=== PATIENT | male | born 1970 | race Caucasian/White ===

== ENCOUNTER 2023-10-20 07:52 | Outpatient (CLI) | payer MEDICARE, SELFPAY ==
--- OUTSIDE RECORDS SUMMARY | 2023-10-20 07:59 | XMS_ITS | Referral Summary ---
Author Name Unknown Organization [facility] Address [address] [place] [id number] Care Team Providers Care Store Sales Manager Name Role Phone Dinesh Muir MD Unavailable [phone] Purvi Lennon MD Unavailable Darshana Huertas Unavailable [phone] Goran Dukes DO Primary Care Provider David Pereira MD Unavailable Jovany Dumont MD Unavailable [phone] Allergies Active Allergy Reactions Criticality Noted Date Comments Dust Mites 09/23/2016 Mold 09/23/2016 Penicillins 07/03/2015 Pollen Extract 09/23/2016 Cetirizine 09/25/2016 Itchy eyes Medications Medication Sig Dispensed Refills Start Date End Date Status albuterol (2.5 MG/3ML) 0.083% neb solutionIndications: Environmental allergies,Seasonal allergic rhinitis, unspecified allergic rhinitis trigger,Chronic allergic conjunctivitis Take 1 vial (2.5 mg) by nebulization every 4 hours as needed for shortness of breath / dyspnea or wheezing 360 mL 1 09/25/2016 Active fluticasone (FLONASE) 50 MCG/ACT sprayIndications:Sea maxi allergic rhinitis,Environment al allergies SPRAY 2 SPRAYS INTO BOTH NOSTRILS DAILY 16 mL 1 12/29/2016 Active albuterol (PROAIR HFA/PROVENTIL HFA/VENTOLIN HFA) 108 (90 BASE) MCG/ACT InhalerIndications:E xacerbation of persistent asthma, unspecified asthma severity Inhale 2 puffs into the lungs every 4 hours as needed for shortness of breath / dyspnea or wheezing 1 Inhaler 06/29/2017 Active cyclobenzaprine (FLEXERIL) 10 MG tablet Take 0.5 tablets (5 mg) by mouth 3 times daily as needed for muscle spasms 12 tablet 12/23/2017 Active diclofenac (VOLTAREN) 1 % topical gel Apply topically 2 times daily as needed Active lidocaine (LIDODERM) 5 % patch Place 1-3 patches onto the skin every 24 hours To prevent lidocaine toxicity, patient should be patch free for 12 hrs daily. Active loratadine-pseudoePH EDrine (CLARITIN-D 12-HOUR) 5-120 MG 12 hr tablet Take 1 tablet by mouth daily as needed Active montelukast (SINGULAIR) 10 MG tablet Take 10 mg by mouth nightly as needed Active ammonium lactate (AMLACTIN) 12 % external cream Apply topically 2 times daily Active gabapentin (NEURONTIN) 300 MG capsule Take 300 mg by mouth daily as needed Active olopatadine (PATADAY) 0.2 % ophthalmic solution Place 1 drop into both eyes daily Active miconazole (MICATIN) 2 % external powderIndications:Ye ast infection of the skin Apply topically every hour as needed for other (topical candidiasis) Continue until rash is gone 85 g 1 09/29/2020 Active clotrimazole (LOTRIMIN) 1 % external creamIndications:Yea st infection of the skin Apply topically 2 times daily Apply to yeast infection (rash in skin folds) until gone 45 g 1 09/29/2020 Active levofloxacin (LEVAQUIN) 500 MG tabletIndications:Ac [place] cystitis without hematuria Take 1 tablet (500 mg) by mouth daily 10 tablet 09/29/2020 Active Active Problems Problem Noted Date Diagnosed Date Yeast infection of the skin 09/29/2020 Acute cystitis without hematuria 09/29/2020 Cellulitis 09/28/2020 Diabetes mellitus 10/31/2017 CARDIOVASCULAR SCREENING; LDL GOAL LESS THAN 130 10/02/2016 Morbid obesity 06/24/2016 Overview: ddd lumbar secondary to Body mass index is 40.62 kg/(m^2). DDD (degenerative disc disease), lumbar 06/24/19 17 Environmental allergies Chronic midline low back pain without sciatica Immunizations Name Administration Dates Next Due TDAP Vaccine (Boostrix) 05/14/2016 Social History Tobacco Use Types Packs/Day Years Used Date Smoking Tobacco: Former Smokeless Tobacco: Never Alcohol Use Standard Drinks/Week Comments No 0 (1 standard drink = 0.6 oz pur e alcohol) PHQ-2 Answer Date Recorded PHQ-2 Score 0 06/21/2018 Adolescent Education Answer Date Record ed Getting School Help Needed Not on file 03/05 Sex and Gender Information Value Date Recorded Sex Assigned at Not on file Gender Identity Not on file Sexual Orientation Not on file Last Filed Vital Signs Vital Sign Reading Time Taken Comments Blood Pressure 119/69 09/29/2020 1:37 PM CDT Pulse 77 09/29/2020 7:37 AM CDT Temperature 36.4 ??C (97.6 ??F) 09/29/2020 1:37 PM CD T Respiratory Rate 18 09/29/2020 7:37 AM CDT Oxygen Saturation 97% 09/29/2020 7:37 AM CDT Inhaled Oxygen Concentration - - Weight 115.7 kg (255 lb 1.6 oz) 09/29/2020 6:04 AM CDT Height 170.2 cm (5' 7) 09/28/2020 10:1 9 AM CDT Body Mass Index 39.95 09/28/2020 10:19 AM CDT Plan of Treatment Not on file Procedures Procedure Name Priority Date/Time Associated Diagnosis Comments LIPID REFLEX TO DIRECT LDL PANEL Routine 09/08/2021 8:28 AM CDT Type 2 diabetes mellitus with hyperglycemia (H) [ICD-10-CM] Encounter for screening for lipoid disorders [ICD-10-CM] COMPREHENSIVE METABOLIC PANEL Routine 09/08/2021 8:28 AM CDT Type 2 diabetes mellitus with hyperglycemia (H) [ICD-10-CM] Encounter for screening for lipoid disorders [ICD-10-CM] HEMOGLOBIN A1C Routine 09/28/2020 10:35 AM CDT from Last 3 Months or Most Recently Relevant to Health Maintenance Results * (ABNORMAL) Lipid panel reflex to direct LDL (09/08/2021 8:28 AM CDT) Cholesterol 160 <=199 mg/dL 09/08/2021 4:19 PM CDT [facility] Triglycerides 99 <=149 mg/dL 09/08/2021 4:19 PM CDT [facility] Direct Measure HDL 22(L) >=40 mg/dL 09/08/2021 4:19 PM CDT [facility] Comment: HDL Cholesterol Reference Range: 0-2 years: No reference ranges established for patients under 2 years old ??at [facility] for lipid analytes. 2-8 years: Greater than 45 mg/dL 18 years and older: Female: Greater than or equal to 50 mg/dL Male: ?? Greater than or equal to 40 mg/dL LDL Cholesterol Calculated 118 <=129 mg/dL 09/08/2021 4:19 PM CDT [facility] Patient Fasting > 8hrs? Unknown 09/08/2021 4:19 PM CDT [facility] Blood BLOOD SPECIMEN / Unknown Client Draw / Unknown 09/08/2021 8:28 AM CDT 09/08/2021 3:38 PM CDT David Jimenez PA-C LAB - BLOOD ORD ERABLES [facility] [address] [place] [address] * (ABNORMAL) Comprehensive metabolic panel (09/08/2021 8:28 AM CDT) Sodium 138 136 - 145 mmol/L 09/08/2021 4:19 PM CDT [facility] Potassium 3.8 3.5 - 5.0 mmol/L 09/08/2021 4:19 PM CDT [facility] Chloride 101 98 - 107 mmol/L 09/08/2021 4:19 PM CDT [facility] Carbon Dioxide (CO2) 26 22 - 31 mmol/L 09/08/2021 4:19 PM CDT [facility] Anion Gap 11 5 - 18 mmol/L 09/08/2021 4:19 PM CDT [facility] Urea Nitrogen 9 8 - 22 mg/dL 09/08/2021 4:19 PM CDT [facility] Creatinine 0.71 0.70 - 1.30 mg/dL 09/08/2021 4:19 PM CDT [facility] Calcium 8.7 8.5 - 10.5 mg/dL 09/08/2021 4:19 PM CDT [facility] Glucose 177(H) 70 - 125 mg/dL 09/08/2021 4:19 PM CDT [facility] Alkaline Phosphatase 71 45 - 120 U/L 09/08/2021 4:19 PM CDT [facility] AST 8 0 - 40 U/L 09/08/2021 4:19 PM CDT [facility] ALT 12 0 - 45 U/L 09/08/2021 4:19 PM CDT [facility] Protein Total 6.4 6.0 - 8.0 g/dL 09/08/2021 4:19 PM CDT [facility] Albumin 3.2(L) 3.5 - 5.0 g/dL 09/08/2021 4:19 PM CDT [facility] Bilirubin Total 0.5 0.0 - 1.0 mg/dL 09/08/2021 4:19 PM CDT [facility] GFR Estimate >90 >60 mL/min/1.7 3m2 09/08/2021 4:19 PM CDT [facility] Comment:Effective May 152020 eGFRcr in adults is calculated using the 2020 CKD-EPI creatinine equation which includes age and gender (Shannon et al., NEJ, DOI: 10.1056/NSOKoi9183735) Blood BLOOD SPECIMEN / Unknown Client Draw / Unknown 09/08/2021 8:28 AM CDT 09/08/2021 3:38 PM CDT David Jimenez PA-C LAB - BLOOD ORD ERABLES [facility] [address] [place] [address] * (ABNORMAL) Hemoglobin A1c (09/28/2020 10:35 AM CDT) Hemoglobin A1C 9.6(H) 0 - 5.6 % 09/28/2020 11:14 AM CDT [facility] Comment: Normal <5.7% Prediabetes 5.7-6.4% ??Diabetes 6.5% or higher - adopted from ADA consensus guidelines. Blood 09/28/2020 10:3 5 AM CDT 09/28/2020 10:36 AM CDT Sal Mora DO LAB - BLOOD ORDERAB [facility] [address] [address], [facility] [phone] from Last 3 Months or Most Recently Relevant to Health Maintenance Advance Directives For more information, please contact: [phone] * Full Code (Latest Code Status on File) Date Activated Date Inactivated Comments 09/28/2020 10:12 AM 09/29/2020 4:35 PM All basic a nd advanced life-sustaining interventions are performed as appropriate Question Answer Comments Code status determined by: Discussion with aishwarya nt/ legal decision maker Care Teams Store Sales Manager Relationship Specialty [place] [address] [place] [address] PCP - General Family Medicine 09/28/20 Dinesh Muir MD [facility] [address] [address] Otolaryngology 08/25/18 Purvi Lennon MD [address] [facility] [address] [place], [place] [address] Otolaryngology 08/25/18 Darshana Huertas AuD [address] [facility] [address] [place], [place] [address] Special Events Manager Audiology 08/25/18 David Pereira MD [address] [place] [address] Urology 09/30/20 Jovany Dumont MD [address] [place] [address] Neurology 03/23/22
--- OUTSIDE RECORDS SUMMARY | 2023-10-20 07:59 | XMS_ITS | Clinical Summary ---
Author Name Unknown Organization [facility] Address [place], [place] [address] Care Team Providers Care Inspector Rag Sorting Name Role Phone Pcp, No Unavailable Unavailable Goran Dukes DO Primary Care Provide r Tayla Kiran RN Unavailable [phone] Allergies Active Allergy Reactions Criticality Noted Date Comments Diphenhydramine Hives 06/15/2023 Diatrizoate Allergen Shortness Of Breath,Nausea Only 06/15/2023 Penicillins Anaphylaxis High 12/15/2015 As a child had an anaphylaxis reaction Medications Medication Sig Dispensed Refills Start Date End Date Status Saccharomyces boulardii (FLORASTOR) 250 mg capsuleIndications :Cellulitis of right lower extremity Take 1 Capsule by mouth once daily. 14 capsule. 01/16/20 21 Active ARIPiprazole (Abilify) 2 mg tabletIndications: Depression, major, single episode, moderate (HC) Take 1 Tablet (2 mg) by mouth once daily. 90 Tablet 01/16/20 21 Active blood sugar diagnostic (Contour Next Test Strips) stripIndications:D iabetic peripheral neuropathy (HC) USE TO TEST BLOOD SUGAR 3 TIMES DAILY 300 Strip 3 01/16/20 21 Active lancets (Microlet Lancet)Indications :Diabetic peripheral neuropathy (HC) Dispense item covered by pt ins. E11.65 NIDDM type II, uncontrolled - Test 1 time/day 100 Each 01/16/20 21 Active traZODone (DESYREL) 50 mg tabletIndications: Insomnia, idiopathic Take 1 Tablet (50 mg) by mouth at bedtime. 30 Tablet 2 03/18/20 23 Active montelukast (SINGULAIR) 10 mg tabletIndications: Environmental allergies,Seasonal allergies Take 1 Tablet (10 mg) by mouth once daily. 90 Tablet 3 04/13/20 Active loratadine (Claritin) 10 mg DISINTEGRATING tabletIndications: Environmental allergies Place 1 Tablet (10 mg) on the tongue once daily if needed for Allergy Symptoms. 30 Tablet 1 04/13/20 23 Active fluticasone (50 mcg per actuation) nasal solution (FLONASE)Indicatio ns:Environmental allergies Inhale 2 Sprays into affected nostril(s) once daily. 48 mL 3 04/13/20 23 Active albuterol (PROVENTIL) 0.083 % neb solutionIndication s:Environmental allergies Inhale 3 mL (2.5 mg) via a nebulizer every 4 hours if needed for Shortness of Breath 1st choice or Shortness Of Breath. 150 mL 1 04/13/20 23 Active WalkerIndications: Chronic midline low back pain without sciatica Walker with front wheels for home use. 1 Each 06/17/19 24 Active lidocaine 5 % topical patchIndications:P ain Apply to intact skin to cover most painful area for max 12hr per 24hr period. 30 Patch 06/21/19 24 Active lidocaine 5 % topical patchIndications:A cute pain of left shoulder Apply to intact skin to cover most painful area for max 12hr per 24hr period. 90 Patch 1 06/29/19 24 Active insulin glargine, U-100, (Lantus Solostar U-100 Insulin) 100 unit/mL (3 mL) penIndications:Poo rly controlled type 2 diabetes mellitus (HC) Inject 50 units subcutaneous before bedtime. 45 mL 1 06/29/19 24 Active olopatadine (PATADAY) 0.2 % ophthalmic solutionIndication s:Environmental allergies Place 1 Drop into both eyes once daily. 7.5 mL 3 06/29/19 24 Active loratadine-pseudoe phedrine (Claritin-D 12 Hour) 5-120 mg 12hr tabletIndications: Environmental allergies Take 1 Tablet by mouth every 12 hours. 60 Tablet 5 06/29/19 24 Active durable medical equipment (DME)Indications:D egeneration of intervertebral disc of lumbar region,Gait abnormality Wheeled walker for home use 1 Each 06/30/19 24 Active BD Amanda 2nd Gen Pen Needle 32 gauge x Indications:D iabetic peripheral neuropathy (HC) INJECT UP TO FOUR TIMES DAILY DIRECTED 100 Each 3 07/12/19 Active clobetasol 0.05% (TEMOVATE 0.05% OINTMENT) 0.05 % ointmentIndication s:Hyperkeratosis Apply topically to affected area(s) two times daily. 60 g 1 08/02/19 24 Active wheelchairIndicati ons:Gait instability Wheelchair: Bariatric (over 250 lbs) with leg rests: (Swing away Length of need: 99 months 1 Each 10/05/19 24 Active Walker - 4 wheelsIndications: Gait instability For home use. Length of need: lifetime 1 Each 10/05/19 24 Active ammonium lactate 12% (LACHYDRIN) 12 % creamIndications:I ntertrigo Apply topically to affected area(s) two times daily. 140 g 6 10/05/19 24 Active insulin aspart, U-100, (NOVOLOG FLEXPEN) 100 unit/mL (3 mL) penIndications:Poo rly controlled type 2 diabetes mellitus (HC) Subcutaneous injection: 30 Units three times daily with meals 15 Each 3 10/05/19 24 Active Lantus Solostar U-100 Insulin 100 unit/mL (3 mL) penIndications:Poo rly controlled type 2 diabetes mellitus (HC) Inject 50 units subcutaneous before bedtime. Product desired: LANTUS SOLOSTAR 45 mL 3 10/05/19 24 Active ketorolac (TORADOL) 10 mg tabletIndications: Acute pain of right knee One tab p.o. bid prn pain 90 Tablet 1 10/05/19 24 Active blood sugar diagnostic (Contour Next Test Strips) stripIndications:T ype 2 diabetes mellitus with hyperglycemia, without long-term current use of insulin (HC) Dispense item covered by pt ins. E11.9 NIDDM type II - Test 4 times/day. Reason: High A1C 150 Each 5 10/13/19 Active Blood-Glucose Meter (Contour Next EZ Meter)Indications: Type 2 diabetes mellitus with hyperglycemia, without long-term current use of insulin (HC) Dispense glucose meter, test strips and lancets covered by the patient insurance. Test 4 times per day. 1 Each 10/13/19 24 Active Insulin [place], Disposable, (BD Amanda 2nd Gen Pen Needle) 32 gauge x 5/32Indications:T ype 2 diabetes mellitus with hyperglycemia, without long-term current use of insulin (HC) As directed. Remove the 2 covers on the insulin pen needle before administering insulin dose. 200 Each 3 10/13/19 24 Active FreeStyle Lacie 3 Sensor for continuous blood glucose monitor (CGM)Indications:T ype 2 diabetes mellitus with hyperglycemia, without long-term current use of insulin (HC) To be used to read blood sugars, follow projection engineer directions. 6 Each 3 10/13/19 24 Active FreeStyle Lacie 3 Hubert for continuous blood glucose monitor (CGM)Indications:T ype 2 diabetes mellitus with hyperglycemia, without long-term current use of insulin (HC) To be used to read blood sugars follow projection engineer directions. 1 Each 10/13/19 24 Active lancets (Microlet Lancet)Indications :Type 2 diabetes mellitus with hyperglycemia, without long-term current use of insulin (HC) Dispense item covered by pt ins. E11.9 NIDDM type II - Test 3 times/day, Reason: High A1C 150 Each 5 10/13/19 24 Active insulin lispro, U-100, (HumaLOG KwikPen Insulin) 100 unit/mL inpn penIndications:Typ e 2 diabetes mellitus with hyperglycemia, without long-term current use of insulin (HC) Inject 30 units subcutaneous three times daily before meals. Product desired: HUMALOG KWIKPEN 90 mL 1 10/13/19 24 Active FreeStyle Lacie 14 Day ReaderIndications: Type 2 diabetes mellitus without complication, without long-term current use of insulin (HC) To be used to read blood sugars per projection engineer's directions. 1 Each 07/01/19 22 024 Discontinued(*M edication adjustment) FreeStyle Lacie 14 Day SensorIndications: Type 2 diabetes mellitus without complication, without long-term current use of insulin (HC) Change sensor every 14 days 6 Each 3 07/01/19 22 024 Discontinued(*M edication adjustment) ammonium lactate 12% (LACHYDRIN) 12 % creamIndications:I ntertrigo APPLY TO THE AFFECTED AREA TWICE DAILY DIRECTED 140 g 6 10/07/19 22 024 Discontinued(Re order (E-cancel not sent)) insulin lispro (HUMALOG; ADMELOG) 100 unit/mL injectionIndicatio ns:Type 2 diabetes mellitus with hyperglycemia, without long-term current use of insulin (HC) Inject 4 units subcutaneous before dinner. 06/17/19 24 024 Discontinued(*M edication adjustment) Lantus Solostar U-100 Insulin 100 unit/mL (3 mL) penIndications:Poo rly controlled type 2 diabetes mellitus (HC) Inject 50 units subcutaneous before bedtime. Product desired: LANTUS SOLOSTAR 45 mL 1 06/29/19 24 024 Discontinued Lantus Solostar U-100 Insulin 100 unit/mL (3 mL) penIndications:Poo rly controlled type 2 diabetes mellitus (HC) INJECT 50 UNITS SUBCUTANEOUS BEFORE BEDTIME. 60 mL 1 10/02/19 24 024 Discontinued(Re order (E-cancel not sent)) Active Problems Problem Noted Date Diagnosed Date Hyperkeratosis 08/02/2023 Venous stasis ulcer of right calf with fat layer exposed 08/02/2023 Diabetic peripheral neuropathy 07/05/2023 Cellulitis of right leg without foot 06/16/2023 Chronic acquired lymphedema 06/16/2023 Hyperkeratosis of skin 06/16/2023 Uncontrolled type 2 diabetes mellitus with hyper glycemia 06/16/2023 Non-pressure chronic ulcer o f other part of right lower leg limited to breakdown of skin 06/16/2023 Depression, major, single episode, moderate 10/0 11/2022 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 Resolved Problems Problem Noted Date Diagnosed Date Resolved Date Cellulitis of right lower extremity 01/12/2020 06/16/2023 COPD exacerbation 10/13/2016 01/22/2022 Tobacco abuse 10/13/2016 06/16/2023 Encounters Date Type Department Care Team Description 10/13/2023 9:00 AM CDT Phone Office Visit [facility] [address] [place] [address] Tayla Kiran RN Diabetes 10/11/2023 Orders Only [facility] Scanner 1 scan: (1-Ord) [facility], 10/11/2023 10/06/2023 Telephone [facility] [address] [place] [phone] Goran Dukes, Results 10/06/2023 Orders Only [address] [phone] Goran Dukes, <No scans attached> 10/05/2023 1:50 PM CDT Office Visit [facility] [phone] [place] [phone] Goran Dukes, Diabetes (Not fasting- The patient is requesting to speak about medication); Fatigue (The patient reports having leg fatigue like he is about to fall. The patient wants to discuss a walker or wheel chair options. ) 10/05/2023 Telephone [facility] [id number] [place] [address] Jocelynn Jay, KEHINDE Refill Request (Clobetasol 0.05%) 10/05/2023 Telephone [facility] [id number] [place] [phone] Goran Dukes DO Refill Request (KETOROLAC 10 MG TABLETS ) 10/05/2023 Travel 10/01/2023 Refill [facility] [id number] [place] [phone] Goran Dukes DO Refill Request (Lantus Solostar U-100 Insulin) 09/27/2023 Telephone [facility] [address] [place] [phone] Goran Dukes DO Medication Management (Walker) 09/01/2023 3:20 PM CDT - 09/01/2023 11:59 PM CDT Hospital Encounter [facility] [address] [phone] 09/01/2023 Travel 08/18/2023 11:59 AM BURGLAR ALARM MECHANIC - 08/18/2023 11:59 PM BURGLAR ALARM MECHANIC Hospital Encounter [facility] [address] [address] Serge Leslie MD Bilateral leg edema 08/18/2023 Travel 08/13/2023 10:15 AM BURGLAR ALARM MECHANIC - 08/13/2023 11:59 PM BURGLAR ALARM MECHANIC Hospital Encounter [facility] [address] [phone] 08/13/2023 Orders Only [facility] [address] [id number] Serge Leslie MD <No scans attached> 08/13/2023 Travel 08/02/2023 10:12 AM BURGLAR ALARM MECHANIC - 08/02/2023 11:59 PM BURGLAR ALARM MECHANIC Hospital Encounter [facility] [address] [phone] 08/02/2023 Orders Only [facility] [address] [address] Jocelynn Jay NP <No scans attached> 08/02/2023 Travel 07/29/2023 Telephone [facility] [address] [place] [phone] Goran Dukes DO Failed Appointment from Last 3 Months Immunizations Name Administration Dates Next Due COVID-19 vaccine (ClearStory Data 30mcg/0.3mL) BONNIE Mix 01/16/2021 Influenza, IIV4 03/16/2023,05/01/2022 Tdap 05/14/2016 Family History Medical History Relation Name Comments No Known Problems Father No Known Problems Mother Relation Name Status Comments Father Mother Other Social History Tobacco Use Types Packs/Day Years Used Date Smoking Tobacco: Former Cigarettes Q uit: 2013 Smokeless Tobacco: Never Tobacco Cessation:Counseling Given: Not Answered Comments:stated he quit 5 weeks ago Alcohol Use Standard Drinks/Week Comments Yes 0 (1 standard drink = 0.6 oz pur e alcohol) monthly if that PHQ-2 Answer Date Recorded PHQ-2 TOTAL SCORE 0 03/18/2023 Social Connections Answer Date Recorded Frequency of Communication with Friends and Fami ly 0 03/18/2023 Financial Resource Strain Answer Date R ecorded Difficulty of Paying Living Expenses 3 03/18/2023 Difficulty of Paying Living Expenses Not on file 03/18/2023 Food Insecurity Answer Date Recorded Worried About Running Out of Food in the Last Ye ar 1 03/18/2023 Transportation Needs Answer Date Record ed Lack of Transportation (Medical) 1 03/18/2023 Housing Stability Answer Date Recorded Unable to Pay for Housing in the Last Year 1 03/18/2023 Sex and Gender Information Value Date Recorded Sex Assigned at Not on file Gender Identity Not on file Sexual Orientation Not on file Obstetrics History Last Filed Vital Signs Vital Sign Reading Time Taken Comments Blood Pressure 124/84 10/05/2023 1:49 PM CDT Pulse 82 10/05/2023 1:49 PM CDT Temperature 36.3 ??C (97.4 ??F) 06/17/2023 7:45 AM CS T Respiratory Rate 20 06/17/2023 7:45 AM BURGLAR ALARM MECHANIC Oxygen Saturation 98% 10/05/2023 1:49 PM CDT Inhaled Oxygen Concentration - - Weight 131.5 kg (290 lb) 10/05/2023 1:49 PM CDT Height 162.6 cm (5' 4) 10/05/2023 1:49 PM CDT Body Mass Index 49.78 10/05/2023 1:49 PM CDT Plan of Treatment Upcoming Encounters Date Type Department Care Team (Late st Contact Info) Description 10/27/2023 11:00 AM CDT Patient Outreach [facility] [address] [place] [address] Tayla Kiran RN [address] [place] [address] Health Maintenance Due Date Last Done Comments Pneumococcal series for age 6-64 (1 of 2 - PCV) 1974 Hepatitis B series for Diabe jeremias (1 of 3 - 19+ 3-dose series) 1987 Colonoscopy through age 75 2013 Zoster (shingles) series for age 50+ (1 of 2) 2018 Influenza for age 50-64 02/13/2024 03/16/2023, 05/01 Depression screening for age 12+ 03/18/2024 03/18/2023, 03/18/2023, 03/16/2023, Additional history exists BMI (ht and wt on same day) for age 18+ 10/04/2024 10/05/2023, 03/18/2023, 01/22/2022, Additional history exists Tetanus booster 05/14/2026 05/14/2016 Lipids for age 45-75 10/04/2028 10/05/2023, 03/18/2023, 01/22/2022, Additional history exists Tdap Completed 05/14/2016 Hepatitis C screening for ag e 18-79 Completed 01/22/2022 COVID-19 vaccine series Completed 03/16/20, 02/20/2022, 02/06/2021, Additional history exists HIV for age 15-65 Completed 10/05/2023 Procedures Procedure Name Priority Date/Time Associated Diagnosis Comments RI DIAB MANAGE TRN PER INDIV Routine 10/13/2023 Type 2 diabetes mellitus with hyperglycemia, without long-term current use of insulin (HC) SCAN-EYE EXAM 10/11/2023 12:00 AM CDT ANTI HIV 1/2 Routine 10/05/2023 2:39 PM CDT Screening for HIV (human immunodeficiency virus) LIPID PANEL W REFLEX MEASURED LDL Routine 10/05/2023 2:39 PM CDT Diabetic peripheral neuropathy (HC) HEMOGLOBIN A1C Routine 10/05/2023 2:39 PM CDT Diabetic peripheral neuropathy (HC) COMP METABOLIC PANEL Routine 10/05/2023 2:39 PM CDT Diabetic peripheral neuropathy (HC) CBC W PLT NO DIFF Routine 10/05/2023 2:3 9 PM CDT Diabetic peripheral neuropathy (HC) US VENOUS INSUFFICIENCY LOWER EXTREMITY BILATERAL Routine 08/18/2023 11:50 AM BURGLAR ALARM MECHANIC Bilateral leg edema ANTI HCV Routine 01/22/2022 12:50 PM CDT Need for hepatitis C screening test from Last 3 Months or Most Recently Relevant to Health Maintenance Results * RI DIAB MANAGE TRN PER INDIV (10/13/2023) Pathologist [facility] DIABETIC ED Goran Dukes DO PB - [facility] * SCAN-EYE EXAM (10/11/2023 12:00 AM CDT) Scanner OTHER * (ABNORMAL) LIPID PANEL W REFLEX MEASURED LDL (10/05/2023 2:39 PM CDT) CHOLESTEROL,TOTAL 187 100 - 199 mg/dL 10/06/2023 1:31 AM CDT [facility] Comment: Cholesterol, Total Reference Ranges Desirable <200 mg/dL Borderline 200-239 mg/dL High >=240 mg/dL TRIGLYCERIDES 147 <150 mg/dL 10/06/2023 1:31 AM CDT [facility] HDL CHOLESTEROL 27(L) >40 mg/dL 1:31 AM CDT [facility] NON-HDL CHOLESTEROL 160(H) <145 mg/dl 10/06/2023 1:31 AM CDT [facility] CHOL/HDL RATIO 6.93(H) <4.50 10/06/2023 1:31 AM CDT [facility] LDL CHOLESTEROL 131(H) <=130 mg/dL 10/06/2023 1:31 AM CDT [facility] VLDL CHOLESTEROL 29 <=30 mg/dL 10/06/2023 1:31 AM CDT [facility] PROVIDER ORDERED STATUS RANDOM 10/06/2023 1:31 AM CDT [facility] Blood BLOOD SPECIMEN / Unknown Venipuncture / Unknown 10/05/2023 2:39 PM CDT 10/05/2023 2:39 PM CDT Goran Dukes DO CHEMISTRY [facility] [address] [place] [address], * (ABNORMAL) CBC W PLT NO DIFF (10/05/2023 2:39 PM CDT) WHITE BLOOD COUNT 8.8 4.5 - 11.0 thou/cu mm 10/05/2023 2:43 PM CDT [facility] RED BLOOD COUNT 4.49 4.30 - 5.90 mil/cu mm 10/05/2023 2:43 PM CDT [facility] HEMOGLOBIN 12.6(L) 13.5 - 17.5 g/dL 10/05/2023 2:43 PM CDT [facility] HEMATOCRIT 38.3 37.0 - 53.0 % 10/05/2023 2:43 PM CDT [facility] MCV 85 80 - 100 fL 10/05/2023 2:43 PM CDT [facility] MCH 28.1 26.0 - 34.0 pg 10/05/2023 2:43 PM CDT [facility] MCHC 32.9 32.0 - 36.0 g/dL 10/05/2023 2:43 PM CDT [facility] RDW 13.2 11.5 - 15.5 % 10/05/2023 2:43 PM CDT [facility] PLATELET COUNT 344 140 - 440 thou/cu mm 10/05/2023 2:43 PM CDT [facility] MPV 9.6 6.5 - 11.0 fL 10/05/2023 2:43 PM CDT [facility] NRBC 0.0 % 10/05/2023 2:43 PM CDT [facility] ABS NRBC 0.0 thou /cu mm 10/05/2023 2:43 PM CDT [facility] Blood BLOOD SPECIMEN / Unknown Venipuncture / Unknown 10/05/2023 2:39 PM CDT 10/05/2023 2:39 PM CDT Goran Dukes DO HEMATOLOGY Performing Organization Address [facility] Co de Phone Number [facility] [address] [place] [address], [place] * ANTI HIV 1/2 [37078.0] (10/05/2023 2:39 PM CDT) Pathologist [facility] HIV-1/HIV-2 SCREEN Non-Reacti ve Non-Reacti ve 10/06/2023 1:17 AM CDT [facility] Comment:HIV-1 p24 and HIV-1/ HIV-2 Ab Not Detected. Blood BLOOD SPECIMEN / Unknown Venipuncture / Unknown 10/05/2023 2:39 PM CDT 10/05/2023 2:39 PM CDT Goran Dukes DO SEND OUTS Performing Organization Address [facility] Co de Phone Number [facility] [address] [place] [address], [place] * (ABNORMAL) HEMOGLOBIN A1C MONITORING (POCT) (10/05/2023 2:39 PM CDT) Pathologist [facility] HEMOGLOBIN A1C MONITORING (POCT) 10.0(H) <=6.4 % 10/05/2023 2:54 PM CDT [facility] Blood BLOOD SPECIMEN / Unknown Venipuncture / Unknown 10/05/2023 2:39 PM CDT 10/05/2023 2:39 PM CDT Narrative [facility] - 10/05/2023 2:54 PM CDT ? (<=6.9%) ? Indicates good control ? (7.0% to 7.9%) ? Indicates fair control ? (>=8.0%) ? Indicates poor control ?? NOTE: ??These thresholds are guidelines and ?individual targets may vary. Falsely low levels may be seen with: Recent Transfusion, Recent Significant Blood Loss, Hemolytic Diseases, or Falsely elevated levels may be seen with: Untreated Anemias, Splenectomy ? Goran Dukes DO CHEMISTRY [facility] [address] [place] [address], * (ABNORMAL) COMP METABOLIC PANEL (10/05/2023 2:39 PM CDT) SODIUM 136 136 - 145 mmol/L 10/06/2023 1:31 AM [facility] POTASSIUM 5.4(H) 3.5 - 5.1 mmol/L 10/06/2023 1:31 AM [facility] CHLORIDE 99 98 - 107 mmol/L 10/06/2023 1:31 AM [facility] CO2,TOTAL 26 22 - 29 mmol/L 10/06/2023 1:31 AM [facility] ANION GAP 11 5 - 18 10/06/2023 1:31 AM [facility] GLUCOSE 298(H) 70 - 99 mg/dL 10/06/2023 1:31 AM [facility] CALCIUM 9.5 8.6 - 10.0 mg/dL 10/06/2023 1:31 AM [facility] BUN 15 6 - 20 mg/dL 10/06/2023 1:31 AM [facility] CREATININE 0.83 0.70 - 1.20 mg/dL 10/06/2023 1:31 AM [facility] BUN/CREAT RATIO 18 10 - 20 1:31 AM CDT [facility] eGFR >90 >90 mL/min/1.7 3m2 10/06/2023 1:31 AM CDT [facility] Comment:As of 2021, eG FR is calculated by the CKD-EPI creatinine equation without race adjustment. ??eGFR can be influenced by muscle mass, exercise, and diet. ??The reported eGFR is an estimation only and is only applicable if the renal function is stable. ALBUMIN 4.0 4.0 - 4.9 g/dL 10/06/2023 1:31 AM CDT [facility] PROTEIN,TOTAL 7.3 6.0 - 8.0 g/dL 10/06/2023 1:31 AM CDT [facility] BILIRUBIN,TOTAL 0.2 0.0 - 1.2 mg/dL 10/06/2023 1:31 AM CDT [facility] ALK PHOSPHATASE 83 40 - 129 IU/L 10/06/2023 1:31 AM CDT [facility] ALT (SGPT) 12 10 - 50 IU/L 10/06/2023 1:31 AM CDT [facility] AST (SGOT) 13 10 - 50 IU/L 10/06/2023 1:31 AM CDT [facility] Blood BLOOD SPECIMEN / Unknown Venipuncture / Unknown 10/05/2023 2:39 PM CDT 10/05/2023 2:39 PM CDT Goran Dukes DO [facility]MISTRY [facility] [address] [place] [address], * VENOUS INSUFFICIENCY LOWER EXTREMITY BILATERAL (08/18/2023 11:50 AM BURGLAR ALARM MECHANIC) Anatomical Region Laterality Modality LEGS Ultrasound, Ultr asound 08/22/2023 4:43 PM CDT Narrative 08/22/2023 4:43 PM CDT For Patients: ??As a result of the Century Cures Act, medical imaging exams and procedure reports are released immediately into your electronic medical record. ??You may view this report before your referring provider. ??If you have questions, please contact your health care provider. Indication: Bilateral lower extremity edema Technique: Ultrasound of the bilateral lower extremity deep and superficial veins. Ultrasound performed using real-time morel scale imaging (B-mode 2D), color-flow Doppler and spectral analysis. Assessment of venous flow and competence was performed by Doppler spectral analysis and documented at exam specific sites. Venous insufficiency studies were performed in an upright position. Vein diameters were measured in millimeters (mm) and reflux times if present were measured in seconds by caliper method. Significant reflux defined as greater than 0.5 seconds for the superficial veins, greater than 0.75 seconds for perforators, and greater than 1.0 second for deep veins. Comparison: None available Findings: Bilateral common femoral, femoral, popliteal, and posterior tibial veins are patent and compressible. No deep venous insufficiency. Greater saphenous and small saphenous veins are patent bilaterally. Right greater saphenous vein: Saphenofemoral junction: 7.0 mm, no reflux Proximal thigh: 6.6 mm, no reflux Mid thigh: 5.9 mm, no reflux Distal thigh: 5.9 mm, no reflux Level of knee: 5.6 mm, no reflux Proximal calf: 3.0 mm, no reflux Mid calf: 2.3 mm, 0.5 seconds reflux Distal calf: 3.3 mm, no reflux Right small saphenous vein: Proximal calf: 2.7 mm, no reflux Mid calf: 3.3 mm, no reflux Distal calf: 2.7 mm, no reflux Left greater saphenous vein: Saphenofemoral junction: 6.4 mm, no reflux Proximal thigh: 6.5 mm, no reflux Mid thigh: 6.2 mm, no reflux Distal thigh: 4.7 mm, no reflux Level of knee: 4.9 mm, 0.6 seconds reflux Proximal calf: 3.3 mm, no reflux Mid calf: 3.3 mm, 0.9 seconds reflux Distal calf: 2.7 mm, no reflux Left small saphenous vein: Proximal calf: 3.0 mm, no reflux Mid calf: 2.4 mm, no reflux Distal calf: 2.5 mm, no reflux Impression: 1. Right leg - No deep or superficial venous thrombus. - No deep venous reflux. - single site of reflux noted in the mid calf portion of the greater saphenous vein. No other site of superficial venous reflux. 2. Left leg - No deep or superficial venous thrombus. - No deep venous reflux. - reflux noted in the greater saphenous vein at the level of the knee and in the mid calf. No other site of superficial venous reflux. Dictated by Rene Gooden MD @ 08/22/2023 4:43:44 PM (Electronically Signed) Procedure Note Rene Gooden MD - 08/22/2023 For Patients: As a result of the Cures Act, medical imagingexams and procedure reports are released immediately into your electronicmedical record. You may view this report before your referring provider.If you have questions, please contact your health care provider. Indication: Bilateral lower extremity edema Technique: Ultrasound of the bilateral lower extremity deep and superficial veins.Ultrasound performed using real-time morel scale imaging (B-mode 2D),color-flow Doppler and spectral analysis. Assessment of venous flow andcompetence was performed by Doppler spectral analysis and documented atexam specific sites. Venous insufficiency studies were performed in anupright position. Vein diameters were measured in millimeters (mm) andreflux times if present were measured in seconds by caliper method.Significant reflux defined as greater than 0.5 seconds for the superficialveins, greater than 0.75 seconds for perforators, and greater than 1.0second for deep veins. Comparison: None available Findings: Bilateral common femoral, femoral, popliteal, and posterior tibial veinsare patent and compressible. No deep venous insufficiency. Greater saphenous and small saphenous veins are patent bilaterally. Right greater saphenous vein: Saphenofemoral junction: 7.0 mm, no reflux Proximal thigh: 6.6 mm, no reflux Mid thigh: 5.9 mm, no reflux Distal thigh: 5.9 mm, no reflux Level of knee: 5.6 mm, no reflux Proximal calf: 3.0 mm, no reflux Mid calf: 2.3 mm, 0.5 seconds reflux Distal calf: 3.3 mm, no reflux Right small saphenous vein: Proximal calf: 2.7 mm, no reflux Mid calf: 3.3 mm, no reflux Distal calf: 2.7 mm, no reflux Left greater saphenous vein: Saphenofemoral junction: 6.4 mm, no reflux Proximal thigh: 6.5 mm, no reflux Mid thigh: 6.2 mm, no reflux Distal thigh: 4.7 mm, no reflux Level of knee: 4.9 mm, 0.6 seconds reflux Proximal calf: 3.3 mm, no reflux Mid calf: 3.3 mm, 0.9 seconds reflux Distal calf: 2.7 mm, no reflux Left small saphenous vein: Proximal calf: 3.0 mm, no reflux Mid calf: 2.4 mm, no reflux Distal calf: 2.5 mm, no reflux Impression: 1. Right leg - No deep or superficial venous thrombus. - No deep venous reflux. - single site of reflux noted in the mid calf portion of the greatersaphenous vein. No other site of superficial venous reflux. 2. Left leg - No deep or superficial venous thrombus. - No deep venous reflux. - reflux noted in the greater saphenous vein at the level of the knee andin the mid calf. No other site of superficial venous reflux. Dictated by Rene Gooden MD @ 08/22/2023 4:43:44 PM (Electronically Signed) Serge Leslie MD [place] * ANTI HCV (01/22/2022 12:50 PM CDT) HEPATITIS C ANTIBODY Non-React cherelle Non-React cherelle 01/22/2022 9:10 PM CDT [facility] Comment:Antibodies to HCV no t detected; does not exclude the possibility of exposure to HCV. Blood BLOOD SPECIMEN / Unknown Venipuncture / Unknown 01/22/2022 12:50 PM CDT 01/22/2022 12:51 PM CDT Goran Dukes DO SEND OUTS [facility] [address] [place] [address], [place] from Last 3 Months or Most Recently Relevant to Health Maintenance Advance Directives * Full Code (Latest Code Status on File) Date Activated Date Inactivated Comments 06/15/2023 11:00 PM 06/17/2023 2:40 PM Question Answer Comments Code Status Discussion: Reviewed Preferences * Full Code Date Activated Date Inactivated Comments 01/11/2020 5:28 PM 01/12/2020 7:09 PM Question Answer Comments Code Status Discussion: Discussed Care Teams Inspector Rag Sorting Relationship Specialty [place] [address] [place] [address] PCP - General Family Practice 10/16/20 Pcp, No . 08/04/14 Tayla Kiran, RN [address] [place] [address] Diabetes Care Management Registered Nurse 10/13/2308/13
--- OUTSIDE RECORDS SUMMARY | 2023-10-20 07:59 | XMS_ITS | Clinical Summary ---
Author Name Unknown [facility] Address [address] [place] [address] Care Team Providers Care Press Catcher Name Role Phone Needs Pcp, Assignment Primary Care Provider [phone] Source Comments You are receiving this document as you are listed as the primary care provider,follow-up provider, or the patient has been referred to you for consultation.This is in compliance with the Medicare and[facility] EHR Incentive Program,which states Providers who transition their patient to another setting of careor provider of care or refers their patient to another provider of care shouldprovide summary care record for each transition of care or referral. [place] Allergies Active Allergy Reactions Criticality Noted Date Comments Penicillins Anaphylaxis High 02/09/2016 Medications Medication Sig Dispensed Refills Start Date End Date Status lidocaine (LIDODERM) 5 % patchIndications:Ch ronic right shoulder pain Apply 1 Patch to skin . Leave patch on for 12 hours then remove. Max 1 patch within 24 hours period. 6 Each 2 02/09/2016 Active Lidocaine, Anorectal, 5 % creamIndications:Ch ronic right shoulder pain As directed. 30 g 2 02/09/2016 Active fluticasone (FLONASE) 50 MCG/ACT nasal solution Place 2 Sprays into both nostrils daily. 16 g 3 02/23/2016 Active loratadine-pseudoep hedrine (CLARITIN-D 24HOUR) 10-240 MG tablet Take 1 Tab by mouth daily. ana 30 Tab 3 02/23/2016 Active ALBUterol 2.5 mg/3 mL, 0.083%, nebulizer solution INHALE 2.5 MG BY NEBULAZATION EVERY 4 HOURS NEEDED 0 05/11/2016 Active levalbuterol (XOPENEX) 1.25 MG/3ML nebulizer solution Inhale 1.25 mg. 01/05/2016 Active buPROPion (WELLBUTRIN SR) 150 MG 12 hour release tablet Take 1 Tab by mouth two times a day. 60 Tab 11/16/2016 Active Active Problems No known active problems Immunizations Name Administration Dates Next Due Tdap 05/14/2016 Social History Tobacco Use Types Packs/Day Years Used Date Smoking Tobacco: Former Cigarettes Smokeless Tobacco: Never Alcohol Use Standard Drinks/Week Comments No 0 (1 standard drink = 0.6 oz pur e alcohol) Sex and Gender Information Value Date Recorded Sex Assigned at Not on file Gender Identity Not on file Sexual Orientation Not on file Last Filed Vital Signs Vital Sign Reading Time Taken Comments Blood Pressure 119/57 11/16/2016 2:37 PM CDT Pulse 78 11/16/2016 2:37 PM CDT Temperature 36.9 ??C (98.4 ??F) 11/16/2016 2:37 PM CD T Respiratory Rate 16 11/16/2016 2:37 PM CDT Oxygen Saturation 97% 11/16/2016 2:37 PM CDT Inhaled Oxygen Concentration - - Weight 116.6 kg (257 lb) 03/23/2019 1:56 PM CDT Height 163.8 cm (5' 4.5) 03/23/2019 1:56 PM CDT Body Mass Index 43.43 03/23/2019 1:56 PM CDT Plan of Treatment Health Maintenance Due Date Last Done Comments Colon Cancer Screening Plan Due 1968 Hep C Screening (Preventive Services) 1968 PSA Screening Discussion 1968 HIV Screening (Preventive Services) 1984 Adult Preventive Visit 1986 HepB (1) 1987 Cholesterol 2003 Zoster/Shingles (1 of 2) 2018 COVID-19 Vaccine (2 - 2022-2 4 season) 2023 01/16/2021 Influenza (Season Ended) 2024 DTaP/Tdap/Td (2 - Tdap) 05/14/2026 05/14/2016 HepA Aged Out No longer eligi ble based on patient's age to complete this topic Hib Aged Out No longer eligi ble based on patient's age to complete this topic IPV (Polio) Aged Out No longer eligi ble based on patient's age to complete this topic MCV4 Aged Out No longer eligi ble based on patient's age to complete this topic Pneumococcal Aged Out No longer eligi ble based on patient's age to complete this topic Care Teams Press Catcher Relationship Specialty Start Date End Date Needs Pcp, [place] [address] PCP - General 07/02/16
--- OUTSIDE RECORDS SUMMARY | 2023-10-20 07:59 | XMS_ITS | Clinical Summary ---
Author Name Unknown Organization [facility] Address [address] [place] [address] Care Team Providers Care Benefits Sales Consultant Name Role Phone Dinesh Muir MD Unavailable Purvi Lennon MD Unavailable [phone] Darshana Huertas Unavailable [phone] Goran Dukes DO Primary Care Provider David Pereira MD Unavailable Jovany Dumont MD Unavailable [phone] Allergies Active Allergy Reactions Criticality Noted [...] 09/29/2020 Active levofloxacin (LEVAQUIN) 500 MG tabletIndications:Ac [place] cystitis without hematuria Take 1 tablet (500 [...] Dates Next Due TDAP Vaccine (Boostrix) 05/14/2016 Family History Medical History Relation Comments Family History Negative Father Family History Negative Mother Relation Status Comments Father Mother Social History Tobacco Use Types Packs/Day Years [...] 09/28/2020 10:19 AM CDT Plan of Treatment Health Maintenance Due Date Last Done Comments ADVANCE CARE PLANNING 1968 ANNUAL REVIEW OF HM ORDERS 1968 CT COLONOGRAPHY 1968 DIABETIC FOOT EXAM 1968 EYE EXAM 1968 FIT 1968 FLEX SIG 1968 MICROALBUMIN 1968 sDNA (Cologuard) 1968 Pneumococcal Vaccine: Pediatrics (0 to 5 Years) and At-Risk Patients (6 to 64 Years) (1 of 2 - PCV) 1974 COLONOSCOPY 1978 COLORECTAL CANCER SCREENING 1978 HIV SCREENING 1983 HEPATITIS C SCREENING 1986 MEDICARE ANNUAL WELLNESS VISIT 1986 HEPATITIS B IMMUNIZATION (1 of 3 - 19+ 3-dose series) 1987 LUNG CANCER SCREENING 2018 ZOSTER IMMUNIZATION (1 of 2) 2018 A1C 03/30/2021 09/28/2020 BMP 09/08/2022 09/08/2021, 09/12, 09/28/2020, Additional history exists LIPID 09/08/2022 09/08/2021 COVID-19 Vaccine ( season) 2023 02/20/2022, 02/06/2021, 01/16/2021 PHQ-2 (once per calendar year) 2023 09/25/2016, 05/29/2016 INFLUENZA VACCINE (Season Ended) 2024 DTAP/TDAP/TD IMMUNIZATION (2 - Td or Tdap) 05/14/2026 05/14/2016 HPV IMMUNIZATION Aged Out No longer e ligible based on patient's age to complete this topic IPV IMMUNIZATION Aged Out No longer e ligible based on patient's age to complete this topic MENINGITIS IMMUNIZATION Aged Out No l onger eligible based on patient's age to complete this topic RSV MONOCLONAL ANTIBODY Aged Out No l onger eligible based on patient's age to complete this topic Procedures Procedure Name Priority Date/Time Associated Diagnosis [...] for patients under 2 years old ??at [facility] for lipid analytes. 2-8 years: Greater [...] LAB - BLOOD ORD ERABLES [facility] [address] [place] [address] * (ABNORMAL) Comprehensive metabolic panel (09/08/2021 8:28 AM CDT) Sodium 138 136 - 145 mmol/L 09/08/2021 4:19 PM CDT [facility] Potassium 3.8 3.5 - 5.0 mmol/L 09/08/2021 4:19 PM CDT [facility] Chloride 101 98 - 107 mmol/L 09/08/2021 4:19 PM CDT [facility] Carbon Dioxide (CO2) 26 22 - 31 mmol/L 09/08/2021 4:19 PM CDT [facility] Anion Gap 11 5 - 18 mmol/L 09/08/2021 4:19 PM CDT [facility] Urea Nitrogen 9 8 - 22 mg/dL 09/08/2021 4:19 PM CDT [facility] Creatinine 0.71 0.70 - 1.30 mg/dL 09/08/2021 4:19 PM CDT [facility] Calcium 8.7 8.5 - 10.5 mg/dL 09/08/2021 4:19 PM CDT [facility] Glucose 177(H) 70 - 125 mg/dL [...] includes age and gender (Shannon et al., NEJM, DOI: 10.1056/[id number]) Blood BLOOD SPECIMEN / Unknown Client Draw / Unknown 09/08/2021 8:28 AM CDT 09/08/2021 3:38 PM CDT David Jimenez PA-C LAB - BLOOD ORD ERABLES [facility] [address] [place] [address] * (ABNORMAL) Hemoglobin A1c (09/28/2020 10:35 AM CDT) Hemoglobin A1C 9.6(H) 0 - 5.6 % 09/28/2020 11:14 AM CDT [facility] Comment: Normal <5.7% Prediabetes 5.7-6.4% ??Diabetes 6.5% or higher - adopted from ADA consensus guidelines. Blood 09/28/2020 10:3 5 AM CDT 09/28/2020 10:36 AM CDT Sal Mora DO LAB - BLOOD ORDERAB LES [facility] [address] [address], [place] [phone] from Last 3 Months or Most Recently Relevant to Health Maintenance Advance Directives For more information, please contact: [phone] * Full Code (Latest Code Status on File) Date Activated Date Inactivated Comments 09/28/2020 10:12 AM 09/29/2020 4:35 PM All basic a nd advanced life-sustaining interventions are performed as appropriate Question Answer Comments Code status determined by: Discussion with aishwarya nt/ legal decision maker Care Teams Benefits Sales Consultant Relationship Specialty [place] [address] [place] [address] PCP - General Family Medicine 09/28/20 Dinesh Muir MD [facility] [address] [id number] Otolaryngology 08/25/18 Purvi Lennon MD [address] [facility] [address] [place] [address] Otolaryngology 08/25/18 Darshana Huertas AuD [address] [facility] [address] [place] [address] Press Pipe Inspector Audiology 08/25/18 David Pereira MD [address] [place] [address] Urology 09/30/20 Jovany Dumont MD [address] [place] [address] Neurology 03/23/22
--- OUTSIDE RECORDS SUMMARY | 2023-10-20 07:59 | XMS_ITS | Encounter Summary ---
Author Name Unknown Organization [facility] Address [address] [facility] [place] [address] Care Team Providers Care Fur Storage Clerk Name Role Phone King Garcia MD Primary Care Provider Unavailable No Ref-Primary, Physician Primary Care Provider [facility][Note 3] Primary Care Provide r Go Lr MD Unavailable Go Lr MD Unavailable Be Willard MD Primary Care Provider [phone] Alida Muir MD Unavailable [phone] Purvi Lennon MD Unavailable [phone] Darshana Huertas Unavailable [phone] Goran Dukes DO Primary Care Provider David Pereira MD Unavailable [phone] Jovany Dumont MD Unavailable [phone] Reason for Visit * Reason Comments Medication Refill Encounter Details Date Type Department Care Team (Late st Contact Info) Description 12/25/2016 Refill [facility] [place] [address] [address] Seda Rizzo PA-C [address] [id number] Medication Refill Social History Tobacco Use Types Packs/Day Years Used Date Smoking Tobacco: Former Smokeless Tobacco: Never Alcohol Use Standard Drinks/Week Comments No 0 (1 standard drink = 0.6 oz pur e alcohol) Sex and Gender Information Value Date Recorded Sex Assigned at Not on file Gender Identity Not on file Sexual Orientation Not on file documented as of this encounter Plan of Treatment Not on file documented as of this encounter Visit Diagnoses Diagnosis Seasonal allergic rhinitis due to other allergic trigger documented in this encounter Additional Health Concerns Assessment Noted Time PHQ-9 Depression Total Score: 0 09/28/19 17 7:15 AM CDT documented as of this encounter Care Teams Fur Storage Clerk Relationship Specialty Start Date End Date King Garcia MD PCP - General Family Practice 09/25/16 10/30/17 No Ref-Primary, Physician PCP - General 10/31/17 12/19/17 [facility][Note 3] [address] [place], [place] [id number] PCP - General 12/20/17 08/24/18 Go Lr MD [address] [place] [address] PCP - Assigned PCP 11/08/17 08/16/18 Be Willard MD [place] [id number] [place] [address] PCP - General Family Practice 08/25/18 09/27/20 Goran D[place] DO [address] [place] [id number] PCP - General Family Medicine 09/28/20 Go Lr MD [address] [place] [address] Assigned PCP 11/08/17 09/30/19 Alida Muir MD [facility] [address] [address] Otolaryngology 08/25/18 Purvi Lennon MD [address] [facility] [address] [place] [address] Otolaryngology 08/25/18 Darshana Huertas AuD [address] [facility] [address] [place], [place] [address] Director Religious Education Audiology 08/25/18 David Pereira MD [address] [address] Urology 09/30/20 Jovany Dumont MD [address] [place] [address] Neurology 03/23/22 documented as of this encounter
--- OUTSIDE RECORDS SUMMARY | 2023-10-20 07:59 | XMS_ITS | Clinical Summary ---
Author Name Unknown Organization [facility] [employer] Address [address] [address] Phone Care Team Providers Care Buffing Wheel Raker Name Role Phone Choice, No Pcp-Patient Primary Care Provider Kelly vailable Allergies Active Allergy Reactions Criticality Noted Date Comments Penicillin G Anaphylaxis High 09/27/2020 Severity: Severe; Type: Drug Allergy; Social History Tobacco Use Types Packs/Day Years Used Date Smoking Tobacco: Never Assessed IP Custom IPV Answer Date Recorded Do you feel UNSAFE in any of your personal relationships with your family members or any other acquaintances? No 2022 Sex and Gender Information Value Date Recorded Sex Assigned at Not on file Gender Identity Not on file Sexual Orientation Not on file Last Filed Vital Signs Vital Sign Reading Time Taken Comments Blood Pressure 136/71 05/22/2023 3:28 PM PARIMUTUEL TICKET SELLER Pulse 115 05/22/2023 3:28 PM PARIMUTUEL TICKET SELLER Temperature 37.5 ??C (99.5 ??F) 05/22/2023 4:56 PM CS T Respiratory Rate 22 05/22/2023 3:28 PM PARIMUTUEL TICKET SELLER Oxygen Saturation 93% 05/22/2023 3:28 PM PARIMUTUEL TICKET SELLER Inhaled Oxygen Concentration - - Weight 128.3 kg (282 lb 13.6 oz) 12/04/2022 4:37 AM CDT Height - - Body Mass Index - - Plan of Treatment Health Maintenance Due Date Last Done Comments CT Colonography 1968 Cologuard 1968 Colonoscopy 1968 Colorectal Cancer Screening 1968 FIT/FOBT 1968 Sigmoidoscopy 1968 Hepatitis B Vaccine (Standin g Order) (1 of 3 - 19+ 3-dose series) 1987 PERTUSSIS (Standing Order) 1987 TETANUS (Standing Order) 1987 Shingrix (Zoster recombinant ) vaccine (Standing Order) (1 of 2) 2018 COVID-19 Vaccine ( - 2022-2 4 season) 2023 Influenza Vaccine Seasonal (Standing Order) (#1) 2023 HPV Vaccine (Standing Order) Aged Out No longer eligible based on patient's age to complete this topic Pneumococcal/PCV20 Vaccine: Pediatrics (2-5 yrs) and At-Risk Patients (6-64 yrs) (Standing Order) Aged Out No longer eligible b ased on patient's age to complete this topic Care Teams Buffing Wheel Raker Relationship Specialty Start Date End Date Choice, No Pcp-Patient PCP - General 05/22/23
--- OUTSIDE RECORDS SUMMARY | 2023-10-20 07:59 | XMS_ITS | Data Portability ---
Author Name Unknown Address [address] [place] [address] Phone [phone] Organization [facility] Address [address] [place] [address] Care Team Providers Care Deputy Sheriff/Investigator Name Role Phone JI BOLANOS Primary Care Provider Assessment No assessment recorded. Plan of Treatment Reminders Order Date Submit Date Provider Last Modified By Organization Details Last Modified Time Details Appointments None recorded. Lab urinalysis , dipstick 2020 [facility], [address], [address], [place], [address], 10:54:26 culture, urine 2020 [facility], [address], [address], [place], [address], 09:57:17 Referral urologist referral - buried penis, BXO 2020 randal Bolden MD, [address], [address], [place], [address], 14:49:08 Procedures None recorded. Surgeries None recorded. Imaging None recorded. Medication Orders Flomax 0.4 mg capsule 2020 [id number], [address], [place], [address], 10:37:46 Patient TargetsNo targets recorded. Patient Instructions Encounter Date Encounter Id Patient Instructions Last Modified By Organization Details Last Modified Time 10/04/2020 [id number] Incomplete bladd er emptying/weak stream/UTI: He doesn't empty his bladder well, has a weak stream, and had a recent UTI. I suspect that his prostate may be causing some obstruction. I do not know the size of the prostate or whether it feels normal (patient declined prostate exam). I do recommend starting Flomax to try to help him empty his bladder better. I'd like to see him back in 3 weeks for cystoscopy. I will also send an urine culture from today. I'll request records from his ER visit in [place], [place] and would like to see the CT scan report. 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 The opening is small and I cannot expose the head of the penis. This too may be contributing to his infection. I recommend that he see urology at the [facility] for consideration of treatment of the buried penis. Not available 10/04/2020 10:37:22 Reason for Referral Urologist Referral for Acqui red buried penis buried penis, BXO Referring Physician: Chris Castro, Urology, Encounter Date: 10/04/2020 Results Created Date Observation Date Name Description Value Unit Range Abnormal Flag LastModifiedBy Organization Detail LastModifiedTime 10/05/19 21 10/04/2020 urina lysis , dipst ick color -advantus yellow yellow Not Available [facility] [address] [facility] [address], [place], [address], 10/04/2020 10:54:26 10/05/19 21 10/04/2020 urina lysis , dipst ick appearance -advantus cloudy clear abnormal Not Available [facility] [address] [facility] [address], [place], [address], 10/04/2020 10:54:26 10/05/19 21 10/04/2020 urina lysis , dipst ick glucose -advantus negati ve mg/dL negati ve Not Available [facility] [address] [facility] [address], [place], [address], 10/04/2020 10:54:26 10/05/19 21 10/04/2020 urina lysis , dipst ick bilirubin -advantus negati ve negati ve Not Available [facility] [address] [facility] [address], [place], [address], 10/04/2020 10:54:26 10/05/19 21 10/04/2020 urina lysis , dipst ick ketones -advantus negati ve mg/dL negati ve Not Available [facility] [address] [facility] [address], [place], [address], 10/04/2020 10:54:26 10/05/19 21 10/04/2020 urina lysis , dipst ick sp. gravity -advantus 1.025 1.010- 1.025 Not Available [facility] [address] [place] [address] [address], [place], [address], 10/04/2020 10:54:26 10/05/19 21 10/04/2020 urina lysis , dipst ick pH -advantus 6.0 5.0-8. 0 Not Available [facility] [address] [facility] [address], [place], [address], 10/04/2020 10:54:26 10/05/19 21 10/04/2020 urina lysis , dipst ick protein -advantus trace mg/dL negati ve abnormal Not Available [facility] [address] [facility] [address], [place], [address], 10/04/2020 10:54:26 10/05/19 21 10/04/2020 urina lysis , dipst ick urobilinogen -advantus 1.0 normal Not Available [facility] [address] [facility] [address], [place], [address], 10/04/2020 10:54:26 10/05/19 21 10/04/2020 urina lysis , dipst ick nitrites -advantus negati ve negati ve Not Available [facility] [address] [place] [address] [address], [place], [address], 10/04/2020 10:54:26 10/05/19 21 10/04/2020 urina lysis , dipst ick blood -advantus small negati ve abnormal Not Available [facility] [address] [place] [address] [address], [place], [address], 10/04/2020 10:54:26 10/05/19 21 10/04/2020 urina lysis , dipst ick leukocytes -advantus large negati ve abnormal Not Available [facility] [address] [place] [address] [address], [place], [address], 10/04/2020 10:54:26 10/05/19 21 10/04/2020 urina lysis , dipst ick performed by w[place]ka Fink Not Available [facility] [address] [place] [address] [address], [place], [address], 10/04/2020 10:54:26 10/05/19 21 10/04/2020 urina lysis , dipst ick total urine volume (mL) 40 /mL Not Available [facility] [address] [place] [address] [address], [place], [address], 10/04/2020 10:54:26 10/05/19 21 10/04/2020 urina lysis , micro scopi c U-WBC 50 - 100 [hpf] 0 - 2 abnormal Not Available [facility] [address] [place] [address] [address], [place], [address], 10/04/2020 10:54:28 10/05/19 21 10/04/2020 urina lysis , micro scopi c U-RBC 0 - 2 [hpf] 0 - 2 Not Available [facility] [address] [place] [address] [address], [place], [address], 10/04/2020 10:54:28 10/05/19 21 10/04/2020 urina lysis , micro scopi c bacteria small [hpf] negati ve abnormal Not Available [facility] [address], [place], [address], 10/04/2020 10:54:28 10/05/19 21 10/04/2020 urina lysis , micro scopi c squamous epi small /lpf negati ve,sma ll Not Available [facility] [address] [facility] [address], [place], [address], 10/04/2020 10:54:28 10/05/19 21 10/04/2020 cultu re, urine final report microb iology result s Not Available [facility] [address] [facility] [address], [place], [address], 10/05/2020 09:57:17 10/03/19 21 09/28/2020 imagi ng/di agnos tic resul t No observ ation record ed. Not Available 10/02/2020 12:15:19 10/05/19 CT, angio gram, chest + abdom en + pelvi s, w/wo contr ast No observ ation record ed. Not Available 10/04/2020 10:42:59 10/05/19 21 09/27/2020 XR, chest No observ ation record ed. Not Available 10/04/2020 10:42:25 Result Notes None recorded. Problems Name Status Onset Date Resolution Date Notes Provider Name and Address Organization Details Recorded Time Incomplete emptying of bladder Active 10/05/19 21 Chris Castro MD [address] [place] [address],[address], [address], [facility] 10/04/2020 10:32:13 Slowing of urinary stream Active 10/05/19 21 Chris Castro MD [address] [place] [address],[address], [place], [address], [facility] 10/04/2020 10:32:13 Acute urinary tract infection Active 10/05/19 21 Chris Castro MD [address] [place] [address],[address], [place], [address], [facility] 10/04/2020 10:32:15 Acquired buried penis Active 10/05/19 Chris Castro MD [address] [place] [address],[facility] [address], [place], [address], [facility] 10/04/2020 10:33:04 Problem Notes None recorded. Procedures Surgical History Date Name Laterality Status Provider Name and Address Organization Details Recorded Time Bladder Scan completed Geovanna cárdenas [facility] 10/04/2020 10:09:08 Imaging Results Imaging Date Name Status LastModified by Organiz ation Details LastModified Time 09/28/2020 imaging/diagn ostic result completed Information not available 10/02/2020 12:15:19 10/04/2020 CT, angiogram, chest + abdomen + pelvis, w/wo contrast completed Information not available 10/04/2020 10:42:59 09/27/2020 XR, chest completed Information no t available 10/04/2020 10:42:25 Procedure Notes None recorded. Medical Equipment None Reported. Allergies Allergen ID Allergen Name Allergen Category Reaction Reaction Severity Criticality Documentation Date Start Date Code Code System Note Provider Name and Address Organization Details Recorded Time [id number] Medicinal product containin g penicilli n and acting as antibacte rial agent (product) medicatio n other Not available Not available 09/30/2020 14905 05 SNOMED aniph aliti c Not Available Health Note 16:02:08 Medications Name Sig Start Date Stop Date Status Note LastModified by Organization Details LastModified Time Singulair 10 mg tablet 10mg 1/day active Not Available Not Available No t Available cyclobenzap rine 10 mg tablet active Not Available Not Available Not Available albuterol sulfate 2.5 mg/3 mL (0.083 %) solution for nebulizatio n INHALE 3 ML (2.5 MG) VIA A NEBULIZER EVERY 4 HOURS IF NEEDED. active Not Available Not Available No t Available azithromyci n 250 mg tablet TAKE 2 TABLETS BY MOUTH TODAY, THEN TAKE 1 TABLET DAILY FOR 4 DAYS active Not Available Not Available No t Available glipizide ER 10 mg tablet, extended release 24 hr TAKE 1 TABLET BY MOUTH EVERY DAY WITH BREAKFAST active Not Available Not Available No t Available meloxicam 15 mg tablet TAKE 1 TABLET BY MOUTH EVERY DAY active Not Available Not Available No t Available glipizide ER 5 mg tablet, extended release 24 hr TAKE 1 TABLET BY MOUTH EVERY DAY WITH BREAKFAST 10/04 completed Not Available Not Available Not Available clindamycin HCl 150 mg capsule TAKE 3 CAPSULES BY MOUTH 4 TIMES DAILY FOR 7 DAYS. active Not Available Not Available No t Available acyclovir 400 mg tablet active Not Available Not Available Not Available sulfamethox azole 800 mg-trimetho prim 160 mg tablet TAKE 1 TABLET BY MOUTH TWICE A DAY active Not Available Not Available No t Available Claritin RediTabs 10 mg disintegrat ing tablet Don't know 1/day active Not Available Not Available No t Available tamsulosin 0.4 mg capsule Take 1 capsule every day by oral route at bedtime. active Not Available Not Available No t Available benzonatate 100 mg capsule TAKE 1 CAPSULE (100 MG) BY MOUTH 3 TIMES DAILY IF NEEDED FOR COUGH. active Not Available Not Available No t Available gabapentin 300 mg capsule TAKE 1 CAPSULE BY MOUTH AT BEDTIME active Not Available Not Available No t Available ammonium lactate 12 % topical cream APPLY TOPICALLY TO LEG 3 TIMES A DAY active Not Available Not Available No t Available nystatin 100,000 unit/gram topical powder APPLY TO AFFECTED AREA TWICE A DAY active Not Available Not Available No t Available levofloxaci n 500 mg tablet active Not Available Not Available Not Available fluticasone propionate 50 mcg/actuati on nasal spray,suspe nsion INHALE 2 SPRAYS INTO AFFECTED NOSTRIL(S ) ONCE DAILY. active Not Available Not Available No t Available metformin ER 500 mg tablet,exte nded release 24 hr 1 TAB ORAL ONCE DAILY WITH CIRILO MEAL X7 DAYS THEN TAKE 2 TAB WITH CIRILO MEAL FOR 7 DAYS active Not Available Not Available No t Available clotrimazol e 1 % topical cream active Not Available Not Available Not Available naproxen 500 mg tablet TAKE 1 TAB BY MOUTH TWICE DAILY NEEDED FOR PAIN active Not Available Not Available No t Available Microlet Lancet CHECK GLUCOSE 3 TIMES A DAY active Not Available Not Available No t Available Allergy Relief D12 5 mg-120 mg tablet,exte nded release TAKE 1 TABLET BY MOUTH TWICE A DAY active Not Available Not Available No t Available olopatadine 0.2 % eye drops INSTILL 1 DROP INTO AFFECTED EYE(S) EVERY DAY active Not Available Not Available No t Available Lantus Solostar U-100 Insulin 100 unit/mL (3 mL) subcutaneou s pen active Not Available Not Available Not Available Zirgan 0.15 % eye gel active Not Available Not Available No t Available Contour Next Test Strips USE TO TEST BLOOD SUGAR 3 TIMES DAILY active Not Available Not Available No t Available Victoza 2-Calvin 0.6 mg/0.1 mL (18 mg/3 mL) subcutaneou s pen injector active Not Available Not Available Not Available Jardiance 10 mg tablet active Not Available Not Available Not Available Flonase Allergy Relief 60 metered sprays of 50mcg/spr ay 1/day active Not Available Not Available No t Available BD Amanda 2nd Gen Pen Needle 32 gauge x active Not Available Not Available Not Available Pataday Once Daily Relief 2.5ml of 0.2% 1/day active Not Available Not Available No t Available Vitals Date Recorded Body mass index (BMI) Body weight Body height Provider Name and Address Organization Details Last Updated DateTime 10/04/2020 39.9 kg/m2 191506.4413 35031 g 170.18 cm Not Available Health Note 10/04/2020 09:57:50 Social History Question Answer Notes LastModified by Organizat ion Details LastModified Time Tobacco Smoking Status Not Available Health Note 09/30/2020 16:02:12 What Is Your Level Of Alcohol Consumption? Occasional [email or web address] Information not available 09/30/2020 What Is Your Level Of Caffeine Consumption? Occasional [email or web address] Information not available 09/30/2020 How Much Tobacco Do You Chew? Never Used Chewing Tobacco [email or web address] Information not available 09/30/2020 Do You Or Have You Ever Used E-cigarettes Or Vape? Never Used Electronic Cigarettes [email or web address] Information not available 09/30/2020 When Did You Quit Smoking? 6 - 10 Years Since Last Cigarette [email or web address] Information not available 09/30/2020 Recreational Drug Use No [email or web address] Information not available 09/30/2020 Marital Status [email or web address] Informatio n not available 09/30/2020 What Was The Date Of Your Most Recent Tobacco Screening? 09/30/2020 [email or web address] Information not available 09/30/2020 Do You Or Have You Ever Used Smokeless Tobacco? Never Used Smokeless Tobacco [email or web address] Information not available 09/30/2020 How Many Years Have You Smoked Tobacco? 25 [email or web address] Information not available 09/30/2020 Sex: Male Functional Status None recorded. Mental Status None recorded. Family History Relationship Description Onset Age of this Age Resolved Age Notes Mother Family history of di abetes mellitus Mother Family history of re nal stone Medical History Condition Response Diabetes Y Sexually Transmitted Infection N Bleeding Disorder N High Blood Pressure N Kidney Stones N Cancer N Lung Disease N Depression Y High Cholesterol N GERD/Acid Reflux N Heart Disease N Past Encounters Encounter ID Performer Location Encounter Start Date Encounter Closed Date Diagnosis/Indication Diagnosis SNOMED-CT Code [id number] Chris Castro MD [address] [address] 10/04/2020 09:55:35 10/04/2020 11:01:27 Acute urinary tract infection [id number] Incomplete emptying of bladder 493539220 Slowing of urinary stream 52538122 Acquired buried penis 23 [id number] Health Concerns Section Related Observation LastModified by Organization Detai ls LastModified Time None Recorded Concern Status LastModified by Organization Details LastModified Time None Recorded Advance Directives Directive None Recorded Payers Encounter Date Sequence Insurance Name Policy Number Policy Barbosa Covered Member ID Barbosa Member ID Guarantor Name 10/04/2020 1 [employer] - DOS PRIOR TO 2021 (MEDICAID REPLACEMENT - HMO) [facility]FORMERLY [facility] Morgan Pearson [id number] Morgan Pearson Notes Date Note Type Note Provider Name and Address Organization Details Recorded Time 10/04/2020 text/html HPI Notes: 10/04/20: Obesity, COPD, DM, chronic low back pain. Was at [facility] 09/28/20 to 09/29/20 for urosepsis and right leg cellulitis (an urine source was felt to be the source of his sepsis). Cr 09/29/20 = 0.58 (GFR >60). Patient left hospital before urine culture results were back and was sent home on Levaquin for 10 days. UCx 09/28/20 = 10K-50K mixed. IPSS = 30. PVR = 143 mL. Here with his , Ryanne. He states that he's here because he had an infection but he states that he wasn't told where it was. He states that had a CT scan in [facility] in [place], [place] which was done on 09/28/20. He was transferred to [facility]. Denies straining or waiting to relax to start his urine. Force of stream really good but endorses weak to moderate. He feels that he empties but at times he feels the need to go back quickly. Nocturia 3x/night. Has daytime frequency and urgency. He'll have some incontinence, few drops, that happens weekly. Has never seen an urologist before. No prior prostate surgery. No dysuria. No gross hematuria. He's currently taking the Levaquin. SH - Quit smoking 2016 FH - No prostate, bladder, or renal cancer. Input per patient: Chief complaint: Enlarged Prostate (BPH) BPH: Diagnosed: 3 Weeks ago Associated symptoms: Pain with urination, Trouble starting to urinate, Frequent urination at night Frequency: Gradually Severity: Worse Progression: Severe overall Urinary Quality of Life: If patient were to spend the rest of their life with their urinary condition just the way it is now, they would feel: Terrible [Score: 3] Chris Castro MD [address] [facility],[address], [place], [address], [place] [facility] 10/04/2020 10:37:57
--- OUTSIDE RECORDS SUMMARY | 2023-10-20 07:59 | XMS_ITS | Encounter Summary ---
Author Name Unknown Organization [place] Address [facility] [place] [address] Care Team Providers Care Liquid Center Assembler Name Role Phone Confirmed, No Pcp Primary Care Provider Unavaila ble Provider, Uc Primary Care Provider Unavailabl King Allan MD Primary Care Provider Unavailable No Ref-Primary, Physician Primary Care Provider [facility] Primary Care Provide r Go Lr MD Unavailable Go Lr MD Unavailable Be Willard MD Primary Care Provider [phone] Dinesh Muir MD Unavailable Purvi Lennon MD Unavailable Darshana Huertas Unavailable [phone] Goran Dukes DO Primary Care Provider [phone] David Pereira MD Unavailable [phone] Jovany Dumont MD Unavailable [phone] Reason for Visit * Reason Onset Date Comments Referral 10/17/2015 Encounter Details Date Type Department Care Team (Late st Contact Info) Description 10/17/2015 [facility]phone [facility] [place] [id number] [facility] [address] [place] [address] Pain Management Program, [facility] Referral Social History Tobacco Use Types Packs/Day Years Used Date Smoking Tobacco: Every Day Smokeless Tobacco: Never Comments:1 pack every 4-5 da ys Alcohol Use Standard Drinks/Week Comments No 0 (1 standard drink = 0.6 oz pur e alcohol) Sex and Gender Information Value Date Recorded Sex Assigned at Not on file Gender Identity Not on file Sexual Orientation Not on file documented as of this encounter Miscellaneous Notes * Telephone Encounter - Quenader Fabiana - 10/17/2015 9:29 AM CDT Called pt to schedule Interventional LM. Fabiana Johnson Drill Press Set Up Operator Radial [facility] documented in this encounter Plan of Treatment Not on file documented as of this encounter Visit Diagnoses Not on filedocumented in this encounter Care Teams Liquid Center Assembler Relationship Specialty Start Date End Date Confirmed, No Pcp PCP - General 03/01/16 05/04/16 Provider, Kenan Corona PCP - General Urgent Care 05/05/16 09/24/16 King Garcia MD PCP - General Family Practice 09/25/16 10/30/17 No Ref-Primary, Physician PCP - General 10/31/17 12/19/17 [facility] [address] [place] [address] PCP - General 12/20/17 08/24/18 Go Lr MD [address] [place] [address] PCP - Assigned PCP 11/08/17 08/16/18 Be Willard MD [facility] [address] [place] [address] PCP - General Family Practice 08/25/18 09/27/20 Goran Dukes DO [address] [place] [id number] PCP - General Family Medicine 09/28/20 Go Lr MD [address] [place], [place] [address] Assigned PCP 11/08/17 09/30/19 Dinesh Muir MD [facility] [address] [place] [address] Otolaryngology 08/25/18 Purvi Lennon MD [address] [address] Otolaryngology 08/25/18 Darshana Huertas AuD [address] [address] Research Geneticist Audiology 08/25/18 David Pereira MD [address] [place] [address] Urology 09/30/20 Jovany Dumont MD [address] [place] [address] Neurology 03/23/22 documented as of this encounter
== END 2023-10-20 07:53 | disposition home or self-care (01) ==
PROVIDERS: Visit Provider Surgery
DX: I89.0 Lymphedema, not elsewhere classified (principal); L97.828 Non-pressure chronic ulcer of other part of left lower leg with other specified severity; E11.65 Type 2 diabetes mellitus with hyperglycemia; E11.42 Type 2 diabetes mellitus with diabetic polyneuropathy; L85.9 Epidermal thickening, unspecified; E66.01 Morbid (severe) obesity due to excess calories; Z68.43 Body mass index [BMI] 50.0-59.9, adult; Z79.4 Long term (current) use of insulin
CPT/HCPCS: 97597; G0463

== ENCOUNTER 2023-10-22 14:43 | Outpatient (CLI) | payer MEDICARE, SELFPAY ==
--- OUTSIDE RECORDS SUMMARY | 2023-10-22 14:45 | XMS_ITS | Clinical Summary ---
Author Name Unknown Organization [facility] Address [address] [address] Phone Care Team Providers Care Office Assistant Receptionist Name Role Phone Choice, No Pcp-Patient Primary [...] Comments Blood Pressure 136/71 05/22/2023 3:28 PM TUBE PUSHER Pulse 115 05/22/2023 3:28 PM TUBE PUSHER Temperature 37.5 ??C (99.5 ??F) 05/22/2023 4:56 PM CS T Respiratory Rate 22 05/22/2023 3:28 PM TUBE PUSHER Oxygen Saturation 93% 05/22/2023 3:28 PM TUBE PUSHER Inhaled Oxygen Concentration - - Weight 128.3 [...] age to complete this topic Care Teams Office Assistant Receptionist Relationship Specialty Start Date End Date Choice, No Pcp-Patient PCP - General 05/22/23
--- OUTSIDE RECORDS SUMMARY | 2023-10-22 14:45 | XMS_ITS | Encounter Summary ---
Author Name Unknown Organization [place] Address [address] [facility] [place] [address] Care Team Providers Care Gear Lapping Machine Operator Name Role Phone King Garcia MD Primary Care Provider Unavailable No Ref-Primary, Physician Primary Care Provider [facility] Primary Care Provide r Go Lr MD Unavailable Go Lr MD Unavailable Be Willard MD Primary Care Provider [phone] Alida Muir MD Unavailable Purvi Lennon MD Unavailable [phone] Darshana Huertas Unavailable [phone] Goran Dukes DO Primary Care Provider David Pereira MD Unavailable [phone] Jovany Dumont MD Unavailable [phone] Reason for Visit * Reason Comments Medication Refill Encounter Details Date Type Department Care Team (Late st Contact Info) Description 12/25/2016 Refill [facility] [place] [address] [address] Seda Rizzo PA-C [address] [address] Medication Refill Social History Tobacco Use Types [...] documented as of this encounter Care Teams Gear Lapping Machine Operator Relationship Specialty Start Date End Date King Garcia MD PCP - General Family Practice 09/25/16 10/30/17 No Ref-Primary, Physician PCP - General 10/31/17 12/19/17 [facility] [address] [place], [place] [id number] PCP - General 12/20/17 08/24/18 Go Lr MD [address] [place] [address] PCP - Assigned PCP 11/08/17 08/16/18 Be Willard MD [place] [id number] [place] [address] PCP - General Family Practice 08/25/18 09/27/20 [place] [address] [place] [phone] PCP - General Family Medicine 09/28/20 Go Lr MD [address] [place] [address] Assigned PCP 11/08/17 09/30/19 Alida Muir MD [facility] [address] [address] Otolaryngology 08/25/18 Purvi Lennon MD [address] [facility] 396 [place] [address] Otolaryngology 08/25/18 Darshana Huertas AuD 420 [facility] 396 [place], [place] [address] Natural Developer Audiology 08/25/18 David Pereira MD [address] [address] Urology 09/30/20 Jovany Dumont MD [address] [place] [address] Neurology 03/23/22 documented as of this encounter
--- OUTSIDE RECORDS SUMMARY | 2023-10-22 14:45 | XMS_ITS ---
Author Name Unknown Organization Unknown Encounters Encounter Type Performer Location Encounter Date Encoun ter Notes virtual - - [id number]:24:32.980-0 0:00 no notes virtual - - [id number]:49:25.273-0 0:00 no notes virtual - - 4776-21-66C07:33:39.670-0 0:00 no notes virtual - - 4877-57-97T32:21:52.370-0 0:00 no notes virtual - - 1374-66-71G53:38:04.273-0 0:00 no notes virtual - - 8569-10-35G87:45:30.420-0 0:00 no notes virtual - - 7318-08-06O79:24:32.980-0 0:00 no notes virtual - - 2628-13-25C18:57:05.670-0 0:00 no notes virtual - - 0146-31-96C38:21:52.370-0 0:00 no notes virtual - - 0765-74-43A37:29:52.713-0 0:00 no notes virtual - - 3745-45-09E71:21:52.370-0 0:00 no notes virtual - - 3038-77-95B84:49:25.273-0 0:00 no notes virtual - - 2727-93-04B30:45:30.420-0 0:00 no notes virtual - - 4331-48-84V26:24:32.980-0 0:00 no notes virtual - - 7840-91-53W64:38:04.273-0 0:00 no notes virtual - - 7553-31-49A01:29:52.713-0 0:00 no notes virtual - - 1805-69-95N31:20:45.160-0 0:00 no notes virtual - - 5532-45-12H91:33:39.670-0 0:00 no notes virtual - - 8733-50-67M38:21:52.370-0 0:00 no notes virtual - - 7064-82-96B59:19:10.643-0 0:00 no notes virtual - - 5788-93-35J13:19:10.643-0 0:00 no notes virtual - - [id number]:19:10.643-0 0:00 no notes virtual - - 3892-14-67P01:19:10.643-0 0:00 no notes Patient Care team information Name Category Status Period Participants - - Proposed period not known - - - period not known -
--- OUTSIDE RECORDS SUMMARY | 2023-10-22 14:45 | XMS_ITS | Clinical Summary ---
Author Name Unknown Organization [facility] Address [place], [place] [address] Care Team Providers Care Casting Agent Name Role Phone Pcp, No Unavailable Unavailable Goran Dukes DO Primary Care Provide r Tayla Kiran RN Unavailable [phone] Allergies Active Allergy Reactions Criticality Noted [...] day. 1 Each 10/13/19 24 Active Insulin [place], Disposable, (BD Amanda 2nd Gen Pen Needle) [...] be used to read blood sugars, follow transport specialist directions. 6 Each 3 10/13/19 24 Active FreeStyle Lacie 3 [place] for continuous blood glucose monitor (CGM)Indications:T ype 2 diabetes mellitus with hyperglycemia, without long-term current use of insulin (HC) To be used to read blood sugars follow transport specialist directions. 1 Each 10/13/19 24 Active lancets [...] be used to read blood sugars per transport specialist's directions. 1 Each 07/01/19 22 024 Discontinued(*M [...] 10/13/2023 9:00 AM CDT Phone Office Visit [facility] [address] [place] [address] Tayla Kiran RN Diabetes 10/11/2023 Orders Only [facility] SERVICES Scanner 1 scan: (1-Ord) [facility], 10/11/2023 10/06/2023 Telephone [facility] [address] [place] [phone] Goran Dukes, Results 10/06/2023 Orders Only [address] [address] Goran Dukes, <No scans attached> 10/05/2023 1:50 PM CDT Office Visit [facility] [address] [place] [address] Goran Dukes, Diabetes (Not fasting- The patient is requesting to speak about medication); Fatigue (The patient reports having leg fatigue like he is about to fall. The patient wants to discuss a walker or wheel chair options. ) 10/05/2023 Telephone [place] [address] [place] [address] Jocelynn Jay, KEHINDE Refill Request (Clobetasol 0.05%) 10/05/2023 Telephone [facility] [address] [place] [address] [phone] Goran Dukes DO Refill Request (KETOROLAC 10 MG TABLETS ) 10/05/2023 Travel 10/01/2023 Refill [facility] [address] [place] [address] Goran Dukes DO Refill Request (Lantus Solostar U-100 Insulin) 09/27/2023 Telephone [facility] [address] [place] [address] Goran Dukes DO Medication Management (Walker) 09/01/2023 3:20 PM CDT - 09/01/2023 11:59 PM CDT Hospital Encounter [facility] [address] [address] 09/01/2023 Travel 08/18/2023 11:59 AM FRONTEND ENGINEER - 08/18/2023 11:59 PM FRONTEND ENGINEER Hospital Encounter [facility] [address] [address] Serge Leslie MD Bilateral leg edema 08/18/2023 Travel 08/13/2023 10:15 AM FRONTEND ENGINEER - 08/13/2023 11:59 PM FRONTEND ENGINEER Hospital Encounter [facility] [address] [address] 08/13/2023 Orders Only [facility] [address] [address] Serge Leslie MD <No scans attached> 08/13/2023 Travel 08/02/2023 10:12 AM FRONTEND ENGINEER - 08/02/2023 11:59 PM FRONTEND ENGINEER Hospital Encounter [facility] [address] [address] 08/02/2023 Orders Only [facility] [address] [address] Jocelynn Jay NP <No scans attached> 08/02/2023 Travel 07/29/2023 Telephone [facility] [address] [address] [facility] [place] [phone] Goran Dukes DO Failed Appointment from Last 3 Months Immunizations Name Administration Dates Next Due COVID-19 vaccine (Haiku Deck 30mcg/0.3mL) BONNIE Mix 01/16/2021 Influenza, IIV4 03/16/2023,05/01/2022 [...] T Respiratory Rate 20 06/17/2023 7:45 AM FRONTEND ENGINEER Oxygen Saturation 98% 10/05/2023 1:49 PM CDT Inhaled Oxygen Concentration - - Weight 131.5 kg (290 lb) 10/05/2023 1:49 PM CDT Height 162.6 cm (5' 4) 10/05/2023 1:49 PM CDT Body Mass Index 49.78 10/05/2023 1:49 PM CDT Plan of Treatment Upcoming Encounters Date Type Department Care Team (Late st Contact Info) Description 10/27/2023 11:00 AM CDT Patient Outreach [facility] [address] [place] [address] Tayla Kiran RN [address] [place] [address] Health Maintenance Due Date Last Done Comments [...] Procedure Name Priority Date/Time Associated Diagnosis Comments DE DIAB MANAGE TRN PER INDIV Routine 10/13/2023 [...] LOWER EXTREMITY BILATERAL Routine 08/18/2023 11:50 AM FRONTEND ENGINEER Bilateral leg edema ANTI HCV Routine 01/22/2022 12:50 PM CDT Need for hepatitis C screening test from Last 3 Months or Most Recently Relevant to Health Maintenance Results * DE DIAB MANAGE TRN PER INDIV (10/13/2023) Pathologist [facility] Emergency Department DIABETIC ED Goran Dukes DO PB - ANCILLAR Y SERVICES * SCAN-EYE EXAM (10/11/2023 12:00 AM CDT) Scanner OTHER * (ABNORMAL) LIPID PANEL W REFLEX MEASURED LDL (10/05/2023 2:39 PM CDT) CHOLESTEROL,TOTAL 187 100 - 199 mg/dL 10/06/2023 1:31 AM CDT [facility] Comment: Cholesterol, Total Reference Ranges Desirable <200 mg/dL Borderline 200-239 mg/dL High >=240 mg/dL TRIGLYCERIDES 147 <150 mg/dL 10/06/2023 1:31 AM CDT [facility] HDL CHOLESTEROL 27(L) >40 mg/dL 1:31 AM CDT [facility] NON-HDL CHOLESTEROL 160(H) <145 mg/dl 10/06/2023 1:31 AM CDT [facility] CHOL/HDL RATIO 6.93(H) <4.50 10/06/2023 1:31 AM CDT [facility] LDL CHOLESTEROL 131(H) <=130 mg/dL 10/06/2023 1:31 AM CDT [facility] VLDL CHOLESTEROL 29 <=30 mg/dL 10/06/2023 1:31 AM CDT [facility] PROVIDER ORDERED STATUS RANDOM 10/06/2023 1:31 AM CDT [facility] Blood BLOOD SPECIMEN / Unknown Venipuncture / Unknown 10/05/2023 2:39 PM CDT 10/05/2023 2:39 PM CDT Goran Dukes DO CHEMISTRY [facility] [address] [place] [address], * (ABNORMAL) CBC W PLT NO DIFF (10/05/2023 2:39 PM CDT) WHITE BLOOD COUNT 8.8 4.5 - 11.0 thou/cu mm 10/05/2023 2:43 PM CDT [facility] RED BLOOD COUNT 4.49 4.30 - 5.90 mil/cu mm 10/05/2023 2:43 PM CDT [facility] HEMOGLOBIN 12.6(L) 13.5 - 17.5 g/dL 10/05/2023 2:43 PM CDT [facility] HEMATOCRIT 38.3 37.0 - 53.0 % 10/05/2023 2:43 PM CDT [facility] MCV 85 80 - 100 fL 10/05/2023 2:43 PM CDT [facility] MCH 28.1 26.0 - 34.0 pg 10/05/2023 2:43 PM CDT [facility] MCHC 32.9 32.0 - 36.0 g/dL 10/05/2023 2:43 PM CDT [facility] RDW 13.2 11.5 - 15.5 % 10/05/2023 2:43 PM CDT [facility] PLATELET COUNT 344 140 - 440 thou/cu mm 10/05/2023 2:43 PM CDT [facility] MPV 9.6 6.5 - 11.0 fL 10/05/2023 2:43 PM CDT [facility] NRBC 0.0 % 10/05/2023 2:43 PM CDT [facility] ABS NRBC 0.0 thou /cu mm 10/05/2023 2:43 PM CDT [facility] Blood BLOOD SPECIMEN / Unknown Venipuncture / Unknown 10/05/2023 2:39 PM CDT 10/05/2023 2:39 PM CDT Goran Dukes DO HEMATOLOGY Performing Organization Address [facility] Co de Phone Number [facility] [address] [place] [address], [place] * ANTI HIV 1/2 [33529.0] (10/05/2023 2:39 PM CDT) Pathologist [facility] Emergency Department HIV-1/HIV-2 SCREEN Non-Reacti ve Non-Reacti ve 10/06/2023 1:17 AM CDT [facility] Comment:HIV-1 p24 and HIV-1/ HIV-2 Ab Not Detected. Blood BLOOD SPECIMEN / Unknown Venipuncture / Unknown 10/05/2023 2:39 PM CDT 10/05/2023 2:39 PM CDT Goran Dukes DO SEND OUTS Performing Organization Address [facility] Co de Phone Number [facility] [address] [place] [address], [place] * (ABNORMAL) HEMOGLOBIN A1C MONITORING (POCT) (10/05/2023 2:39 PM CDT) Pathologist [facility] Emergency Department HEMOGLOBIN A1C MONITORING (POCT) 10.0(H) <=6.4 % 10/05/2023 2:54 PM CDT [facility] Blood BLOOD SPECIMEN / Unknown Venipuncture / Unknown 10/05/2023 2:39 PM CDT 10/05/2023 2:39 PM CDT Narrative [facility] - 10/05/2023 2:54 PM CDT ? (<=6.9%) [...] Anemias, Splenectomy ? Goran Dukes DO CHEMISTRY [facility] [address] [place] [address], * (ABNORMAL) COMP METABOLIC PANEL (10/05/2023 2:39 PM CDT) SODIUM 136 136 - 145 mmol/L 10/06/2023 1:31 AM [facility] POTASSIUM 5.4(H) 3.5 - 5.1 mmol/L 10/06/2023 1:31 AM [facility] CHLORIDE 99 98 - 107 mmol/L 10/06/2023 1:31 AM [facility] CO2,TOTAL 26 22 - 29 mmol/L 10/06/2023 1:31 AM [facility] ANION GAP 11 5 - 18 10/06/2023 1:31 AM [facility] GLUCOSE 298(H) 70 - 99 mg/dL 10/06/2023 1:31 AM [facility] CALCIUM 9.5 8.6 - 10.0 mg/dL 10/06/2023 1:31 AM [facility] BUN 15 6 - 20 mg/dL 10/06/2023 1:31 AM [facility] CREATININE 0.83 0.70 - 1.20 mg/dL 10/06/2023 1:31 AM [facility] BUN/CREAT RATIO 18 10 - 20 1:31 AM CDT [facility] eGFR >90 >90 mL/min/1.7 3m2 10/06/2023 1:31 AM CDT [facility] Comment:As of 2021, eG FR is calculated by the CKD-EPI creatinine equation without race adjustment. ??eGFR can be influenced by muscle mass, exercise, and diet. ??The reported eGFR is an estimation only and is only applicable if the renal function is stable. ALBUMIN 4.0 4.0 - 4.9 g/dL 10/06/2023 1:31 AM CDT [facility] PROTEIN,TOTAL 7.3 6.0 - 8.0 g/dL 10/06/2023 1:31 AM CDT [facility] BILIRUBIN,TOTAL 0.2 0.0 - 1.2 mg/dL 10/06/2023 1:31 AM CDT [facility] ALK PHOSPHATASE 83 40 - 129 IU/L 10/06/2023 1:31 AM CDT [facility] ALT (SGPT) 12 10 - 50 IU/L 10/06/2023 1:31 AM CDT [facility] AST (SGOT) 13 10 - 50 IU/L 10/06/2023 1:31 AM CDT [facility] Blood BLOOD SPECIMEN / Unknown Venipuncture / Unknown 10/05/2023 2:39 PM CDT 10/05/2023 2:39 PM CDT Goran Dukes DO [facility] [address] [place] [address], * VENOUS INSUFFICIENCY LOWER EXTREMITY BILATERAL (08/18/2023 11:50 AM FRONTEND ENGINEER) Anatomical Region Laterality Modality LEGS Ultrasound, Ultr [...] cherelle Non-React cherelle 01/22/2022 9:10 PM CDT [facility] Comment:Antibodies to HCV no t detected; does not exclude the possibility of exposure to HCV. Blood BLOOD SPECIMEN / Unknown Venipuncture / Unknown 01/22/2022 12:50 PM CDT 01/22/2022 12:51 PM CDT Goran Dukes DO SEND OUTS [facility] [address] [place] [address], [place] from Last 3 Months or Most [...] Comments Code Status Discussion: Discussed Care Teams Casting Agent Relationship Specialty [place] [address] [place] [address] PCP - General Family Practice 10/16/20 Pcp, No . 08/04/14 Tayla Kiran, RN [address] [place] [address] Diabetes Care Management Registered Nurse 10/13/2308/13
--- OUTSIDE RECORDS SUMMARY | 2023-10-22 14:45 | XMS_ITS | Referral Summary ---
Author Name Unknown Organization [place] Address [address] [place] [address] Care Team Providers Care Animal Park Code Enforcement Officer Name Role Phone Dinesh Muir MD Unavailable Purvi Lennon MD Unavailable Darshana Huertas Unavailable [phone] Goran Dukes DO Primary Care Provider David Pereira MD Unavailable Jovany Dumont MD Unavailable [phone] Allergies Active Allergy Reactions Criticality Noted [...] 09/29/2020 Active levofloxacin (LEVAQUIN) 500 MG tabletIndications:Ac [place] cystitis without hematuria Take 1 tablet (500 [...] for patients under 2 years old ??at [facility] for lipid analytes. 2-8 years: Greater [...] LAB - BLOOD ORD ERABLES [facility] [address] [place] [address] * (ABNORMAL) Comprehensive metabolic panel (09/08/2021 8:28 [...] and gender (Shannon et al., NEJ, DOI: 10.1056/[id number]) Blood BLOOD SPECIMEN / Unknown Client Draw / Unknown 09/08/2021 8:28 AM CDT 09/08/2021 3:38 PM CDT David Jimenez PA-C LAB - BLOOD ORD ERABLES [facility] [address] [place] [address] * (ABNORMAL) Hemoglobin A1c (09/28/2020 10:35 AM CDT) Hemoglobin A1C 9.6(H) 0 - 5.6 % 09/28/2020 11:14 AM CDT [facility] Comment: Normal <5.7% Prediabetes 5.7-6.4% ??Diabetes 6.5% or higher - adopted from ADA consensus guidelines. Blood 09/28/2020 10:3 5 AM CDT 09/28/2020 10:36 AM CDT Sal Mora DO LAB - BLOOD ORDERAB LES [facility] [address] [address], [facility] [phone] from Last 3 Months or Most Recently Relevant to Health Maintenance Advance Directives For more information, please contact: [phone] * Full Code (Latest Code Status on File) Date Activated Date Inactivated Comments 09/28/2020 10:12 AM 09/29/2020 4:35 PM All basic a nd advanced life-sustaining interventions are performed as appropriate Question Answer Comments Code status determined by: Discussion with aishwarya nt/ legal decision maker Care Teams Animal Park Code Enforcement Officer Relationship Specialty [place] [address] [place] [address] PCP - General Family Medicine 09/28/20 Dinesh Muir MD [facility] [address] [address] Otolaryngology 08/25/18 Purvi Lennon MD [address] [facility] [address] [place], [place] [address] Otolaryngology 08/25/18 Darshana Huertas AuD 420 [facility] [address] [place], [place] [address] Racket Stringer Audiology 08/25/18 David Pereira MD [address] [place] [address] Urology 09/30/20 Jovany Dumont MD [address] [place] [address] Neurology 03/23/22
--- OUTSIDE RECORDS SUMMARY | 2023-10-22 14:45 | XMS_ITS | Clinical Summary ---
Author Name Unknown Organization [place] Address [address] [place] [address] Care Team Providers Care Business Objects Report Developer Name Role Phone Dinesh Muir MD Unavailable Purvi Lennon MD Unavailable Darshana Huertas Unavailable [phone] Goran Dukes DO Primary Care Provider David Pereira MD Unavailable [phone] Jovany Dumont MD Unavailable Allergies Active Allergy Reactions Criticality Noted Date [...] 09/29/2020 Active levofloxacin (LEVAQUIN) 500 MG tabletIndications:Ac [place] cystitis without hematuria Take 1 tablet (500 [...] for patients under 2 years old ??at [facility] for lipid analytes. 2-8 years: [...] LAB - BLOOD ORD ERABLES [facility] [address] [place] [address] * (ABNORMAL) Comprehensive metabolic panel (09/08/2021 8:28 [...] and gender (Shannon et al., NEJM, DOI: 10.1056/[id number]) Blood BLOOD SPECIMEN / Unknown Client Draw / Unknown 09/08/2021 8:28 AM CDT 09/08/2021 3:38 PM CDT David Jimenez PA-C LAB - BLOOD ORD ERABLES [facility] [address] [place] [address] * (ABNORMAL) Hemoglobin A1c (09/28/2020 10:35 AM CDT) Hemoglobin A1C 9.6(H) 0 - 5.6 % 09/28/2020 11:14 AM CDT [facility] Comment: Normal <5.7% Prediabetes 5.7-6.4% ??Diabetes 6.5% or higher - adopted from ADA consensus guidelines. Blood 09/28/2020 10:3 5 AM CDT 09/28/2020 10:36 AM CDT Sal Mora DO LAB - BLOOD ORDERAB LES [facility] [address] [address], [facility] [phone] from Last 3 Months or Most Recently Relevant to Health Maintenance Advance Directives For more information, please contact: [phone] * Full Code (Latest Code Status on File) Date Activated Date Inactivated Comments 09/28/2020 10:12 AM 09/29/2020 4:35 PM All basic a nd advanced life-sustaining interventions are performed as appropriate Question Answer Comments Code status determined by: Discussion with aishwarya nt/ legal decision maker Care Teams Business Objects Report Developer Relationship Specialty [place] [address] [place] [address] PCP - General Family Medicine 09/28/20 Dinesh Muir MD [facility] [address] [id number] Otolaryngology 08/25/18 Purvi Lennon MD 420 [facility] [address] [place] [address] Otolaryngology 08/25/18 Darshana Huertas AuD 420 [facility] [address] [place] [address] Director Economic Audiology 08/25/18 David Pereira MD [address] [address] Urology 09/30/20 Jovany Dumont MD [address] [place] [address] Neurology 03/23/22
--- OUTSIDE RECORDS SUMMARY | 2023-10-22 14:45 | XMS_ITS | Encounter Summary ---
Author Name Unknown Organization [place] Address Critical access hospital0 [facility] [place] [address] Care Team Providers Care Elocution Teacher Name Role Phone Confirmed, No Pcp Primary Care Provider Unavaila ble Provider, Uc Primary Care Provider Unavailabl King Allan MD Primary Care Provider Unavailable No Ref-Primary, Physician Primary Care Provider [facility] Primary Care Provide r Go Lr MD Unavailable Go Lr MD Unavailable Be Willard MD Primary Care Provider [phone] Dinesh Muir MD Unavailable Purvi Lennon MD Unavailable [phone] Darshana Huertas Unavailable [phone] Goran Dukes DO Primary Care Provider David Pereira MD Unavailable [phone] Jovany Dumont MD Unavailable [phone] Reason for Visit * Reason Onset Date Comments Referral 10/17/2015 Encounter Details Date Type Department Care Team (Late st Contact Info) Description 10/17/2015 Telephone [facility] [place] [id number] [facility] [address] [place] [address] Pain Management Program, [facility] Referral Social History Tobacco Use Types [...] pt to schedule Interventional LM. Fabiana Johnson Supervisor Carding [facility] documented in this encounter Plan of Treatment Not on file documented as of this encounter Visit Diagnoses Not on filedocumented in this encounter Care Teams Elocution Teacher Relationship Specialty Start Date End Date Confirmed, No Pcp PCP - General 03/01/16 05/04/16 Provider, Kenan Corona PCP - General Urgent Care 05/05/16 09/24/16 King Garcia MD PCP - General Family Practice 09/25/16 10/30/17 No Ref-Primary, Physician PCP - General 10/31/17 12/19/17 [facility] [address] [place] [address] PCP - General 12/20/17 08/24/18 Go Lr MD [address] [place] [address] PCP - Assigned PCP 11/08/17 08/16/18 Be Willard MD [facility] [address] [place] [address] PCP - General Family Practice 08/25/18 09/27/20 [place] [address] [place] [phone] PCP - General Family Medicine 09/28/20 Go Lr MD [address] [place], [place] [address] Assigned PCP 11/08/17 09/30/19 Dinesh Muir MD [facility] [address] [place] [address] Otolaryngology 08/25/18 Purvi Lennon MD [address] [address] Otolaryngology 08/25/18 Darshana Huertas AuD [address] [address] Wet Process Technician Audiology 08/25/18 David Pereira MD [address] [place] [address] Urology 09/30/20 Jovany Dumont MD [address] [place] [address] Neurology 03/23/22 documented as of this encounter
--- OUTSIDE RECORDS SUMMARY | 2023-10-22 14:46 | XMS_ITS | Clinical Summary ---
Author Name Unknown Organization [facility] Address [address] [place] [address] Care Team Providers Care Justice Court Judge Name Role Phone Needs Pcp, Assignment Primary Care Provider [phone] Source Comments You are receiving this document as you are listed as the primary care provider,follow-up provider, or the patient has been referred to you for consultation.This is in compliance with the Medicare and[facility] EHR Incentive Program,which states Providers who transition their patient to another setting of careor provider of care or refers their patient to another provider of care shouldprovide summary care record for each transition of care or referral. [employer] [facility] Allergies Active Allergy Reactions Criticality Noted Date [...] age to complete this topic Care Teams Justice Court Judge Relationship Specialty Start Date End Date Needs Pcp, [place] [address] PCP - General 07/02/16
== END 2023-10-22 14:44 | disposition home or self-care (01) ==
LOC: WOUND 14:43
PROVIDERS: Visit Provider Surgery
DX: I89.0 Lymphedema, not elsewhere classified (principal); L97.818 Non-pressure chronic ulcer of other part of right lower leg with other specified severity; L97.828 Non-pressure chronic ulcer of other part of left lower leg with other specified severity
CPT/HCPCS: 29581

== ENCOUNTER 2023-10-25 15:10 | Outpatient (CLI) | payer MEDICARE, SELFPAY ==
--- OUTSIDE RECORDS SUMMARY | 2023-10-25 15:12 | XMS_ITS | Encounter Summary ---
Author Name Unknown Organization [facility] Address [address] [place] [address] Care Team Providers Care Tacking Machine Operator Name Role Phone King Garcia MD Primary Care Provider Unavailable No Ref-Primary, Physician Primary Care Provider [facility] Primary Care Provide r Go Lr MD Unavailable Go Lr MD Unavailable Be Willard MD Primary Care Provider [phone] Alida Muir MD Unavailable Purvi Lennon MD Unavailable Darshana Huertas Unavailable [phone] Goran Dukes DO Primary Care Provider David Pereira MD Unavailable [phone] Jovany Dumont MD Unavailable [phone] Reason for Visit * Reason Comments Medication Refill Encounter Details Date Type Department Care Team (Late st Contact Info) Description 12/25/2016 Refill [facility] [place] [address] [address] Seda Rizzo PA-C [address] [id number] Medication Refill Social History Tobacco Use Types [...] documented as of this encounter Care Teams Tacking Machine Operator Relationship Specialty Start Date End Date King Garcia MD PCP - General Family Practice 09/25/16 10/30/17 No Ref-Primary, Physician PCP - General 10/31/17 12/19/17 [facility] [address] [place], [place] [id number] PCP - General 12/20/17 08/24/18 Go Lr MD [address] [place] [address] PCP - Assigned PCP 11/08/17 08/16/18 Be Willard MD [place] [id number] [place] [address] PCP - General Family Practice 08/25/18 09/27/20 [place] [id number] [place] [id number] PCP - General Family Medicine 09/28/20 Go Lr MD [address] [place] [address] Assigned PCP 11/08/17 09/30/19 Alida Muir MD [facility] [address] [address] Otolaryngology 08/25/18 Purvi Lennon MD [address] [facility] [address] [place] [address] Otolaryngology 08/25/18 Darshana Huertas AuD [address] [facility] [address] [place], [place] [address] Legal Recovery Specialist Audiology 08/25/18 David Pereira MD [address] [address] Urology 09/30/20 Jovany Dumont MD [address] [place] [address] Neurology 03/23/22 documented as of this encounter
--- OUTSIDE RECORDS SUMMARY | 2023-10-25 15:12 | XMS_ITS | Clinical Summary ---
Author Name Unknown Organization [facility] Address [address] [address] Phone Care Team Providers Care Sales Representative Printing Paper Name Role Phone Choice, No Pcp-Patient Primary [...] Comments Blood Pressure 136/71 05/22/2023 3:28 PM COMIC BOOK ARTIST Pulse 115 05/22/2023 3:28 PM COMIC BOOK ARTIST Temperature 37.5 ??C (99.5 ??F) 05/22/2023 4:56 PM CS T Respiratory Rate 22 05/22/2023 3:28 PM COMIC BOOK ARTIST Oxygen Saturation 93% 05/22/2023 3:28 PM COMIC BOOK ARTIST Inhaled Oxygen Concentration - - Weight 128.3 [...] age to complete this topic Care Teams Sales Representative Printing Paper Relationship Specialty Start Date End Date Choice, No Pcp-Patient PCP - General 05/22/23
--- OUTSIDE RECORDS SUMMARY | 2023-10-25 15:12 | XMS_ITS | Encounter Summary ---
Author Name Unknown Organization [facility] Address [facility] [facility] [place] [address] Care Team Providers Care Hoop Punch And Coiler Operator Name Role Phone Confirmed, No Pcp Primary Care Provider Unavaila ble Provider, Uc Primary Care Provider Unavailabl King Allan MD Primary Care Provider Unavailable No Ref-Primary, Physician Primary Care Provider [facility] Primary Care Provide r Go Lr MD Unavailable Go Lr MD Unavailable Be Willard MD Primary Care Provider [phone] Dinesh Muir MD Unavailable Purvi Lennon MD Unavailable [phone] Darshana Huertas Unavailable [phone] Goran Dukes DO Primary Care Provider David Pereira MD Unavailable [phone] Jovany Dumont MD Unavailable Reason for Visit * Reason Onset Date Comments Referral 10/17/2015 Encounter Details Date Type Department Care Team (Late st Contact Info) Description 10/17/2015 Telephone [facility] [place] [id number] [facility] [address] [place] [address] Pain Management Program, [facility] Referral Social History Tobacco Use Types [...] pt to schedule Interventional LM. Fabiana Johnson Narrow Fabric Calenderer [facility] documented in this encounter Plan of Treatment Not on file documented as of this encounter Visit Diagnoses Not on filedocumented in this encounter Care Teams Hoop Punch And Coiler Operator Relationship Specialty Start Date End Date Confirmed, No Pcp PCP - General 03/01/16 05/04/16 Provider, Kenan Corona PCP - General Urgent Care 05/05/16 09/24/16 King Garcia MD PCP - General Family Practice 09/25/16 10/30/17 No Ref-Primary, Physician PCP - General 10/31/17 12/19/17 [facility] [address] [place] [address] PCP - General 12/20/17 08/24/18 Go Lr MD [address] [place] [address] PCP - Assigned PCP 11/08/17 08/16/18 Be Willard MD [facility] [address] [place] [address] PCP - General Family Practice 08/25/18 09/27/20 Gor[place]ukes DO [id number] [place] [phone] PCP - General Family Medicine 09/28/20 Go Lr MD [address] [place], [place] [address] Assigned PCP 11/08/17 09/30/19 Dinesh Muir MD [facility] [address] [place] [address] Otolaryngology 08/25/18 Purvi Lennon MD [address] [address] Otolaryngology 08/25/18 Darshana Huertas AuD [address] [address] Plant Puller Audiology 08/25/18 David Pereira MD [address] [place] [address] Urology 09/30/20 Jovany Dumont MD [address] [place] [address] Neurology 03/23/22 documented as of this encounter
--- OUTSIDE RECORDS SUMMARY | 2023-10-25 15:12 | XMS_ITS | Referral Summary ---
Author Name Unknown Organization [facility] Address [address] [place] [address] Care Team Providers Care Bi Application Developer Name Role Phone Dinesh Muir MD Unavailable Purvi Lennon MD Unavailable Darshana Huertas Unavailable [phone] Goran Dukes DO Primary Care Provider David Pereira MD Unavailable [phone] Jovany Dumont MD Unavailable [phone] Allergies Active Allergy Reactions Criticality Noted [...] 09/29/2020 Active levofloxacin (LEVAQUIN) 500 MG tabletIndications:Ac [place] cystitis without hematuria Take 1 tablet (500 [...] for patients under 2 years old ??at [facility] for lipid analytes. 2-8 years: Greater [...] LAB - BLOOD ORD ERABLES [facility] [address] [place] [address] * (ABNORMAL) Comprehensive metabolic panel (09/08/2021 8:28 [...] and gender (Shannon et al., NEJ, DOI: [id number]/[id number]) Blood BLOOD SPECIMEN / Unknown Client Draw / Unknown 09/08/2021 8:28 AM CDT 09/08/2021 3:38 PM CDT David Jimenez PA-C LAB - BLOOD ORD ERABLES [facility] [address] [place] [address] * (ABNORMAL) Hemoglobin A1c (09/28/2020 10:35 AM CDT) Hemoglobin A1C 9.6(H) 0 - 5.6 % 09/28/2020 11:14 AM CDT [facility] Comment: Normal <5.7% Prediabetes 5.7-6.4% ??Diabetes 6.5% or higher - adopted from ADA consensus guidelines. Blood 09/28/2020 10:3 5 AM CDT 09/28/2020 10:36 AM CDT Sal Mora DO LAB - BLOOD ORDERAB [facility] [address] [address], [facility] [phone] from Last 3 Months or Most Recently Relevant to Health Maintenance Advance Directives For more information, please contact: [phone] * Full Code (Latest Code Status on File) Date Activated Date Inactivated Comments 09/28/2020 10:12 AM 09/29/2020 4:35 PM All basic a nd advanced life-sustaining interventions are performed as appropriate Question Answer Comments Code status determined by: Discussion with aishwarya nt/ legal decision maker Care Teams Bi Application Developer Relationship Specialty [place] [address] [place] [address] PCP - General Family Medicine 09/28/20 Dinesh Muir MD [facility] [address] [address] Otolaryngology 08/25/18 Purvi Lennon MD [address] [facility] [address] [place], [place] [address] Otolaryngology 08/25/18 Darshana Huertas AuD [address] [facility] [address] [place], [place] [address] Health And Safety Instructor Audiology 08/25/18 David Pereira MD [address] [place] [address] Urology 09/30/20 Jovany Dumont MD [address] [place] [address] Neurology 03/23/22
--- OUTSIDE RECORDS SUMMARY | 2023-10-25 15:12 | XMS_ITS | Clinical Summary ---
Author Name Unknown Organization [facility] Address [address] [place] [address] Care Team Providers Care Shingler Name Role Phone Needs Pcp, Assignment Primary Care Provider [phone] Source Comments You are receiving this document as you are listed as the primary care provider,follow-up provider, or the patient has been referred to you for consultation.This is in compliance with the Medicare and[facility] EHR Incentive Program,which states Providers who transition their patient to another setting of careor provider of care or refers their patient to another provider of care shouldprovide summary care record for each transition of care or referral. [facility] Allergies Active Allergy Reactions Criticality Noted Date [...] age to complete this topic Care Teams Shingler Relationship Specialty Start Date End Date Needs Pcp, [place] [address] PCP - General 07/02/16
--- OUTSIDE RECORDS SUMMARY | 2023-10-25 15:12 | XMS_ITS | Clinical Summary ---
Author Name Unknown Organization [employer] [facility] Address [place], [place] [address] Care Team Providers Care Administrator Health Care Facility Name Role Phone Pcp, No Unavailable Unavailable Goran Dukes DO Primary Care Provide r Tayla Kiran RN Unavailable [phone] Allergies Active Allergy Reactions Criticality Noted [...] mouth once daily. 90 Tablet 3 04/13/20 23 Active loratadine (Claritin) 10 mg DISINTEGRATING tabletIndications: [...] Breath. 150 mL 1 04/13/20 23 Active lidocaine 5 % topical patchIndications:P ain [...] 2nd Gen Pen Needle 32 gauge x /32Indications:D iabetic peripheral neuropathy (HC) INJECT UP TO FOUR TIMES DAILY DIRECTED 100 Each 3 07/12/19 24 Active clobetasol 0.05% (TEMOVATE 0.05% OINTMENT) 0.05 % ointmentIndication s:Hyperkeratosis Apply topically to affected area(s) two times daily. 60 g 1 08/02/19 24 Active ammonium lactate 12% (LACHYDRIN) 12 [...] A1C 150 Each 5 10/13/19 24 Active Blood-Glucose Meter (Contour Next EZ Meter)Indications: Type 2 diabetes mellitus with hyperglycemia, without long-term current use of insulin (HC) Dispense glucose meter, test strips and lancets covered by the patient insurance. Test 4 times per day. 1 Each 10/13/19 24 Active Insulin Troy, Disposable, (BD Amanda 2nd Gen Pen Needle) [...] be used to read blood sugars, follow soil science professor directions. 6 Each 3 10/13/19 24 Active FreeStyle Lacie 3 Irwin for continuous blood glucose monitor (CGM)Indications:T ype 2 diabetes mellitus with hyperglycemia, without long-term current use of insulin (HC) To be used to read blood sugars follow soil science professor directions. 1 Each 10/13/19 24 Active lancets [...] KWIKPEN 90 mL 1 10/13/19 24 Active trimethoprim-sulfa methoxazole, 160-800 mg, (BACTRIM DS, SEPTRA DS) tabIndications:UTI (urinary tract infection), uncomplicated Take 1 Tablet by mouth two times daily for 10 days. 20 Tablet 10/25/19 24 024 Active Walker - 4 wheelsIndications: Gait instability For home use. Length of need: lifetime 1 Each 10/25/19 24 Active FreeStyle Lacie 14 Day ReaderIndications: Type 2 diabetes mellitus without complication, without long-term current use of insulin (HC) To be used to read blood sugars per soil science professor's directions. 1 Each 07/01/19 22 024 Discontinued(*M [...] dinner. 06/17/19 24 024 Discontinued(*M edication adjustment) WalkerIndications: Chronic midline low back pain without sciatica Walker with front wheels for home use. 1 Each 06/17/19 24 024 Discontinued(*M ed complete/Regime n complete/Level of care change) Lantus Solostar U-100 Insulin 100 unit/mL (3 [...] 24 024 Discontinued(Re order (E-cancel not sent)) wheelchairIndicati ons:Gait instability Wheelchair: Bariatric (over 250 lbs) with leg rests: (Swing away Length of need: 99 months 1 Each 10/05/19 24 024 Discontinued(*M ed complete/Regime n complete/Level of care change) Walker - 4 wheelsIndications: Gait instability For home use. Length of need: lifetime 1 Each 10/05/19 24 024 Discontinued(Re order (E-cancel not sent)) [...] Encounters Date Type Department Care Team Description 10/25/2023 1:20 PM CDT Office Visit [facility] [address] [place] [phone] Goran Dukes, Urinary Problem 10/25/2023 Travel 10/25/2023 Nurse Triage [facility] [address] [place] [phone] Goran Dukes, Urinary Problem 10/25/2023 [address] [facility] [address] [place] [phone] Goran Dukes, UTI (Need med ) 10/13/2023 9:00 AM CDT Phone Office Visit [facility] [address] [place] [address] Tayla Kiran circular saw operator 10/11/2023 Orders Only [facility] Scanner 1 scan: (1-Ord) [facility], 10/11/2023 10/06/2023 Telephone [facility] [address] [place] [phone] Goran Dukes, Results 10/06/2023 Orders Only [facility] [address] [place] [phone] Goran Dukes, <No scans attached> 10/05/2023 1:50 PM CDT Office Visit [facility] [address] [place] [phone] Goran Dukes, Diabetes (Not fasting- The patient is requesting to speak about medication); Fatigue (The patient reports having leg fatigue like he is about to fall. The patient wants to discuss a walker or wheel chair options. ) 10/05/2023 Telephone [place] [address] [address] Jocelynn Jay NP Refill Request (Clobetasol 0.05%) 10/05/[address] [place] [address] [phone] Goran Dukes, Refill Request (KETOROLAC 10 MG TABLETS ) 10/05/2023 Travel 10/01/[address] [facility] [address] [place] [address] [phone] Goran Dukes DO Refill Request (Lantus Solostar U-100 Insulin) 09/27/2023 [address] [facility] [address] [place] [phone] Goran Dukes, Medication Management (Walker) 09/01/2023 3:20 PM CDT - 09/01/2023 11:59 PM CDT Hospital Encounter [facility] [address] [address] 09/01/2023 Travel 08/18/2023 11:59 AM EVENT PROMOTIONS COORDINATOR - 08/18/2023 11:59 PM EVENT PROMOTIONS COORDINATOR Hospital Encounter [facility] [address] [address] Serge Leslie MD Bilateral leg edema 08/18/2023 Travel 08/13/2023 10:15 AM EVENT PROMOTIONS COORDINATOR - 08/13/2023 11:59 PM EVENT PROMOTIONS COORDINATOR Hospital Encounter [facility] [address] [address] 08/13/2023 Orders Only [facility] [address] [address] Serge Leslie MD <No scans attached> 08/13/2023 Travel 08/02/2023 10:12 AM EVENT PROMOTIONS COORDINATOR - 08/02/2023 11:59 PM EVENT PROMOTIONS COORDINATOR Hospital Encounter [facility] [address] [address] 08/02/2023 Orders Only [facility] [address] [address] Jocelynn Jay NP <No scans attached> 08/02/2023 Travel 07/29/2023 Telephone [facility] [address] [facility] [place] [phone] Goran Dukes DO Failed Appointment from Last 3 Months Immunizations Name Administration Dates Next Due COVID-19 vaccine (Eko 30mcg/0.3mL) P F, MDV 01/16/2021 Influenza, IIV4 03/16/2023,05/01/2022 Tdap 05/14/2016 Family History Medical History Relation Name Comments No Known Problems Father No Known Problems Mother Relation Name Status Comments Father Mother Other Social History Tobacco Use Types Packs/Day Years Used Date Smoking Tobacco: Former Cigarettes Q uit: 2014 Smokeless Tobacco: Never Tobacco Cessation:Counseling Given: Not [...] Sign Reading Time Taken Comments Blood Pressure 144/80 10/25/2023 1:34 PM CDT Pulse 81 10/25/2023 1:34 PM CDT Temperature 36.3 ??C (97.4 ??F) 06/17/2023 7:45 AM CS T Respiratory Rate 20 06/17/2023 7:45 AM EVENT PROMOTIONS COORDINATOR Oxygen Saturation 97% 10/25/2023 1:34 PM CDT Inhaled Oxygen Concentration - - Weight 131.5 kg (290 lb) 10/05/2023 1:49 PM CDT Height 162.6 cm (5' 4) 10/05/2023 1:49 PM CDT Body Mass Index 49.78 10/05/2023 1:49 PM CDT Plan of Treatment Upcoming Encounters Date Type Department Care Team (Late st Contact Info) Description 10/27/2023 11:00 AM CDT Patient Outreach [address] [address] Tayla Kiran, RN [address] [place] [address] 11/02/2023 1:30 PM CDT Office Visit [facility] [address] [place] [phone] [place] [address] [place], [place] [phone] Health Maintenance Due Date Last Done Comments [...] Procedure Name Priority Date/Time Associated Diagnosis Comments URINALYSIS MICROSCOPIC STAT 10/25/2023 1:37 PM CDT UTI (urinary tract infection), uncomplicated UA W/ SEDIMENT EXAM REFLEXED PER CRITERIA STAT 10/25/2023 1:37 PM CDT UTI (urinary tract infection), uncomplicated ND DIAB MANAGE TRN PER INDIV Routine 10/13/2023 [...] LOWER EXTREMITY BILATERAL Routine 08/18/2023 11:50 AM EVENT PROMOTIONS COORDINATOR Bilateral leg edema ANTI HCV Routine 01/22/2022 12:50 PM CDT Need for hepatitis C screening test from Last 3 Months or Most Recently Relevant to Health Maintenance Results * (ABNORMAL) URINALYSIS MICROSCOPIC (10/25/2023 1:37 PM CDT) RBC 6-10(A) 0-2, None Seen /HPF 10/25/2023 1:47 PM CDT [facility] WBC >100(A) 0-2, 3-5, None Seen /HPF 10/25/2023 1:47 PM CDT [facility] BACTERIA Moderate(A ) None Seen, Rare, Few Bacteria/H PF 10/25/2023 1:47 PM CDT [facility] EPITHELIAL CELLS None Seen None Seen, Few Epi/HPF 10/25/2023 1:47 PM CDT [facility] WHITE CELL CLUMPS Present(A) (none) 10/25/2023 1:47 PM CDT [facility] Urine URINE SPECIMEN / Unknown Non-Blood / Unknown 10/25/2023 1:37 PM CDT 10/25/2023 1:37 PM CDT Goran Dukes DO URINE [facility] [address] [place] [address], [place] * (ABNORMAL) UA W/ SEDIMENT EXAM REFLEXED PER CRITERIA (10/25/2023 1:37 PM CDT) COLOR Yellow Yellow Color 10/25/2023 1:47 PM CDT [facility] CLARITY Cloudy(A) Clear Clarity 10/25/2023 1:47 PM CDT [facility] SPECIFIC GRAVITY,URINE 1.025 1.010, 1.015, 1.020, 1.025 10/25/2023 1:47 PM CDT [facility] PH,URINE 5.5 6.0, 7.0, 8.0, 5.5, 6.5, 7.5, 8.5 10/25/2023 1:47 PM CDT [facility] UROBILINOGEN, QUALITATIVE Normal Normal EU/dl 10/25/2023 1:47 PM CDT [facility] PROTEIN, URINE 100(A) Negative mg/dL 10/25/2023 1:47 PM CDT [facility] GLUCOSE, URINE >=1000(A) Negative mg/dL 10/25/2023 1:47 PM CDT [facility] KETONES,URINE Negative Negative mg/dL 10/25/2023 1:47 PM CDT [facility] BILIRUBIN,URI NE Negative Negative 10/25/2023 1:47 PM CDT [facility] OCCULT BLOOD,URINE Moderate(A) Negative 10/25/2023 1:47 PM CDT [facility] NITRITE Negative Negative 10/25/2023 1:47 PM CDT [facility] LEUKOCYTE ESTERASE Moderate(A) Negative 10/25/2023 1:47 PM CDT [facility] Urine URINE SPECIMEN / Unknown Non-Blood / Unknown 10/25/2023 1:37 PM CDT 10/25/2023 1:37 PM CDT GoranIntizacordell DO URINE [facility] [address] [facility] [place] [address], * ND DIAB MANAGE TRN PER INDIV (10/13/2023) DIABETIC ED Goran Tenebrilelmeren DO PB - ANCILLAR Y SERVICES * SCAN-EYE EXAM (10/11/2023 12:00 AM CDT) Scanner OTHER * (ABNORMAL) LIPID PANEL W REFLEX MEASURED LDL (10/05/2023 2:39 PM CDT) CHOLESTEROL,TOTAL 187 100 - 199 mg/dL 10/06/2023 1:31 AM CDT [facility] Comment: Cholesterol, Total Reference Ranges Desirable <200 mg/dL Borderline 200-239 mg/dL High >=240 mg/dL TRIGLYCERIDES 147 <150 mg/dL 10/06/2023 1:31 AM CDT [facility] HDL CHOLESTEROL 27(L) >40 mg/dL 1:31 AM CDT [facility] NON-HDL CHOLESTEROL 160(H) <145 mg/dl 10/06/2023 1:31 AM CDT [facility] CHOL/HDL RATIO 6.93(H) <4.50 10/06/2023 1:31 AM CDT [facility] LDL CHOLESTEROL 131(H) <=130 mg/dL 10/06/2023 1:31 AM CDT [facility] VLDL CHOLESTEROL 29 <=30 mg/dL 10/06/2023 1:31 AM CDT [facility] PROVIDER ORDERED STATUS RANDOM 10/06/2023 1:31 AM T [facility] Blood BLOOD SPECIMEN / Unknown Venipuncture / Unknown 10/05/2023 2:39 PM CDT 10/05/2023 2:39 PM CDT Goran Dukes DO [facility]MISTRY [facility] [address] [place] [address], * (ABNORMAL) CBC W PLT NO DIFF (10/05/2023 2:39 PM CDT) WHITE BLOOD COUNT 8.8 4.5 - 11.0 thou/cu mm 10/05/2023 2:43 PM CDT [facility] RED BLOOD COUNT 4.49 4.30 - 5.90 mil/cu mm 10/05/2023 2:43 PM CDT [facility] HEMOGLOBIN 12.6(L) 13.5 - 17.5 g/dL 10/05/2023 2:43 PM CDT [facility] HEMATOCRIT 38.3 37.0 - 53.0 % 10/05/2023 2:43 PM CDT [facility] MCV 85 80 - 100 fL 10/05/2023 2:43 PM CDT [facility] MCH 28.1 26.0 - 34.0 pg 10/05/2023 2:43 PM CDT [facility] MCHC 32.9 32.0 - 36.0 g/dL 10/05/2023 2:43 PM CDT [facility] RDW 13.2 11.5 - 15.5 % 10/05/2023 2:43 PM CDT [facility] PLATELET COUNT 344 140 - 440 thou/cu mm 10/05/2023 2:43 PM CDT [facility] MPV 9.6 6.5 - 11.0 fL 10/05/2023 2:43 PM CDT [facility] NRBC 0.0 % 10/05/2023 2:43 PM CDT [facility] ABS NRBC 0.0 thou /cu mm 10/05/2023 2:43 PM CDT [facility] Blood BLOOD SPECIMEN / Unknown Venipuncture / Unknown 10/05/2023 2:39 PM CDT 10/05/2023 2:39 PM CDT Goran Dukes DO HEMATOLOGY [facility] [address] [place] [address], * ANTI HIV 1/2 [18232.0] (10/05/2023 2:39 PM CDT) [facility] HIV-1/HIV-2 SCREEN Non-Reacti ve Non-Reacti ve 10/06/2023 1:17 AM CD[address] [facility] Comment:HIV-1 p24 and HIV-1/ HIV-2 Ab Not Detected. Blood BLOOD SPECIMEN / Unknown Venipuncture / Unknown 10/05/2023 2:39 PM CDT 10/05/2023 2:39 PM CDT Goran Dukes DO SEND OUTS Performing Organization Address [facility] Co de Phone Number [facility] [address] [place] [address], [place] * (ABNORMAL) HEMOGLOBIN A1C MONITORING (POCT) (10/05/2023 2:39 PM CDT) HEMOGLOBIN A1C MONITORING (POCT) 10.0(H) <=6.4 % 10/05/2023 2:54 PM CDT [facility] Blood BLOOD SPECIMEN / Unknown Venipuncture / Unknown 10/05/2023 2:39 PM CDT 10/05/2023 2:39 PM CDT Narrative [facility] - 10/05/2023 2:54 PM CDT ? (<=6.9%) [...] Anemias, Splenectomy ? Goran Dukes DO CHEMISTRY Performing Organization Address [facility] Co de Phone Number [facility] [address] [place] [address], [place] * (ABNORMAL) COMP METABOLIC PANEL (10/05/2023 2:39 PM CDT) SODIUM 136 136 - 145 mmol/L 10/06/2023 1:31 AM [facility] POTASSIUM 5.4(H) 3.5 - 5.1 mmol/L 10/06/2023 1:31 AM [facility] CHLORIDE 99 98 - 107 mmol/L 10/06/2023 1:31 AM [facility] CO2,TOTAL 26 22 - 29 mmol/L 10/06/2023 1:31 AM [facility] ANION GAP 11 5 - 18 10/06/2023 1:31 AM [facility] GLUCOSE 298(H) 70 - 99 mg/dL 10/06/2023 1:31 AM [facility] CALCIUM 9.5 8.6 - 10.0 mg/dL 10/06/2023 1:31 AM [facility] BUN 15 6 - 20 mg/dL 10/06/2023 1:31 AM [facility] CREATININE 0.83 0.70 - 1.20 mg/dL 10/06/2023 1:31 AM [facility] BUN/CREAT RATIO 18 10 - 20 1:31 AM [facility] eGFR >90 >90 mL/min/1.7 3m2 10/06/2023 1:31 AM [facility] Comment:As of 2021, eG FR is calculated by the CKD-EPI creatinine equation without race adjustment. ??eGFR can be influenced by muscle mass, exercise, and diet. ??The reported eGFR is an estimation only and is only applicable if the renal function is stable. ALBUMIN 4.0 4.0 - 4.9 g/dL 10/06/2023 1:31 AM [facility] PROTEIN,TOTAL 7.3 6.0 - 8.0 g/dL 10/06/2023 1:31 AM [facility] BILIRUBIN,TOTAL 0.2 0.0 - 1.2 mg/dL 10/06/2023 1:31 AM [facility] ALK PHOSPHATASE 83 40 - 129 IU/L 10/06/2023 1:31 AM CDT [facility] ALT (SGPT) 12 10 - 50 IU/L 10/06/2023 1:31 AM CDT [facility] AST (SGOT) 13 10 - 50 IU/L 10/06/2023 1:31 AM CDT [facility] Blood BLOOD SPECIMEN / Unknown Venipuncture / Unknown 10/05/2023 2:39 PM CDT 10/05/2023 2:39 PM CDT Goran Dukes DO CHEMISTRY [facility] [address] [place] [address], [place] * [place] VENOUS INSUFFICIENCY LOWER EXTREMITY BILATERAL (08/18/2023 11:50 AM EVENT PROMOTIONS COORDINATOR) Anatomical Region Laterality Modality LEGS Ultrasound, Ultr [...] For Patients: As a result of the 21st Century Cures Act, medical imagingexams and procedure reports [...] 4:43:44 PM (Electronically Signed) Serge Leslie MD * ANTI HCV (01/22/2022 12:50 PM CDT) HEPATITIS C ANTIBODY Non-React cherelle Non-React cherelle 01/22/2022 9:10 PM CDT [facility] Comment:Antibodies to HCV no t detected; does not exclude the possibility of exposure to HCV. Blood BLOOD SPECIMEN / Unknown Venipuncture / Unknown 01/22/2022 12:50 PM CDT 01/22/2022 12:51 PM CDT Goran Dukes DO SEND OUTS [facility] [address] [place] [address], from Last 3 Months or Most Recently Relevant to Health Maintenance Advance Directives * Full Code (Latest Code Status on File) Date Activated Date Inactivated Comments 06/15/2023 11:00 PM 06/17/2023 2:40 PM Question Answer Comments Code Status Discussion: Reviewed Preferences * Full Code Date Activated Date Inactivated Comments 01/11/2020 5:28 PM 01/12/2020 7:09 PM Question Answer Comments Code Status Discussion: Discussed Care Teams Administrator Health Care Facility Relationship Specialty [place] [address] [place] [address] PCP - General Family Practice 10/16/20 Pcp, No . 08/04/14 Tayla Kiran, RN [address] [place] [address] Diabetes Care Management Registered Nurse 10/13/2308/13
--- OUTSIDE RECORDS SUMMARY | 2023-10-25 15:12 | XMS_ITS | Clinical Summary ---
Author Name Unknown Organization [place] Address [address] [place] [address] Care Team Providers Care After School Caregiver Name Role Phone Dinesh Muir MD Unavailable Purvi Lennon MD Unavailable Darshana Huertas Unavailable [phone] Goran Dukes DO Primary Care Provider [phone] David Pereira MD Unavailable [phone] Jovany Dumont MD Unavailable [phone] Allergies Active Allergy Reactions Criticality Noted [...] 09/29/2020 Active levofloxacin (LEVAQUIN) 500 MG tabletIndications:Ac [place] cystitis without hematuria Take 1 tablet (500 [...] for patients under 2 years old ??at [facility] for lipid analytes. 2-8 years: [...] LAB - BLOOD ORD ERABLES [facility] [address] [place] [address] * (ABNORMAL) Comprehensive metabolic panel (09/08/2021 8:28 [...] and gender (Shannon et al., NEJM, DOI: 10.1056/[id number]) Blood BLOOD SPECIMEN / Unknown Client Draw / Unknown 09/08/2021 8:28 AM CDT 09/08/2021 3:38 PM CDT David Jimenez PA-C LAB - BLOOD ORD ERABLES [facility] [address] [place] [address] * (ABNORMAL) Hemoglobin A1c (09/28/2020 10:35 AM CDT) Hemoglobin A1C 9.6(H) 0 - 5.6 % 09/28/2020 11:14 AM CDT [facility] Comment: Normal <5.7% Prediabetes 5.7-6.4% ??Diabetes 6.5% or higher - adopted from ADA consensus guidelines. Blood 09/28/2020 10:3 5 AM CDT 09/28/2020 10:36 AM CDT Sal Mora DO LAB - BLOOD ORDERAB LES [facility] [address] [address], [facility] [phone] from Last 3 Months or Most Recently Relevant to Health Maintenance Advance Directives For more information, please contact: [phone] * Full Code (Latest Code Status on File) Date Activated Date Inactivated Comments 09/28/2020 10:12 AM 09/29/2020 4:35 PM All basic a nd advanced life-sustaining interventions are performed as appropriate Question Answer Comments Code status determined by: Discussion with aishwarya nt/ legal decision maker Care Teams After School Caregiver Relationship Specialty [place] [address] [place] [address] PCP - General Family Medicine 09/28/20 Dinesh Muir MD [facility] [address] [id number] Otolaryngology 08/25/18 Purvi Lennon MD [address] [facility] [address] [place] [address] Otolaryngology 08/25/18 Darshana Huertas AuD [address] [facility] [address] [place] [address] Lighting Equipment Operator Audiology 08/25/18 David Pereira MD [address] [place] [address] Urology 09/30/20 Jovany Dumont MD [address] [place] [address] Neurology 03/23/22
== END 2023-10-25 15:11 | disposition home or self-care (01) ==
LOC: WOUND 15:10
PROVIDERS: Visit Provider Surgery
DX: I89.0 Lymphedema, not elsewhere classified (principal); L97.812 Non-pressure chronic ulcer of other part of right lower leg with fat layer exposed; L97.821 Non-pressure chronic ulcer of other part of left lower leg limited to breakdown of skin; E11.42 Type 2 diabetes mellitus with diabetic polyneuropathy; Z79.4 Long term (current) use of insulin
CPT/HCPCS: 29581

== ENCOUNTER 2023-10-27 13:47 | Outpatient (CLI) | payer MEDICARE, SELFPAY ==
--- OUTSIDE RECORDS SUMMARY | 2023-10-27 13:49 | XMS_ITS | Clinical Summary ---
Author Name Unknown Organization [place] Address [address] [place] [address] Care Team Providers Care Education Sales Consultant Name Role Phone Dinesh Muir MD Unavailable Purvi Lennon MD Unavailable [phone] Darshana Huertas Unavailable [phone] Goran Dukes DO Primary Care Provider [phone] David Pereira MD Unavailable [phone] Jovany Dumont MD Unavailable [phone] Allergies Active Allergy Reactions Criticality Noted [...] 09/29/2020 Active levofloxacin (LEVAQUIN) 500 MG tabletIndications:Ac [place] cystitis without hematuria Take 1 tablet (500 [...] for patients under 2 years old ??at [facility] for lipid analytes. 2-8 years: Greater [...] LAB - BLOOD ORD ERABLES [facility] [address] [place] [address] * (ABNORMAL) Comprehensive metabolic panel (09/08/2021 8:28 [...] and gender (Shannon et al., NEJM, DOI: 10.1056/[id number]) Blood BLOOD SPECIMEN / Unknown Client Draw / Unknown 09/08/2021 8:28 AM CDT 09/08/2021 3:38 PM CDT David Jimenez PA-C LAB - BLOOD ORD ERABLES [facility] [address] [place] [address] * (ABNORMAL) Hemoglobin A1c (09/28/2020 10:35 AM CDT) Hemoglobin A1C 9.6(H) 0 - 5.6 % 09/28/2020 11:14 AM CDT [facility] Comment: Normal <5.7% Prediabetes 5.7-6.4% ??Diabetes 6.5% or higher - adopted from ADA consensus guidelines. Blood 09/28/2020 10:3 5 AM CDT 09/28/2020 10:36 AM CDT Sal Mora DO LAB - BLOOD ORDERAB LES [facility] [address] [address], [facility] [phone] from Last 3 Months or Most Recently Relevant to Health Maintenance Advance Directives For more information, please contact: [phone] * Full Code (Latest Code Status on File) Date Activated Date Inactivated Comments 09/28/2020 10:12 AM 09/29/2020 4:35 PM All basic a nd advanced life-sustaining interventions are performed as appropriate Question Answer Comments Code status determined by: Discussion with aishwarya nt/ legal decision maker Care Teams Education Sales Consultant Relationship Specialty [place] [address] [place] [address] PCP - General Family Medicine 09/28/20 Dinesh Muir MD [facility] [address] [phone] Otolaryngology 08/25/18 Purvi Lennon MD [address] [facility] [address] [place] [address] Otolaryngology 08/25/18 Darshana Huertas AuD [address] [facility] [address] [place] [address] Grounds Foreman Audiology 08/25/18 David Pereira MD [address] [place] [address] Urology 09/30/20 Jovany Dumont MD [address] [place] [address] Neurology 03/23/22
--- OUTSIDE RECORDS SUMMARY | 2023-10-27 13:49 | XMS_ITS | Referral Summary ---
Author Name Unknown Organization [place] Address [address] [place] [address] Care Team Providers Care Metal Buffer Name Role Phone Dinesh Muir MD Unavailable Purvi Lennon MD Unavailable [phone] Darshana Huertas Unavailable [phone] Goran Dukes DO Primary Care Provider David Pereira MD Unavailable Jovany Dumont MD Unavailable [phone] Allergies Active Allergy Reactions Criticality Noted [...] 09/29/2020 Active levofloxacin (LEVAQUIN) 500 MG tabletIndications:Ac ekuk cystitis without hematuria Take 1 tablet (500 [...] for patients under 2 years old ??at [facility] for lipid analytes. 2-8 years: [...] 8:28 AM CDT 09/08/2021 3:38 PM CDT Daivd Jimenez PA-C LAB - BLOOD ORD ERABLES [facility] [address] [place] [address] * (ABNORMAL) Comprehensive metabolic panel (09/08/2021 8:28 [...] and gender (Shannon et al., NEJ, DOI: 10.1056/[id number]) Blood BLOOD SPECIMEN / Unknown Client Draw / Unknown 09/08/2021 8:28 AM CDT 09/08/2021 3:38 PM CDT David Jimenez PA-C LAB - BLOOD ORD ERABLES [facility] [address] [place] [address] * (ABNORMAL) Hemoglobin A1c (09/28/2020 10:35 AM CDT) Hemoglobin A1C 9.6(H) 0 - 5.6 % 09/28/2020 11:14 AM CDT [facility] Comment: Normal <5.7% Prediabetes 5.7-6.4% ??Diabetes 6.5% or higher - adopted from ADA consensus guidelines. Blood 09/28/2020 10:3 5 AM CDT 09/28/2020 10:36 AM CDT Sal Mora DO LAB - BLOOD ORDERAB LES [facility] [address] [address], [facility] [phone] from Last 3 Months or Most Recently Relevant to Health Maintenance Advance Directives For more information, please contact: [phone] * Full Code (Latest Code Status on File) Date Activated Date Inactivated Comments 09/28/2020 10:12 AM 09/29/2020 4:35 PM All basic a nd advanced life-sustaining interventions are performed as appropriate Question Answer Comments Code status determined by: Discussion with aishwarya nt/ legal decision maker Care Teams Metal Buffer Relationship Specialty [place] [address] [place] [address] PCP - General Family Medicine 09/28/20 Dinesh Muir MD [facility] [address] [address] Otolaryngology 08/25/18 Purvi Lennon MD [address] [facility] [address] [place], [place] [address] Otolaryngology 08/25/18 Darshana Huertas AuD 420 [facility] [address] [place], [place] [address] Sybase Developer Audiology 08/25/18 David Pereira MD [address] [place] [address] Urology 09/30/20 Jovany Dumont MD [address] [place] [address] Neurology 03/23/22
--- OUTSIDE RECORDS SUMMARY | 2023-10-27 13:49 | XMS_ITS | Clinical Summary ---
Author Name Unknown Organization [facility] Address [address] [place] [address] Care Team Providers Care Motor Assembler Name Role Phone Needs Pcp, Assignment Primary Care Provider [phone] Source Comments You are receiving this document as you are listed as the primary care provider,follow-up provider, or the patient has been referred to you for consultation.This is in compliance with the Medicare and[facility] Cent[facility] EHR Incentive Program,which states Providers who transition their patient to another setting of careor provider of care or refers their patient to another provider of care shouldprovide summary care record for each transition of care or referral. [email or web address] Allergies Active Allergy Reactions Criticality Noted Date [...] age to complete this topic Care Teams Motor Assembler Relationship Specialty Start Date End Date Needs Pcp, [place] [address] PCP - General 07/02/16
--- OUTSIDE RECORDS SUMMARY | 2023-10-27 13:49 | XMS_ITS | Encounter Summary ---
Author Name Unknown Organization [place] Address [address] [facility] [place] [address] Care Team Providers Care Coding Compliance Specialist Name Role Phone King Garcia MD Primary Care Provider Unavailable No Ref-Primary, Physician Primary Care Provider [facility] Primary Care Provide r Go Lr MD Unavailable Go Lr MD Unavailable Be Willard MD Primary Care Provider [phone] Alida Muir MD Unavailable Purvi Lennon MD Unavailable Darshana Huertas Unavailable [phone] Goran Dukes DO Primary Care Provider [phone] David Pereira MD Unavailable [phone] Jovany Dumont MD Unavailable [phone] Reason for Visit * Reason Comments Medication Refill Encounter Details Date Type Department Care Team (Late st Contact Info) Description 12/25/2016 Refill [facility] [place] [address] [address] Seda Rizzo PA-C [address] [address] Medication Refill Social History Tobacco Use Types [...] documented as of this encounter Care Teams Coding Compliance Specialist Relationship Specialty Start Date End Date King Garcia MD PCP - General Family Practice 09/25/16 10/30/17 No Ref-Primary, Physician PCP - General 10/31/17 12/19/17 [facility] [address] [place], [place] [phone] PCP - General 12/20/17 08/24/18 Go Lr MD [address] [place] [address] PCP - Assigned PCP 11/08/17 08/16/18 Be Willard MD [place] [id number] [place] [address] PCP - General Family Practice 08/25/18 09/27/20 [place] [address] [place] [phone] PCP - General Family Medicine 09/28/20 Go Lr MD [address] [place] [address] Assigned PCP 11/08/17 09/30/19 Alida Muir MD [facility] [address] [address] Otolaryngology 08/25/18 Purvi Lennon MD 420 [facility] [address] [place] [address] Otolaryngology 08/25/18 Darshana Huertas AuD 420 [facility] 396 [place], [place] [address] Saw Maker Audiology 08/25/18 David Pereira MD [address] [address] Urology 09/30/20 Jovany Dumont MD [address] [place] [address] Neurology 03/23/22 documented as of this encounter
--- OUTSIDE RECORDS SUMMARY | 2023-10-27 13:49 | XMS_ITS | Clinical Summary ---
Author Name Unknown Organization [facility] Address [address] [address] Phone Care Team Providers Care Account Support Specialist Name Role Phone Choice, No Pcp-Patient Primary [...] Comments Blood Pressure 136/71 05/22/2023 3:28 PM ADMINISTRATOR SOCIAL WELFARE Pulse 115 05/22/2023 3:28 PM ADMINISTRATOR [employer] WELF[employer] Temperature 37.5 ??C (99.5 ??F) 05/22/2023 4:56 PM CS T Respiratory Rate 22 05/22/2023 3:28 PM ADMINISTRATOR [employer] WELFARE Oxygen Saturation 93% 05/22/2023 3:28 PM ADMINISTRATOR [employer] WELFARE Inhaled Oxygen Concentration - - Weight 128.3 [...] age to complete this topic Care Teams Account Support Specialist Relationship Specialty Start Date End Date Choice, No Pcp-Patient PCP - General 05/22/23
--- OUTSIDE RECORDS SUMMARY | 2023-10-27 13:49 | XMS_ITS | Clinical Summary ---
Author Name Unknown Organization [email or web address] Address [place], [place] [address] Care Team Providers Care Machine I Coremaker Name Role Phone Pcp, No Unavailable Unavailable Goran Dukes DO Primary Care Provide r Tayla Kiran RN Unavailable [phone] Allergies Active Allergy Reactions Criticality Noted [...] day. 1 Each 10/13/19 24 Active Insulin Pierron, Disposable, (BD Amanda 2nd Gen Pen Needle) [...] be used to read blood sugars, follow raw mill operator directions. 6 Each 3 10/13/19 24 Active FreeStyle Lacie 3 Olden for continuous blood glucose monitor (CGM)Indications:T ype 2 diabetes mellitus with hyperglycemia, without long-term current use of insulin (HC) To be used to read blood sugars follow raw mill operator directions. 1 Each 10/13/19 24 Active lancets [...] be used to read blood sugars per raw mill operator's directions. 1 Each 07/01/19 22 024 Discontinued(*M [...] Description 10/25/2023 1:20 PM CDT Office Visit [facility] [address] [place] [phone] Goran Dukes, Urinary Problem 10/25/2023 Travel 10/25/2023 Nurse Triage [facility] [address] [place] [phone] Goran Dukes, Urinary Problem 10/25/2023 Telephone [facility] [address] [place] [phone] Goran Dukes, UTI (Need med ) 10/13/2023 9:00 AM CDT Phone Office Visit [facility] [address] [place] [address] Tayla Kiran box toe cutter 10/11/2023 Orders Only [facility] Scanner 1 scan: (1-Ord) [facility], 10/11/2023 10/06/2023 Telephone [facility] [address] [facility] [phone] Goran Dukes, Results 10/06/2023 Orders Only [facility] [address] [place] [phone] Goran Dukes, <No scans attached> 10/05/2023 1:50 PM CDT Office Visit [facility] [address] [place] [phone] Goran Dukes, Diabetes (Not fasting- The patient is requesting to speak about medication); Fatigue (The patient reports having leg fatigue like he is about to fall. The patient wants to discuss a walker or wheel chair options. ) 10/05/2023 Telephone [place] [address] [address] [address] Jocelynn Jay NP Refill Request (Clobetasol 0.05%) 10/05/2023 Telephone [facility] [address] [place] [phone] Goran Dukes, Refill Request (KETOROLAC 10 MG TABLETS ) 10/05/2023 Travel 10/01/2023 Refill [facility] [address] [place] [phone] Goran Dukes DO Refill Request (Lantus Solostar U-100 Insulin) 09/27/2023 Telephone [facility] [address] [place] [phone] Goran Dukes, Medication Management (Walker) 09/01/2023 3:20 PM CDT - 09/01/2023 11:59 PM CDT Hospital Encounter [facility] [address] [address] 09/01/2023 Travel 08/18/2023 11:59 AM DIRECTOR OF SECURITIES AND REAL ESTATE - 08/18/2023 11:59 PM DIRECTOR OF SECURITIES AND REAL ESTATE Hospital Encounter [facility] [address] [place] [address] Serge Leslie MD Bilateral leg edema 08/18/2023 Travel 08/13/2023 10:15 AM DIRECTOR OF SECURITIES AND REAL ESTATE - 08/13/2023 11:59 PM DIRECTOR OF SECURITIES AND REAL ESTATE Hospital Encounter [facility] [address] [address] 08/13/2023 Orders Only [facility] [address] [address] Serge Leslie MD <No scans attached> 08/13/2023 Travel 08/02/2023 10:12 AM DIRECTOR OF SECURITIES AND REAL ESTATE - 08/02/2023 11:59 PM DIRECTOR OF SECURITIES AND REAL ESTATE Hospital Encounter [facility] [address] [address] 08/02/2023 Orders Only [facility] [address] [address] Jocelynn Jay NP <No scans attached> 08/02/2023 Travel 07/29/2023 Telephone [facility] [address] [facility] [place] [phone] Goran Dukes DO Failed Appointment from Last 3 Months Immunizations Name Administration Dates Next Due COVID-19 vaccine (Scrybe 30mcg/0.3mL) P F, MDV 01/16/2021 Influenza, IIV4 [...] T Respiratory Rate 20 06/17/2023 7:45 AM DIRECTOR OF SECURITIES AND REAL ESTATE Oxygen Saturation 97% 10/25/2023 1:34 PM CDT Inhaled Oxygen Concentration - - Weight 131.5 kg (290 lb) 10/05/2023 1:49 PM CDT Height 162.6 cm (5' 4) 10/05/2023 1:49 PM CDT Body Mass Index 49.78 10/05/2023 1:49 PM CDT Plan of Treatment Upcoming Encounters Date Type Department Care Team (Late st Contact Info) Description 11/02/2023 1:30 PM CDT Office Visit [facility] [address] [place] [phone] [place] [address] [place], [place] [phone] Health Maintenance Due Date Last Done Comments [...] Procedure Name Priority Date/Time Associated Diagnosis Comments URINE CULTURE Add On 10/25/2023 1:37 PM CDT UTI (urinary tract infection), uncomplicated URINALYSIS MICROSCOPIC STAT 10/25/2023 1:37 PM CDT UTI (urinary tract infection), uncomplicated UA W/ SEDIMENT EXAM REFLEXED PER CRITERIA STAT 10/25/2023 1:37 PM CDT UTI (urinary tract infection), uncomplicated SC DIAB MANAGE TRN PER INDIV Routine 10/13/2023 [...] LOWER EXTREMITY BILATERAL Routine 08/18/2023 11:50 AM DIRECTOR OF SECURITIES AND REAL ESTATE Bilateral leg edema ANTI HCV Routine 01/22/2022 12:50 PM CDT Need for hepatitis C screening test from Last 3 Months or Most Recently Relevant to Health Maintenance Results * (ABNORMAL) URINALYSIS MICROSCOPIC (10/25/2023 1:37 PM CDT) RBC 6-10(A) 0-2, None Seen /HPF 10/25/2023 1:47 PM CDT [facility] WBC >100(A) 0-2, 3-5, None Seen /HPF 10/25/2023 1:47 PM CDT [facility] BACTERIA Moderate(A ) None Seen, Rare, Few Bacteria/H PF 10/25/2023 1:47 PM CDT [facility] EPITHELIAL CELLS None Seen None Seen, Few Epi/HPF 10/25/2023 1:47 PM CDT [facility] WHITE CELL CLUMPS Present(A) (none) 10/25/2023 1:47 PM CDT [facility] Urine URINE SPECIMEN / Unknown Non-Blood / Unknown 10/25/2023 1:37 PM CDT 10/25/2023 1:37 PM CDT Goran Dukes URINE Performing Organization Address City/State/[facility] Co de Phone Number [facility] [address] [place] [address], * (ABNORMAL) URINE CULTURE (10/25/2023 1:37 PM CDT) CULTURE RESULT(A) 10/27/2023 8:53 AM CDT [facility]AL LAB[facility]AT[facility] CULTURE >100,000 CFU/mL Streptococcus agalactiae (Strep Group B) 10/27/2023 8:53 AM CDT [facility] CULTURE <10,000 CFU/mL Multiple organisms probable contaminants 10/27/2023 8:53 AM CDT [facility] Urine URINE SPECIMEN / Unknown Non-Blood / Unknown 10/25/2023 1:37 PM CDT 10/25/2023 1:37 PM CDT Goran Dukes DO MICROBIOLOGY [facility] [address] [place] [address], [place] * (ABNORMAL) UA W/ SEDIMENT EXAM REFLEXED PER CRITERIA (10/25/2023 1:37 PM CDT) COLOR Yellow Yellow Color 10/25/2023 1:47 PM CDT [facility] CLARITY Cloudy(A) Clear Clarity 10/25/2023 1:47 PM CDT [facility] SPECIFIC GRAVITY,URINE 1.025 1.010, 1.015, 1.020, 1.025 10/25/2023 1:47 PM CDT [facility] PH,URINE 5.5 6.0, 7.0, 8.0, 5.5, 6.5, 7.5, 8.5 10/25/2023 1:47 PM CDT [facility] UROBILINOGEN, QUALITATIVE Normal Normal EU/dl 10/25/2023 1:47 PM CDT [facility] PROTEIN, URINE 100(A) Negative mg/dL 10/25/2023 1:47 PM CDT [facility] GLUCOSE, URINE >=1000(A) Negative mg/dL 10/25/2023 1:47 PM CDT [facility] KETONES,URINE Negative Negative mg/dL 10/25/2023 1:47 PM CDT [facility] BILIRUBIN,URI NE Negative Negative 10/25/2023 1:47 PM CDT [facility] OCCULT BLOOD,URINE Moderate(A) Negative 10/25/2023 1:47 PM CDT [facility] NITRITE Negative Negative 10/25/2023 1:47 PM CDT [facility] LEUKOCYTE ESTERASE Moderate(A) Negative 10/25/2023 1:47 PM CDT [facility] Urine URINE SPECIMEN / Unknown Non-Blood / Unknown 10/25/2023 1:37 PM CDT 10/25/2023 1:37 PM CDT Goran Perry Linuscordell DO URINE [facility] [address] [place] [address], [place] * SC DIAB MANAGE TRN PER INDIV (10/13/2023) DIABETIC ED Goran Dukes DO PB - ANCILLAR Y SERVICES * SCAN-EYE EXAM (10/11/2023 12:00 AM CDT) Scanner OTHER * (ABNORMAL) LIPID PANEL W REFLEX MEASURED LDL (10/05/2023 2:39 PM CDT) CHOLESTEROL,TOTAL 187 100 - 199 mg/dL 10/06/2023 1:31 AM CDT [facility] Comment: Cholesterol, Total Reference Ranges Desirable <200 mg/dL Borderline 200-239 mg/dL High >=240 mg/dL TRIGLYCERIDES 147 <150 mg/dL 10/06/2023 1:31 AM CDT [employer] [facility] HDL CHOLESTEROL 27(L) >40 mg/dL 1:31 AM CDT [facility] NON-HDL CHOLESTEROL 160(H) <145 mg/dl 10/06/2023 1:31 AM CDT [facility] CHOL/HDL RATIO 6.93(H) <4.50 10/06/2023 1:31 AM CDT [facility]Patent[facility] LDL CHOLESTEROL 131(H) <=130 mg/dL 10/06/2023 1:31 AM CDT [facility] VLDL CHOLESTEROL 29 <=30 mg/dL 10/06/2023 1:31 AM CDT [facility] [employer]-[facility] PROVIDER ORDERED STATUS RANDOM 10/06/2023 1:31 AM CDT [facility] Blood BLOOD SPECIMEN / Unknown Venipuncture / Unknown 10/05/2023 2:39 PM CDT 10/05/2023 2:39 PM CDT Goran Dukes DO CHEMISTRY [facility] [address] [place] [address], [place] * (ABNORMAL) CBC W PLT NO DIFF (10/05/2023 2:39 PM CDT) WHITE BLOOD COUNT 8.8 4.5 - 11.0 thou/cu mm 10/05/2023 2:43 PM CDT [facility] RED BLOOD COUNT 4.49 4.30 - 5.90 mil/cu mm 10/05/2023 2:43 PM CDT [facility] HEMOGLOBIN 12.6(L) 13.5 - 17.5 g/dL 10/05/2023 2:43 PM CDT [facility] HEMATOCRIT 38.3 37.0 - 53.0 % 10/05/2023 2:43 PM CDT [facility] MCV 85 80 - 100 fL 10/05/2023 2:43 PM CDT [facility] MCH 28.1 26.0 - 34.0 pg 10/05/2023 2:43 PM CDT [facility] MCHC 32.9 32.0 - 36.0 g/dL 10/05/2023 2:43 PM CDT [facility] RDW 13.2 11.5 - 15.5 % 10/05/2023 2:43 PM CDT [facility] PLATELET COUNT 344 140 - 440 thou/cu mm 10/05/2023 2:43 PM CDT [facility] MPV 9.6 6.5 - 11.0 fL 10/05/2023 2:43 PM CDT [facility] NRBC 0.0 % 10/05/2023 2:43 PM CDT [facility] ABS NRBC 0.0 thou /cu mm 10/05/2023 2:43 PM CDT [facility] Blood BLOOD SPECIMEN / Unknown Venipuncture / Unknown 10/05/2023 2:39 PM CDT 10/05/2023 2:39 PM CDT Goran Dukes DO HEMATOLOGY Performing Organization Address [facility] Co de Phone Number [facility] [address] [place] [address], * ANTI HIV 1/2 [58531.0] (10/05/2023 2:39 PM CDT) HIV-1/HIV-2 SCREEN Non-Reacti ve Non-Reacti ve 10/06/2023 1:17 AM CDT [facility] Comment:HIV-1 p24 and HIV-1/ HIV-2 Ab Not Detected. Blood BLOOD SPECIMEN / Unknown Venipuncture / Unknown 10/05/2023 2:39 PM CDT 10/05/2023 2:39 PM CDT Goran Dukes DO SEND OUTS Performing Organization Address [facility] Co de Phone Number [facility]AL LAB[facility] [address] [place] [address], * (ABNORMAL) HEMOGLOBIN A1C MONITORING (POCT) (10/05/2023 2:39 PM CDT) HEMOGLOBIN A1C MONITORING (POCT) 10.0(H) <=6.4 % 10/05/2023 2:54 PM CDT [facility] Blood BLOOD SPECIMEN / Unknown Venipuncture / Unknown 10/05/2023 2:39 PM CDT 10/05/2023 2:39 PM CDT Narrative [facility] - 10/05/2023 2:54 PM CDT ? (<=6.9%) [...] Anemias, Splenectomy ? Goran Dukes DO CHEMISTRY [facility] [address] [place] [address], * (ABNORMAL) COMP METABOLIC PANEL (10/05/2023 2:39 PM CDT) SODIUM 136 136 - 145 mmol/L 10/06/2023 1:31 AM T [facility] TR[facility] LAB[facility]ATORY POTASSIUM 5.4(H) 3.5 - 5.1 mmol/L 10/06/2023 1:31 AM [facility] TRAL LABORATORY CHLORIDE 99 98 - 107 mmol/L 10/06/2023 1:31 AM [facility] TRAL LAB[facility] CO2,TOTAL 26 22 - 29 mmol/L 10/06/2023 1:31 AM [facility] TRAL LAB[facility]ATORY ANION GAP 11 5 - 18 10/06/2023 1:31 AM [facility] TR[facility] LAB[facility]ORY GLUCOSE 298(H) 70 - 99 mg/dL 10/06/2023 1:31 AM [facility] TRAL LAB[facility]ORY CALCIUM 9.5 8.6 - 10.0 mg/dL 10/06/2023 1:31 AM [facility] LAB[facility] BUN 15 6 - 20 mg/dL 10/06/2023 1:31 AM [facility] LAB[facility] CREATININE 0.83 0.70 - 1.20 mg/dL 10/06/2023 1:31 AM [facility] BUN/CREAT RATIO 18 10 - 20 1:31 AM [facility] eGFR >90 >90 mL/min/1.7 3m2 10/06/2023 1:31 AM CDT [facility] TRAL LABORATORY Comment:As of 2021, eG FR is calculated by the CKD-EPI creatinine equation without race adjustment. ??eGFR can be influenced by muscle mass, exercise, and diet. ??The reported eGFR is an estimation only and is only applicable if the renal function is stable. ALBUMIN 4.0 4.0 - 4.9 g/dL 10/06/2023 1:31 AM CDT [facility] TRAL LAB[facility]ORY PROTEIN,TOTAL 7.3 6.0 - 8.0 g/dL 10/06/2023 1:31 AM CDT [facility] BILIRUBIN,TOTAL 0.2 0.0 - 1.2 mg/dL 10/06/2023 1:31 AM CDT [facility] TR[facility] LAB[facility] ALK PHOSPHATASE 83 40 - 129 IU/L 10/06/2023 1:31 AM CDT [facility] ALT (SGPT) 12 10 - 50 IU/L 10/06/2023 1:31 AM CDT [facility] AST (SGOT) 13 10 - 50 IU/L 10/06/2023 1:31 AM CDT [facility] Blood BLOOD SPECIMEN / Unknown Venipuncture / Unknown 10/05/2023 2:39 PM CDT 10/05/2023 2:39 PM CDT Goran Dukes DO CHEMISTRY [facility] [address] [place] [address], * [place] VENOUS INSUFFICIENCY LOWER EXTREMITY BILATERAL (08/18/2023 11:50 AM DIRECTOR OF SECURITIES AND REAL ESTATE) Anatomical Region Laterality Modality LEGS Ultrasound, Ultr asound 08/22/2023 4:43 PM CDT Narrative 08/22/2023 4:43 PM CDT For Patients: ??As a result of the Cures Act, medical imaging exams and procedure [...] cherelle Non-React cherelle 01/22/2022 9:10 PM CDT [facility] Comment:Antibodies to HCV no t detected; does not exclude the possibility of exposure to HCV. Blood BLOOD SPECIMEN / Unknown Venipuncture / Unknown 01/22/2022 12:50 PM CDT 01/22/2022 12:51 PM CDT Goran Dukes DO SEND OUTS [facility]OR[facility]-C[facility]AL LABORATORY [address] [place] [address], [place] from Last 3 Months or Most [...] Comments Code Status Discussion: Discussed Care Teams Machine I Coremaker Relationship Specialty [place] [address] [place] [address] PCP - General Family Practice 10/16/20 Pcp, No . 08/04/14 Tayla Kiran, RN [address] [place] [address] Diabetes Care Management Registered Nurse 10/13/2308/13
--- OUTSIDE RECORDS SUMMARY | 2023-10-27 13:49 | XMS_ITS | Encounter Summary ---
Author Name Unknown Organization [facility] Address [facility] [place] [address] Care Team Providers Care Websphere Portal Architect Name Role Phone Confirmed, No Pcp Primary Care Provider Unavaila ble Provider, [facility] Primary Care Provider Unavailabl King Allan MD Primary Care Provider Unavailable No Ref-Primary, Physician Primary Care Provider [facility] Primary Care Provide r Go Lr MD Unavailable Go Lr MD Unavailable Be Willard MD Primary Care Provider [phone] Dinesh Muir MD Unavailable Purvi Lennon MD Unavailable Darshana Huertas Unavailable [phone] Goran Dukes DO Primary Care Provider [phone] David Pereira MD Unavailable [phone] Jovany Dumont MD Unavailable [phone] Reason for Visit * Reason Onset Date Comments Referral 10/17/2015 Encounter Details Date Type Department Care Team (Late st Contact Info) Description 10/17/2015 Telephone [facility] [place] [id number] [facility] [address] [place] [address] Pain Management Program, [facility] Referral Social History Tobacco Use Types [...] pt to schedule Interventional LM. Fabiana [facility] Travel [facility] documented in this encounter Plan of Treatment Not on file documented as of this encounter Visit Diagnoses Not on filedocumented in this encounter Care Teams Websphere Portal Architect Relationship Specialty Start Date End Date Confirmed, No Pcp PCP - General 03/01/16 05/04/16 Provider, Kenan Corona PCP - General Urgent Care 05/05/16 09/24/16 King Garcia MD PCP - General Family Practice 09/25/16 10/30/17 No Ref-Primary, Physician PCP - General 10/31/17 12/19/[address] [facility] [address] [place] [address] PCP - General 12/20/17 08/24/18 Go Lr MD [address] [place] [address] PCP - Assigned PCP 11/08/17 08/16/18 Be Willard MD [facility] [address] [place] [address] PCP - General Family Practice 08/25/18 09/27/20 [place] DO [id number] [place] [id number] PCP - General Family Medicine 09/28/20 Go Lr MD [address] [place], [place] [address] Assigned PCP 11/08/17 09/30/19 Dinesh Muir MD [facility] [address] [place] [address] Otolaryngology 08/25/18 Purvi Lennon MD [address] [address] Otolaryngology 08/25/18 Darshana Huertas AuD [address] [address] Product Development Intern Audiology 08/25/18 David Pereira MD [address] [place] [address] Urology 09/30/20 Jovany Dumont MD [address] [place] [address] Neurology 03/23/22 documented as of this encounter
== END 2023-10-27 13:48 | disposition home or self-care (01) ==
LOC: WOUND 13:47
PROVIDERS: Visit Provider Surgery
DX: I89.0 Lymphedema, not elsewhere classified (principal); L97.821 Non-pressure chronic ulcer of other part of left lower leg limited to breakdown of skin; E11.65 Type 2 diabetes mellitus with hyperglycemia; E11.42 Type 2 diabetes mellitus with diabetic polyneuropathy; Z79.4 Long term (current) use of insulin
CPT/HCPCS: 97597

== ENCOUNTER 2023-10-29 15:08 | Outpatient (CLI) | payer MEDICARE, SELFPAY ==
--- OUTSIDE RECORDS SUMMARY | 2023-10-29 15:10 | XMS_ITS ---
Author Name Unknown Organization Unknown Encounters Encounter Type Performer Location Encounter Date Encoun ter Notes virtual - - [id number]:24:32.980-0 0:00 no notes virtual - - 0580-71-81H25:49:25.273-0 0:00 no notes virtual - - 3351-18-04J08:33:39.670-0 0:00 no notes virtual - - 6176-65-50Y24:21:52.370-0 0:00 no notes virtual - - 7681-11-84J61:38:04.273-0 0:00 no notes virtual - - 2991-56-03E69:45:30.420-0 0:00 no notes virtual - - 4220-53-45U71:24:32.980-0 0:00 no notes virtual - - 0001-00-43N70:57:05.670-0 0:00 no notes virtual - - 7822-18-29N14:21:52.370-0 0:00 no notes virtual - - 4646-84-40X62:29:52.713-0 0:00 no notes virtual - - 2911-17-79A42:21:52.370-0 0:00 no notes virtual - - 7689-00-25V99:49:25.273-0 0:00 no notes virtual - - 6526-41-69X34:45:30.420-0 0:00 no notes virtual - - 5368-14-46F97:24:32.980-0 0:00 no notes virtual - - 9549-31-87X30:38:04.273-0 0:00 no notes virtual - - 0657-53-89T21:29:52.713-0 0:00 no notes virtual - - 8147-34-18W48:20:45.160-0 0:00 no notes virtual - - 7849-77-96F34:33:39.670-0 0:00 no notes virtual - - 8690-58-37X46:21:52.370-0 0:00 no notes virtual - - 2615-94-93Q82:19:10.643-0 0:00 no notes virtual - - 7826-41-65D72:19:10.643-0 0:00 no notes virtual - - 7496-91-05E81:19:10.643-0 0:00 no notes virtual - - 0216-71-43C56:19:10.643-0 0:00 no notes Patient Care team information Name Category Status Period Participants - - Proposed period not known - - - period not known -
--- OUTSIDE RECORDS SUMMARY | 2023-10-29 15:10 | XMS_ITS | Clinical Summary ---
Author Name Unknown Organization [facility] Address [address] [address] Phone Care Team Providers Care Thermocouple Tester Name Role Phone Choice, No Pcp-Patient Primary [...] Comments Blood Pressure 136/71 05/22/2023 3:28 PM MEASURER Pulse 115 05/22/2023 3:28 PM MEASURER Temperature 37.5 ??C (99.5 ??F) 05/22/2023 4:56 PM CS T Respiratory Rate 22 05/22/2023 3:28 PM MEASURER Oxygen Saturation 93% 05/22/2023 3:28 PM MEASURER Inhaled Oxygen Concentration - - Weight 128.3 [...] age to complete this topic Care Teams Thermocouple Tester Relationship Specialty Start Date End Date Choice, No Pcp-Patient PCP - General 05/22/23
--- OUTSIDE RECORDS SUMMARY | 2023-10-29 15:10 | XMS_ITS | Clinical Summary ---
Author Name Unknown Organization [facility] Address [address] [place] [address] Care Team Providers Care Administrative Representative Name Role Phone Dinesh Muir MD Unavailable [phone] Purvi Lennon MD Unavailable Darshana Huertas Unavailable [phone] Goran Dukes DO Primary Care Provider [phone] David Pereira MD Unavailable [phone] Jovany Dumont MD Unavailable Allergies Active [...] 09/29/2020 Active levofloxacin (LEVAQUIN) 500 MG tabletIndications:Ac lac vieux cystitis without hematuria Take 1 tablet (500 [...] for patients under 2 years old ??at [facility] for lipid analytes. 2-8 [...] LAB - BLOOD ORD ERABLES [facility] [address] [place] [address] * (ABNORMAL) Comprehensive metabolic panel (09/08/2021 8:28 [...] and gender (Shannon et al., NEJM, DOI: 10.1056/[id number]) Blood BLOOD SPECIMEN / Unknown Client Draw / Unknown 09/08/2021 8:28 AM CDT 09/08/2021 3:38 PM CDT David Jimenez PA-C LAB - BLOOD ORD ERABLES [facility] [address] [place] [address] * (ABNORMAL) Hemoglobin A1c (09/28/2020 10:35 AM CDT) Hemoglobin A1C 9.6(H) 0 - 5.6 % 09/28/2020 11:14 AM CDT [facility] Comment: Normal <5.7% Prediabetes 5.7-6.4% ??Diabetes 6.5% or higher - adopted from ADA consensus guidelines. Blood 09/28/2020 10:3 5 AM CDT 09/28/2020 10:36 AM CDT Sal Mora DO LAB - BLOOD ORDERAB LES [facility] [address] [address], [facility] [phone] from Last 3 Months or Most Recently Relevant to Health Maintenance Advance Directives For more information, please contact: [phone] * Full Code (Latest Code Status on File) Date Activated Date Inactivated Comments 09/28/2020 10:12 AM 09/29/2020 4:35 PM All basic a nd advanced life-sustaining interventions are performed as appropriate Question Answer Comments Code status determined by: Discussion with aishwarya nt/ legal decision maker Care Teams Administrative Representative Relationship Specialty [place] [address] [place] [address] PCP - General Family Medicine 09/28/20 Dinesh Muir MD [facility] [address] [id number] Otolaryngology 08/25/18 Purvi Lennon MD [address] [facility] [address] [place] [address] Otolaryngology 08/25/18 Darshana Huertas AuD [address] [facility] [address] [place] [address] Land Developer Audiology 08/25/18 David Pereira MD [address] [place] [address] Urology 09/30/20 Jovany Dumont MD [address] [place] [address] Neurology 03/23/22
--- OUTSIDE RECORDS SUMMARY | 2023-10-29 15:10 | XMS_ITS | Encounter Summary ---
Author Name Unknown Organization [facility] Address [address] [facility] [place] [address] Care Team Providers Care Vessel Operator Name Role Phone King Garcia MD Primary Care Provider Unavailable No Ref-Primary, Physician Primary Care Provider [facility] Primary Care Provide r Go Lr MD Unavailable Go Lr MD Unavailable Be Willard MD Primary Care Provider [phone] Alida Muir MD Unavailable Purvi Lennon MD Unavailable [phone] Darshana Huertas Unavailable [phone] Goran Dukes DO Primary Care Provider David Pereira MD Unavailable [phone] Jovany Dumont MD Unavailable [phone] Reason for Visit * Reason Comments Medication Refill Encounter Details Date Type Department Care Team (Late st Contact Info) Description 12/25/2016 Refill [facility] [place] [address] [address] Seda Rizzo PA-C [address] [id number] Medication Refill Social History Tobacco Use Types [...] documented as of this encounter Care Teams Vessel Operator Relationship Specialty Start Date End Date King Garcia MD PCP - General Family Practice 09/25/16 10/30/17 No Ref-Primary, Physician PCP - General 10/31/17 12/19/17 [facility] [address] [place], [place] [id number] PCP - General 12/20/17 08/24/18 Go Lr MD [address] [place] [address] PCP - Assigned PCP 11/08/17 08/16/18 Be Willard MD [place] [id number] [place] [address] PCP - General Family Practice 08/25/18 09/27/20 Gor[place] [address] [place] [phone] PCP - General Family Medicine 09/28/20 Go Lr MD [address] [place] [address] Assigned PCP 11/08/17 09/30/19 Alida Muir MD [facility] [address] [address] Otolaryngology 08/25/18 Purvi Lennon MD 420 [facility] [address] [place] [address] Otolaryngology 08/25/18 Darshana Huertas AuD [address] [facility] [address] [place], [place] [address] Vice Chair Audiology 08/25/18 David Pereira MD [address] [address] Urology 09/30/20 Jovany Dumont MD [address] [place] [address] Neurology 03/23/22 documented as of this encounter
--- OUTSIDE RECORDS SUMMARY | 2023-10-29 15:10 | XMS_ITS | Clinical Summary ---
Author Name Unknown Organization [employer] [facility] Address [place], [place] [address] Care Team Providers Care Branch Credit Counselor Name Role Phone Pcp, No Unavailable Unavailable Goran Dukes DO Primary Care Provide r Tayla Kiran RN Unavailable [phone] Allergies Active Allergy Reactions Criticality Noted [...] day. 1 Each 10/13/19 24 Active Insulin [place], Disposable, (BD Amanda 2nd Gen Pen Needle) [...] be used to read blood sugars, follow field investigator directions. 6 Each 3 10/13/19 24 Active FreeStyle Lacie 3 [place] for continuous blood glucose monitor (CGM)Indications:T ype 2 diabetes mellitus with hyperglycemia, without long-term current use of insulin (HC) To be used to read blood sugars follow field investigator directions. 1 Each 10/13/19 24 Active lancets [...] be used to read blood sugars per field investigator's directions. 1 Each 07/01/19 22 024 Discontinued(*M [...] Description 10/25/2023 1:20 PM CDT Office Visit [facility] [address] [place] [phone] Goran Dukes, Urinary Problem 10/25/2023 Travel 10/25/2023 Nurse Triage [facility] [address] [place] [phone] Goran Dukes, Urinary Problem 10/25/2023 Telephone [facility] [address] [place] [phone] Goran Dukes, UTI (Need med ) 10/13/2023 9:00 AM CDT Phone Office Visit [facility] [address] [place] [address] Tayla Kiran landscape photographer 10/11/2023 Orders Only [facility] Scanner 1 scan: (1-Ord) [facility], 10/11/2023 10/06/2023 Telephone [facility] [address] [place] [phone] Goran Dukes, Results 10/06/2023 Orders Only [facility] [address] [place] [phone] Goran Dukes, <No scans attached> 10/05/2023 1:50 PM CDT Office Visit [facility] [address] [place] [phone] Goran Dukes, Diabetes (Not fasting- The patient is requesting to speak about medication); Fatigue (The patient reports having leg fatigue like he is about to fall. The patient wants to discuss a walker or wheel chair options. ) 10/05/2023 Telephone [place] [address] [address] Jocelynn Jay NP Refill Request (Clobetasol 0.05%) 10/05/2023 Telephone [facility] [address] [place] [phone] Goran Dukes, Refill Request (KETOROLAC 10 MG TABLETS ) 10/05/2023 Travel 10/01/2023 Refill [facility] [address] [place] [phone] Goran Dukes DO Refill Request (Lantus Solostar U-100 Insulin) 09/27/2023 Telephone [facility] [address] [place] [address] [phone] Goran Dukes, Medication Management (Walker) 09/01/2023 3:20 PM CDT - 09/01/2023 11:59 PM CDT Hospital Encounter [facility] [address] [address] 09/01/2023 Travel 08/18/2023 11:59 AM PATIENT PLACEMENT COORDINATOR - 08/18/2023 11:59 PM PATIENT PLACEMENT COORDINATOR Hospital Encounter [facility] [address] [address] Serge Leslie MD Bilateral leg edema 08/18/2023 Travel 08/13/2023 10:15 AM PATIENT PLACEMENT COORDINATOR - 08/13/2023 11:59 PM PATIENT PLACEMENT COORDINATOR Hospital Encounter [facility] [address] [address] 08/13/2023 Orders Only [facility] [address] [address] Serge Leslie MD <No scans attached> 08/13/2023 Travel 08/02/2023 10:12 AM PATIENT PLACEMENT COORDINATOR - 08/02/2023 11:59 PM PATIENT PLACEMENT COORDINATOR Hospital Encounter [facility] [address] [address] 08/02/2023 Orders Only [facility] [address] [address] Jocelynn Jay NP <No scans attached> 08/02/2023 Travel from Last 3 Months Immunizations Name Administration Dates Next Due COVID-19 vaccine (TextHub 30mcg/0.3mL) P F, MDV 01/16/2021 Influenza, IIV4 [...] T Respiratory Rate 20 06/17/2023 7:45 AM PATIENT PLACEMENT COORDINATOR Oxygen Saturation 97% 10/25/2023 1:34 PM CDT Inhaled Oxygen Concentration - - Weight 131.5 kg (290 lb) 10/05/2023 1:49 PM CDT Height 162.6 cm (5' 4) 10/05/2023 1:49 PM CDT Body Mass Index 49.78 10/05/2023 1:49 PM CDT Plan of Treatment Upcoming Encounters Date Type Department Care Team (Late st Contact Info) Description 11/02/2023 1:30 PM CDT Office Visit [facility] [address] [place] [phone] [place] [address] [place], [place] [phone] Health Maintenance Due Date Last Done Comments [...] PM CDT UTI (urinary tract infection), uncomplicated [place] DIAB MANAGE TRN PER INDIV Routine 10/13/2023 [...] LOWER EXTREMITY BILATERAL Routine 08/18/2023 11:50 AM PATIENT PLACEMENT COORDINATOR Bilateral leg edema ANTI HCV Routine 01/22/2022 12:50 PM CDT Need for hepatitis C screening test from Last 3 Months or Most Recently Relevant to Health Maintenance Results * (ABNORMAL) URINALYSIS MICROSCOPIC (10/25/2023 1:37 PM CDT) RBC 6-10(A) 0-2, None Seen /HPF 10/25/2023 1:47 PM CDT [facility] WBC >100(A) 0-2, 3-5, None Seen /HPF 10/25/2023 1:47 PM CDT [facility] BACTERIA Moderate(A ) None Seen, Rare, Few Bacteria/H PF 10/25/2023 1:47 PM CDT [facility] EPITHELIAL CELLS None Seen None Seen, Few Epi/HPF 10/25/2023 1:47 PM CDT [facility] WHITE CELL CLUMPS Present(A) (none) 10/25/2023 1:47 PM CDT [facility] Urine URINE SPECIMEN / Unknown Non-Blood / Unknown 10/25/2023 1:37 PM CDT 10/25/2023 1:37 PM CDT Goran Dukes DO URINE Performing Organization Address City/State/[facility] Co de Phone Number [facility] [address] [place] [address], * (ABNORMAL) URINE CULTURE (10/25/2023 1:37 PM CDT) CULTURE RESULT(A) 10/27/2023 8:53 AM CDT [facility] CULTURE >100,000 CFU/mL Streptococcus agalactiae (Strep Group B) 10/27/2023 8:53 AM CDT [facility] CULTURE <10,000 CFU/mL Multiple organisms probable contaminants 10/27/2023 8:53 AM CDT [facility] Urine URINE SPECIMEN / Unknown Non-Blood / Unknown 10/25/2023 1:37 PM CDT 10/25/2023 1:37 PM CDT Goran Dukes DO MICROBIOLOGY [facility] [address] [place] [address], * (ABNORMAL) UA W/ SEDIMENT EXAM REFLEXED PER CRITERIA (10/25/2023 1:37 PM CDT) COLOR Yellow Yellow Color 10/25/2023 1:47 PM CDT [facility] CLARITY Cloudy(A) Clear Clarity 10/25/2023 1:47 PM CDT [facility] SPECIFIC GRAVITY,URINE 1.025 1.010, 1.015, 1.020, 1.025 10/25/2023 1:47 PM CDT [facility] PH,URINE 5.5 6.0, 7.0, 8.0, 5.5, 6.5, 7.5, 8.5 10/25/2023 1:47 PM CDT [facility] UROBILINOGEN, QUALITATIVE Normal Normal EU/dl 10/25/2023 1:47 PM CDT [facility] PROTEIN, URINE 100(A) Negative mg/dL 10/25/2023 1:47 PM CDT [facility] GLUCOSE, URINE >=1000(A) Negative mg/dL 10/25/2023 1:47 PM CDT [facility] KETONES,URINE Negative Negative mg/dL 10/25/2023 1:47 PM CDT [facility] BILIRUBIN,URI NE Negative Negative 10/25/2023 1:47 PM CDT [facility] OCCULT BLOOD,URINE Moderate(A) Negative 10/25/2023 1:47 PM CDT [facility] NITRITE Negative Negative 10/25/2023 1:47 PM CDT [facility] LEUKOCYTE ESTERASE Moderate(A) Negative 10/25/2023 1:47 PM CDT [facility] Urine URINE SPECIMEN / Unknown Non-Blood / Unknown 10/25/2023 1:37 PM CDT 10/25/2023 1:37 PM CDT Goran Perry Linuselmeren DO URINE [facility] [address] [place] [address], * [place] DIAB MANAGE TRN PER INDIV (10/13/2023) DIABETIC ED Goran Prery Biosceptreelmeren DO PB - ANCILLAR Y SERVICES * SCAN-EYE EXAM (10/11/2023 12:00 AM CDT) Scanner OTHER * (ABNORMAL) LIPID PANEL W REFLEX MEASURED LDL (10/05/2023 2:39 PM CDT) CHOLESTEROL,TOTAL 187 100 - 199 mg/dL 10/06/2023 1:31 AM CDT [facility] Comment: Cholesterol, Total Reference Ranges Desirable <200 mg/dL Borderline 200-239 mg/dL High >=240 mg/dL TRIGLYCERIDES 147 <150 mg/dL 10/06/2023 1:31 AM CDT [employer] [facility] HDL CHOLESTEROL 27(L) >40 mg/dL 1:31 AM CDT [facility] NON-HDL CHOLESTEROL 160(H) <145 mg/dl 10/06/2023 1:31 AM CDT [facility] CHOL/HDL RATIO 6.93(H) <4.50 10/06/2023 1:31 AM CDT [employer] [facility] [facility] LDL CHOLESTEROL 131(H) <=130 mg/dL 10/06/2023 1:31 AM CDT [employer] [facility] VLDL CHOLESTEROL 29 <=30 mg/dL 10/06/2023 1:31 AM CDT [facility] PROVIDER ORDERED STATUS RANDOM 10/06/2023 1:31 AM CDT [facility] Blood BLOOD SPECIMEN / Unknown Venipuncture / Unknown 10/05/2023 2:39 PM CDT 10/05/2023 2:39 PM CDT Goran Dukes DO CHEMISTRY [facility] [address] [place] [address], * (ABNORMAL) CBC W PLT NO DIFF (10/05/2023 2:39 PM CDT) WHITE BLOOD COUNT 8.8 4.5 - 11.0 thou/cu mm 10/05/2023 2:43 PM CDT [facility] RED BLOOD COUNT 4.49 4.30 - 5.90 mil/cu mm 10/05/2023 2:43 PM CDT [facility] HEMOGLOBIN 12.6(L) 13.5 - 17.5 g/dL 10/05/2023 2:43 PM CDT [facility] HEMATOCRIT 38.3 37.0 - 53.0 % 10/05/2023 2:43 PM CDT [facility] MCV 85 80 - 100 fL 10/05/2023 2:43 PM CDT [facility] MCH 28.1 26.0 - 34.0 pg 10/05/2023 2:43 PM CDT [facility] MCHC 32.9 32.0 - 36.0 g/dL 10/05/2023 2:43 PM CDT [facility] RDW 13.2 11.5 - 15.5 % 10/05/2023 2:43 PM CDT [facility] PLATELET COUNT 344 140 - 440 thou/cu mm 10/05/2023 2:43 PM CDT [facility] MPV 9.6 6.5 - 11.0 fL 10/05/2023 2:43 PM CDT [facility] NRBC 0.0 % 10/05/2023 2:43 PM CDT [facility] ABS NRBC 0.0 thou /cu mm 10/05/2023 2:43 PM CDT [facility] Blood BLOOD SPECIMEN / Unknown Venipuncture / Unknown 10/05/2023 2:39 PM CDT 10/05/2023 2:39 PM CDT [email or web address] DO HEMATOLOGY Performing Organization Address City/[facility]/ZIP Co de Phone Number [facility] [address] [place] [address], * ANTI HIV 1/2 [42062.0] (10/05/2023 2:39 PM CDT) Pathologist [facility] HIV-1/HIV-2 SCREEN Non-Reacti ve Non-Reacti ve 10/06/2023 1:17 AM CDT [facility] Comment:HIV-1 p24 and HIV-1/ HIV-2 Ab Not Detected. Blood BLOOD SPECIMEN / Unknown Venipuncture / Unknown 10/05/2023 2:39 PM CDT 10/05/2023 2:39 PM CDT Goran Dukes DO SEND OUTS Performing Organization Address [facility] Co de Phone Number [facility] [address] [place] [address], * (ABNORMAL) HEMOGLOBIN A1C MONITORING (POCT) (10/05/2023 2:39 PM CDT) Pathologist [facility] HEMOGLOBIN A1C MONITORING (POCT) 10.0(H) <=6.4 % 10/05/2023 2:54 PM CDT [facility] Blood BLOOD SPECIMEN / Unknown Venipuncture / Unknown 10/05/2023 2:39 PM CDT 10/05/2023 2:39 PM CDT Narrative [facility] - 10/05/2023 2:54 PM CDT ? [...] Anemias, Splenectomy ? Goran Dukes DO CHEMISTRY [facility] [address] [place] [address], [place] * (ABNORMAL) COMP METABOLIC PANEL (10/05/2023 2:39 PM CDT) SODIUM 136 136 - 145 mmol/L 10/06/2023 1:31 AM CDT [facility] POTASSIUM 5.4(H) 3.5 - 5.1 mmol/L 10/06/2023 1:31 AM T [facility] CHLORIDE 99 98 - 107 mmol/L 10/06/2023 1:31 AM [facility] CO2,TOTAL 26 22 - 29 mmol/L 10/06/2023 1:31 AM T [facility] ANION GAP 11 5 - 18 10/06/2023 1:31 AM T [facility] GLUCOSE 298(H) 70 - 99 mg/dL 10/06/2023 1:31 AM T [facility] CALCIUM 9.5 8.6 - 10.0 mg/dL 10/06/2023 1:31 AM [facility] BUN 15 6 - 20 mg/dL 10/06/2023 1:31 AM [facility] CREATININE 0.83 0.70 - 1.20 mg/dL 10/06/2023 1:31 AM [facility] BUN/CREAT RATIO 18 10 - 20 1:31 AM T [facility] eGFR >90 >90 mL/min/1.7 3m2 10/06/2023 1:31 AM T [facility] Comment:As of 2021, eG FR is calculated by the CKD-EPI creatinine equation without race adjustment. ??eGFR can be influenced by muscle mass, exercise, and diet. ??The reported eGFR is an estimation only and is only applicable if the renal function is stable. ALBUMIN 4.0 4.0 - 4.9 g/dL 10/06/2023 1:31 AM CDT [facility] PROTEIN,TOTAL 7.3 6.0 - 8.0 g/dL 10/06/2023 1:31 AM CDT [facility] BILIRUBIN,TOTAL 0.2 0.0 - 1.2 mg/dL 10/06/2023 1:31 AM CDT [facility] ALK PHOSPHATASE 83 40 - 129 IU/L 10/06/2023 1:31 AM CDT [facility] ALT (SGPT) 12 10 - 50 IU/L 10/06/2023 1:31 AM CDT [facility] AST (SGOT) 13 10 - 50 IU/L 10/06/2023 1:31 AM CDT [facility] Blood BLOOD SPECIMEN / Unknown Venipuncture / Unknown 10/05/2023 2:39 PM CDT 10/05/2023 2:39 PM CDT Goran Dukes DO CHEMISTRY [facility] [address] [place] [address], * [place] VENOUS INSUFFICIENCY LOWER EXTREMITY BILATERAL (08/18/2023 11:50 AM PATIENT PLACEMENT COORDINATOR) Anatomical Region Laterality Modality LEGS Ultrasound, Ultr asound 08/22/2023 4:43 PM CDT Narrative 08/22/2023 4:43 PM CDT For Patients: ??As a result of the 21st Century Cures Act, medical imaging exams and [...] cherelle Non-React cherelle 01/22/2022 9:10 PM CDT [employer] [facility] Comment:Antibodies to HCV no t detected; does not exclude the possibility of exposure to HCV. Blood BLOOD SPECIMEN / Unknown Venipuncture / Unknown 01/22/2022 12:50 PM CDT 01/22/2022 12:51 PM CDT Goran Dukes DO SEND OUTS [employer] [facility] [facility] [address] [place] [address], [place] from Last 3 Months or Most [...] Comments Code Status Discussion: Discussed Care Teams Branch Credit Counselor Relationship Specialty [place] [address] [place] [address] PCP - General Family Practice 10/16/20 Pcp, No . 08/04/14 Tayla Kiran, RN [address] [place] [address] Diabetes Care Management Registered Nurse 10/13/2308/13
--- OUTSIDE RECORDS SUMMARY | 2023-10-29 15:10 | XMS_ITS | Referral Summary ---
Author Name Unknown Organization [place] Address [address] [place] [address] Care Team Providers Care Riveter Pneumatic Name Role Phone Dinesh Muir MD Unavailable [phone] Purvi Lennon MD Unavailable Darshana Huertas Unavailable [phone] Goran Dukes DO Primary Care Provider David Pereira MD Unavailable [phone] Jovany Dumont MD Unavailable [phone] Allergies Active Allergy Reactions Criticality Noted [...] 09/29/2020 Active levofloxacin (LEVAQUIN) 500 MG tabletIndications:Ac [place] cystitis without hematuria Take 1 tablet (500 [...] for patients under 2 years old ??at [facility] for lipid analytes. 2-8 years: [...] LAB - BLOOD ORD ERABLES [facility] [address] [place] [address] * (ABNORMAL) Comprehensive metabolic panel (09/08/2021 8:28 [...] and gender (Shannon et al., NEJ, DOI: 10.1056/[id number]) Blood BLOOD SPECIMEN / Unknown Client Draw / Unknown 09/08/2021 8:28 AM CDT 09/08/2021 3:38 PM CDT David Jimenez PA-C LAB - BLOOD ORD ERABLES [facility] [address] [place] [address] * (ABNORMAL) Hemoglobin A1c (09/28/2020 10:35 AM CDT) Hemoglobin A1C 9.6(H) 0 - 5.6 % 09/28/2020 11:14 AM CDT [facility] Comment: Normal <5.7% Prediabetes 5.7-6.4% ??Diabetes 6.5% or higher - adopted from ADA consensus guidelines. Blood 09/28/2020 10:3 5 AM CDT 09/28/2020 10:36 AM CDT Sal Mora DO LAB - BLOOD ORDERAB LES [facility] [address] [address], [facility] [phone] from Last 3 Months or Most Recently Relevant to Health Maintenance Advance Directives For more information, please contact: [phone] * Full Code (Latest Code Status on File) Date Activated Date Inactivated Comments 09/28/2020 10:12 AM 09/29/2020 4:35 PM All basic a nd advanced life-sustaining interventions are performed as appropriate Question Answer Comments Code status determined by: Discussion with aishwarya nt/ legal decision maker Care Teams Riveter Pneumatic Relationship Specialty [place] [address] [place] [address] PCP - General Family Medicine 09/28/20 Dinesh Muir MD [facility] [address] [address] Otolaryngology 08/25/18 Purvi Lennon MD [address] [facility] [address] [place], [place] [address] Otolaryngology 08/25/18 Darshana Huertas AuD [address] [facility] [address] [place], [place] [address] [facility] 08/25/18 David Pereira MD [address] [place] [address] Urology 09/30/20 Jovany Dumont MD [address] [place] [address] Neurology 03/23/22
--- OUTSIDE RECORDS SUMMARY | 2023-10-29 15:10 | XMS_ITS | Encounter Summary ---
Author Name Unknown Organization [place] Address [facility] [place] [address] Care Team Providers Care Access Consultant Name Role Phone Confirmed, No Pcp Primary Care Provider Unavaila ble Provider, Uc Primary Care Provider Unavailabl King Allan MD Primary Care Provider Unavailable No Ref-Primary, Physician Primary Care Provider [facility] Primary Care Provide r Go Lr MD Unavailable Go Lr MD Unavailable Be Willard MD Primary Care Provider [phone] Dinesh Muir MD Unavailable Purvi Lennon MD Unavailable [phone] Darshana Huertas Unavailable [phone] Goran Dukes DO Primary Care Provider David Pereira MD Unavailable [phone] Jovany Dumont MD Unavailable [phone] Reason for Visit * Reason Onset Date Comments Referral 10/17/2015 Encounter Details Date Type Department Care Team (Late st Contact Info) Description 10/17/2015 Telephone [facility] [place] [id number] [facility] [address] [place] [address] Pain Management Program, [facility] Referral Social History Tobacco Use Types Packs/Day [...] pt to schedule Interventional LM. Fabiana Johnson Dry Clipper Tender [facility] documented in this encounter Plan of Treatment Not on file documented as of this encounter Visit Diagnoses Not on filedocumented in this encounter Care Teams Access Consultant Relationship Specialty Start Date End Date Confirmed, No Pcp PCP - General 03/01/16 05/04/16 Provider, Kenan Corona PCP - General Urgent Care 05/05/16 09/24/16 King Garcia MD PCP - General Family Practice 09/25/16 10/30/17 No Ref-Primary, Physician PCP - General 10/31/17 12/19/17 [facility] [address] [place] [address] PCP - General 12/20/17 08/24/18 Go Lr MD [address] [place] [address] PCP - Assigned PCP 11/08/17 08/16/18 Be Willard MD [facility] [address] [place] [address] PCP - General Family Practice 08/25/18 09/27/20 [place] [address] [place] [id number] PCP - General Family Medicine 09/28/20 Go Lr MD [address] [place], [place] [id number] Assigned PCP 11/08/17 09/30/19 Dinesh Muir MD [facility] [address] [place] [address] Otolaryngology 08/25/18 Purvi Lennon MD [address] [address] Otolaryngology 08/25/18 Darshana Huertas AuD [address] [address] [facility] Audiology 08/25/18 David Pereira MD [address] [place] [address] Urology 09/30/20 Jovany Dumont MD [address] [place] [address] Neurology 03/23/22 documented as of this encounter
--- OUTSIDE RECORDS SUMMARY | 2023-10-29 15:10 | XMS_ITS | Clinical Summary ---
Author Name Unknown Organization [facility] Address [address] [place] [address] Care Team Providers Care Technical Sales Advisor Name Role Phone Needs Pcp, Assignment Primary Care Provider [phone] Source Comments You are receiving this document as you are listed as the primary care provider,follow-up provider, or the patient has been referred to you for consultation.This is in compliance with the Medicare and[facility] EHR Incentive Program,which states Providers who transition their patient to another setting of careor provider of care or refers their patient to another provider of care shouldprovide summary care record for each transition of care or referral. [facility] Allergies Active Allergy Reactions Criticality Noted Date [...] age to complete this topic Care Teams Technical Sales Advisor Relationship Specialty Start Date End Date Needs Pcp, [place] [address] PCP - General 07/02/16
== END 2023-10-29 15:09 | disposition home or self-care (01) ==
LOC: WOUND 15:08
PROVIDERS: Visit Provider Surgery
DX: I89.0 Lymphedema, not elsewhere classified (principal); E11.65 Type 2 diabetes mellitus with hyperglycemia; E11.42 Type 2 diabetes mellitus with diabetic polyneuropathy; L97.821 Non-pressure chronic ulcer of other part of left lower leg limited to breakdown of skin; L97.811 Non-pressure chronic ulcer of other part of right lower leg limited to breakdown of skin; Z79.4 Long term (current) use of insulin
CPT/HCPCS: 29581

== ENCOUNTER 2023-11-01 15:42 | Outpatient (CLI) | payer MEDICARE, SELFPAY ==
--- OUTSIDE RECORDS SUMMARY | 2023-11-01 15:44 | XMS_ITS | Referral Summary ---
Author Name Unknown Organization [facility] Address [address] [place] [address] Care Team Providers Care Mobile Nurse Name Role Phone Dinesh Muir MD Unavailable Purvi Lennon MD Unavailable [phone] Darshana Huertas Unavailable [phone] Goran Dukes DO Primary Care Provider David Pereira MD Unavailable [phone] Jovany Dumont MD Unavailable [phone] Allergies Active Allergy Reactions Criticality Noted [...] 09/29/2020 Active levofloxacin (LEVAQUIN) 500 MG tabletIndications:Ac [place] cystitis without hematuria Take 1 tablet (500 [...] for patients under 2 years old ??at [facility] for lipid analytes. 2-8 years: Greater [...] LAB - BLOOD ORD ERABLES [facility] [address] [place] [address] * (ABNORMAL) Comprehensive metabolic panel (09/08/2021 8:28 [...] and gender (Shannon et al., NEJ, DOI: [id number]/[id number]) Blood BLOOD SPECIMEN / Unknown Client Draw / Unknown 09/08/2021 8:28 AM CDT 09/08/2021 3:38 PM CDT David Jimenez PA-C LAB - BLOOD ORD ERABLES [facility] [address] [place] [address] * (ABNORMAL) Hemoglobin A1c (09/28/2020 10:35 AM CDT) Hemoglobin A1C 9.6(H) 0 - 5.6 % 09/28/2020 11:14 AM CDT [facility] Comment: Normal <5.7% Prediabetes 5.7-6.4% ??Diabetes 6.5% or higher - adopted from ADA consensus guidelines. Blood 09/28/2020 10:3 5 AM CDT 09/28/2020 10:36 AM CDT Sal Mora DO LAB - BLOOD ORDERAB LES [facility] [address] [address], [facility] [phone] from Last 3 Months or Most Recently Relevant to Health Maintenance Advance Directives For more information, please contact: [phone] * Full Code (Latest Code Status on File) Date Activated Date Inactivated Comments 09/28/2020 10:12 AM 09/29/2020 4:35 PM All basic a nd advanced life-sustaining interventions are performed as appropriate Question Answer Comments Code status determined by: Discussion with aishwarya nt/ legal decision maker Care Teams Mobile Nurse Relationship Specialty [place] [address] [place] [address] PCP - General Family Medicine 09/28/20 Dinesh Muir MD [facility] [address] [address] Otolaryngology 08/25/18 Purvi Lennon MD [address] [facility] [address] [place], [place] [address] Otolaryngology 08/25/18 Darshana Huertas AuD 420 [facility] [address] [place], [place] [address] Mapping Engineer Audiology 08/25/18 David Pereira MD [address] [place] [address] Urology 09/30/20 Jovany Dumont MD [address] [place] [address] Neurology 03/23/22
--- OUTSIDE RECORDS SUMMARY | 2023-11-01 15:44 | XMS_ITS | Clinical Summary ---
Author Name Unknown Organization [facility] Address [address] [place] [address] Care Team Providers Care Lap Layer Name Role Phone Dinesh Muir MD Unavailable Purvi Lennon MD Unavailable [phone] Darshana Huertas Unavailable [phone] Goran Dukes DO Primary Care Provider David Pereira MD Unavailable Jovany Dumont MD Unavailable [phone] Allergies Active Allergy Reactions Criticality Noted [...] 09/29/2020 Active levofloxacin (LEVAQUIN) 500 MG tabletIndications:Ac [place] cystitis without hematuria Take 1 tablet (500 [...] patients under 2 years old ??at [facility] for lipid analytes. 2-8 years: [...] [facility] [address] [place] [address] * (ABNORMAL) Comprehensive metabolic panel (09/08/2021 8:28 [...] and gender (Shannon et al., NEJM, DOI: [id number]) Blood BLOOD SPECIMEN / Unknown Client Draw / Unknown 09/08/2021 8:28 AM CDT 09/08/2021 3:38 PM CDT David Jimenez PA-C LAB - BLOOD ORD ERABLES [facility] [address] [place] [address] * (ABNORMAL) Hemoglobin A1c (09/28/2020 10:35 AM CDT) Hemoglobin A1C 9.6(H) 0 - 5.6 % 09/28/2020 11:14 AM CDT [facility] Comment: Normal <5.7% Prediabetes 5.7-6.4% ??Diabetes 6.5% or higher - adopted from ADA consensus guidelines. Blood 09/28/2020 10:3 5 AM CDT 09/28/2020 10:36 AM CDT Sal Mora DO LAB - BLOOD ORDERAB LES [facility] [address] [address], [facility] [phone] from Last 3 Months or Most Recently Relevant to Health Maintenance Advance Directives For more information, please contact: [phone] * Full Code (Latest Code Status on File) Date Activated Date Inactivated Comments 09/28/2020 10:12 AM 09/29/2020 4:35 PM All basic a nd advanced life-sustaining interventions are performed as appropriate Question Answer Comments Code status determined by: Discussion with aishwarya nt/ legal decision maker Care Teams Lap Layer Relationship Specialty [place] [address] [place] [address] PCP - General Family Medicine 09/28/20 Dinesh Muir MD [facility] [address] [id number] Otolaryngology 08/25/18 Purvi Lennon MD 420 [facility] [address] [place] [address] Otolaryngology 08/25/18 Darshana Huertas AuD 420 [facility] [address] [place] [address] Geospatial Extractor Analysis Audiology 08/25/18 David Pereira MD [address] [place] [address] Urology 09/30/20 Jovany Dumont MD [address] [place] [address] Neurology 03/23/22
--- OUTSIDE RECORDS SUMMARY | 2023-11-01 15:44 | XMS_ITS | Encounter Summary ---
Author Name Unknown Organization [facility] Address [address] [place] [address] Care Team Providers Care Job Coach/Job Developer Name Role Phone King Garcia MD Primary Care Provider Unavailable No Ref-Primary, Physician Primary Care Provider [facility] Primary Care Provide r Go Lr MD Unavailable Go Lr MD Unavailable Be Willard MD Primary Care Provider [phone] Alida Muir MD Unavailable Purvi Lennon MD Unavailable Darshana Huertas Unavailable [phone] Goran Dukes DO Primary Care Provider [phone] David Pereira MD Unavailable [phone] Jovany Dumont MD Unavailable [phone] Reason for Visit * Reason Comments Medication Refill Encounter Details Date Type Department Care Team (Late st Contact Info) Description 12/25/2016 Refill [facility] [place] [address] [address] Seda Rizzo PA-C [address] [address] Medication Refill Social History Tobacco Use Types [...] documented as of this encounter Care Teams Job Coach/Job Developer Relationship Specialty Start Date End Date King Garcia MD PCP - General Family Practice 09/25/16 10/30/17 No Ref-Primary, Physician PCP - General 10/31/17 12/19/[address] [facility] [address] [place], [place] [id number] PCP - General 12/20/17 08/24/18 Go Lr MD [address] [place] [address] PCP - Assigned PCP 11/08/17 08/16/18 Be Willard MD [place] [id number] [place] [address] PCP - General Family Practice 08/25/18 09/27/20 [place] [address] [place] [id number] PCP - General Family Medicine 09/28/20 Go Lr MD [address] [place] [address] Assigned PCP 11/08/17 09/30/19 Alida Muir MD [facility] [address] [address] Otolaryngology 08/25/18 Purvi Lennon MD [address] [facility] [address] [place] [address] Otolaryngology 08/25/18 Darshana Huertas AuD [address] [facility] [address] [place], [place] [address] Goring Cutter Audiology 08/25/18 David Pereira MD [address] [address] Urology 09/30/20 Jovany Dumont MD [address] [place] [address] Neurology 03/23/22 documented as of this encounter
--- OUTSIDE RECORDS SUMMARY | 2023-11-01 15:44 | XMS_ITS | Encounter Summary ---
Author Name Unknown Organization [facility] Address [facility] [facility] [place] [address] Care Team Providers Care Construction Estimator Name Role Phone Confirmed, No Pcp Primary Care Provider Unavaila ble Provider, Uc Primary Care Provider Unavailabl King Allan MD Primary Care Provider Unavailable No Ref-Primary, Physician Primary Care Provider [facility] Primary Care Provide r Go Lr MD Unavailable Go Lr MD Unavailable Be Willard MD Primary Care Provider [phone] Dinesh Muir MD Unavailable Purvi Lennon MD Unavailable Darshana Huertas Unavailable [phone] Goran Dukes DO Primary Care Provider David Pereira MD Unavailable [phone] Jovany Dumont MD Unavailable Reason for Visit * Reason Onset Date Comments Referral 10/17/2015 Encounter Details Date Type Department Care Team (Late st Contact Info) Description 10/17/2015 Telephone [facility] [place] [id number] [facility] [address] [place] [address] Pain Management Program, [facility] Referral Social History Tobacco Use [...] pt to schedule Interventional LM. Fabiana Johnson Senior Litigation Paralegal [facility] documented in this encounter Plan of Treatment Not on file documented as of this encounter Visit Diagnoses Not on filedocumented in this encounter Care Teams Construction Estimator Relationship Specialty Start Date End Date Confirmed, No Pcp PCP - General 03/01/16 05/04/16 Provider, Kenan Corona PCP - General Urgent Care 05/05/16 09/24/16 King Garcia MD PCP - General Family Practice 09/25/16 10/30/17 No Ref-Primary, Physician PCP - General 10/31/17 12/19/17 [facility] [address] [place] [address] PCP - General 12/20/17 08/24/18 Go Lr MD [address] [place] [address] PCP - Assigned PCP 11/08/17 08/16/18 Be Willard MD [facility] [address] [place] [address] PCP - General Family Practice 08/25/18 09/27/20 Goran [place]ukes DO [address] [place] [id number] PCP - General Family Medicine 09/28/20 Go Lr MD [address] [place], [place] [address] Assigned PCP 11/08/17 09/30/19 Dinesh Muir MD [facility] [address] [place] [address] Otolaryngology 08/25/18 Purvi Lennon MD [address] [address] Otolaryngology 08/25/18 Darshana Huertas AuD [address] [address] Intern Audiology 08/25/18 David Pereira MD [address] [place] [address] Urology 09/30/20 Jovany Dumont MD [address] [place] [address] Neurology 03/23/22 documented as of this encounter
--- OUTSIDE RECORDS SUMMARY | 2023-11-01 15:44 | XMS_ITS | Clinical Summary ---
Author Name Unknown Organization [employer] [facility] [employer] [facility] Address [place], [place] [address] Care Team Providers Care Wool Cleaner Name Role Phone Pcp, No Unavailable Unavailable Goran Dukes DO Primary Care Provide r Tayla Kiran RN Unavailable [phone] Allergies Active Allergy Reactions Criticality Noted Date Comments Diphenhydramine Hives 06/15/2023 Diatrizoate Allergen Shortness Of Breath,Nausea Only 06/15/2023 Penicillins Anaphylaxis High 12/15/2015 As a child had an anaphylaxis reaction Medications Medication Sig Dispensed Refills Start Date End Date Status Saccharomyces boulardii (FLORASTOR) 250 mg capsuleIndications: Cellulitis of right lower extremity Take 1 Capsule by mouth once daily. 14 capsule. 1 Active ARIPiprazole (Abilify) 2 mg tabletIndications:D epression, major, single episode, moderate (HC) Take 1 Tablet (2 mg) by mouth once daily. 90 Tablet 1 Active blood sugar diagnostic (Contour Next Test Strips) stripIndications:Di abetic peripheral neuropathy (HC) USE TO TEST BLOOD SUGAR 3 TIMES DAILY 300 Strip 3 1 Active lancets (Microlet Lancet)Indications: Diabetic peripheral neuropathy (HC) Dispense item covered by pt ins. E11.65 NIDDM type II, uncontrolled - Test 1 time/day 100 Each 1 Active traZODone (DESYREL) 50 mg tabletIndications:I nsomnia, idiopathic Take 1 Tablet (50 mg) by mouth at bedtime. 30 Tablet 2 3 Active montelukast (SINGULAIR) 10 mg tabletIndications:E nvironmental allergies,Seasonal allergies Take 1 Tablet (10 mg) by mouth once daily. 90 Tablet 3 3 Active loratadine (Claritin) 10 mg DISINTEGRATING tabletIndications:E nvironmental allergies Place 1 Tablet (10 mg) on the tongue once daily if needed for Allergy Symptoms. 30 Tablet 1 3 Active fluticasone (50 mcg per actuation) nasal solution (FLONASE)Indication s:Environmental allergies Inhale 2 Sprays into affected nostril(s) once daily. 48 mL 3 3 Active albuterol (PROVENTIL) 0.083 % neb solutionIndications :Environmental allergies Inhale 3 mL (2.5 mg) via a nebulizer every 4 hours if needed for Shortness of Breath 1st choice or Shortness Of Breath. 150 mL 1 3 Active lidocaine 5 % topical patchIndications:Pa in Apply to intact skin to cover most painful area for max 12hr per 24hr period. 30 Patch 4 Active lidocaine 5 % topical patchIndications:Ac fabricio pain of left shoulder Apply to intact skin to cover most painful area for max 12hr per 24hr period. 90 Patch 1 4 Active insulin glargine, U-100, (Lantus Solostar U-100 Insulin) 100 unit/mL (3 mL) penIndications:Poor ly controlled type 2 diabetes mellitus (HC) Inject 50 units subcutaneous before bedtime. 45 mL 1 4 Active olopatadine (PATADAY) 0.2 % ophthalmic solutionIndications :Environmental allergies Place 1 Drop into both eyes once daily. 7.5 mL 3 4 Active loratadine-pseudoep hedrine (Claritin-D 12 Hour) 5-120 mg 12hr tabletIndications:E nvironmental allergies Take 1 Tablet by mouth every 12 hours. 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 60 g 1 4 Active ammonium lactate 12% (LACHYDRIN) 12 % creamIndications:In tertrigo Apply topically to affected area(s) two times daily. 140 g 6 4 Active insulin aspart, U-100, (NOVOLOG FLEXPEN) 100 unit/mL (3 mL) penIndications:Poor ly controlled type 2 diabetes mellitus (HC) Subcutaneous injection: 30 Units three times daily with meals 15 Each 3 4 Active Lantus Solostar U-100 Insulin 100 unit/mL (3 mL) penIndications:Poor ly controlled type 2 diabetes mellitus (HC) Inject 50 units subcutaneous before bedtime. Product desired: LANTUS SOLOSTAR 45 mL 3 4 Active ketorolac (TORADOL) 10 mg tabletIndications:A cute pain of right knee One tab p.o. bid prn pain 90 Tablet 1 4 Active blood sugar diagnostic (Contour Next Test Strips) stripIndications:Ty pe 2 diabetes mellitus with hyperglycemia, without long-term current use of insulin (HC) Dispense item covered by pt ins. E11.9 NIDDM type II - Test 4 times/day. Reason: High A1C 150 Each 5 4 Active Blood-Glucose Meter (Contour Next EZ Meter)Indications:T ype 2 diabetes mellitus with hyperglycemia, without long-term current use of insulin (HC) Dispense glucose meter, test strips and lancets covered by the patient insurance. Test 4 times per day. 1 Each 4 Active Insulin Christiana, Disposable, (BD Amanda 2nd Gen Pen Needle) 32 gauge x 5/32Indications:Ty pe 2 diabetes mellitus with hyperglycemia, without long-term current use of insulin (HC) As directed. Remove the 2 covers on the insulin pen needle before administering insulin dose. 200 Each 3 4 Active FreeStyle Lacie 3 Sensor for continuous blood glucose monitor (CGM)Indications:Ty pe 2 diabetes mellitus with hyperglycemia, without long-term current use of insulin (HC) To be used to read blood sugars, follow certified ophthalmic medical technician directions. 6 Each 3 4 Active FreeStyle Lacie 3 [place] for continuous blood glucose monitor (CGM)Indications:Ty pe 2 diabetes mellitus with hyperglycemia, without long-term current use of insulin (HC) To be used to read blood sugars follow certified ophthalmic medical technician directions. 1 Each 4 Active lancets (Microlet Lancet)Indications: Type 2 diabetes mellitus with hyperglycemia, without long-term current use of insulin (HC) Dispense item covered by pt ins. E11.9 NIDDM type II - Test 3 times/day, Reason: High A1C 150 Each 5 4 Active insulin lispro, U-100, (HumaLOG KwikPen Insulin) 100 unit/mL inpn penIndications:Type 2 diabetes mellitus with hyperglycemia, without long-term current use of insulin (HC) Inject 30 units subcutaneous three times daily before meals. Product desired: HUMALOG KWIKPEN 90 mL 1 4 Active trimethoprim-sulfam ethoxazole, 160-800 mg, (BACTRIM DS, SEPTRA DS) tabIndications:UTI (urinary tract infection), uncomplicated Take 1 Tablet by mouth two times daily for 10 days. 20 Tablet 4 11/04/19 24 Active Walker - 4 wheelsIndications:G ait instability For home use. Length of need: lifetime 1 Each 4 Active FreeStyle Lacie 14 Day ReaderIndications:T ype 2 diabetes mellitus without complication, without long-term current use of insulin (HC) To be used to read blood sugars per certified ophthalmic medical technician's directions. 1 Each 2 10/13/19 24 Discontinu ed(*Medica tion adjustment ) FreeStyle Lacie 14 Day SensorIndications:T ype 2 diabetes mellitus without complication, without long-term current use of insulin (HC) Change sensor every 14 days 6 Each 3 2 10/13/19 24 Discontinu ed(*Medica tion adjustment ) ammonium lactate 12% (LACHYDRIN) 12 % creamIndications:In tertrigo APPLY TO THE AFFECTED AREA TWICE DAILY DIRECTED 140 g 6 2 10/05/19 24 Discontinu ed(Reorder (E-cancel not sent)) insulin lispro (HUMALOG; ADMELOG) 100 unit/mL injectionIndication s:Type 2 diabetes mellitus with hyperglycemia, without long-term current use of insulin (HC) Inject 4 units subcutaneous before dinner. 4 10/13/19 Discontinu ed(*Medica tion adjustment ) WalkerIndications:C hronic midline low back pain without sciatica Walker with front wheels for home use. 1 Each 4 10/25/19 24 Discontinu ed(*Med complete/R egimen complete/L evel of care change) Lantus Solostar U-100 Insulin 100 unit/mL (3 mL) penIndications:Poor ly controlled type 2 diabetes mellitus (HC) INJECT 50 UNITS SUBCUTANEOUS BEFORE BEDTIME. 60 mL 1 4 10/05/19 Discontinu ed(Reorder (E-cancel not sent)) wheelchairIndicatio ns:Gait instability Wheelchair: Bariatric (over 250 lbs) with leg rests: (Swing away Length of need: 99 months 1 Each 4 10/25/19 24 Discontinu ed(*Med complete/R egimen complete/L evel of care change) Walker - 4 wheelsIndications:G ait instability For home use. Length of need: lifetime 1 Each 4 10/25/19 Discontinu ed(Reorder (E-cancel not sent)) Active Problems Problem Noted [...] Description 10/25/2023 1:20 PM CDT Office Visit [facility] [id number] [place] [phone] Goran Dukes, Urinary Problem 10/25/2023 Travel 10/25/2023 Nurse Triage [address] [phone] Goran Dukes, Urinary Problem 10/25/[address] [phone] Goran Dukes, UTI (Need med ) 10/13/2023 9:00 AM CDT Phone Office Visit [facility] [address] [place] [address] Tayla Kiran kiln furniture saw tender 10/11/2023 Orders Only [facility] Scanner 1 scan: (1-Ord) [facility], 10/11/2023 10/06/[address] [phone] Goran Dukes, Results 10/06/2023 Orders Only [address] [phone] Goran Dukes, <No scans attached> 10/05/2023 1:50 PM CDT Office Visit [address] [phone] Goran Dukes, Diabetes (Not fasting- The patient is requesting to speak about medication); Fatigue (The patient reports having leg fatigue like he is about to fall. The patient wants to discuss a walker or wheel chair options. ) 10/05/2023 Telephone [facility] [address] [place] [address] Jocelynn Jay NP Refill Request (Clobetasol 0.05%) 10/05/2023 Telephone [facility] [address] [place] [phone] Goran Dukes DO Refill Request (KETOROLAC 10 MG TABLETS ) 10/05/2023 Travel 10/01/2023 Refill [facility] [address] [place] [phone] Goran Dukes DO Refill Request (Lantus Solostar U-100 Insulin) 09/27/2023 Telephone [facility] [address] [place] [phone] Goran Dukes DO Medication Management (Walker) 09/01/2023 3:20 PM CDT - 09/01/2023 11:59 PM CDT Hospital Encounter [facility] [address] [place] [address] 09/01/2023 Travel 08/18/2023 11:59 AM SPECIAL EDUCATION TUTOR - 08/18/2023 11:59 PM SPECIAL EDUCATION TUTOR Hospital Encounter [facility] [address] [address] Serge Leslie MD Bilateral leg edema 08/18/2023 Travel 08/13/2023 10:15 AM SPECIAL EDUCATION TUTOR - 08/13/2023 11:59 PM SPECIAL EDUCATION TUTOR Hospital Encounter [facility] [address] [address] 08/13/2023 Orders Only [facility] [address] [address] Serge Leslie MD <No scans attached> 08/13/2023 Travel from Last 3 Months Immunizations Name Administration Dates Next Due COVID-19 vaccine (Pfizer-BioNTech 30mcg/0.3mL) BONNIE Mix 01/16/2021 Influenza, IIV4 03/16/2023,05/01/2022 [...] T Respiratory Rate 20 06/17/2023 7:45 AM SPECIAL EDUCATION TUTOR Oxygen Saturation 97% 10/25/2023 1:34 PM CDT Inhaled Oxygen Concentration - - Weight 131.5 kg (290 lb) 10/05/2023 1:49 PM CDT Height 162.6 cm (5' 4) 10/05/2023 1:49 PM CDT Body Mass Index 49.78 10/05/2023 1:49 PM CDT Plan of Treatment Upcoming Encounters Date Type Department Care Team (Late st Contact Info) Description 11/02/2023 1:30 PM CDT Office Visit [facility] [address] [place] [phone] Goran Dukes [address] [place], [place] [phone] Health Maintenance Due Date Last Done Comments [...] PM CDT UTI (urinary tract infection), uncomplicated [place] DIAB MANAGE TRN PER INDIV Routine 10/13/2023 [...] LOWER EXTREMITY BILATERAL Routine 08/18/2023 11:50 AM SPECIAL EDUCATION TUTOR Bilateral leg edema ANTI HCV Routine 01/22/2022 12:50 PM CDT Need for hepatitis C screening test from Last 3 Months or Most Recently Relevant to Health Maintenance Results * (ABNORMAL) URINALYSIS MICROSCOPIC (10/25/2023 1:37 PM CDT) RBC 6-10(A) 0-2, None Seen /HPF 10/25/2023 1:[address] [facility] WBC >100(A) 0-2, 3-5, None Seen /HPF 10/25/2023 1:[address] [facility] BACTERIA Moderate(A ) None Seen, Rare, Few Bacteria/H PF 10/25/2023 1:47 [address] [facility] EPITHELIAL CELLS None Seen None Seen, Few Epi/HPF 10/25/2023 1:[address] [facility] WHITE CELL CLUMPS Present(A) (none) 10/25/2023 1:[address] [facility] Urine URINE SPECIMEN / Unknown Non-Blood / Unknown 10/25/2023 1:37 PM CDT 10/25/2023 1:37 PM CDT [facility] UR[facility] Performing Organization Address [facility] Co de Phone Number [facility] [address] [place] [address], [place] * (ABNORMAL) URINE CULTURE (10/25/2023 1:37 PM CDT) CULTURE RESULT(A) 10/27/2023 8:53 AM CDT [facility] CULTURE >100,000 CFU/mL Streptococcus agalactiae (Strep Group B) 10/27/2023 8:53 AM CDT [facility] CULTURE <10,000 CFU/mL Multiple organisms probable contaminants 10/27/2023 8:53 AM CDT [facility] Urine URINE SPECIMEN / Unknown Non-Blood / Unknown 10/25/2023 1:37 PM CDT 10/25/2023 1:37 PM CDT [facility] MICROBIOLOGY Performing Organization Address City/[facility]/ZIP Co de Phone Number [facility] [address] [place] [address], [place] * (ABNORMAL) UA W/ SEDIMENT EXAM REFLEXED PER CRITERIA (10/25/2023 1:37 PM CDT) COLOR Yellow Yellow Color 10/25/2023 1:[address] [facility] CLARITY Cloudy(A) Clear Clarity 10/25/2023 1:[address] [facility] SPECIFIC GRAVITY,URINE 1.025 1.010, 1.015, 1.020, 1.025 10/25/2023 1:[address] [facility] PH,URINE 5.5 6.0, 7.0, 8.0, 5.5, 6.5, 7.5, 8.5 10/25/2023 1:[address] [facility] UROBILINOGEN, QUALITATIVE Normal Normal EU/dl 10/25/2023 1:[address] [facility] PROTEIN, URINE 100(A) Negative mg/dL 10/25/2023 1:[address] [facility] GLUCOSE, URINE >=1000(A) Negative mg/dL 10/25/2023 1:47 [address] [facility] KETONES,URINE Negative Negative mg/dL 10/25/2023 1:[address] [facility] BILIRUBIN,URI NE Negative Negative 10/25/2023 1:[address] [facility] OCCULT BLOOD,URINE Moderate(A) Negative 10/25/2023 1:[address] [facility] NITRITE Negative Negative 10/25/2023 1:[address] [facility] LEUKOCYTE ESTERASE Moderate(A) Negative 10/25/2023 1:[address] [facility] Urine URINE SPECIMEN / Unknown Non-Blood / Unknown 10/25/2023 1:37 PM CDT 10/25/2023 1:37 PM CDT Goran Dukes DO URINE [facility] [address] [place] [address], * [place] DIAB MANAGE TRN PER INDIV (10/13/2023) Pathologist [facility] DIABETIC ED Goran Dukes DO PB - ANCILLAR Y SERVICES * SCAN-EYE EXAM (10/11/2023 12:00 AM CDT) Scanner OTHER * (ABNORMAL) LIPID PANEL W REFLEX MEASURED LDL (10/05/2023 2:39 PM CDT) CHOLESTEROL,TOTAL 187 100 - 199 mg/dL 10/06/2023 1:31 AM CDT [facility] Comment: Cholesterol, Total Reference Ranges Desirable <200 mg/dL Borderline 200-239 mg/dL High >=240 mg/dL TRIGLYCERIDES 147 <150 mg/dL 10/06/2023 1:31 AM CDT [facility] HDL CHOLESTEROL 27(L) >40 mg/dL 1:31 AM CDT [facility] NON-HDL CHOLESTEROL 160(H) <145 mg/dl 10/06/2023 1:31 AM CDT [facility] CHOL/HDL RATIO 6.93(H) <4.50 10/06/2023 1:31 AM CDT [facility] LDL CHOLESTEROL 131(H) <=130 mg/dL 10/06/2023 1:31 AM CDT [facility] VLDL CHOLESTEROL 29 <=30 mg/dL 10/06/2023 1:31 AM CDT [facility] PROVIDER ORDERED STATUS RANDOM 10/06/2023 1:31 AM T [facility] Blood BLOOD SPECIMEN / Unknown Venipuncture / Unknown 10/05/2023 2:39 PM CDT 10/05/2023 2:39 PM CDT Goran Dukes DO CHEMISTRY [facility] [address] [place] [address], * (ABNORMAL) CBC W PLT NO DIFF (10/05/2023 2:39 PM CDT) WHITE BLOOD COUNT 8.8 4.5 - 11.0 thou/cu mm 10/05/2023 2:43 [address] [facility] RED BLOOD COUNT 4.49 4.30 - 5.90 mil/cu mm 10/05/2023 2:[address] [facility] HEMOGLOBIN 12.6(L) 13.5 - 17.5 g/dL 10/05/2023 2:[address] [facility] HEMATOCRIT 38.3 37.0 - 53.0 % 10/05/2023 2:[address] [facility] MCV 85 80 - 100 fL 10/05/2023 2:43 PM [address] [facility] MCH 28.1 26.0 - 34.0 pg 10/05/2023 2:43 PM CDT [facility] MCHC 32.9 32.0 - 36.0 g/dL 10/05/2023 2:43 PM [address] [facility] RDW 13.2 11.5 - 15.5 % 10/05/2023 2:43 [address] [facility] PLATELET COUNT 344 140 - 440 thou/cu mm 10/05/2023 2:43 PM [address]T [facility] MPV 9.6 6.5 - 11.0 fL 10/05/2023 2:43 PM [address] [facility] NRBC 0.0 % 10/05/2023 2:43 PM [address] [facility] ABS NRBC 0.0 thou /cu mm 10/05/2023 2:43 PM [address] [facility] Blood BLOOD SPECIMEN / Unknown Venipuncture / Unknown 10/05/2023 2:39 PM CDT 10/05/2023 2:39 PM CDT Goran Dukes DO HEMATOLOGY [facility] [address] [place] [address], * ANTI HIV 1/2 [43039.0] (10/05/2023 2:39 PM CDT) Pathologist [facility] HIV-1/HIV-2 SCREEN Non-Reacti ve Non-Reacti ve 10/06/2023 1:17 AM CDT [facility] Comment:HIV-1 p24 and HIV-1/ HIV-2 Ab Not Detected. Blood BLOOD SPECIMEN / Unknown Venipuncture / Unknown 10/05/2023 2:39 PM CDT 10/05/2023 2:39 PM CDT Goran Dukes DO SEND OUTS Performing Organization Address [facility] Co de Phone Number [facility] [address] [place] [address], [place] * (ABNORMAL) HEMOGLOBIN A1C MONITORING (POCT) (10/05/2023 2:39 PM CDT) HEMOGLOBIN A1C MONITORING (POCT) 10.0(H) <=6.4 % 10/05/2023 2:[address] [facility] Blood BLOOD SPECIMEN / Unknown Venipuncture / Unknown 10/05/2023 2:39 PM CDT 10/05/2023 2:39 PM CDT Narrative [facility] - 10/05/2023 2:54 PM CDT ? [...] Goran Dukes DO CHEMISTRY Performing Organization Address [facility] Co de Phone Number [facility] [address] [place] [address], [place] * (ABNORMAL) COMP METABOLIC PANEL (10/05/2023 2:39 PM CDT) SODIUM 136 136 - 145 mmol/L 10/06/2023 1:31 AM CDT [facility] POTASSIUM 5.4(H) 3.5 - 5.1 mmol/L 10/06/2023 1:31 AM [facility] CHLORIDE 99 98 - 107 mmol/L 10/06/2023 1:31 AM [facility] CO2,TOTAL 26 22 - 29 mmol/L 10/06/2023 1:31 AM [facility] ANION GAP 11 5 - 18 10/06/2023 1:31 AM [facility] GLUCOSE 298(H) 70 - 99 mg/dL 10/06/2023 1:31 AM [facility] CALCIUM 9.5 8.6 - 10.0 mg/dL 10/06/2023 1:31 AM [facility] BUN 15 6 - 20 mg/dL 10/06/2023 1:31 AM [facility] CREATININE 0.83 0.70 - 1.20 mg/dL 10/06/2023 1:31 AM [facility] BUN/CREAT RATIO 18 10 - 20 1:31 AM [facility] eGFR >90 >90 mL/min/1.7 3m2 10/06/2023 1:31 AM [facility] Comment:As of 2021, eG FR is calculated by the CKD-EPI creatinine equation without race adjustment. ??eGFR can be influenced by muscle mass, exercise, and diet. ??The reported eGFR is an estimation only and is only applicable if the renal function is stable. ALBUMIN 4.0 4.0 - 4.9 g/dL 10/06/2023 1:31 AM [facility] PROTEIN,TOTAL 7.3 6.0 - 8.0 g/dL 10/06/2023 1:31 AM [facility] BILIRUBIN,TOTAL 0.2 0.0 - 1.2 mg/dL 10/06/2023 1:31 AM [facility] ALK PHOSPHATASE 83 40 - 129 IU/L 10/06/2023 1:31 AM CDT [facility] ALT (SGPT) 12 10 - 50 IU/L 10/06/2023 1:31 AM CDT [facility] AST (SGOT) 13 10 - 50 IU/L 10/06/2023 1:31 AM CDT [facility] Blood BLOOD SPECIMEN / Unknown Venipuncture / Unknown 10/05/2023 2:39 PM CDT 10/05/2023 2:39 PM CDT Goran Dukes DO CHEMISTRY [facility] [address] [place] [address], [place] * [place] VENOUS INSUFFICIENCY LOWER EXTREMITY BILATERAL (08/18/2023 11:50 AM SPECIAL EDUCATION TUTOR) Anatomical Region Laterality Modality LEGS Ultrasound, Ultr [...] cherelle Non-React cherelle 01/22/2022 9:10 PM CDT [facility] Comment:Antibodies to HCV no t detected; does not exclude the possibility of exposure to HCV. Blood BLOOD SPECIMEN / Unknown Venipuncture / Unknown 01/22/2022 12:50 PM CDT 01/22/2022 12:51 PM CDT Goran Dukes DO SEND OUTS Performing Organization Address City/State/[facility] Co de Phone Number [facility] [address] [place] [address], [place] from Last 3 Months or Most [...] Comments Code Status Discussion: Discussed Care Teams Wool Cleaner Relationship Specialty [place] [address] [place] [address] PCP - General Family Practice 10/16/20 Pcp, No . 08/04/14 Tayla Kiran, RN [address] [place] [address] Diabetes Care Management Registered Nurse 10/13/2308/13
--- OUTSIDE RECORDS SUMMARY | 2023-11-01 15:44 | XMS_ITS ---
Author Name Unknown Organization Unknown Encounters Encounter Type Performer Location Encounter Date Encoun ter Notes virtual - - [id number]:32.980-0 0:00 no notes virtual - - [id number]:49:25.273-0 0:00 no notes virtual - - [id number]:33:39.670-0 0:00 no notes virtual - - [id number]:21:52.370-0 0:00 no notes virtual - - 3204-71-76H03:38:04.273-0 0:00 no notes virtual - - [id number]:45:30.420-0 0:00 no notes virtual - - [id number]:24:32.980-0 0:00 no notes virtual - - 5059-51-81F39:57:05.670-0 0:00 no notes virtual - - [id number]:21:52.370-0 0:00 no notes virtual - - 6196-56-05C45:29:52.713-0 0:00 no notes virtual - - [id number]:21:52.370-0 0:00 no notes virtual - - 4103-23-56A81:49:25.273-0 0:00 no notes virtual - - [id number]:45:30.420-0 0:00 no notes virtual - - [id number]:24:32.980-0 0:00 no notes virtual - - [id number]:38:04.273-0 0:00 no notes virtual - - 1965-17-04K11:29:52.713-0 0:00 no notes virtual - - [id number]:20:45.160-0 0:00 no notes virtual - - [id number]:33:39.670-0 0:00 no notes virtual - - [id number]:21:52.370-0 0:00 no notes virtual - - [id number]:19:10.643-0 0:00 no notes virtual - - [id number]:19:10.643-0 0:00 no notes virtual - - [id number]:19:10.643-0 0:00 no notes virtual - - [id number]:19:10.643-0 0:00 no notes Patient Care team information Name Category Status Period Participants - - Proposed period not known - - - period not known -
--- OUTSIDE RECORDS SUMMARY | 2023-11-01 15:44 | XMS_ITS | Clinical Summary ---
Author Name Unknown Organization [facility] Address [address] [address] Phone Care Team Providers Care Signal System Testing Maintainer Name Role Phone Choice, No Pcp-Patient Primary [...] Comments Blood Pressure 136/71 05/22/2023 3:28 PM WAREHOUSE SHIPPER Pulse 115 05/22/2023 3:28 PM WAREHOUSE SHIPPER Temperature 37.5 ??C (99.5 ??F) 05/22/2023 4:56 PM CS T Respiratory Rate 22 05/22/2023 3:28 PM WAREHOUSE SHIPPER Oxygen Saturation 93% 05/22/2023 3:28 PM WAREHOUSE SHIPPER Inhaled Oxygen Concentration - - Weight 128.3 [...] age to complete this topic Care Teams Signal System Testing Maintainer Relationship Specialty Start Date End Date Choice, No Pcp-Patient PCP - General 05/22/23
--- OUTSIDE RECORDS SUMMARY | 2023-11-01 15:45 | XMS_ITS | Clinical Summary ---
Author Name Unknown [facility] Address [address] [place] [address] Care Team Providers Care Hedis Nurse Name Role Phone Needs Pcp, Assignment Primary Care Provider [phone] Source Comments You are receiving this document as you are listed as the primary care provider,follow-up provider, or the patient has been referred to you for consultation.This is in compliance with the Medicare and[facility] EHR Incentive Program,which states Providers who transition their patient to another setting of careor provider of care or refers their patient to another provider of care shouldprovide summary care record for each transition of care or referral. [employer] Allergies Active Allergy Reactions Criticality Noted Date [...] age to complete this topic Care Teams Hedis Nurse Relationship Specialty Start Date End Date Needs Pcp, [place] [address] PCP - General 07/02/16
--- OUTSIDE RECORDS SUMMARY | 2023-11-01 15:45 | XMS_ITS | Data Portability ---
Author Name Unknown Address [address] [place] [address] Phone [phone] Organization [facility] Address [address] [place] [address] Care Team Providers Care Teacher Education Director Name Role Phone JI BOLANOS Primary Care Provider Assessment No assessment recorded. Plan of Treatment Reminders Order Date Submit Date Provider Last Modified By Organization Details Last Modified Time Details Appointments None recorded. Lab urinalysis , dipstick 2020 [facility], [address], [address], [place], [address], 10:54:26 culture, urine 2020 [facility], [address], [address], [place], [address], 09:57:17 Referral urologist referral - buried penis, BXO 2020 randal Bolden MD, [address] [facility], [address], [place], [address], 14:49:08 Procedures None recorded. Surgeries None recorded. Imaging None recorded. Medication Orders Flomax 0.4 mg capsule 2020 [id number], [address], [place], [address], 10:37:46 Patient TargetsNo targets recorded. Patient Instructions Encounter Date Encounter Id Patient Instructions Last Modified By Organization Details Last Modified Time 10/04/2020 [id number] Incomplete bladd er emptying/weak stream/UTI: He doesn't [...] request records from his ER visit in [place], [place] and would like to see the CT scan report. 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 The opening is small and I cannot expose the head of the penis. This too may be contributing to his infection. I recommend that he see urology at the [facility] for consideration of treatment of the buried penis. Not available 10/04/2020 10:37:22 Reason for Referral Urologist Referral for Acqui red buried penis buried penis, BXO Referring Physician: Chris Castro, Urology, Encounter Date: 10/04/2020 Results Created Date Observation Date Name Description Value Unit Range Abnormal Flag LastModifiedBy Organization Detail LastModifiedTime 10/05/19 21 10/04/2020 urina lysis , dipst ick color -advantus YELLOW yellow Not Available [facility] [address] [facility] [address], [place], [address], 10/04/2020 10:54:26 10/05/19 21 10/04/2020 urina lysis , dipst ick appearance -advantus CLOUDY clear abnormal Not Available [facility] [address] [facility] [address], [place], [address], 10/04/2020 10:54:26 10/05/19 21 10/04/2020 urina lysis , dipst ick glucose -advantus NEGATI VE mg/dL negati ve Not Available [facility] [address] [facility] [address], [place], [address], 10/04/2020 10:54:26 10/05/19 21 10/04/2020 urina lysis , dipst ick bilirubin -advantus NEGATI VE negati ve Not Available [facility] [address] [facility] [address], [place], [address], 10/04/2020 10:54:26 10/05/19 21 10/04/2020 urina lysis , dipst ick ketones -advantus NEGATI VE mg/dL negati ve Not Available [facility] [address] [facility] [address], [place], [address], 10/04/2020 10:54:26 10/05/19 21 10/04/2020 urina lysis , dipst ick sp. gravity -advantus 1.025 1.010- 1.025 Not Available [facility] [address] [place] [address] [address], [place], [address], 10/04/2020 10:54:26 10/05/19 21 10/04/2020 urina lysis , dipst ick pH -advantus 6.0 5.0-8. 0 Not Available [facility] [address] [facility] [address], [place], [address], 10/04/2020 10:54:26 10/05/19 21 10/04/2020 urina lysis , dipst ick protein -advantus TRACE mg/dL negati ve abnormal Not Available [facility] [address] [facility] [address], [place], [address], 10/04/2020 10:54:26 10/05/19 21 10/04/2020 urina lysis , dipst ick urobilinogen -advantus 1.0 normal Not Available [facility] [address] [facility] [address], [place], [address], 10/04/2020 10:54:26 10/05/19 21 10/04/2020 urina lysis , dipst ick nitrites -advantus NEGATI VE negati ve Not Available [facility] [address] [place] [address] [address], [place], [address], 10/04/2020 10:54:26 10/05/19 21 10/04/2020 urina lysis , dipst ick blood -advantus SMALL negati ve abnormal Not Available [facility] [address] [place] [address] [address], [place], [address], 10/04/2020 10:54:26 10/05/19 21 10/04/2020 urina lysis , dipst ick leukocytes -advantus LARGE negati ve abnormal Not Available [facility] [address] [place] [address] [address], [place], [address], 10/04/2020 10:54:26 10/05/19 21 10/04/2020 urina lysis , dipst ick performed by Caren Fink Not Available [facility] [address] [place] [address] [address], [place], [address], 10/04/2020 10:54:26 10/05/19 21 10/04/2020 urina lysis , dipst ick total urine volume (mL) 40 /mL Not Available [facility] [address] [place] [address] [address], [place], [address], 10/04/2020 10:54:26 10/05/19 21 10/04/2020 urina lysis , micro scopi c U-WBC 50 - 100 [hpf] 0 - 2 abnormal Not Available [facility] [address] [place] [address] [address], [place], [address], 10/04/2020 10:54:28 10/05/19 21 10/04/2020 urina lysis , micro scopi c U-RBC 0 - 2 [hpf] 0 - 2 Not Available [facility] [address] [place] [address] [address], [place], [address], 10/04/2020 10:54:28 10/05/19 21 10/04/2020 urina lysis , micro scopi c bacteria Small [hpf] negati ve abnormal Not Available [facility] [address], [place], [address], 10/04/2020 10:54:28 10/05/19 21 10/04/2020 urina lysis , micro scopi c squamous epi Small /lpf negati ve,sma ll Not Available [facility] [address] [facility] [address], [place], [address], 10/04/2020 10:54:28 10/05/19 21 10/04/2020 cultu re, urine final report Microb iology result s Not Available [facility] [address] [facility] [address], [place], [address], 10/05/2020 09:57:17 10/03/19 21 09/28/2020 imagi ng/di [...] bladder Active 10/05/19 21 Chris Castro MD [address] [place] [address],[address], [address], [facility] 10/04/2020 10:32:13 Slowing of urinary stream Active 10/05/19 21 Chris Castro MD [address] [place] [address],[address], [place], [address], [facility] 10/04/2020 10:32:13 Acute urinary tract infection Active 10/05/19 21 Chris Castro MD [address] [place] [address],[address], [place], [address], [facility] 10/04/2020 10:32:15 Acquired buried penis Active 10/05/19 Chris Castro MD [address] [place] [address],[facility] [address], [place], [address], [facility] 10/04/2020 10:33:04 Problem Notes None recorded. Procedures Surgical History Date Name Laterality Status Provider Name and Address Organization Details Recorded Time Bladder Scan completed Geovanna cárdenas [facility] 10/04/2020 10:09:08 Imaging Results Imaging Date [...] Name and Address Organization Details Recorded Time 707872 Medicinal product containin g penicilli n and acting as antibacte rial agent (product) medicatio n other Not available Not available 09/30/2020 [id number] 05 SNOMED aniph aliti c Not Available [...] Details Last Updated DateTime 10/04/2020 39.9 kg/m2 424760.5339 99770 g 170.18 cm Not Available Health Note [...] re nal stone Medical History Condition Response High Blood Pressure N Kidney Stones N Depression Y Lung Disease N GERD/Acid Reflux N Diabetes Y Sexually Transmitted Infection N Bleeding Disorder N Cancer N High Cholesterol N Heart Disease N Past Encounters Encounter ID Performer Location Encounter Start Date Encounter Closed Date Diagnosis/Indication Diagnosis SNOMED-CT Code [id number] Chris Castro MD [address] [address] 10/04/2020 09:55:35 10/04/2020 11:01:27 Acute urinary tract infection [id number] Incomplete emptying of bladder [id number] Slowing of urinary stream [id number] Acquired buried penis 23 [id number] Health Concerns Section Related Observation LastModified by Organization Detai ls LastModified Time None Recorded Concern Status LastModified by Organization Details LastModified Time None Recorded Advance Directives Directive None Recorded Payers Encounter Date Sequence Insurance Name Policy Number Policy Barbosa Covered Member ID Barbosa Member ID Guarantor Name 10/04/2020 1 [employer] - DOS PRIOR TO 2021 (MEDICAID REPLACEMENT - HMO) [facility] Morgan Pearson [id number] Morgan Pearson Notes Date Note Type Note Provider Name and Address Organization Details Recorded Time 10/04/2020 text/html HPI Notes: 10/04/20: Obesity, COPD, DM, chronic low back pain. Was at [facility] 09/28/20 to 09/29/20 for urosepsis and right [...] states that had a CT scan in [facility] in [place], [place] which was done on 09/28/20. He was transferred to [facility]. Denies straining or waiting to relax to [...] 3] Chris Castro MD [address] [facility],[address], [place], [address], [facility] 10/04/2020 10:37:57
== END 2023-11-01 15:43 | disposition home or self-care (01) ==
LOC: WOUND 15:42
PROVIDERS: Visit Provider Surgery
DX: I89.0 Lymphedema, not elsewhere classified (principal); E11.65 Type 2 diabetes mellitus with hyperglycemia; E11.42 Type 2 diabetes mellitus with diabetic polyneuropathy; L97.821 Non-pressure chronic ulcer of other part of left lower leg limited to breakdown of skin; L97.811 Non-pressure chronic ulcer of other part of right lower leg limited to breakdown of skin; Z79.4 Long term (current) use of insulin
CPT/HCPCS: 29581

== ENCOUNTER 2023-11-03 09:33 | Outpatient (CLI) | payer MEDICARE, SELFPAY ==
--- OUTSIDE RECORDS SUMMARY | 2023-11-03 09:34 | XMS_ITS | Clinical Summary ---
Author Organization [employer] Address [place], [place] [address] Care Team Providers Care Mold Cutting Machine Operator Name Role Phone Pcp, No Unavailable Unavailable Goran Dukes DO Primary Care Provide r aTyla Kiran RN Unavailable [phone] Allergies Active Allergy Reactions Criticality Noted [...] 4 Active lidocaine 5 % topical patchIndications:Ac belkofski pain of left shoulder Apply to intact [...] per day. 1 Each 4 Active Insulin [place], Disposable, (BD Amanda 2nd Gen Pen Needle) [...] be used to read blood sugars, follow it operations analyst directions. 6 Each 3 4 Active FreeStyle Lacie 3 [place] for continuous blood glucose monitor (CGM)Indications:Ty pe 2 diabetes mellitus with hyperglycemia, without long-term current use of insulin (HC) To be used to read blood sugars follow it operations analyst directions. 1 Each 4 Active lancets (Microlet [...] be used to read blood sugars per it operations analyst's directions. 1 Each 2 10/13/19 24 Discontinu [...] 4 units subcutaneous before dinner. 4 10/13/19 24 Discontinu ed(*Medica tion adjustment ) WalkerIndications:C hronic midline low back pain without sciatica Walker with front wheels for home use. 1 Each 4 10/25/19 24 Discontinu ed(*Med complete/R egimen complete/L evel of care change) Lantus Solostar U-100 Insulin 100 unit/mL (3 mL) penIndications:Poor ly controlled type 2 diabetes mellitus (HC) INJECT 50 UNITS SUBCUTANEOUS BEFORE BEDTIME. 60 mL 1 4 10/05/19 24 Discontinu ed(Reorder (E-cancel not sent)) wheelchairIndicatio ns:Gait instability Wheelchair: Bariatric (over 250 lbs) with leg rests: (Swing away Length of need: 99 months 1 Each 4 10/25/19 24 Discontinu ed(*Med complete/R egimen complete/L evel of care change) Walker - 4 wheelsIndications:G ait instability For home use. Length of need: lifetime 1 Each 4 10/25/19 24 Discontinu ed(Reorder (E-cancel not sent)) Active Problems [...] skin 06/16/2023 Depression, major, single episode, moderate 0 11/2022 Acquired buried penis 10/04/2020 Type 2 [...] Description 10/25/2023 1:20 PM CDT Office Visit [facility] [id number] [place] [address] [phone] Goran Dukes, Urinary Problem 10/25/2023 Travel 10/25/2023 Nurse Triage [address] [phone] Goran Dukes, Urinary Problem 10/25/[address] [phone] Goran Dukes, UTI (Need med ) 10/13/2023 9:00 AM CDT Phone Office Visit [facility] [address] [place] [address] Tayla Kiran dust box worker 10/11/2023 Orders Only [facility] Scanner 1 scan: (1-Ord) [facility], 10/11/2023 10/06/[address] [phone] Goran Dukes, Results 10/06/2023 Orders Only [address] [address] Goran Dukes, <No scans attached> 10/05/2023 1:50 PM CDT Office Visit [address] [phone] Goran Dukes, Diabetes (Not fasting- The patient is requesting to speak about medication); Fatigue (The patient reports having leg fatigue like he is about to fall. The patient wants to discuss a walker or wheel chair options. ) 10/05/2023 Telephone [facility] [address] [address] Jocelynn Jay NP Refill Request (Clobetasol 0.05%) 10/05/2023 Telephone [facility] [address] [place] [address] Goran Dukes DO Refill Request (KETOROLAC 10 MG TABLETS ) 10/05/2023 Travel 10/01/2023 Refill [facility] [address] [place] [address] Goran Dukes DO Refill Request (Lantus Solostar U-100 Insulin) 09/27/2023 Telephone [facility] [address] [place] [address] Goran Dukes, Medication Management (Walker) 09/01/2023 3:20 PM CDT - 09/01/2023 11:59 PM CDT Hospital Encounter [facility] [address] [address] 09/01/2023 Travel 08/18/2023 11:59 AM COMMUTATOR ASSEMBLER - 08/18/2023 11:59 PM COMMUTATOR ASSEMBLER Hospital Encounter [facility] [address] [place] [address] Serge Leslie MD Bilateral leg edema 08/18/2023 Travel 08/13/2023 10:15 AM COMMUTATOR ASSEMBLER - 08/13/2023 11:59 PM COMMUTATOR ASSEMBLER Hospital Encounter [facility] [address] [place] [address] 08/13/2023 Orders Only [facility] [address] [address] Serge Leslie MD <No scans attached> 08/13/2023 [...] T Respiratory Rate 20 06/17/2023 7:45 AM COMMUTATOR ASSEMBLER Oxygen Saturation 97% 10/25/2023 1:34 PM CDT Inhaled Oxygen Concentration - - Weight 131.5 kg (290 lb) 10/05/2023 1:49 PM CDT Height 162.6 cm (5' 4) 10/05/2023 1:49 PM CDT Body Mass Index 49.78 10/05/2023 1:49 PM CDT Plan of Treatment Health Maintenance [...] PM CDT UTI (urinary tract infection), uncomplicated [place] DIAB MANAGE TRN PER INDIV Routine 10/13/2023 [...] LOWER EXTREMITY BILATERAL Routine 08/18/2023 11:50 AM COMMUTATOR ASSEMBLER Bilateral leg edema ANTI HCV Routine 01/22/2022 12:50 PM CDT Need for hepatitis C screening test from Last 3 Months or Most Recently Relevant to Health Maintenance Results * (ABNORMAL) URINALYSIS MICROSCOPIC (10/25/2023 1:37 PM CDT) RBC 6-10(A) 0-2, None Seen /HPF 10/25/2023 1:47 PM CDT [facility] WBC >100(A) 0-2, 3-5, None Seen /HPF 10/25/2023 1:47 PM CDT [facility] BACTERIA Moderate(A ) None Seen, Rare, Few Bacteria/H PF 10/25/2023 1:47 PM CDT [facility] EPITHELIAL CELLS None Seen None Seen, Few Epi/HPF 10/25/2023 1:47 PM CDT [facility] WHITE CELL CLUMPS Present(A) (none) 10/25/2023 1:47 PM CDT [facility] Urine URINE SPECIMEN / Unknown Non-Blood / Unknown 10/25/2023 1:37 PM CDT 10/25/2023 1:37 PM CDT [employer] URINE Performing Organization Address [facility] Co de Phone Number [facility] [address] [place] [address], [place] * (ABNORMAL) URINE CULTURE (10/25/2023 1:37 PM CDT) CULTURE RESULT(A) 10/27/2023 8:53 AM CDT [facility] CULTURE >100,000 CFU/mL Streptococcus agalactiae (Strep Group B) 10/27/2023 8:53 AM CDT [facility] CULTURE <10,000 CFU/mL Multiple organisms probable contaminants 10/27/2023 8:53 AM CDT [facility] Urine URINE SPECIMEN / Unknown Non-Blood / Unknown 10/25/2023 1:37 PM CDT 10/25/2023 1:37 PM CDT [facility] MICROBIOLOGY Performing Organization Address [facility]/ZIP Co de Phone Number [facility] [address] [place] [address], [place] * (ABNORMAL) UA W/ SEDIMENT EXAM REFLEXED PER CRITERIA (10/25/2023 1:37 PM CDT) COLOR Yellow Yellow Color 10/25/2023 1:47 PM CDT [facility] CLARITY Cloudy(A) Clear Clarity 10/25/2023 1:47 PM CDT [facility] SPECIFIC GRAVITY,URINE 1.025 1.010, 1.015, 1.020, 1.025 10/25/2023 1:47 PM CDT [facility] PH,URINE 5.5 6.0, 7.0, 8.0, 5.5, 6.5, 7.5, 8.5 10/25/2023 1:47 PM CDT [facility] UROBILINOGEN, QUALITATIVE Normal Normal EU/dl 10/25/2023 1:47 PM CDT [facility] PROTEIN, URINE 100(A) Negative mg/dL 10/25/2023 1:47 PM CDT [facility] GLUCOSE, URINE >=1000(A) Negative mg/dL 10/25/2023 1:47 PM CDT [facility] KETONES,URINE Negative Negative mg/dL 10/25/2023 1:47 PM CDT [facility] BILIRUBIN,URI NE Negative Negative 10/25/2023 1:47 PM CDT [facility] OCCULT BLOOD,URINE Moderate(A) Negative 10/25/2023 1:47 PM CDT [facility] NITRITE Negative Negative 10/25/2023 1:47 PM CDT [facility] LEUKOCYTE ESTERASE Moderate(A) Negative 10/25/2023 1:47 PM CDT [facility] Urine URINE SPECIMEN / Unknown Non-Blood / Unknown 10/25/2023 1:37 PM CDT 10/25/2023 1:37 PM CDT Goran Dukes DO URINE Performing Organization Address [facility]/State/ZIP Co de Phone Number [facility] [address] [place] [address], * [place] DIAB MANAGE TRN PER INDIV (10/13/2023) Pathologist [facility] DIABETIC ED GoranLaurantis Pharmater Supernovacordell DO PB - ANCILLAR Y SERVICES * SCAN-EYE EXAM (10/11/2023 12:00 AM CDT) Scanner OTHER * (ABNORMAL) LIPID PANEL W REFLEX MEASURED LDL (10/05/2023 2:39 PM CDT) CHOLESTEROL,TOTAL 187 100 - 199 mg/dL 10/06/2023 1:31 AM CDT [facility] Comment: Cholesterol, Total Reference Ranges Desirable <200 mg/dL Borderline 200-239 mg/dL High >=240 mg/dL TRIGLYCERIDES 147 <150 mg/dL 10/06/2023 1:31 AM CDT [facility] HDL CHOLESTEROL 27(L) >40 mg/dL 1:31 AM CDT [facility] NON-HDL CHOLESTEROL 160(H) <145 mg/dl 10/06/2023 1:31 AM CDT [facility] CHOL/HDL RATIO 6.93(H) <4.50 10/06/2023 1:31 AM CDT [facility] LDL CHOLESTEROL 131(H) <=130 mg/dL 10/06/2023 1:31 AM CDT [facility] VLDL CHOLESTEROL 29 <=30 mg/dL 10/06/2023 1:31 AM T [facility] PROVIDER ORDERED STATUS RANDOM 10/06/2023 1:31 AM T [facility] Blood BLOOD SPECIMEN / Unknown Venipuncture / Unknown 10/05/2023 2:39 PM CDT 10/05/2023 2:39 PM CDT Goran Dukes [facility] [address] [place] [address], * (ABNORMAL) CBC W PLT NO DIFF (10/05/2023 2:39 PM CDT) WHITE BLOOD COUNT 8.8 4.5 - 11.0 thou/cu mm 10/05/2023 2:43 PM CDT [facility] RED BLOOD COUNT 4.49 4.30 - 5.90 mil/cu mm 10/05/2023 2:43 PM CDT [facility] HEMOGLOBIN 12.6(L) 13.5 - 17.5 g/dL 10/05/2023 2:43 PM CDT [facility] HEMATOCRIT 38.3 37.0 - 53.0 % 10/05/2023 2:43 PM CDT [facility] MCV 85 80 - 100 fL 10/05/2023 2:43 PM CDT [facility] MCH 28.1 26.0 - 34.0 pg 10/05/2023 2:43 PM CDT [facility] MCHC 32.9 32.0 - 36.0 g/dL 10/05/2023 2:43 PM CDT [facility] RDW 13.2 11.5 - 15.5 % 10/05/2023 2:43 PM CDT [facility] PLATELET COUNT 344 140 - 440 thou/cu mm 10/05/2023 2:43 PM CDT [facility] MPV 9.6 6.5 - 11.0 fL 10/05/2023 2:43 PM CDT [facility] NRBC 0.0 % 10/05/2023 2:43 PM CDT [facility] ABS NRBC 0.0 thou /cu mm 10/05/2023 2:43 PM CDT [facility] Blood BLOOD SPECIMEN / Unknown Venipuncture / Unknown 10/05/2023 2:39 PM CDT 10/05/2023 2:39 PM CDT [facility]cal[facility]ur [facility] HEMATOLOGY [facility] [address] [place] [address], [place] * ANTI HIV 1/2 [72243.0] (10/05/2023 2:39 PM CDT) HIV-1/HIV-2 SCREEN Non-Reacti ve Non-Reacti ve 10/06/2023 1:17 AM CDT [facility] Comment:HIV-1 p24 and HIV-1/ HIV-2 Ab Not Detected. Blood BLOOD SPECIMEN / Unknown Venipuncture / Unknown 10/05/2023 2:39 PM CDT 10/05/2023 2:39 PM CDT [facility]anUnmetricblack river memorial hospitalTOMODO DO SEND OUTS [facility] [address] [place] [address], [place] * (ABNORMAL) HEMOGLOBIN A1C MONITORING (POCT) (10/05/2023 2:39 PM CDT) [facility] HEMOGLOBIN A1C MONITORING (POCT) 10.0(H) <=6.4 % 10/05/2023 2:54 PM CDT [facility] Blood BLOOD SPECIMEN / Unknown Venipuncture / Unknown 10/05/2023 2:39 PM CDT 10/05/2023 2:39 PM CDT Narrative [facility] - 10/05/2023 2:54 PM CDT ? (<=6.9%) [...] Anemias, Splenectomy ? Goran Dukes DO CHEMISTRY [facility] [address] [place] [address], * (ABNORMAL) COMP METABOLIC PANEL (10/05/2023 2:39 PM CDT) [facility] SODIUM 136 136 - 145 mmol/L 10/06/2023 1:31 AM CDT [facility] POTASSIUM 5.4(H) 3.5 - 5.1 mmol/L 10/06/2023 1:31 AM CDT [facility] CHLORIDE 99 98 - 107 mmol/L 10/06/2023 1:31 AM CDT [facility] CO2,TOTAL 26 22 - 29 mmol/L 10/06/2023 1:31 AM CDT [facility] ANION GAP 11 5 - 18 10/06/2023 1:31 AM [facility] GLUCOSE 298(H) 70 - 99 mg/dL 10/06/2023 1:31 AM [facility] CALCIUM 9.5 8.6 - 10.0 mg/dL 10/06/2023 1:31 AM [facility] BUN 15 6 - 20 mg/dL 10/06/2023 1:31 AM [facility] CREATININE 0.83 0.70 - 1.20 mg/dL 10/06/2023 1:31 AM [facility] BUN/CREAT RATIO 18 10 - 20 1:31 AM [facility] eGFR >90 >90 mL/min/1.7 3m2 10/06/2023 1:31 AM [facility] Comment:As of 2021, eG FR is calculated by the CKD-EPI creatinine equation without race adjustment. ??eGFR can be influenced by muscle mass, exercise, and diet. ??The reported eGFR is an estimation only and is only applicable if the renal function is stable. ALBUMIN 4.0 4.0 - 4.9 g/dL 10/06/2023 1:31 AM [facility] PROTEIN,TOTAL 7.3 6.0 - 8.0 g/dL 10/06/2023 1:31 AM [facility] BILIRUBIN,TOTAL 0.2 0.0 - 1.2 mg/dL 10/06/2023 1:31 AM [facility] ALK PHOSPHATASE 83 40 - 129 IU/L 10/06/2023 1:31 AM [facility] ALT (SGPT) 12 10 - 50 IU/L 10/06/2023 1:31 AM [facility] AST (SGOT) 13 10 - 50 IU/L 10/06/2023 1:31 AM [facility] Blood BLOOD SPECIMEN / Unknown Venipuncture / Unknown 10/05/2023 2:39 PM CDT 10/05/2023 2:39 PM CDT Goranladarius Perry Roseline STEPHENS CHEMISTRY [facility] [address] [place] [address], [place] * [place] VENOUS INSUFFICIENCY LOWER EXTREMITY BILATERAL (08/18/2023 11:50 AM COMMUTATOR ASSEMBLER) Anatomical Region Laterality Modality LEGS Ultrasound, Ultr [...] * ANTI HCV (01/22/2022 12:50 PM CDT) Pathologist [facility] HEPATITIS C ANTIBODY Non-React cherelle Non-React cherelle 01/22/2022 9:10 PM CDT [facility] Comment:Antibodies to HCV no t detected; does not exclude the possibility of exposure to HCV. Blood BLOOD SPECIMEN / Unknown Venipuncture / Unknown 01/22/2022 12:50 PM CDT 01/22/2022 12:51 PM CDT Goran Perry Linuselmerleonila SEND OUTS [facility] [employer] [facility] [address] [place] [address], from Last 3 Months or Most Recently Relevant to Health Maintenance Advance Directives * Full Code (Latest Code Status on File) Date Activated Date Inactivated Comments 06/15/2023 11:00 PM 06/17/2023 2:40 PM Question Answer Comments Code Status Discussion: Reviewed Preferences * Full Code Date Activated Date Inactivated Comments 01/11/2020 5:28 PM 01/12/2020 7:09 PM Question Answer Comments Code Status Discussion: Discussed Care Teams Mold Cutting Machine Operator Relationship Specialty [place] [address] [place] [address] PCP - General Family Practice 10/16/20 Pcp, No . 08/04/14 Tayla Kiran, RN [address] [place] [address] Diabetes Care Management Registered Nurse 10/13/2308/13
--- OUTSIDE RECORDS SUMMARY | 2023-11-03 09:35 | XMS_ITS | Clinical Summary ---
Author Organization [facility] Address [address] [address] Phone Care Team Providers Care Glove Parts Inspector Name Role Phone Choice, No Pcp-Patient Primary [...] Comments Blood Pressure 136/71 05/22/2023 3:28 PM THERMAL CUTTER HAND Pulse 115 05/22/2023 3:28 PM THERMAL CUTTER HAND Temperature 37.5 ??C (99.5 ??F) 05/22/2023 4:56 PM CS T Respiratory Rate 22 05/22/2023 3:28 PM THERMAL CUTTER HAND Oxygen Saturation 93% 05/22/2023 3:28 PM THERMAL CUTTER HAND Inhaled Oxygen Concentration - - Weight 128.3 [...] Order) (1 of 2) 2018 COVID-19 Vaccine (2022-2 4 season) 2023 Influenza Vaccine Seasonal (Standing Order) (#1) 2023 HPV Vaccine (Standing Order) Aged Out No longer eligible based on patient's age to complete this topic Pneumococcal/PCV20 Vaccine: Pediatrics (2-5 yrs) and At-Risk Patients (6-64 yrs) (Standing Order) Aged Out No longer eligible b ased on patient's age to complete this topic Care Teams Glove Parts Inspector Relationship Specialty Start Date End Date Choice, No Pcp-Patient PCP - General 05/22/23
--- OUTSIDE RECORDS SUMMARY | 2023-11-03 09:35 | XMS_ITS | Referral Summary ---
Author Organization [facility] Address [address] [address] Care Team Providers Care Counter Intelligence Technician Name Role Phone Dinesh Muir MD Unavailable Purvi Lennon MD Unavailable [phone] Darshana Huertas Unavailable [phone] Goran Dukes DO Primary Care Provider David Pereira MD Unavailable [phone] Jovany Dumont MD Unavailable [phone] Allergies Active Allergy Reactions Criticality Noted [...] 09/29/2020 Active levofloxacin (LEVAQUIN) 500 MG tabletIndications:Ac [place] cystitis without hematuria Take 1 tablet (500 [...] for patients under 2 years old ??at [facility] for lipid analytes. 2-8 years: [...] LAB - BLOOD ORD ERABLES [facility] [address] [place] [address] * (ABNORMAL) Comprehensive metabolic panel (09/08/2021 8:28 [...] and gender (Shannon et al., NEJM, DOI: 10.1056/[id number]) Blood BLOOD SPECIMEN / Unknown Client Draw / Unknown 09/08/2021 8:28 AM CDT 09/08/2021 3:38 PM CDT David Jimenez PA-C LAB - BLOOD ORD ERABLES [facility] [address] [phone] * (ABNORMAL) Hemoglobin A1c (09/28/2020 10:35 AM CDT) Hemoglobin A1C 9.6(H) 0 - 5.6 % 09/28/2020 11:[address] [facility] Comment: Normal <5.7% Prediabetes 5.7-6.4% ??Diabetes 6.5% or higher - adopted from ADA consensus guidelines. Blood 09/28/2020 10:3 5 AM CDT 09/28/2020 10:36 AM CDT Sal Caesarbubba Mora DO LAB - BLOOD ORDERAB LES [facility] [address] [address], [facility] [phone] from Last 3 Months or Most Recently Relevant to Health Maintenance Advance Directives For more information, please contact: [phone] * Full Code (Latest Code Status on File) Date Activated Date Inactivated Comments 09/28/2020 10:12 AM 09/29/2020 4:35 PM All basic a nd advanced life-sustaining interventions are performed as appropriate Question Answer Comments Code status determined by: Discussion with aishwarya nt/ legal decision maker Care Teams Counter Intelligence Technician Relationship Specialty [place] [address] [place] [address] PCP - General Family Medicine 09/28/20 Dinesh Muir MD [facility] [address] [address] Otolaryngology 08/25/18 Purvi Lennon MD [address] [facility] [address] [facility] [address] [place] [address] Otolaryngology 08/25/18 Darshana Huertas AuD [address] [facility] [address] [place], [place] [address] Press Operator Audiology 08/25/18 David Pereira MD [address] [place] [address] Urology 09/30/20 Jovany Dumont MD [address] [place] [address] Neurology 03/23/22
--- OUTSIDE RECORDS SUMMARY | 2023-11-03 09:35 | XMS_ITS | Encounter Summary ---
Author Organization [place] Address [facility] [place] [address] Care Team Providers Care Lunch Truck Operator Name Role Phone King Garcia MD Primary Care Provider Unavailable No Ref-Primary, Physician Primary Care Provider [facility] [place] [facility] [place] Primary Care Provide r Go Lr MD Unavailable Go Lr MD Unavailable Be Willard MD Primary Care Provider [phone] Alida Muir MD Unavailable [phone] Purvi Lennon MD Unavailable Darshana Huertas Unavailable [phone] Goran Dukes DO Primary Care Provider [phone] David Pereira MD Unavailable [phone] Jovany Dumont MD Unavailable Reason for Visit * Reason Comments Medication Refill Encounter Details Date Type Department Care Team (Late st Contact Info) Description 12/25/2016 Refill [facility] [address] [address] Seda Rizzo PA-C [address] [place] [id number] Medication Refill Social History Tobacco Use Types [...] Time PHQ-9 Depression Total Score: 0 09/28/19 7:15 AM CDT documented as of this encounter Care Teams Lunch Truck Operator Relationship Specialty Start Date End Date King Garcia MD PCP - General Family Practice 09/25/16 10/30/17 No Ref-Primary, Physician PCP - General 10/31/17 12/19/17 [facility] [place] [facility] [place] [address] [place] [address] PCP - General 12/20/17 08/24/18 Go Lr MD [address] [place] [address] PCP - Assigned PCP 11/08/17 08/16/18 Be Willard MD [place] [id number] [place] [address] PCP - General Family Practice 08/25/18 09/27/20 [place] [address] [place] [phone] PCP - General Family Medicine 09/28/20 Go Lr MD [address] [place] [address] Assigned PCP 11/08/17 09/30/19 Alida Muir MD [facility] [address] [place] [address] Otolaryngology 08/25/18 Purvi Lennon MD [address] [facility] [address] [place] [address] Otolaryngology 08/25/18 Darshana Huertas AuD [address] [facility] [address] [place], [place] [id number] Before School Audiology 08/25/18 David Pereira MD [address] [place] [address] Urology 09/30/20 Jovany Dumont MD [address] [place] [address] Neurology 03/23/22 documented as of this encounter
--- OUTSIDE RECORDS SUMMARY | 2023-11-03 09:35 | XMS_ITS | Clinical Summary ---
Author Organization [facility] Address [address] [place] [address] Care Team Providers Care Dog Behaviorist Name Role Phone Alida Muir MD Unavailable [phone] Purvi Lennon MD Unavailable Darshana Huertas Unavailable [phone] Goran Dukes DO Primary Care Provider David Pereira MD Unavailable Jovany Dumont MD Unavailable [phone] Allergies Active Allergy Reactions Criticality Noted [...] 09/29/2020 Active levofloxacin (LEVAQUIN) 500 MG tabletIndications:Ac [place]in[place] cystitis without hematuria Take 1 tablet (500 [...] for patients under 2 years old ??at [facility] for lipid analytes. 2-8 years: [...] LAB - BLOOD ORD ERABLES [facility] [address] [place] [address] * (ABNORMAL) Comprehensive metabolic panel (09/08/2021 8:28 [...] and gender (Shannon et al., NEJM, DOI: [id number]) Blood BLOOD SPECIMEN / Unknown Client Draw / Unknown 09/08/2021 8:28 AM CDT 09/08/2021 3:38 PM CDT David Jimenez PA-C LAB - BLOOD ORD ERABLES [facility] [address] [place] [address] * (ABNORMAL) Hemoglobin A1c (09/28/2020 10:35 AM CDT) Hemoglobin A1C 9.6(H) 0 - 5.6 % 09/28/2020 11:[address] [facility] Comment: Normal <5.7% Prediabetes 5.7-6.4% ??Diabetes 6.5% or higher - adopted from ADA consensus guidelines. Blood 09/28/2020 10:3 5 AM CDT 09/28/2020 10:36 AM CDT Sal Mora DO LAB - BLOOD ORDERAB LES [facility] [address] [address], [facility] [phone] from Last 3 Months or Most Recently Relevant to Health Maintenance Advance Directives For more information, please contact: [phone] * Full Code (Latest Code Status on File) Date Activated Date Inactivated Comments 09/28/2020 10:12 AM 09/29/2020 4:35 PM All basic a nd advanced life-sustaining interventions are performed as appropriate Question Answer Comments Code status determined by: Discussion with aishwarya nt/ legal decision maker Care Teams Dog Behaviorist Relationship Specialty [place] [address] [place] [address] PCP - General Family Medicine 09/28/20 Alida Muir MD [facility] [address] [id number] Otolaryngology 08/25/18 Purvi Lennon MD 420 [facility] 396 [place] [address] Otolaryngology 08/25/18 Darshana Huertas AuD 420 [facility] [address] [place] [address] Double Surface Operator Audiology 08/25/18 David Pereira MD [address] [place] [address] Urology 09/30/20 Jovany Dumont MD [address] [place] [address] Neurology 03/23/22
--- OUTSIDE RECORDS SUMMARY | 2023-11-03 09:35 | XMS_ITS | Clinical Summary ---
Author Organization [facility] Address [address] [place] [address] Care Team Providers Care Portrait Painter Name Role Phone Needs Pcp, Assignment Primary Care Provider [phone] Source Comments You are receiving this document as you are listed as the primary care provider,follow-up provider, or the patient has been referred to you for consultation.This is in compliance with the Medicare and[facility] EHR Incentive Program,which states Providers who transition their patient to another setting of careor provider of care or refers their patient to another provider of care shouldprovide summary care record for each transition of care or referral. RemoteReality Allergies Active Allergy Reactions Criticality Noted Date [...] age to complete this topic Care Teams Portrait Painter Relationship Specialty Start Date End Date Needs Pcp, [place] [address] PCP - General 07/02/16
--- OUTSIDE RECORDS SUMMARY | 2023-11-03 09:35 | XMS_ITS | Encounter Summary ---
Author Organization [facility] Address Formerly [facility] [place] [address] Care Team Providers Care Plate Cleaner Name Role Phone Confirmed, No Pcp Primary Care Provider Unavaila banner Provider, Uc Primary Care Provider Unavailabl King Allan MD Primary Care Provider Unavailable No Ref-Primary, Physician Primary Care Provider [facility] Primary Care Provide r Go Lr MD Unavailable Go Lr MD Unavailable Be Willard MD Primary Care Provider [phone] Dinesh Muir MD Unavailable Purvi Lennon MD Unavailable [phone] Darshana Huertas Unavailable [phone] Goran Dukes DO Primary Care Provider David Pereira MD Unavailable [phone] Jovany Dumont MD Unavailable [phone] Reason for Visit * Reason Onset Date Comments Referral 10/17/2015 Encounter Details Date Type Department Care Team (Late st Contact Info) Description 10/17/2015 Telephone [facility] [address] [place] [address] Pain Management Program, [place] [...] pt to schedule Interventional LM. Fabiana Johnson Milieu Coordinator [facility] documented in this encounter Plan of Treatment Not on file documented as of this encounter Visit Diagnoses Not on filedocumented in this encounter Care Teams Plate Cleaner Relationship Specialty Start Date End Date Confirmed, No Pcp PCP - General 03/01/16 05/04/16 Provider, Kenan Corona PCP - General Urgent Care 05/05/16 09/24/16 King Garcia MD PCP - General Family Practice 09/25/16 10/30/17 No Ref-Primary, Physician PCP - General 10/31/17 12/19/17 [facility] [address] [place] [address] PCP - General 12/20/17 08/24/18 Go Lr MD [address] [place] [address] PCP - Assigned PCP 11/08/17 08/16/18 Be Willard MD [facility] [address] [place] [address] PCP - General Family Practice 08/25/18 09/27/20 [place] [address] [place] [address] PCP - General Family Medicine 09/28/20 Go Lr MD [address] [place], [place] [address] Assigned PCP 11/08/17 09/30/19 Dinesh Muir MD [facility] [address] [place] [address] Otolaryngology 08/25/18 Purvi Lennon MD 420 [facility] 396 [place] [address] Otolaryngology 08/25/18 Darshana Huertas AuD [address] [id number] Knowledge Engineer Audiology 08/25/18 David Pereira MD [address] [place] [address] Urology 09/30/20 Jovany Dumont MD [address] [place] [address] Neurology 03/23/22 documented as of this encounter
== END 2023-11-03 09:34 | disposition home or self-care (01) ==
LOC: WOUND 09:33
PROVIDERS: Visit Provider Surgery
DX: I89.0 Lymphedema, not elsewhere classified (principal); L97.821 Non-pressure chronic ulcer of other part of left lower leg limited to breakdown of skin; E11.65 Type 2 diabetes mellitus with hyperglycemia; E11.42 Type 2 diabetes mellitus with diabetic polyneuropathy; Z79.4 Long term (current) use of insulin
CPT/HCPCS: G0463

== ENCOUNTER 2023-11-10 12:27 | Outpatient (CLI) | payer MEDICARE, SELFPAY ==
--- OUTSIDE RECORDS SUMMARY | 2023-11-10 12:29 | XMS_ITS | Clinical Summary ---
Author Organization [facility] Address [address] [place] [address] Care Team Providers Care Oracle Applications Developer Name Role Phone Alida Muir MD Unavailable Purvi Lennon MD Unavailable Darshana Huertas Unavailable [phone] Goran Dukes DO Primary Care Provider David Pereira MD Unavailable Jovany Dumont MD Unavailable [phone] Allergies Active Allergy Reactions Criticality Noted [...] 09/29/2020 Active levofloxacin (LEVAQUIN) 500 MG tabletIndications:Ac [place] cystitis without hematuria Take 1 tablet (500 [...] patients under 2 years old ??at [facility] for lipid analytes. 2-8 years: [...] ORD ERABLES [facility] [address] [place] [address] * (ABNORMAL) Comprehensive metabolic panel (09/08/2021 8:28 [...] and gender (Shannon et al., NEJM, DOI: [id number]) Blood BLOOD SPECIMEN / Unknown Client Draw / Unknown 09/08/2021 8:28 AM CDT 09/08/2021 3:38 PM CDT David Jimenez PA-C LAB - BLOOD ORD ERABLES [facility] [address] [place] [address] * (ABNORMAL) Hemoglobin A1c (09/28/2020 10:35 AM CDT) Hemoglobin A1C 9.6(H) 0 - 5.6 % 09/28/2020 11:14 AM CDT [facility] Comment: Normal <5.7% Prediabetes 5.7-6.4% ??Diabetes 6.5% or higher - adopted from ADA consensus guidelines. Blood 09/28/2020 10:3 5 AM CDT 09/28/2020 10:36 AM CDT Sal Mora DO LAB - BLOOD ORDERAB LES [facility] [address] [address], [facility] [phone] from Last 3 Months or Most Recently Relevant to Health Maintenance Advance Directives For more information, please contact: [phone] * Full Code (Latest Code Status on File) Date Activated Date Inactivated Comments 09/28/2020 10:12 AM 09/29/2020 4:35 PM All basic a nd advanced life-sustaining interventions are performed as appropriate Question Answer Comments Code status determined by: Discussion with aishwarya nt/ legal decision maker Care Teams Oracle Applications Developer Relationship Specialty [place] [address] [place] [address] PCP - General Family Medicine 09/28/20 Alida Muir MD [facility] [address] [id number] Otolaryngology 08/25/18 uPrvi Lennon MD 420 [facility] 396 [place] [address] Otolaryngology 08/25/18 Darshana Huertas AuD 420 [facility] [address] [place] [address] Payroll Supervisor Audiology 08/25/18 David Pereira MD [address] [place] [address] Urology 09/30/20 Jovany Dumont MD [address] [place] [address] Neurology 03/23/22
--- OUTSIDE RECORDS SUMMARY | 2023-11-10 12:29 | XMS_ITS | Referral Summary ---
Author Organization [facility] Address [address] [place] [address] Care Team Providers Care Qa Software Test Engineer Name Role Phone Dinesh Muir MD Unavailable [phone] Purvi Lennon MD Unavailable Darshana Huertas Unavailable [phone] Goran Dukes DO Primary Care Provider David Pereira MD Unavailable [phone] Jovany Dumont MD Unavailable [phone] Allergies Active Allergy Reactions Criticality Noted [...] 09/29/2020 Active levofloxacin (LEVAQUIN) 500 MG tabletIndications:Ac [place] cystitis without hematuria Take 1 tablet (500 [...] for patients under 2 years old ??at [facility] for lipid analytes. 2-8 years: [...] LAB - BLOOD ORD ERABLES [facility] [address] [place] [address] * (ABNORMAL) Comprehensive metabolic panel (09/08/2021 8:28 [...] and gender (Shannon et al., NEJM, DOI: [id number]) Blood BLOOD SPECIMEN / Unknown Client Draw / Unknown 09/08/2021 8:28 AM CDT 09/08/2021 3:38 PM CDT David Jimenez PA-C LAB - BLOOD ORD ERABLES [facility] [address] [phone] * (ABNORMAL) Hemoglobin A1c (09/28/2020 10:35 AM CDT) Hemoglobin A1C 9.6(H) 0 - 5.6 % 09/28/2020 11:14 AM CDT [facility] Comment: Normal <5.7% Prediabetes 5.7-6.4% ??Diabetes 6.5% or higher - adopted from ADA consensus guidelines. Blood 09/28/2020 10:3 5 AM CDT 09/28/2020 10:36 AM CDT Sal Caesarbubba Mora DO LAB - BLOOD ORDERAB LES [facility] [address] [address], [facility] [phone] from Last 3 Months or Most Recently Relevant to Health Maintenance Advance Directives For more information, please contact: [phone] * Full Code (Latest Code Status on File) Date Activated Date Inactivated Comments 09/28/2020 10:12 AM 09/29/2020 4:35 PM All basic a nd advanced life-sustaining interventions are performed as appropriate Question Answer Comments Code status determined by: Discussion with aishwarya nt/ legal decision maker Care Teams Qa Software Test Engineer Relationship Specialty [place] [address] [place] [address] PCP - General Family Medicine 09/28/20 Dinesh Muir MD [facility] [address] [address] Otolaryngology 08/25/18 Purvi Lennon MD 420 [facility] 396 [place] [address] Otolaryngology 08/25/18 Darshana Huertas AuD [address] [facility] [address] [place], [place] [address] Sustainability Officer Audiology 08/25/18 David Pereira MD [address] [place] [address] Urology 09/30/20 Jovany Dumont MD [address] [place] [address] Neurology 03/23/22
--- OUTSIDE RECORDS SUMMARY | 2023-11-10 12:29 | XMS_ITS | Clinical Summary ---
Author Organization [facility] Address [place], [place] [address] Care Team Providers Care Fleet Driver Name Role Phone Pcp, No Unavailable Unavailable Goran Dukes DO Primary Care Provide r Tayla Kiran RN Unavailable [phone] Allergies Active Allergy Reactions Criticality Noted [...] 4 Active lidocaine 5 % topical patchIndications:Ac [place] pain of left shoulder Apply to intact [...] per day. 1 Each 4 Active Insulin [place], Disposable, (BD Amanda 2nd Gen Pen Needle) [...] be used to read blood sugars, follow breakfast host directions. 6 Each 3 4 Active FreeStyle Lacie 3 Bronson for continuous blood glucose monitor (CGM)Indications:Ty pe 2 diabetes mellitus with hyperglycemia, without long-term current use of insulin (HC) To be used to read blood sugars follow breakfast host directions. 1 Each 4 Active lancets (Microlet [...] HUMALOG KWIKPEN 90 mL 1 4 Active Walker - 4 wheelsIndications:G ait instability For home use. Length of need: lifetime 1 Each 4 Active FreeStyle Lacie 14 Day ReaderIndications:T ype 2 diabetes mellitus without complication, without long-term current use of insulin (HC) To be used to read blood sugars per breakfast host's directions. 1 Each 2 10/13/19 24 Discontinue d(*Medicati on adjustment) FreeStyle Lacie 14 Day SensorIndications:T ype 2 diabetes mellitus without complication, without long-term current use of insulin (HC) Change sensor every 14 days 6 Each 3 2 10/13/19 24 Discontinue d(*Medicati on adjustment) insulin lispro (HUMALOG; ADMELOG) 100 unit/mL injectionIndication s:Type 2 diabetes mellitus with hyperglycemia, without long-term current use of insulin (HC) Inject 4 units subcutaneous before dinner. 4 10/13/19 24 Discontinue d(*Medicati on adjustment) WalkerIndications:C hronic midline low back pain without sciatica Walker with front wheels for home use. 1 Each 4 10/25/19 24 Discontinue d(*Med complete/Re gimen complete/[place] of care change) wheelchairIndicatio ns:Gait instability Wheelchair: Bariatric (over 250 lbs) with leg rests: (Swing away Length of need: 99 months 1 Each 4 10/25/19 24 Discontinue d(*Med complete/Re gimen complete/[place] of care change) Walker - 4 wheelsIndications:G ait instability For home use. Length of need: lifetime 1 Each 4 10/25/19 24 Discontinue d(Reorder (E-cancel not sent)) trimethoprim-sulfam ethoxazole, 160-800 mg, (BACTRIM DS, SEPTRA DS) tabIndications:UTI (urinary tract infection), uncomplicated Take 1 Tablet by mouth two times daily for 10 days. 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 Type 2 [...] Encounters Date Type Department Care Team Description 11/09/2023 Telephone [facility] [address] [place] [address] Goran Dukes DO 10/25/2023 1:20 PM CDT Office Visit [facility] [address] [place] [phone] Goran Dukes, Urinary Problem 10/25/2023 Travel 10/25/2023 Nurse Triage [facility] [id number] [place] [phone] Goran Dukes, Urinary Problem 10/25/2023 Telephone [facility] [address] [place] [phone] Goran Dukes, UTI (Need med ) 10/13/2023 9:00 AM CDT Phone Office Visit [facility] [address] [place] [address] Tayla Kiran RN Diabetes 10/11/2023 Orders Only [facility] Scanner 1 scan: (1-Ord) [facility], 10/11/2023 10/06/2023 Telephone [facility] [address] [place] [phone] Goran Dukes, Results 10/06/2023 Orders Only [address] [phone] Goran Dukes, <No scans attached> 10/05/2023 1:50 PM CDT Office Visit [facility] [address] [place] [phone] Goran Dukes, Diabetes (Not fasting- The patient is requesting to speak about medication); Fatigue (The patient reports having leg fatigue like he is about to fall. The patient wants to discuss a walker or wheel chair options. ) 10/05/2023 Telephone [place] [address] [address] [phone] Jocelynn Jay NP Refill Request (Clobetasol 0.05%) 10/05/2023 Telephone [facility] [address] [place] [address] Goran Dukes, Refill Request (KETOROLAC 10 MG TABLETS ) 10/05/2023 Travel 10/01/2023 Refill [facility] [address] [place] [phone] Goran Dukes, Refill Request (Lantus Solostar U-100 Insulin) 09/27/2023 Telephone [facility] [address] [place] [phone] Goran Dukes, Medication Management (Walker) 09/01/2023 3:20 PM CDT - 09/01/2023 11:59 PM CDT Hospital Encounter [facility] [address] [address] 09/01/2023 Travel 08/18/2023 11:59 AM GERIATRIC CASE MANAGER - 08/18/2023 11:59 PM GERIATRIC CASE MANAGER Hospital Encounter [facility] [address] [address] Serge Leslie MD Bilateral leg edema 08/18/2023 Travel 08/13/2023 10:15 AM GERIATRIC CASE MANAGER - 08/13/2023 11:59 PM GERIATRIC CASE MANAGER Hospital Encounter [place] [address] [address] [address] 08/13/2023 Orders Only [place] [address] [address] [place] [address] Serge Leslie MD <No scans attached> 08/13/2023 Travel from Last 3 Months Immunizations Name Administration Dates Next Due COVID-19 vaccine ([employer] 30mcg/0.3mL) Gen Garcia MDV 01/16/2021 Influenza, IIV4 03/16/2023,05/01/2022 Tdap 05/14/2016 [...] T Respiratory Rate 20 06/17/2023 7:45 AM GERIATRIC CASE MANAGER Oxygen Saturation 97% 10/25/2023 1:34 PM CDT [...] PM CDT UTI (urinary tract infection), uncomplicated NE DIAB MANAGE TRN PER INDIV Routine 10/13/2023 [...] LOWER EXTREMITY BILATERAL Routine 08/18/2023 11:50 AM GERIATRIC CASE MANAGER Bilateral leg edema ANTI HCV Routine 01/22/2022 12:50 PM CDT Need for hepatitis C screening test from Last 3 Months or Most Recently Relevant to Health Maintenance Results * (ABNORMAL) URINALYSIS MICROSCOPIC (10/25/2023 1:37 PM CDT) RBC 6-10(A) 0-2, None Seen /HPF 10/25/2023 1:47 PM CDT [facility] WBC >100(A) 0-2, 3-5, None Seen /HPF 10/25/2023 1:47 PM CDT [facility] BACTERIA Moderate(A ) None Seen, Rare, Few Bacteria/H PF 10/25/2023 1:47 PM CDT [facility] EPITHELIAL CELLS None Seen None Seen, Few Epi/HPF 10/25/2023 1:47 PM CDT [facility] WHITE CELL CLUMPS Present(A) (none) 10/25/2023 1:47 PM CDT [facility] Urine URINE SPECIMEN / Unknown Non-Blood / Unknown 10/25/2023 1:37 PM CDT 10/25/2023 1:37 PM CDT Goran Dukes DO URINE [facility] [address] [place] [address], [place] * (ABNORMAL) URINE CULTURE (10/25/2023 1:37 PM CDT) CULTURE RESULT(A) 10/27/2023 8:53 AM CDT [facility] CULTURE >100,000 CFU/mL Streptococcus agalactiae (Strep Group B) 10/27/2023 8:53 AM CDT [facility] CULTURE <10,000 CFU/mL Multiple organisms probable contaminants 10/27/2023 8:53 AM CDT [facility] Urine URINE SPECIMEN / Unknown Non-Blood / Unknown 10/25/2023 1:37 PM CDT 10/25/2023 1:37 PM CDT Goran Dukes DO [facility] [address] [place] [address], [place] * (ABNORMAL) UA W/ SEDIMENT EXAM REFLEXED PER CRITERIA (10/25/2023 1:37 PM CDT) COLOR Yellow Yellow Color 10/25/2023 1:47 PM CDT [facility] CLARITY Cloudy(A) Clear Clarity 10/25/2023 1:47 PM CDT [facility] SPECIFIC GRAVITY,URINE 1.025 1.010, 1.015, 1.020, 1.025 10/25/2023 1:47 PM CDT [facility] PH,URINE 5.5 6.0, 7.0, 8.0, 5.5, 6.5, 7.5, 8.5 10/25/2023 1:47 PM CDT [facility] UROBILINOGEN, QUALITATIVE Normal Normal EU/dl 10/25/2023 1:47 PM CDT [facility] PROTEIN, URINE 100(A) Negative mg/dL 10/25/2023 1:47 PM CDT [facility] GLUCOSE, URINE >=1000(A) Negative mg/dL 10/25/2023 1:47 PM CDT [facility] KETONES,URINE Negative Negative mg/dL 10/25/2023 1:47 PM CDT [facility] BILIRUBIN,URI NE Negative Negative 10/25/2023 1:47 PM CDT [facility] OCCULT BLOOD,URINE Moderate(A) Negative 10/25/2023 1:47 PM CDT [facility] NITRITE Negative Negative 10/25/2023 1:47 PM CDT [facility] LEUKOCYTE ESTERASE Moderate(A) Negative 10/25/2023 1:47 PM CDT [facility] Urine URINE SPECIMEN / Unknown Non-Blood / Unknown 10/25/2023 1:37 PM CDT 10/25/2023 1:37 PM CDT Goran Dukes DO URINE [facility] [address] [place] [address], [place] * NE DIAB MANAGE TRN PER INDIV (10/13/2023) Pathologist [facility] Goran Dukes DO PB - ANCILLAR Y SERVICES * SCAN-EYE EXAM (10/11/2023 12:00 AM CDT) Scanner OTHER * (ABNORMAL) LIPID PANEL W REFLEX MEASURED LDL (10/05/2023 2:39 PM CDT) CHOLESTEROL,TOTAL 187 100 - 199 mg/dL 10/06/2023 1:31 AM CDT [facility] Comment: Cholesterol, Total Reference Ranges Desirable <200 mg/dL Borderline 200-239 mg/dL High >=240 mg/dL TRIGLYCERIDES 147 <150 mg/dL 10/06/2023 1:31 AM CDT [facility] [place] [facility] HDL CHOLESTEROL 27(L) >40 mg/dL 1:31 AM CDT [facility] NON-HDL CHOLESTEROL 160(H) <145 mg/dl 10/06/2023 1:31 AM CDT [facility] CHOL/HDL RATIO 6.93(H) <4.50 10/06/2023 1:31 AM CDT [facility] LDL CHOLESTEROL 131(H) <=130 mg/dL 10/06/2023 1:31 AM CDT [facility] VLDL CHOLESTEROL 29 <=30 mg/dL 10/06/2023 1:31 AM CDT [facility] PROVIDER ORDERED STATUS RANDOM 10/06/2023 1:31 AM CDT [facility] Blood BLOOD SPECIMEN / Unknown Venipuncture / Unknown 10/05/2023 2:39 PM CDT 10/05/2023 2:39 PM CDT Goran Dukes DO CHEMISTRY [facility] [address] [place] [address], [place] * (ABNORMAL) CBC W PLT NO DIFF (10/05/2023 2:39 PM CDT) WHITE BLOOD COUNT 8.8 4.5 - 11.0 thou/cu mm 10/05/2023 2:43 PM CDT [facility] RED BLOOD COUNT 4.49 4.30 - 5.90 mil/cu mm 10/05/2023 2:43 PM CDT [facility] HEMOGLOBIN 12.6(L) 13.5 - 17.5 g/dL 10/05/2023 2:43 PM CDT [facility] HEMATOCRIT 38.3 37.0 - 53.0 % 10/05/2023 2:43 PM CDT [facility] MCV 85 80 - 100 fL 10/05/2023 2:43 PM CDT [facility] MCH 28.1 26.0 - 34.0 pg 10/05/2023 2:43 PM CDT [facility] MCHC 32.9 32.0 - 36.0 g/dL 10/05/2023 2:43 PM CDT [facility] RDW 13.2 11.5 - 15.5 % 10/05/2023 2:43 PM CDT [facility] PLATELET COUNT 344 140 - 440 thou/cu mm 10/05/2023 2:43 PM CDT [facility] MPV 9.6 6.5 - 11.0 fL 10/05/2023 2:43 PM CDT [facility] NRBC 0.0 % 10/05/2023 2:43 PM CDT [facility] ABS NRBC 0.0 thou /cu mm 10/05/2023 2:43 PM CDT [facility] Blood BLOOD SPECIMEN / Unknown Venipuncture / Unknown 10/05/2023 2:39 PM CDT 10/05/2023 2:39 PM CDT Goran Dukes DO HEMATOLOGY Performing Organization Address [facility]/ZIP Co de Phone Number [facility] [address] [place] [address], [place] * ANTI HIV 1/2 [32176.0] (10/05/2023 2:39 PM CDT) HIV-1/HIV-2 SCREEN Non-Reacti ve Non-Reacti ve 10/06/2023 1:17 AM CDT [facility] Comment:HIV-1 p24 and HIV-1/ HIV-2 Ab Not Detected. Blood BLOOD SPECIMEN / Unknown Venipuncture / Unknown 10/05/2023 2:39 PM CDT 10/05/2023 2:39 PM CDT Goran Perry [employer] DO SEND OUTS [facility] [address] [place] [address], [place] * (ABNORMAL) HEMOGLOBIN A1C MONITORING (POCT) (10/05/2023 2:39 PM CDT) HEMOGLOBIN A1C MONITORING (POCT) 10.0(H) <=6.4 % 10/05/2023 2:54 PM CDT [facility] Blood BLOOD SPECIMEN / Unknown Venipuncture / Unknown 10/05/2023 2:39 PM CDT 10/05/2023 2:39 PM CDT Narrative [facility] - 10/05/2023 2:54 PM CDT [...] Goran Dukes DO CHEMISTRY Performing Organization Address City/State/[facility] Co de Phone Number [facility] [address] [place] [address], * (ABNORMAL) COMP METABOLIC PANEL (10/05/2023 2:39 PM CDT) SODIUM 136 136 - 145 mmol/L 10/06/2023 1:31 AM [facility] POTASSIUM 5.4(H) 3.5 - 5.1 mmol/L 10/06/2023 1:31 AM [facility] CHLORIDE 99 98 - 107 mmol/L 10/06/2023 1:31 AM T [facility] CO2,TOTAL 26 22 - 29 mmol/L 10/06/2023 1:31 AM T [facility] ANION GAP 11 5 - 18 10/06/2023 1:31 AM T [facility] GLUCOSE 298(H) 70 - 99 mg/dL 10/06/2023 1:31 AM T [facility] CALCIUM 9.5 8.6 - 10.0 mg/dL 10/06/2023 1:31 AM T [facility] BUN 15 6 - 20 mg/dL 10/06/2023 1:31 AM T [facility] CREATININE 0.83 0.70 - 1.20 mg/dL 10/06/2023 1:31 AM [facility] BUN/CREAT RATIO 18 10 - 20 4 1:31 AM T [facility] eGFR >90 >90 mL/min/1.7 3m2 10/06/2023 1:31 AM T [facility] Comment:As of 2021, eG FR is calculated by the CKD-EPI creatinine equation without race adjustment. ??eGFR can be influenced by muscle mass, exercise, and diet. ??The reported eGFR is an estimation only and is only applicable if the renal function is stable. ALBUMIN 4.0 4.0 - 4.9 g/dL 10/06/2023 1:31 AM T [facility] PROTEIN,TOTAL 7.3 6.0 - 8.0 g/dL 10/06/2023 1:31 AM T [facility] BILIRUBIN,TOTAL 0.2 0.0 - 1.2 mg/dL 10/06/2023 1:31 AM T [facility] ALK PHOSPHATASE 83 40 - 129 IU/L 10/06/2023 1:31 AM T [facility] ALT (SGPT) 12 10 - 50 IU/L 10/06/2023 1:31 AM T [facility] AST (SGOT) 13 10 - 50 IU/L 10/06/2023 1:31 AM T [facility] Blood BLOOD SPECIMEN / Unknown Venipuncture / Unknown 10/05/2023 2:39 PM CDT 10/05/2023 2:39 PM CDT Goran Dukes DO [facility]STRY [facility] [address] [place] [address], * [place] VENOUS INSUFFICIENCY LOWER EXTREMITY BILATERAL (08/18/2023 11:50 AM GERIATRIC CASE MANAGER) Anatomical Region Laterality Modality LEGS Ultrasound, Ultr [...] cherelle Non-React cherelle 01/22/2022 9:10 PM CDT [facility] Comment:Antibodies to HCV no t detected; does not exclude the possibility of exposure to HCV. Blood BLOOD SPECIMEN / Unknown Venipuncture / Unknown 01/22/2022 12:50 PM CDT 01/22/2022 12:51 PM CDT Goran CEBALLOS OUTS [facility] [address] [place] [address], from Last 3 Months or Most Recently Relevant to Health Maintenance Advance Directives * Full Code (Latest Code Status on File) Date Activated Date Inactivated Comments 06/15/2023 11:00 PM 06/17/2023 2:40 PM Question Answer Comments Code Status Discussion: Reviewed Preferences * Full Code Date Activated Date Inactivated Comments 01/11/2020 5:28 PM 01/12/2020 7:09 PM Question Answer Comments Code Status Discussion: Discussed Care Teams Fleet Driver Relationship Specialty [place] [address] [place] [address] PCP - General Family Practice 10/16/20 Pcp, No . 08/04/14 Tayla Kiran, RN [address] [place] [address] Diabetes Care Management Registered Nurse 10/13/2308/13
--- OUTSIDE RECORDS SUMMARY | 2023-11-10 12:29 | XMS_ITS | Clinical Summary ---
Author Organization [facility] Address [address] [address] Phone Care Team Providers Care Lead Systems Analyst Name Role Phone Choice, No Pcp-Patient Primary [...] Comments Blood Pressure 136/71 05/22/2023 3:28 PM GAS CONTROLLER Pulse 115 05/22/2023 3:28 PM GAS CONTROLLER Temperature 37.5 ??C (99.5 ??F) 05/22/2023 4:56 PM CS T Respiratory Rate 22 05/22/2023 3:28 PM GAS CONTROLLER Oxygen Saturation 93% 05/22/2023 3:28 PM GAS CONTROLLER Inhaled Oxygen Concentration - - Weight 128.3 [...] age to complete this topic Care Teams Lead Systems Analyst Relationship Specialty Start Date End Date Choice, No Pcp-Patient PCP - General 05/22/23
--- OUTSIDE RECORDS SUMMARY | 2023-11-10 12:29 | XMS_ITS ---
Author Organization Unknown Encounters Encounter Type Performer Location Encounter Date Encoun ter Notes virtual - - [id number]:24:32.980-0 0:00 no notes virtual - - [id number]:49:25.273-0 0:00 no notes virtual - - [id number]:33:39.670-0 0:00 no notes virtual - - [id number]:21:52.370-0 0:00 no notes virtual - - 7827-77-34E11:38:04.273-0 0:00 no notes virtual - - 8371-10-47K43:45:30.420-0 0:00 no notes virtual - - 2963-10-65O25:24:32.980-0 0:00 no notes virtual - - [id number]:57:05.670-0 0:00 no notes virtual - - 7151-37-00K15:21:52.370-0 0:00 no notes virtual - - 5546-30-97G56:29:52.713-0 0:00 no notes virtual - - 9401-39-88P29:21:52.370-0 0:00 no notes virtual - - 3085-06-25R79:49:25.273-0 0:00 no notes virtual - - [id number]:45:30.420-0 0:00 no notes virtual - - [id number]:24:32.980-0 0:00 no notes virtual - - 6183-64-46Q07:38:04.273-0 0:00 no notes virtual - - 3536-60-93K09:29:52.713-0 0:00 no notes virtual - - 9599-57-14Q56:20:45.160-0 0:00 no notes virtual - - [id number]:33:39.670-0 0:00 no notes virtual - - [id number]:21:52.370-0 0:00 no notes virtual - - [id number]:19:10.643-0 0:00 no notes virtual - - 1170-47-22P01:19:10.643-0 0:00 no notes virtual - - 1964-79-50G50:19:10.643-0 0:00 no notes virtual - - [id number]:19:10.643-0 0:00 no notes Patient Care team information Name Category Status Period Participants - - Proposed period not known - - - period not known -
--- OUTSIDE RECORDS SUMMARY | 2023-11-10 12:30 | XMS_ITS | Clinical Summary ---
Author Organization [facility] Address [address] [place] [address] Care Team Providers Care Parcel Carrier Name Role Phone Needs Pcp, Assignment Primary Care Provider [phone] Source Comments You are receiving this document as you are listed as the primary care provider,follow-up provider, or the patient has been referred to you for consultation.This is in compliance with the Medicare and[facility] Hospital[facility] EHR Incentive Program,which states Providers who transition their patient to another setting of careor provider of care or refers their patient to another provider of care shouldprovide summary care record for each transition of care or referral. [employer] Allergies Active Allergy Reactions Criticality Noted Date [...] age to complete this topic Care Teams Parcel Carrier Relationship Specialty Start Date End Date Needs Pcp, [place] [address] PCP - General 07/02/16
--- OUTSIDE RECORDS SUMMARY | 2023-11-10 12:30 | XMS_ITS | Data Portability ---
Author Organization [facility], [facility] Address [address] [facility] [place] [address] Care Team Providers Care Boiler Reliner Name Role Phone JI BOLANOS Primary Care Provider Assessment No assessment recorded. Plan of Treatment Reminders Order Date Submit Date Provider Last Modified By Organization Details Last Modified Time Details Appointments None recorded. Lab urinalysis , dipstick 2020 [facility], [address], [address], [place], [address], 10:54:26 culture, urine 2020 [facility], [address], [address], [place], [address], 09:57:17 Referral urologist referral - buried penis, BXO 2020 randal Bolden MD, [address] [facility], [address], [place], [address], 14:49:08 Procedures None recorded. Surgeries None recorded. Imaging None recorded. Medication Orders Flomax 0.4 mg capsule 2020 [id number], [address], [place], [address], 10:37:46 Patient TargetsNo targets recorded. Patient Instructions Encounter Date Encounter Id Patient Instructions Last Modified By Organization Details Last Modified Time 10/04/2020 [id number] Incomplete bladd er emptying/weak stream/UTI: He doesn't [...] request records from his ER visit in [place], [place] and would like to see the CT scan report. 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 The opening is small and I cannot expose the head of the penis. This too may be contributing to his infection. I recommend that he see urology at the [facility] for consideration of treatment of the buried penis. Not available 10/04/2020 10:37:22 Reason for Referral Urologist Referral for Acqui red buried penis buried penis, BXO Referring Physician: Chris Castro, Urology, Encounter Date: 10/04/2020 Results Created Date Observation Date Name Description Value Unit Range Abnormal Flag LastModifiedBy Organization Detail LastModifiedTime 10/05/19 21 10/04/2020 urina lysis , dipst ick color -advantus YELLOW yellow Not Available [facility] [address] [facility] [address], [place], [address], 10/04/2020 10:54:26 10/05/19 21 10/04/2020 urina lysis , dipst ick appearance -advantus CLOUDY clear abnormal Not Available [facility] [address] [facility] [address], [place], [address], 10/04/2020 10:54:26 10/05/19 21 10/04/2020 urina lysis , dipst ick glucose -advantus NEGATI VE mg/dL negati ve Not Available [facility] [address] [facility] [address], [place], [address], 10/04/2020 10:54:26 10/05/19 21 10/04/2020 urina lysis , dipst ick bilirubin -advantus NEGATI VE negati ve Not Available [facility] [address] [facility] [address], [place], [address], 10/04/2020 10:54:26 10/05/19 21 10/04/2020 urina lysis , dipst ick ketones -advantus NEGATI VE mg/dL negati ve Not Available [facility] [address] [place] [address] [address], [place], [address], 10/04/2020 10:54:26 10/05/19 21 10/04/2020 urina lysis , dipst ick sp. gravity -advantus 1.025 1.010- 1.025 Not Available [facility] [address] [place] [address], [place], [address], 10/04/2020 10:54:26 10/05/19 21 10/04/2020 urina lysis , dipst ick pH -advantus 6.0 5.0-8. 0 Not Available [facility] [address] [place] [address], [place], [address], 10/04/2020 10:54:26 10/05/19 21 10/04/2020 urina lysis , dipst ick protein -advantus TRACE mg/dL negati ve abnormal Not Available [facility] [address] [place] [address], [place], [address], 10/04/2020 10:54:26 10/05/19 21 10/04/2020 urina lysis , dipst ick urobilinogen -advantus 1.0 normal Not Available [facility] [address] [place] [address], [place], [address], 10/04/2020 10:54:26 10/05/19 21 10/04/2020 urina lysis , dipst ick nitrites -advantus NEGATI VE negati ve Not Available [facility] [address] [place] [address] [address], [place], [address], 10/04/2020 10:54:26 10/05/19 21 10/04/2020 urina lysis , dipst ick blood -advantus SMALL negati ve abnormal Not Available [facility] [address] [place] [address] [address], [place], [address], 10/04/2020 10:54:26 10/05/19 21 10/04/2020 urina lysis , dipst ick leukocytes -advantus LARGE negati ve abnormal Not Available [facility] [address] [place] [address] [address], [place], [address], 10/04/2020 10:54:26 10/05/19 21 10/04/2020 urina lysis , dipst ick performed by Caren Fink Not Available [facility] [address] [place] [address] [address], [place], [address], 10/04/2020 10:54:26 10/05/19 21 10/04/2020 urina lysis , dipst ick total urine volume (mL) 40 /mL Not Available [facility] [address] [place] [address] [address], [place], [address], 10/04/2020 10:54:26 10/05/19 21 10/04/2020 urina lysis , micro scopi c U-WBC 50 - 100 [hpf] 0 - 2 abnormal Not Available [facility] [address] [place] [address] [address], [place], [address], 10/04/2020 10:54:28 10/05/19 21 10/04/2020 urina lysis , micro scopi c U-RBC 0 - 2 [hpf] 0 - 2 Not Available [facility] [address] [place] [address] [address], [place], [address], 10/04/2020 10:54:28 10/05/19 21 10/04/2020 urina lysis , micro scopi c bacteria Small [hpf] negati ve abnormal Not Available [facility] [address] [facility] [address], [place], [address], 10/04/2020 10:54:28 10/05/19 21 10/04/2020 urina lysis , micro scopi c squamous epi Small /lpf negati ve,sma ll Not Available [facility] [address] [facility] [address], [place], [address], 10/04/2020 10:54:28 10/05/19 21 10/04/2020 cultu re, urine final report Microb iology result s Not Available [facility] [address] [facility] [address], [place], [address], 10/05/2020 09:57:17 10/03/19 21 09/28/2020 imagi ng/di [...] bladder Active 10/05/19 21 Chris Castro MD [address] [place] [address],[address], [address], [facility] 10/04/2020 10:32:13 Slowing of urinary stream Active 10/05/19 21 Chris Castro MD [address] [place] [address],[address], [address], [facility] 10/04/2020 10:32:13 Acute urinary tract infection Active 10/05/19 21 Chris Castro MD [address] [place] [address],[address], [address], [facility] 10/04/2020 10:32:15 Acquired buried penis Active 10/05/19 Chris Castro MD [address] [facility],[address], [place], [address], [facility] 10/04/2020 10:33:04 Problem Notes None recorded. Procedures Surgical History Date Name Laterality Status Provider Name and Address Organization Details Recorded Time Bladder Scan completed Geovanna cárdenas [facility] 10/04/2020 10:09:08 Imaging Results Imaging Date Name [...] Name and Address Organization Details Recorded Time 947753 Medicinal product containin g penicilli n and acting as antibacte rial agent (product) medicatio n other Not available Not available 09/30/2020 12846 05 SNOMED aniph aliti c Not Available [...] Details Last Updated DateTime 10/04/2020 39.9 kg/m2 958391.6485 65787 g 170.18 cm Not Available Health Note [...] Y Lung Disease N GERD/Acid Reflux N Sexually Transmitted Infection N Cancer N High Cholesterol N Diabetes Y Bleeding Disorder N Heart Disease N Past Encounters Encounter ID Performer Location Encounter Start Date Encounter Closed Date Diagnosis/Indication Diagnosis SNOMED-CT Code [id number] Chris Castro MD [address] [address] 10/04/2020 09:55:35 10/04/2020 11:01:27 Acute urinary tract infection [id number] Incomplete emptying of bladder [id number] Slowing of urinary stream [id number] Acquired buried penis 23 [id number] Health Concerns Section Related Observation LastModified by Organization Detai ls LastModified Time None Recorded Concern Status LastModified by Organization Details LastModified Time None Recorded Advance Directives Directive None Recorded Payers Encounter Date Sequence Insurance Name Policy Number Policy Barbosa Covered Member ID Barbosa Member ID Guarantor Name 10/04/2020 1 [employer] - DOS PRIOR TO 2021 (MEDICAID REPLACEMENT - HMO) [facility] Morgan Pearson [id number] Morgan Pearson Notes Date Note Type Note Provider Name and Address Organization Details Recorded Time 10/04/2020 text/html HPI Notes: 10/04/20: Obesity, COPD, DM, chronic low back pain. Was at [facility] 09/28/20 to 09/29/20 for urosepsis and right [...] states that had a CT scan in [facility] in [place], [place] which was done on 09/28/20. He was transferred to [facility]. Denies straining or waiting to relax to [...] feel: Terrible [Score: 3] Chris Castro MD [address] [place] [address],[address], [place], [address], [place] [facility] 10/04/2020 10:37:57
--- OUTSIDE RECORDS SUMMARY | 2023-11-10 12:30 | XMS_ITS | Encounter Summary ---
Author Organization [facility] Address [facility] [place] [address] Care Team Providers Care Projection Printer Name Role Phone Confirmed, No Pcp Primary Care Provider Unavaila [facility] Provider, [facility] Primary Care Provider Unavailabl King Allan MD Primary Care Provider Unavailable No Ref-Primary, Physician Primary Care Provider [facility] Primary Care Provide r Go Lr MD Unavailable Go Lr MD Unavailable Be Willard MD Primary Care Provider [phone] Dinesh Muir MD Unavailable Purvi Lennon MD Unavailable Darshana Huertas Unavailable [phone] Goran Dukes DO Primary Care Provider David Pereira MD Unavailable [phone] Jovany Dumont MD Unavailable [phone] Reason for Visit * Reason Onset Date Comments Referral 10/17/2015 Encounter Details Date Type Department Care Team (Late st Contact Info) Description 10/17/2015 [facility] [address] [place] [address] Pain Management Program, [facility] Referral Social History Tobacco Use Types [...] pt to schedule Interventional LM. Fabiana Johnson Bill Distributor [facility] documented in this encounter Plan of Treatment Not on file documented as of this encounter Visit Diagnoses Not on filedocumented in this encounter Care Teams Projection Printer Relationship Specialty Start Date End Date Confirmed, No Pcp PCP - General 03/01/16 05/04/16 Provider, Kenan Corona PCP - General Urgent Care 05/05/16 09/24/16 King Garcia MD PCP - General Family Practice 09/25/16 10/30/17 No Ref-Primary, Physician PCP - General 10/31/17 12/19/[address] [facility] [address] [place] [address] PCP - General 12/20/17 08/24/18 Go Lr MD [address] [place] [address] PCP - Assigned PCP 11/08/17 08/16/18 Be Willard MD [facility] [address] [place] [address] PCP - General Family Practice 08/25/18 09/27/20 [place] [address] [place] [address] PCP - General Family Medicine 09/28/20 Go Lr MD [address] [place], [place] [address] Assigned PCP 11/08/17 09/30/19 Dinesh Muir MD [facility] [address] [place] [address] Otolaryngology 08/25/18 Purvi Lennon MD [address] [facility] [address] [place] [address] Otolaryngology 08/25/18 Darshana Huertas [facility] [address] [address] [facility] 08/25/18 David Pereira MD [address] [place] [address] Urology 09/30/20 Jovany Dumont MD [address] [place] [address] Neurology 03/23/22 documented as of this encounter
--- OUTSIDE RECORDS SUMMARY | 2023-11-10 12:30 | XMS_ITS | Encounter Summary ---
Author Organization [facility] Address [facility] [place] [address] Care Team Providers Care Armature Winder Helper Repair Name Role Phone King Garcia MD Primary Care Provider Unavailable No Ref-Primary, Physician Primary Care Provider [facility] Primary Care Provide r Go Lr MD Unavailable Go Lr MD Unavailable Be Willard MD Primary Care Provider [phone] Ailda Muir MD Unavailable Purvi Lennon MD Unavailable [phone] Darshana Huertas Unavailable [phone] Goran Dukes DO Primary Care Provider [phone] David Pereira MD Unavailable [phone] Jovany Dumont MD Unavailable [phone] Reason for Visit * Reason Comments Medication Refill Encounter Details Date Type Department Care Team (Late st Contact Info) Description 12/25/2016 Refill [facility] [place] [address] [address] Seda Rizzo PA-C [address] [place] [id number] Medication Refill Social History Tobacco Use Types [...] documented as of this encounter Care Teams Armature Winder Helper Repair Relationship Specialty Start Date End Date King Garcia MD PCP - General Family Practice 09/25/16 10/30/17 No Ref-Primary, Physician PCP - General 10/31/17 12/19/17 [facility] [address] [place] [address] PCP - General 12/20/17 08/24/18 Go Lr MD [address] [place] [address] PCP - Assigned PCP 11/08/17 08/16/18 Be Willard MD [place] [id number] [place] [address] PCP - General Family Practice 08/25/18 09/27/20 [place]ukes DO [address] [place] [address] PCP - General Family Medicine 09/28/20 Go Lr MD [address] [place] [address] Assigned PCP 11/08/17 09/30/19 Alida Muir MD [facility] [address] [place] [address] Otolaryngology 08/25/18 Purvi Lennon MD [address] [facility] [address] [place] [address] Otolaryngology 08/25/18 Darshana Huertas AuD [address] [facility] [address] [place], [place] [address] Board Certified Behavioral Analyst Audiology 08/25/18 David Pereira MD [address] [place] [address] Urology 09/30/20 Jovany Dumont MD [address] [place] [address] Neurology 03/23/22 documented as of this encounter
== END 2023-11-10 12:28 | disposition home or self-care (01) ==
LOC: WOUND 12:27
PROVIDERS: Visit Provider Nurse Practitioner Family
DX: I89.0 Lymphedema, not elsewhere classified (principal); L97.821 Non-pressure chronic ulcer of other part of left lower leg limited to breakdown of skin; L97.811 Non-pressure chronic ulcer of other part of right lower leg limited to breakdown of skin
CPT/HCPCS: 29581

== ENCOUNTER 2023-11-12 14:35 | Outpatient (CLI) | payer MEDICARE, SELFPAY ==
--- OUTSIDE RECORDS SUMMARY | 2023-11-12 14:37 | XMS_ITS | Data Portability ---
Author Organization [facility], [facility] Address [address] [place] [address] Care Team Providers Care Civil Process Server Name Role Phone JI BOLANOS Primary Care Provider Assessment No assessment recorded. Plan of Treatment Reminders Order Date Submit Date Provider Last Modified By Organization Details Last Modified Time Details Appointments None recorded. Lab urinalysis , dipstick 2020 [facility], [address], [address], [place], [address], 10:54:26 culture, urine 2020 [facility], [address], [address], [place], [address], 09:57:17 Referral urologist referral - buried penis, BXO 2020 randal Bolden MD, [address] [facility], [address], [place], [address], 14:49:08 Procedures None recorded. Surgeries None recorded. Imaging None recorded. Medication Orders Flomax 0.4 mg capsule 2020 [id number], [address], [place], [address], 10:37:46 Patient TargetsNo targets recorded. Patient Instructions Encounter Date Encounter Id Patient Instructions Last Modified By Organization Details Last Modified Time 10/04/2020 [id number] Incomplete bladd er emptying/weak stream/UTI: He doesn't [...] request records from his ER visit in [place], [place] and would like to see the CT scan report. 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 The opening is small and I cannot expose the head of the penis. This too may be contributing to his infection. I recommend that he see urology at the [facility] for consideration of treatment of the buried penis. Not available 10/04/2020 10:37:22 Reason for Referral Urologist Referral for Acqui red buried penis buried penis, BXO Referring Physician: Chris Castro, Urology, Encounter Date: 10/04/2020 Results Created Date Observation Date Name Description Value Unit Range Abnormal Flag LastModifiedBy Organization Detail LastModifiedTime 10/05/19 21 10/04/2020 urina lysis , dipst ick color -advantus YELLOW yellow Not Available [facility] [address] [facility] [address], [place], [address], 10/04/2020 10:54:26 10/05/19 21 10/04/2020 urina lysis , dipst ick appearance -advantus CLOUDY clear abnormal Not Available [facility] [address] [facility] [address], [place], [address], 10/04/2020 10:54:26 10/05/19 21 10/04/2020 urina lysis , dipst ick glucose -advantus NEGATI VE mg/dL negati ve Not Available [facility] [address] [facility] [address], [place], [address], 10/04/2020 10:54:26 10/05/19 21 10/04/2020 urina lysis , dipst ick bilirubin -advantus NEGATI VE negati ve Not Available [facility] [address] [facility] [address], [place], [address], 10/04/2020 10:54:26 10/05/19 21 10/04/2020 urina lysis , dipst ick ketones -advantus NEGATI VE mg/dL negati ve Not Available [facility] [address] [place] [address] [address], [place], [address], 10/04/2020 10:54:26 10/05/19 21 10/04/2020 urina lysis , dipst ick sp. gravity -advantus 1.025 1.010- 1.025 Not Available [facility] [address] [place] [address] [address], [place], [address], 10/04/2020 10:54:26 10/05/19 21 10/04/2020 urina lysis , dipst ick pH -advantus 6.0 5.0-8. 0 Not Available [facility] [address] [place] [address] [address], [place], [address], 10/04/2020 10:54:26 10/05/19 21 10/04/2020 urina lysis , dipst ick protein -advantus TRACE mg/dL negati ve abnormal Not Available [facility] [address] [place] [address] [address], [place], [address], 10/04/2020 10:54:26 10/05/19 21 10/04/2020 urina lysis , dipst ick urobilinogen -advantus 1.0 normal Not Available [facility] [address] [place] [address] 200, [place], [address], 10/04/2020 10:54:26 10/05/19 21 10/04/2020 urina lysis , dipst ick nitrites -advantus NEGATI VE negati ve Not Available [facility] [address] [place] [address] [address], [place], [address], 10/04/2020 10:54:26 10/05/19 21 10/04/2020 urina lysis , dipst ick blood -advantus SMALL negati ve abnormal Not Available [facility] [address] [place] [address] [address], [place], [address], 10/04/2020 10:54:26 10/05/19 21 10/04/2020 urina lysis , dipst ick leukocytes -advantus LARGE negati ve abnormal Not Available [facility] [address] [place] [address] 200, [place], [address], 10/04/2020 10:54:26 10/05/19 21 10/04/2020 urina lysis , dipst ick performed by Caren Fink Not Available [facility] [address] [place] [address] 200, [place], [address], 10/04/2020 10:54:26 10/05/19 21 10/04/2020 urina lysis , dipst ick total urine volume (mL) 40 /mL Not Available [facility] [address] [place] [address] [address], [place], [address], 10/04/2020 10:54:26 10/05/19 21 10/04/2020 urina lysis , micro scopi c U-WBC 50 - 100 [hpf] 0 - 2 abnormal Not Available [facility] [address] [place] [address] [address], [place], [address], 10/04/2020 10:54:28 10/05/19 21 10/04/2020 urina lysis , micro scopi c U-RBC 0 - 2 [hpf] 0 - 2 Not Available [facility] [address] [place] [address] [address], [place], [address], 10/04/2020 10:54:28 10/05/19 21 10/04/2020 urina lysis , micro scopi c bacteria Small [hpf] negati ve abnormal Not Available [facility] [address] [facility] [address], [place], [address], 10/04/2020 10:54:28 10/05/19 21 10/04/2020 urina lysis , micro scopi c squamous epi Small /lpf negati ve,sma ll Not Available [facility] [address] [facility] [address], [place], [address], 10/04/2020 10:54:28 10/05/19 21 10/04/2020 cultu re, urine final report Microb iology result s Not Available [facility] [address] [facility] [address], [place], [address], 10/05/2020 09:57:17 10/03/19 21 09/28/2020 imagi ng/di [...] bladder Active 10/05/19 21 Chris Castro MD [address] [place] [address],[address], [address], [facility] 10/04/2020 10:32:13 Slowing of urinary stream Active 10/05/19 21 Chris Castro MD [address] [place] [address],[address], [address], [facility] 10/04/2020 10:32:13 Acute urinary tract infection Active 10/05/19 21 Chris Castro MD [address] [place] [address],[address], [address], [facility] 10/04/2020 10:32:15 Acquired buried penis Active 10/05/19 Chris Castro MD [address] [facility],[address], [place], [address], [facility] 10/04/2020 10:33:04 Problem Notes None recorded. Procedures Surgical History Date Name Laterality Status Provider Name and Address Organization Details Recorded Time Bladder Scan completed Geovanna cárdenas [facility] 10/04/2020 10:09:08 Imaging Results Imaging Date [...] Name and Address Organization Details Recorded Time 301793 Medicinal product containin g penicilli n and acting as antibacte rial agent (product) medicatio n other Not available Not available 09/30/2020 17115 05 SNOMED aniph aliti c Not Available [...] Details Last Updated DateTime 10/04/2020 39.9 kg/m2 477630.5120 22749 g 170.18 cm Not Available Health Note [...] re nal stone Medical History Condition Response Sexually Transmitted Infection N Diabetes Y Bleeding Disorder N High Blood Pressure N Kidney Stones N Cancer N Lung Disease N Depression Y High Cholesterol N GERD/Acid Reflux N Heart Disease N Past Encounters Encounter ID Performer Location Encounter Start Date Encounter Closed Date Diagnosis/Indication Diagnosis SNOMED-CT Code [id number] Chris Castro MD [address] [address] 10/04/2020 09:55:35 10/04/2020 11:01:27 Acute urinary tract infection [id number] Incomplete emptying of bladder 126330760 Slowing of urinary stream [id number] Acquired buried penis 23 [id number] Health Concerns Section Related Observation LastModified by Organization Detai ls LastModified Time None Recorded Concern Status LastModified by Organization Details LastModified Time None Recorded Advance Directives Directive None Recorded Payers Encounter Date Sequence Insurance Name Policy Number Policy Barbosa Covered Member ID Barbosa Member ID Guarantor Name 10/04/2020 1 [employer] - DOS PRIOR TO 2021 (MEDICAID REPLACEMENT - HMO) [facility] Morgan Pearson [id number] Morgan Pearson Notes Date Note Type Note Provider Name and Address Organization Details Recorded Time 10/04/2020 text/html HPI Notes: 10/04/20: Obesity, COPD, DM, chronic low back pain. Was at [facility] 09/28/20 to 09/29/20 for urosepsis and right [...] states that had a CT scan in [facility] in [place], [place] which was done on 09/28/20. He was transferred to [facility]. Denies straining or waiting to relax to [...] feel: Terrible [Score: 3] Chris Castro MD [address] [place] [address],[address], [place], [address], [place] [facility] 10/04/2020 10:37:57
--- OUTSIDE RECORDS SUMMARY | 2023-11-12 14:37 | XMS_ITS | Clinical Summary ---
Author Organization [facility] Address [address] [place] [address] Care Team Providers Care Engine Assembly Supervisor Name Role Phone Alida Muir MD Unavailable [phone] Purvi Lennon MD Unavailable Darshana Huertas Unavailable [phone] Goran Dukes DO Primary Care Provider David Pereira MD Unavailable [phone] Jovany Dumont MD Unavailable [phone] Allergies Active Allergy Reactions Criticality Noted [...] Active levofloxacin (LEVAQUIN) 500 MG tabletIndications:Ac [place] cystitis without hematuria Take 1 tablet (500 [...] for patients under 2 years old ??at [facility] for lipid analytes. 2-8 [...] LAB - BLOOD ORD ERABLES [facility] [address] [place] [address] * (ABNORMAL) Comprehensive metabolic panel (09/08/2021 8:28 [...] and gender (Shannon et al., NEJM, DOI: 10.1056/[id number]) Blood BLOOD SPECIMEN / Unknown Client Draw / Unknown 09/08/2021 8:28 AM CDT 09/08/2021 3:38 PM CDT David Jimenez PA-C LAB - BLOOD ORD ERABLES [facility] [address] [place] [address] * (ABNORMAL) Hemoglobin A1c (09/28/2020 10:35 AM CDT) Hemoglobin A1C 9.6(H) 0 - 5.6 % 09/28/2020 11:14 AM CDT [facility] Comment: Normal <5.7% Prediabetes 5.7-6.4% ??Diabetes 6.5% or higher - adopted from ADA consensus guidelines. Blood 09/28/2020 10:3 5 AM CDT 09/28/2020 10:36 AM CDT Sal Mora DO LAB - BLOOD ORDERAB LES [facility] [address] [address], [facility] [phone] from Last 3 Months or Most Recently Relevant to Health Maintenance Advance Directives For more information, please contact: [phone] * Full Code (Latest Code Status on File) Date Activated Date Inactivated Comments 09/28/2020 10:12 AM 09/29/2020 4:35 PM All basic a nd advanced life-sustaining interventions are performed as appropriate Question Answer Comments Code status determined by: Discussion with aishwarya nt/ legal decision maker Care Teams Engine Assembly Supervisor Relationship Specialty [place] [address] [place] [address] PCP - General Family Medicine 09/28/20 Alida Muir MD [facility] [address] [id number] Otolaryngology 08/25/18 Purvi Lennon MD [address] [facility] [address] [place] [address] Otolaryngology 08/25/18 Darshana Huertas AuD [address] [facility] [address] [place] [address] Csw Audiology 08/25/18 David Pereira MD [address] [place] [address] Urology 09/30/20 Jovany Dumont MD [address] [place] [address] Neurology 03/23/22
--- OUTSIDE RECORDS SUMMARY | 2023-11-12 14:37 | XMS_ITS | Clinical Summary ---
Author Organization [facility] I-Stand Replaced By [facility] Address [address] [address] Phone Care Team Providers Care Taxicab Starter Name Role Phone Choice, No Pcp-Patient Primary [...] Comments Blood Pressure 136/71 05/22/2023 3:28 PM [facility] Pulse 115 05/22/2023 3:28 PM [facility] Temperature 37.5 ??C (99.5 ??F) 05/22/2023 4:56 PM CS T Respiratory Rate 22 05/22/2023 3:28 PM [facility] Oxygen Saturation 93% 05/22/2023 3:28 PM [facility] Inhaled Oxygen Concentration - - Weight 128.3 [...] age to complete this topic Care Teams Taxicab Starter Relationship Specialty Start Date End Date Choice, No Pcp-Patient PCP - General 05/22/23
--- OUTSIDE RECORDS SUMMARY | 2023-11-12 14:37 | XMS_ITS ---
Author Organization Unknown Encounters Encounter Type Performer Location Encounter Date Encoun ter Notes virtual - - [id number]:24:32.980-0 0:00 no notes virtual - - [id number]:49:25.273-0 0:00 no notes virtual - - 6727-10-54D64:33:39.670-0 0:00 no notes virtual - - 1881-64-52Q05:21:52.370-0 0:00 no notes virtual - - 8690-74-90Q43:38:04.273-0 0:00 no notes virtual - - 1613-47-86N48:45:30.420-0 0:00 no notes virtual - - 2243-77-62T86:24:32.980-0 0:00 no notes virtual - - 1435-01-20A34:57:05.670-0 0:00 no notes virtual - - 6970-34-83L23:21:52.370-0 0:00 no notes virtual - - 5890-25-38X48:29:52.713-0 0:00 no notes virtual - - 9158-40-48D53:21:52.370-0 0:00 no notes virtual - - 6749-88-85Z94:49:25.273-0 0:00 no notes virtual - - 6811-45-07K99:45:30.420-0 0:00 no notes virtual - - 6363-70-68O20:24:32.980-0 0:00 no notes virtual - - 7733-21-15C80:38:04.273-0 0:00 no notes virtual - - 6969-01-05P34:29:52.713-0 0:00 no notes virtual - - 7229-27-25H53:20:45.160-0 0:00 no notes virtual - - 1532-97-00V76:33:39.670-0 0:00 no notes virtual - - 8309-90-79J67:21:52.370-0 0:00 no notes virtual - - 9668-97-65G81:19:10.643-0 0:00 no notes virtual - - 0171-44-49U43:19:10.643-0 0:00 no notes virtual - - 5626-48-06A14:19:10.643-0 0:00 no notes virtual - - 0989-00-07N11:19:10.643-0 0:00 no notes Patient Care team information Name Category Status Period Participants - - Proposed period not known - - - period not known -
--- OUTSIDE RECORDS SUMMARY | 2023-11-12 14:37 | XMS_ITS | Clinical Summary ---
Author Organization [facility] Address [address] [place] [address] Care Team Providers Care Personal Development Coach Name Role Phone Needs Pcp, Assignment Primary Care Provider [phone] Source Comments You are receiving this document as you are listed as the primary care provider,follow-up provider, or the patient has been referred to you for consultation.This is in compliance with the Medicare and[facility] Hospital[facility] EHR Incentive Program,which states Providers who transition their patient to another setting of careor provider of care or refers their patient to another provider of care shouldprovide summary care record for each transition of care or referral. [employer] Allergies Active Allergy Reactions Criticality Noted Date [...] age to complete this topic Care Teams Personal Development Coach Relationship Specialty Start Date End Date Needs Pcp, [place] [address] PCP - General 07/02/16
--- OUTSIDE RECORDS SUMMARY | 2023-11-12 14:37 | XMS_ITS | Encounter Summary ---
Author Organization [place] Address [facility] [facility] [place] [address] Care Team Providers Care Client Executive Name Role Phone Confirmed, No Pcp Primary Care Provider Unavaila [facility] Provider, [facility] Primary Care Provider Unavailabl King Allan MD Primary Care Provider Unavailable No Ref-Primary, Physician Primary Care Provider [facility] Primary Care Provide r Go Lr MD Unavailable Go Lr MD Unavailable Be [place] MD Primary Care Provider [phone] Dinesh Muir MD Unavailable Purvi Lennon MD Unavailable Darshana Huertas Unavailable [phone] Goran Dukes DO Primary Care Provider David Pereira MD Unavailable [phone] Jovany Dumont MD Unavailable [phone] Reason for Visit * Reason Onset Date Comments Referral 10/17/2015 Encounter Details Date Type Department Care Team (Late st Contact Info) Description 10/17/2015 Telephone [employer] [facility] [address] [place] [address] Pain Management Program, [facility] Referral Social History Tobacco Use Types Packs/Day [...] pt to schedule Interventional LM. Fabiana Johnson [facility] [facility] documented in this encounter Plan of Treatment Not on file documented as of this encounter Visit Diagnoses Not on filedocumented in this encounter Care Teams Client Executive Relationship Specialty Start Date End Date Confirmed, No Pcp PCP - General 03/01/16 05/04/16 Provider, Kenan Corona PCP - General Urgent Care 05/05/16 09/24/16 King Garcia MD PCP - General Family Practice 09/25/16 10/30/17 No Ref-Primary, Physician PCP - General 10/31/17 12/19/17 [facility] [address] [place] [address] PCP - General 12/20/17 08/24/18 Go Lr MD [address] [place] [address] PCP - Assigned PCP 11/08/17 08/16/18 Be [place] MD [facility] [address] [place] [address] PCP - General Family Practice 08/25/18 09/27/20 [place] [address] [place] [address] PCP - General Family Medicine 09/28/20 Go Lr MD [address] [place], [place] [address] Assigned PCP 11/08/17 09/30/19 Dinesh Muir MD [facility] [address] [place] [address] Otolaryngology 08/25/18 Purvi Lennon MD [address] [facility] [address] [place] [address] Otolaryngology 08/25/18 Darshana Huertas AuD [address] [address] Email Engineer Audiology 08/25/18 David Pereira MD [address] [place] [address] Urology 09/30/20 Jovany Dumont MD [address] [place] [address] Neurology 03/23/22 documented as of this encounter
--- OUTSIDE RECORDS SUMMARY | 2023-11-12 14:37 | XMS_ITS | Clinical Summary ---
Author Organization [facility] Address [place], [place] [address] Care Team Providers Care Hydraulic Tester Name Role Phone Pcp, No Unavailable Unavailable Goran Dukes DO Primary Care Provide r Tayla Kiran RN Unavailable [phone] Allergies Active Allergy Reactions Criticality Noted [...] 4 Active lidocaine 5 % topical patchIndications:Ac [place] pain of left shoulder Apply to intact [...] per day. 1 Each 4 Active Insulin [place], Disposable, (BD Amanda 2nd Gen Pen Needle) [...] be used to read blood sugars, follow filament shaper directions. 6 Each 3 4 Active FreeStyle Lacie 3 [place] for continuous blood glucose monitor (CGM)Indications:Ty pe 2 diabetes mellitus with hyperglycemia, without long-term current use of insulin (HC) To be used to read blood sugars follow filament shaper directions. 1 Each 4 Active lancets (Microlet [...] of need: lifetime 1 Each 4 Active WalkerIndications:C hronic midline low back pain without [...] Type Department Care Team Description 11/09/[address] [facility] [address] [place] [address] [phone] Goran Dukes, 10/25/2023 1:20 PM CDT Office Visit [facility] [address] [place] [address] [phone] Goran Dukes, Urinary Problem 10/25/2023 Travel 10/25/[address] [facility] [address] [place] [address] [phone] Goran Dukes, Urinary Problem 10/25/[address] [facility] [address] [place] [phone] Goran Dukes, DO UTI (Need med ) 10/13/2023 9:00 AM CDT Phone Office Visit [facility] [address] [place] [address] Tayla Kiran RN Diabetes 10/11/2023 Orders Only [facility] Scanner 1 scan: (1-Ord) [facility], 10/11/2023 10/06/[address] [facility] [address] [place] [address] [phone] Goran Dukes, Results 10/06/2023 Orders Only [address] [phone] Goran Dukes, <No scans attached> 10/05/2023 1:50 PM CDT Office Visit [facility] [address] [place] [phone] Goran Dukes, Diabetes (Not fasting- The patient is requesting to speak about medication); Fatigue (The patient reports having leg fatigue like he is about to fall. The patient wants to discuss a walker or wheel chair options. ) 10/05/[address] [place], [place] [address] Jocelynn Jay NP Refill Request (Clobetasol 0.05%) 10/05/[address] [facility] [address] [place] [phone] Goran Dukes DO Refill Request (KETOROLAC 10 MG TABLETS ) 10/05/2023 Travel 10/01/[address] [facility] [address] [place] [phone] Goran Dukes DO Refill Request (Lantus Solostar U-100 Insulin) 09/27/[address] [facility] [address] [place] [phone] Goran Dukes DO Medication Management (Walker) 09/01/2023 3:20 PM CDT - 09/01/2023 11:59 PM CDT Hospital Encounter [facility] [address] [address] 09/01/2023 Travel 08/18/2023 11:59 AM COLORIST FORMULATOR - 08/18/2023 11:59 PM COLORIST FORMULATOR Hospital Encounter [facility] [address] [place] [address] Serge Leslie MD Bilateral leg edema 08/18/2023 Travel 08/13/2023 10:15 AM COLORIST FORMULATOR - 08/13/2023 11:59 PM COLORIST FORMULATOR Hospital Encounter [facility] [address] [address] 08/13/2023 Orders Only [facility] [address] [address] Serge Leslie MD <No scans attached> 08/13/2023 Travel from Last 3 Months Immunizations Name Administration Dates Next Due COVID-19 vaccine (GreenIQ 30mcg/0.3mL) P FMDV 01/16/2021 Influenza, IIV4 03/16/2023,05/01/2022 Tdap 05/14/2016 Family [...] T Respiratory Rate 20 06/17/2023 7:45 AM COLORIST FORMULATOR Oxygen Saturation 97% 10/25/2023 1:34 PM CDT [...] PM CDT UTI (urinary tract infection), uncomplicated [place] DIAB MANAGE TRN PER INDIV Routine 10/13/2023 [...] LOWER EXTREMITY BILATERAL Routine 08/18/2023 11:50 AM COLORIST FORMULATOR Bilateral leg edema ANTI HCV Routine 01/22/2022 12:50 PM CDT Need for hepatitis C screening test from Last 3 Months or Most Recently Relevant to Health Maintenance Results * (ABNORMAL) URINALYSIS MICROSCOPIC (10/25/2023 1:37 PM CDT) RBC 6-10(A) 0-2, None Seen /HPF 10/25/2023 1:[address] [facility] WBC >100(A) 0-2, 3-5, None Seen /HPF 10/25/2023 1:[address] [facility] BACTERIA Moderate(A ) None Seen, Rare, Few Bacteria/H PF 10/25/2023 1:[address] [facility] EPITHELIAL CELLS None Seen None Seen, Few Epi/HPF 10/25/2023 1:[address] [facility] WHITE CELL CLUMPS Present(A) (none) 10/25/2023 1:[address] [facility] Urine URINE SPECIMEN / Unknown Non-Blood / Unknown 10/25/2023 1:37 PM CDT 10/25/2023 1:37 PM CDT [employer] URINE Performing Organization Address [facility] Co de Phone Number [facility] [address] [place] [address], * (ABNORMAL) URINE CULTURE (10/25/2023 1:37 PM CDT) CULTURE RESULT(A) 10/27/2023 8:53 AM CDT [facility]- [facility] CULTURE >100,000 CFU/mL Streptococcus agalactiae (Strep Group B) 10/27/2023 8:53 AM CDT [facility]- [facility] CULTURE <10,000 CFU/mL Multiple organisms probable contaminants 10/27/2023 8:[address] [facility] NTRAL LABOR[facility] Urine URINE SPECIMEN / Unknown Non-Blood / Unknown 10/25/2023 1:37 PM CDT 10/25/2023 1:37 PM CDT [employer] MICROBIOLOGY [facility] [address] [place] [address], [place] * (ABNORMAL) UA W/ SEDIMENT EXAM REFLEXED PER CRITERIA (10/25/2023 1:37 PM CDT) COLOR Yellow Yellow Color 10/25/2023 1:[address] [facility] CLARITY Cloudy(A) Clear Clarity 10/25/2023 1:[address] [facility] SPECIFIC GRAVITY,URINE 1.025 1.010, 1.015, 1.020, 1.025 10/25/2023 1:[address] [facility] PH,URINE 5.5 6.0, 7.0, 8.0, 5.5, 6.5, 7.5, 8.5 10/25/2023 1:[address] [facility] UROBILINOGEN, QUALITATIVE Normal Normal EU/dl 10/25/2023 1:[address] [facility] PROTEIN, URINE 100(A) Negative mg/dL 10/25/2023 1:[address] [facility] GLUCOSE, URINE >=1000(A) Negative mg/dL 10/25/2023 1:[address] [facility] KETONES,URINE Negative Negative mg/dL 10/25/2023 1:[address] [facility] BILIRUBIN,URI NE Negative Negative 10/25/2023 1:[address] [facility] OCCULT BLOOD,URINE Moderate(A) Negative 10/25/2023 1:[address] [facility] NITRITE Negative Negative 10/25/2023 1:[address] [facility] LEUKOCYTE ESTERASE Moderate(A) Negative 10/25/2023 1:[address] [facility] Urine URINE SPECIMEN / Unknown Non-Blood / Unknown 10/25/2023 1:37 PM CDT 10/25/2023 1:37 PM CDT Goran Dukes DO URINE [facility] [address] [place] [address], [place] * [place] DIAB MANAGE TRN PER INDIV (10/13/2023) DIABETIC ED Goran Dukes DO PB - ANCILLAR Y SERVICES * SCAN-EYE EXAM (10/11/2023 12:00 AM CDT) Scanner OTHER * (ABNORMAL) LIPID PANEL W REFLEX MEASURED LDL (10/05/2023 2:39 PM CDT) CHOLESTEROL,TOTAL 187 100 - 199 mg/dL 10/06/2023 1:31 AM CDT [employer] TR[facility] LABORATORY Comment: Cholesterol, Total Reference Ranges Desirable <200 mg/dL Borderline 200-239 mg/dL High >=240 mg/dL TRIGLYCERIDES 147 <150 mg/dL 10/06/2023 1:31 AM CDT [employer] HDL CHOLESTEROL 27(L) >40 mg/dL 1:31 AM CDT [facility] [place] NON-HDL CHOLESTEROL 160(H) <145 mg/dl 10/06/2023 1:31 AM CDT [employer] [facility] CHOL/HDL RATIO 6.93(H) <4.50 10/06/2023 1:31 AM CDT [facility] LDL CHOLESTEROL 131(H) <=130 mg/dL 10/06/2023 1:31 AM CDT [facility] [place] VLDL CHOLESTEROL 29 <=30 mg/dL 10/06/2023 1:31 AM CDT [facility] [place] TR[facility] PROVIDER ORDERED STATUS RANDOM 10/06/2023 1:31 AM CDT [facility] Blood BLOOD SPECIMEN / Unknown Venipuncture / Unknown 10/05/2023 2:39 PM CDT 10/05/2023 2:39 PM CDT Goran Dukes DO CHEMISTRY [facility] [address] [address], * (ABNORMAL) CBC W PLT NO DIFF (10/05/2023 2:39 PM CDT) WHITE BLOOD COUNT 8.8 4.5 - 11.0 thou/cu mm 10/05/2023 2:[address] [facility] RED BLOOD COUNT 4.49 4.30 - 5.90 mil/cu mm 10/05/2023 2:[address] [facility] HEMOGLOBIN 12.6(L) 13.5 - 17.5 g/dL 10/05/2023 2:[address] [facility] HEMATOCRIT 38.3 37.0 - 53.0 % 10/05/2023 2:[address] [facility] MCV 85 80 - 100 fL 10/05/2023 2:[address] [facility] MCH 28.1 26.0 - 34.0 pg 10/05/2023 2:[address] [facility] MCHC 32.9 32.0 - 36.0 g/dL 10/05/2023 2:[address] [facility] RDW 13.2 11.5 - 15.5 % 10/05/2023 2:[address] [facility] PLATELET COUNT 344 140 - 440 thou/cu mm 10/05/2023 2:[address] [facility] MPV 9.6 6.5 - 11.0 fL 10/05/2023 2:[address] [facility] NRBC 0.0 % 10/05/2023 2:[address] [facility] ABS NRBC 0.0 thou /cu mm 10/05/2023 2:[address] [facility] Blood BLOOD SPECIMEN / Unknown Venipuncture / Unknown 10/05/2023 2:39 PM CDT 10/05/2023 2:39 PM CDT Goran Dukes DO HEMATOLOGY [facility] [address] [place] [address], [place] * ANTI HIV 1/2 [20129.0] (10/05/2023 2:39 PM CDT) Pathologist [facility] HIV-1/HIV-2 SCREEN Non-Reacti ve Non-Reacti ve 10/06/2023 1:17 AM CDT [facility] Comment:HIV-1 p24 and HIV-1/ HIV-2 Ab Not Detected. Blood BLOOD SPECIMEN / Unknown Venipuncture / Unknown 10/05/2023 2:39 PM CDT 10/05/2023 2:39 PM CDT Goran Dukes DO SEND OUTS [facility]AL LABORATORY [address] [place] [address], [place] * (ABNORMAL) HEMOGLOBIN A1C MONITORING (POCT) (10/05/2023 2:39 PM CDT) Pathologist [facility] HEMOGLOBIN A1C MONITORING (POCT) 10.0(H) <=6.4 % 10/05/2023 2:[address] [facility] Blood BLOOD SPECIMEN / Unknown Venipuncture / Unknown 10/05/2023 2:39 PM CDT 10/05/2023 2:[address] [facility] - 10/05/2023 2:54 PM CDT [...] be seen with: Untreated Anemias, Splenectomy ? Goranladarius Dukes CHEMISTRY [facility] [address] [place] [address], * (ABNORMAL) COMP METABOLIC PANEL (10/05/2023 2:39 PM CDT) SODIUM 136 136 - 145 mmol/L 10/06/2023 1:31 AM T [facility] TRAL LABORATORY POTASSIUM 5.4(H) 3.5 - 5.1 mmol/L 10/06/2023 1:31 AM T [facility] TRAL LABORATORY CHLORIDE 99 98 - 107 mmol/L 10/06/2023 1:31 AM [facility] LAB[facility] CO2,TOTAL 26 22 - 29 mmol/L 10/06/2023 1:31 AM [facility] ANION GAP 11 5 - 18 10/06/2023 1:31 AM [facility] GLUCOSE 298(H) 70 - 99 mg/dL 10/06/2023 1:31 AM T [facility] CALCIUM 9.5 8.6 - 10.0 mg/dL 10/06/2023 1:31 AM [facility] BUN 15 6 - 20 mg/dL 10/06/2023 1:31 AM [facility] CREATININE 0.83 0.70 - 1.20 mg/dL 10/06/2023 1:31 AM [facility] BUN/CREAT RATIO 18 10 - 20 1:31 AM [facility] eGFR >90 >90 mL/min/1.7 3m2 10/06/2023 1:31 AM [facility] Comment:As of 2021, eG FR is calculated by the CKD-EPI creatinine equation without race adjustment. ??eGFR can be influenced by muscle mass, exercise, and diet. ??The reported eGFR is an estimation only and is only applicable if the renal function is stable. ALBUMIN 4.0 4.0 - 4.9 g/dL 10/06/2023 1:31 AM CDT [facility] PROTEIN,TOTAL 7.3 6.0 - 8.0 g/dL 10/06/2023 1:31 AM CDT [facility] BILIRUBIN,TOTAL 0.2 0.0 - 1.2 mg/dL 10/06/2023 1:31 AM CDT [facility] ALK PHOSPHATASE 83 40 - 129 IU/L 10/06/2023 1:31 AM CDT [facility] ALT (SGPT) 12 10 - 50 IU/L 10/06/2023 1:31 AM CDT [facility] AST (SGOT) 13 10 - 50 IU/L 10/06/2023 1:31 AM CDT [facility] Blood BLOOD SPECIMEN / Unknown Venipuncture / Unknown 10/05/2023 2:39 PM CDT 10/05/2023 2:39 PM CDT Goran Dukes DO CHEMISTRY [facility] [address] [place] [address], * VENOUS INSUFFICIENCY LOWER EXTREMITY BILATERAL (08/18/2023 11:50 AM COLORIST FORMULATOR) Anatomical Region Laterality Modality LEGS Ultrasound, Ultr [...] cherelle Non-React cherelle 01/22/2022 9:10 PM CDT [facility] Comment:Antibodies to HCV no t detected; does not exclude the possibility of exposure to HCV. Blood BLOOD SPECIMEN / Unknown Venipuncture / Unknown 01/22/2022 12:50 PM CDT 01/22/2022 12:51 PM CDT Goran Dukes DO SEND OUTS [facility] [address] [place] [address], from Last 3 Months or Most Recently Relevant to Health Maintenance Advance Directives * Full Code (Latest Code Status on File) Date Activated Date Inactivated Comments 06/15/2023 11:00 PM 06/17/2023 2:40 PM Question Answer Comments Code Status Discussion: Reviewed Preferences * Full Code Date Activated Date Inactivated Comments 01/11/2020 5:28 PM 01/12/2020 7:09 PM Question Answer Comments Code Status Discussion: Discussed Care Teams Hydraulic Tester Relationship Specialty [place] [address] [place] [address] PCP - General Family Practice 10/16/20 Pcp, No . 08/04/14 Tayla Kiran, RN [address] [place] [address] Diabetes Care Management Registered Nurse 10/13/2308/13
--- OUTSIDE RECORDS SUMMARY | 2023-11-12 14:37 | XMS_ITS | Referral Summary ---
Author Organization [place] Address [address] [place] [address] Care Team Providers Care Art Instructor Name Role Phone Dinesh Muir MD Unavailable Purvi Lennon MD Unavailable Darshana Huertas Unavailable [phone] Goran Dukes DO Primary Care Provider David Pereira MD Unavailable Jovany Dumont MD Unavailable [phone] Allergies Active Allergy Reactions Criticality Noted [...] 09/29/2020 Active levofloxacin (LEVAQUIN) 500 MG tabletIndications:Ac [place] cystitis without hematuria Take 1 tablet (500 [...] for patients under 2 years old ??at [facility] for lipid analytes. 2-8 [...] LAB - BLOOD ORD ERABLES [facility] [address] [place] [address] * (ABNORMAL) Comprehensive metabolic panel (09/08/2021 8:28 [...] and gender (Shannon et al., NEJM, DOI: 10.1056/FADMyp0139001) Blood BLOOD SPECIMEN / Unknown Client Draw / Unknown 09/08/2021 8:28 AM CDT 09/08/2021 3:38 PM CDT David Jimenez PA-C LAB - BLOOD ORD ERABLES [facility] [address] [phone] * (ABNORMAL) Hemoglobin A1c (09/28/2020 10:35 AM CDT) Hemoglobin A1C 9.6(H) 0 - 5.6 % 09/28/2020 11:14 AM CDT [facility] Comment: Normal <5.7% Prediabetes 5.7-6.4% ??Diabetes 6.5% or higher - adopted from ADA consensus guidelines. Blood 09/28/2020 10:3 5 AM CDT 09/28/2020 10:36 AM CDT Sal Caesarbubba Mora DO LAB - BLOOD ORDERAB LES [facility] [address] [address], [facility] [phone] from Last 3 Months or Most Recently Relevant to Health Maintenance Advance Directives For more information, please contact: [phone] * Full Code (Latest Code Status on File) Date Activated Date Inactivated Comments 09/28/2020 10:12 AM 09/29/2020 4:35 PM All basic a nd advanced life-sustaining interventions are performed as appropriate Question Answer Comments Code status determined by: Discussion with aishwarya nt/ legal decision maker Care Teams Art Instructor Relationship Specialty [place] [address] [place] [address] PCP - General Family Medicine 09/28/20 Dinesh Muir MD [facility] [address] [place] [address] Otolaryngology 08/25/18 Purvi Lennon MD [address] [facility] [address] [place] [address] Otolaryngology 08/25/18 Darshana Huertas AuD [address] [place] [facility] [address] [place], [place] [address] [facility] 08/25/18 David Pereira MD [address] [place] [address] Urology 09/30/20 Jovany Dumont MD [address] [place] [address] Neurology 03/23/22
--- OUTSIDE RECORDS SUMMARY | 2023-11-12 14:37 | XMS_ITS | Encounter Summary ---
Author Organization [place] Address [facility] [place] [address] Care Team Providers Care Helper Coordinator Name Role Phone King Garcia MD Primary Care Provider Unavailable No Ref-Primary, Physician Primary Care Provider [facility] Primary Care Provide r Go Lr MD Unavailable Go Lr MD Unavailable Be Willard MD Primary Care Provider [phone] Alida Muir MD Unavailable [phone] Purvi Lennon MD Unavailable Darshana Huertas Unavailable [phone] Goran Dukes DO Primary Care Provider David Pereira MD Unavailable [phone] Jovany Dumont MD Unavailable [phone] Reason for Visit * Reason Comments Medication Refill Encounter Details Date Type Department Care Team (Late st Contact Info) Description 12/25/2016 Refill [facility] [place] [address] [address] Seda Rizzo PA-C [address] [place] [address] [id number] Medication Refill Social History Tobacco Use Types [...] documented as of this encounter Care Teams Helper Coordinator Relationship Specialty Start Date End Date King Garcia MD PCP - General Family Practice 09/25/16 10/30/17 No Ref-Primary, Physician PCP - General 10/31/17 12/19/17 [facility] [address] [place] [address] PCP - General 12/20/17 08/24/18 Go Lr MD [address] [place] [address] PCP - Assigned PCP 11/08/17 08/16/18 Be Willard MD [place] [id number] [place] [address] PCP - General Family Practice 08/25/18 09/27/20 [place] [address] [place] [phone] PCP - General Family Medicine 09/28/20 Go Lr MD [address] [place] [address] Assigned PCP 11/08/17 09/30/19 Alida Muir MD [facility] [address] [place] [address] Otolaryngology 08/25/18 Purvi Lennon MD 420 [facility] [address] [place] [address] Otolaryngology 08/25/18 Darshana Huertas AuD 420 [facility] [address] [place], [place] [address] Hydrographic Engineer Audiology 08/25/18 David Pereira MD [address] [place] [address] Urology 09/30/20 Jovany Dumont MD [address] [place] [address] Neurology 03/23/22 documented as of this encounter
== END 2023-11-12 14:36 | disposition home or self-care (01) ==
LOC: WOUND 14:35
PROVIDERS: Visit Provider Surgery
DX: I89.0 Lymphedema, not elsewhere classified (principal); L97.821 Non-pressure chronic ulcer of other part of left lower leg limited to breakdown of skin; L97.811 Non-pressure chronic ulcer of other part of right lower leg limited to breakdown of skin
CPT/HCPCS: 29581

== ENCOUNTER 2023-11-15 15:33 | Outpatient (CLI) | payer MEDICARE, SELFPAY ==
--- OUTSIDE RECORDS SUMMARY | 2023-11-15 15:35 | XMS_ITS | Clinical Summary ---
Author Organization [facility] Address [place], [place] [address] Care Team Providers Care Telephone Betting Clerk Name Role Phone Pcp, No Unavailable Unavailable Goran Dukes DO Primary Care Provide r Tayla Kiran RN Unavailable [phone] Allergies Active Allergy Reactions Criticality Noted [...] 4 Active lidocaine 5 % topical patchIndications:Ac [place] pain of left shoulder Apply to intact [...] per day. 1 Each 4 Active Insulin [place], Disposable, (BD Amanda 2nd Gen Pen Needle) [...] be used to read blood sugars, follow retail assistant directions. 6 Each 3 4 Active FreeStyle Lacie 3 [place] for continuous blood glucose monitor (CGM)Indications:Ty pe 2 diabetes mellitus with hyperglycemia, without long-term current use of insulin (HC) To be used to read blood sugars follow retail assistant directions. 1 Each 4 Active lancets (Microlet [...] Type Department Care Team Description 11/09/2023 Telephone [facility] [address] [place] [address] [phone] Goran Dukes, 10/25/2023 1:20 PM CDT Office Visit [facility] [address] [place] [address] [phone] Goran Dukes, Urinary Problem 10/25/2023 Travel 10/25/2023 Nurse Triage [facility] [address] [place] [address] [phone] Goran Dukes, Urinary Problem 10/25/2023 Telephone [facility] [address] [place] [phone] Goran Dukes, DO UTI (Need med ) 10/13/2023 9:00 AM CDT Phone Office Visit [facility] [address] [place] [address] Tayla Kiran RN Diabetes 10/11/2023 Orders Only [facility] Scanner 1 scan: (1-Ord) [facility], 10/11/2023 10/06/2023 Telephone [facility] [address] [place] [address] [phone] Goran Dukes, Results 10/06/2023 Orders Only [address] [phone] Goran Dukes, <No scans attached> 10/05/2023 1:50 PM CDT Office Visit [facility] [address] [place] [phone] Goran Dukes, Diabetes (Not fasting- The patient is requesting to speak about medication); Fatigue (The patient reports having leg fatigue like he is about to fall. The patient wants to discuss a walker or wheel chair options. ) 10/05/[address] [place], [place] [phone] Jocelynn Jay NP Refill Request (Clobetasol 0.05%) 10/05/2023 Telephone [facility] [address] [place] [phone] Goran Dukes DO Refill Request (KETOROLAC 10 MG TABLETS ) 10/05/2023 Travel 10/01/2023 Refill [facility] [address] [place] [phone] Goran Dukes DO Refill Request (Lantus Solostar U-100 Insulin) 09/27/2023 Telephone [facility] [address] [place] [phone] Goran Dukes DO Medication Management (Walker) 09/01/2023 3:20 PM CDT - 09/01/2023 11:59 PM CDT Hospital Encounter [facility] [address] [id number] 09/01/2023 Travel 08/18/2023 11:59 AM INFORMATION WRITER - 08/18/2023 11:59 PM INFORMATION WRITER Hospital Encounter [facility] [address] [address] Serge Leslie MD Bilateral leg edema 08/18/2023 Travel from Last 3 Months Immunizations Name Administration Dates Next Due COVID-19 vaccine (WaveConnex 30mcg/0.3mL) Gen FMDV 01/16/2021 Influenza, IIV4 03/16/2023,05/01/2022 Tdap 05/14/2016 [...] T Respiratory Rate 20 06/17/2023 7:45 AM INFORMATION WRITER Oxygen Saturation 97% 10/25/2023 1:34 PM CDT [...] PM CDT UTI (urinary tract infection), uncomplicated ME DIAB MANAGE TRN PER INDIV Routine 10/13/2023 [...] LOWER EXTREMITY BILATERAL Routine 08/18/2023 11:50 AM INFORMATION WRITER Bilateral leg edema ANTI HCV Routine 01/22/2022 12:50 PM CDT Need for hepatitis C screening test from Last 3 Months or Most Recently Relevant to Health Maintenance Results * (ABNORMAL) URINALYSIS MICROSCOPIC (10/25/2023 1:37 PM CDT) RBC 6-10(A) 0-2, None Seen /HPF 10/25/2023 1:47 PM CDT [facility] WBC >100(A) 0-2, 3-5, None Seen /HPF 10/25/2023 1:47 PM CDT [facility] BACTERIA Moderate(A ) None Seen, Rare, Few Bacteria/H PF 10/25/2023 1:47 PM CDT [facility] EPITHELIAL CELLS None Seen None Seen, Few Epi/HPF 10/25/2023 1:47 PM CDT [facility] WHITE CELL CLUMPS Present(A) (none) 10/25/2023 1:47 PM CDT [facility] Urine URINE SPECIMEN / Unknown Non-Blood / Unknown 10/25/2023 1:37 PM CDT 10/25/2023 1:37 PM CDT [facility] Performing Organization Address [facility] Co de Phone Number [facility] [address] [place] [address], [place] * (ABNORMAL) URINE CULTURE (10/25/2023 1:37 PM CDT) CULTURE RESULT(A) 10/27/2023 8:53 AM CDT [facility] CULTURE >100,000 CFU/mL Streptococcus agalactiae (Strep Group B) 10/27/2023 8:53 AM CDT [facility] CULTURE <10,000 CFU/mL Multiple organisms probable contaminants 10/27/2023 8:53 AM CDT [facility] NTRAL LABORATORY Urine URINE SPECIMEN / Unknown Non-Blood / Unknown 10/25/2023 1:37 PM CDT 10/25/2023 1:37 PM CDT [facility] MICROBIOLOGY [facility] [address] [place] [address], [place] * (ABNORMAL) UA W/ SEDIMENT EXAM REFLEXED PER CRITERIA (10/25/2023 1:37 PM CDT) COLOR Yellow Yellow Color 10/25/2023 1:47 PM CDT [facility] CLARITY Cloudy(A) Clear Clarity 10/25/2023 1:47 PM CDT [facility] SPECIFIC GRAVITY,URINE 1.025 1.010, 1.015, 1.020, 1.025 10/25/2023 1:47 PM CDT [facility] PH,URINE 5.5 6.0, 7.0, 8.0, 5.5, 6.5, 7.5, 8.5 10/25/2023 1:47 PM CDT [facility] UROBILINOGEN, QUALITATIVE Normal Normal EU/dl 10/25/2023 1:47 PM CDT [facility] PROTEIN, URINE 100(A) Negative mg/dL 10/25/2023 1:47 PM CDT [facility] GLUCOSE, URINE >=1000(A) Negative mg/dL 10/25/2023 1:47 PM CDT [facility] KETONES,URINE Negative Negative mg/dL 10/25/2023 1:47 PM CDT [facility] BILIRUBIN,URI NE Negative Negative 10/25/2023 1:47 PM CDT [facility] OCCULT BLOOD,URINE Moderate(A) Negative 10/25/2023 1:47 PM CDT [facility] NITRITE Negative Negative 10/25/2023 1:47 PM CDT [facility] LEUKOCYTE ESTERASE Moderate(A) Negative 10/25/2023 1:47 PM CDT [facility] Urine URINE SPECIMEN / Unknown Non-Blood / Unknown 10/25/2023 1:37 PM CDT 10/25/2023 1:37 PM CDT Goran Dukes DO URINE [facility] [address] [place] [address], * ME DIAB MANAGE TRN PER INDIV (10/13/2023) DIABETIC ED Goran Dukes DO PB - ANCILLAR Y SERVICES * SCAN-EYE EXAM (10/11/2023 12:00 AM CDT) Scanner OTHER * (ABNORMAL) LIPID PANEL W REFLEX MEASURED LDL (10/05/2023 2:39 PM CDT) CHOLESTEROL,TOTAL 187 100 - 199 mg/dL 10/06/2023 1:31 AM CDT [facility] TRAL LABORATORY Comment: Cholesterol, Total Reference Ranges Desirable <200 mg/dL Borderline 200-239 mg/dL High >=240 mg/dL TRIGLYCERIDES 147 <150 mg/dL 10/06/2023 1:31 AM CDT [facility] HDL CHOLESTEROL 27(L) >40 mg/dL 1:31 AM CDT [facility] NON-HDL CHOLESTEROL 160(H) <145 mg/dl 10/06/2023 1:31 AM CDT [facility] CHOL/HDL RATIO 6.93(H) <4.50 10/06/2023 1:31 AM CDT [facility] LDL CHOLESTEROL 131(H) <=130 mg/dL 10/06/2023 1:31 AM CDT [facility] VLDL CHOLESTEROL 29 <=30 mg/dL 10/06/2023 1:31 AM T [facility] TRAL LABORAT[facility] PROVIDER ORDERED STATUS RANDOM 10/06/2023 1:31 AM T [facility] TRA LABORATORY Blood BLOOD SPECIMEN / Unknown Venipuncture / Unknown 10/05/2023 2:39 PM CDT 10/05/2023 2:39 PM CDT Goran Dukes DO CHEMISTRY [facility] [address] [place] [address], * (ABNORMAL) CBC W PLT NO DIFF (10/05/2023 2:39 PM CDT) WHITE BLOOD COUNT 8.8 4.5 - 11.0 thou/cu mm 10/05/2023 2:43 PM CDT [facility] RED BLOOD COUNT 4.49 4.30 - 5.90 mil/cu mm 10/05/2023 2:43 PM CDT [facility] HEMOGLOBIN 12.6(L) 13.5 - 17.5 g/dL 10/05/2023 2:43 PM CDT [facility] HEMATOCRIT 38.3 37.0 - 53.0 % 10/05/2023 2:43 PM CDT [facility] MCV 85 80 - 100 fL 10/05/2023 2:43 PM CDT [facility] MCH 28.1 26.0 - 34.0 pg 10/05/2023 2:43 PM CDT [facility] MCHC 32.9 32.0 - 36.0 g/dL 10/05/2023 2:43 PM CDT [facility] RDW 13.2 11.5 - 15.5 % 10/05/2023 2:43 PM CDT [facility] PLATELET COUNT 344 140 - 440 thou/cu mm 10/05/2023 2:43 PM CDT [facility] MPV 9.6 6.5 - 11.0 fL 10/05/2023 2:43 PM CDT [facility] NRBC 0.0 % 10/05/2023 2:43 PM CDT [facility] ABS NRBC 0.0 thou /cu mm 10/05/2023 2:43 PM CDT [facility] Blood BLOOD SPECIMEN / Unknown Venipuncture / Unknown 10/05/2023 2:39 PM CDT 10/05/2023 2:39 PM CDT Goran Dukes DO HEMATOLOGY [facility] [address] [place] [address], * ANTI HIV 1/2 [08597.0] (10/05/2023 2:39 PM CDT) Pathologist [facility] HIV-1/HIV-2 SCREEN Non-Reacti ve Non-Reacti ve 10/06/2023 1:17 AM CDT [facility] Comment:HIV-1 p24 and HIV-1/ HIV-2 Ab Not Detected. Blood BLOOD SPECIMEN / Unknown Venipuncture / Unknown 10/05/2023 2:39 PM CDT 10/05/2023 2:39 PM CDT Goran Dukes DO SEND OUTS Performing Organization Address [facility] Co de Phone Number [facility] [employer] [facility] [address] [place] [address], [place] * (ABNORMAL) HEMOGLOBIN A1C MONITORING (POCT) (10/05/2023 2:39 PM CDT) HEMOGLOBIN A1C MONITORING (POCT) 10.0(H) <=6.4 % 10/05/2023 2:54 PM CDT [facility] Blood BLOOD SPECIMEN / Unknown Venipuncture / Unknown 10/05/2023 2:39 PM CDT 10/05/2023 2:39 PM CDT Narrative [facility] - 10/05/2023 2:54 PM CDT ? [...] Goran Dukes DO CHEMISTRY Performing Organization Address [facility] Co de Phone Number [facility] [address] [place] [address], [place] * (ABNORMAL) COMP METABOLIC PANEL (10/05/2023 2:39 PM CDT) SODIUM 136 136 - 145 mmol/L 10/06/2023 1:31 AM CDT [facility] TRAL LABORATORY POTASSIUM 5.4(H) 3.5 - 5.1 mmol/L 10/06/2023 1:31 AM [facility] CHLORIDE 99 98 - 107 mmol/L 10/06/2023 1:31 AM [facility] CO2,TOTAL 26 22 - 29 mmol/L 10/06/2023 1:31 AM [facility] ANION GAP 11 5 [...] - 129 IU/L 10/06/2023 1:31 AM CDT [facility] ALT (SGPT) 12 10 - 50 IU/L 10/06/2023 1:31 AM CDT [facility] AST (SGOT) 13 10 - 50 IU/L 10/06/2023 1:31 AM CDT [facility] Blood BLOOD SPECIMEN / Unknown Venipuncture / Unknown 10/05/2023 2:39 PM CDT 10/05/2023 2:39 PM CDT Goran Dukes DO CHEMISTRY [facility] [address] [place] [address], * [place] VENOUS INSUFFICIENCY LOWER EXTREMITY BILATERAL (08/18/2023 11:50 AM INFORMATION WRITER) Anatomical Region Laterality Modality LEGS Ultrasound, Ultr [...] cherelle Non-React cherelle 01/22/2022 9:10 PM CDT [facility] Comment:Antibodies to HCV no t detected; does not exclude the possibility of exposure to HCV. Blood BLOOD SPECIMEN / Unknown Venipuncture / Unknown 01/22/2022 12:50 PM CDT 01/22/2022 12:51 PM CDT Goran Dukes DO SEND OUTS [facility] [address] [place] [address], [place] from Last 3 Months or Most [...] Comments Code Status Discussion: Discussed Care Teams Telephone Betting Clerk Relationship Specialty [place] [address] [place] [address] PCP - General Family Practice 10/16/20 Pcp, No . 08/04/14 Tayla Kiran, RN [address] [place] [address] Diabetes Care Management Registered Nurse 10/13/2308/13
--- OUTSIDE RECORDS SUMMARY | 2023-11-15 15:35 | XMS_ITS | Clinical Summary ---
Author Organization [facility] [employer] [facility] Address [address] [address] Phone Care Team Providers Care Canine Deputy Name Role Phone Choice, No Pcp-Patient Primary [...] Comments Blood Pressure 136/71 05/22/2023 3:28 PM BLACK TOP MACHINE OPERATOR Pulse 115 05/22/2023 3:28 PM BLACK TOP MACHINE OPERATOR Temperature 37.5 ??C (99.5 ??F) 05/22/2023 4:56 PM CS T Respiratory Rate 22 05/22/2023 3:28 PM BLACK TOP MACHINE OPERATOR Oxygen Saturation 93% 05/22/2023 3:28 PM BLACK TOP MACHINE OPERATOR Inhaled Oxygen Concentration - - Weight 128.3 [...] vaccine (Standing Order) (1 of 2) 2018 Influenza Vaccine Seasonal (Standing Order) (Season Ended) 2024 HPV Vaccine (Standing Order) Aged Out No longer eligible based on patient's age to complete this topic Pneumococcal/PCV20 Vaccine: Pediatrics (2-5 yrs) and At-Risk Patients (6-64 yrs) (Standing Order) Aged Out No longer eligible b ased on patient's age to complete this topic Care Teams Canine Deputy Relationship Specialty Start Date End Date Choice, No Pcp-Patient PCP - General 05/22/23
--- OUTSIDE RECORDS SUMMARY | 2023-11-15 15:36 | XMS_ITS | Data Portability ---
Author Organization [facility] Address [address] [place] [address] Care Team Providers Care Molder Labels Name Role Phone JI BOLANOS Primary Care Provider Assessment No assessment recorded. Plan of Treatment Reminders Order Date Submit Date Provider Last Modified By Organization Details Last Modified Time Details Appointments None recorded. Lab urinalysis , dipstick 2020 [facility], [address], [address], [place], [address], 10:54:26 culture, urine 2020 [facility], [address], [address], [place], [address], 09:57:17 Referral urologist referral - buried penis, BXO 2020 randal Bolden MD, [address] [facility], [address], [place], [address], 14:49:08 Procedures None recorded. Surgeries None recorded. Imaging None recorded. Medication Orders Flomax 0.4 mg capsule 2020 [id number], [address], [place], [address], 10:37:46 Patient TargetsNo targets recorded. Patient Instructions Encounter Date Encounter Id Patient Instructions Last Modified By Organization Details Last Modified Time 10/04/2020 [id number] Incomplete bladd er emptying/weak stream/UTI: He doesn't [...] request records from his ER visit in [place], [place] and would like to see the CT scan report. 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 The opening is small and I cannot expose the head of the penis. This too may be contributing to his infection. I recommend that he see urology at the [facility] for consideration of treatment of [...] ick color -advantus YELLOW yellow Not Available [facility] [address], [place], [address], 10/04/2020 10:54:26 10/05/19 21 10/04/2020 urina lysis , dipst ick appearance -advantus CLOUDY clear abnormal Not Available [facility] [address] [facility] [address], [place], [address], 10/04/2020 10:54:26 10/05/19 21 10/04/2020 urina lysis , dipst ick glucose -advantus NEGATI VE mg/dL negati ve Not Available [facility] [address] [facility] [address], [place], [address], 10/04/2020 10:54:26 10/05/19 21 10/04/2020 urina lysis , dipst ick bilirubin -advantus NEGATI VE negati ve Not Available [facility] [address] [facility] [address], [place], [address], 10/04/2020 10:54:26 10/05/19 21 10/04/2020 urina lysis , dipst ick ketones -advantus NEGATI VE mg/dL negati ve Not Available [facility] [address] [place] [address] [address], [place], [address], 10/04/2020 10:54:26 10/05/19 21 10/04/2020 urina lysis , dipst ick sp. gravity -advantus 1.025 1.010- 1.025 Not Available [facility] [address] [place] [address] [address], [place], [address], 10/04/2020 10:54:26 10/05/19 21 10/04/2020 urina lysis , dipst ick pH -advantus 6.0 5.0-8. 0 Not Available [facility] [address] [place] [address] [address], [place], [address], 10/04/2020 10:54:26 10/05/19 21 10/04/2020 urina lysis , dipst ick protein -advantus TRACE mg/dL negati ve abnormal Not Available [facility] [address] [place] [address] [address], [place], [address], 10/04/2020 10:54:26 10/05/19 21 10/04/2020 urina lysis , dipst ick urobilinogen -advantus 1.0 normal Not Available [facility] [address] [place] [address] [address], [place], [address], 10/04/2020 10:54:26 10/05/19 21 10/04/2020 urina lysis , dipst ick nitrites -advantus NEGATI VE negati ve Not Available [facility] [address] [place] [address] [address], [place], [address], 10/04/2020 10:54:26 10/05/19 21 10/04/2020 urina lysis , dipst ick blood -advantus SMALL negati ve abnormal Not Available [facility] [address] [place] [address] [address], [place], [address], 10/04/2020 10:54:26 10/05/19 21 10/04/2020 urina lysis , dipst ick leukocytes -advantus LARGE negati ve abnormal Not Available [facility] [address] [place] [address] [address], [place], [address], 10/04/2020 10:54:26 10/05/19 21 10/04/2020 urina lysis , dipst ick performed by Caren Fink Not Available [facility] [address] [place] [address] [address], [place], [address], 10/04/2020 10:54:26 10/05/19 21 10/04/2020 urina lysis , dipst ick total urine volume (mL) 40 /mL Not Available [facility] [address] [place] [address] [address], [place], [address], 10/04/2020 10:54:26 10/05/19 21 10/04/2020 urina lysis , micro scopi c U-WBC 50 - 100 [hpf] 0 - 2 abnormal Not Available [facility] [address] [place] [address] [address], [place], [address], 10/04/2020 10:54:28 10/05/19 21 10/04/2020 urina lysis , micro scopi c U-RBC 0 - 2 [hpf] 0 - 2 Not Available [facility] [address] [place] [address] [address], [place], [address], 10/04/2020 10:54:28 10/05/19 21 10/04/2020 urina lysis , micro scopi c bacteria Small [hpf] negati ve abnormal Not Available [facility] [address] [facility] [address], [place], [address], 10/04/2020 10:54:28 10/05/19 21 10/04/2020 urina lysis , micro scopi c squamous epi Small /lpf negati ve,sma ll Not Available [facility] [address] [facility] [address], [place], [address], 10/04/2020 10:54:28 10/05/19 21 10/04/2020 cultu re, urine final report Microb iology result s Not Available [facility] [address] [facility] [address], [place], [address], 10/05/2020 09:57:17 10/03/19 21 09/28/2020 imagi ng/di [...] bladder Active 10/05/19 21 Chris Castro MD [address] [place] [address],[address], [address], [facility] 10/04/2020 10:32:13 Slowing of urinary stream Active 10/05/19 21 Chris Castro MD [address] [place] [address],[address], [address], [facility] 10/04/2020 10:32:13 Acute urinary tract infection Active 10/05/19 21 Chris Castro MD [address] [place] [address],[address], [address], [facility] 10/04/2020 10:32:15 Acquired buried penis Active 10/05/19 Chris Castro MD [address] [facility],[address], [place], [address], [facility] 10/04/2020 10:33:04 Problem Notes None recorded. Procedures Surgical History Date Name Laterality Status Provider Name and Address Organization Details Recorded Time Bladder Scan completed Geovanna cárdenas [facility] 10/04/2020 10:09:08 Imaging Results Imaging [...] Name and Address Organization Details Recorded Time 786096 Medicinal product containin g penicilli n and acting as antibacte rial agent (product) medicatio n other Not available Not available 09/30/2020 [id number] SNOMED aniph aliti c Not Available [...] Details Last Updated DateTime 10/04/2020 39.9 kg/m2 178518.1502 85367 g 170.18 cm Not Available Health Note [...] Pressure N Kidney Stones N Cancer N Depression Y Lung Disease N High Cholesterol N GERD/Acid Reflux N Heart Disease N Past Encounters Encounter ID Performer Location Encounter Start Date Encounter Closed Date Diagnosis/Indication Diagnosis SNOMED-CT Code [id number] Chris Castro MD [address] [address] 10/04/2020 09:55:35 10/04/2020 11:01:27 Acute urinary tract infection [id number] Incomplete emptying of bladder [id number] Slowing of urinary stream [id number] Acquired buried penis 23 [id number] Health Concerns Section Related Observation LastModified by Organization Detai ls LastModified Time None Recorded Concern Status LastModified by Organization Details LastModified Time None Recorded Advance Directives Directive None Recorded Payers Encounter Date Sequence Insurance Name Policy Number Policy Barbosa Covered Member ID Barbosa Member ID Guarantor Name 10/04/2020 1 [employer] - DOS PRIOR TO 2021 (MEDICAID REPLACEMENT - HMO) [facility] Morgan Pearson [id number] Morgan Pearson Notes Date Note Type Note Provider Name and Address Organization Details Recorded Time 10/04/2020 text/html HPI Notes: 10/04/20: Obesity, COPD, DM, chronic low back pain. Was at [facility] 09/28/20 to 09/29/20 for urosepsis [...] states that had a CT scan in [facility] in [place], [place] which was done on 09/28/20. He was transferred to [facility]. Denies straining or waiting to [...] feel: Terrible [Score: 3] Chris Castro MD [address] [place] [address],[address], [place], [address], [place] [facility] 10/04/2020 10:37:57
--- OUTSIDE RECORDS SUMMARY | 2023-11-15 15:36 | XMS_ITS | Clinical Summary ---
Author Organization [facility] Address [address] [place] [address] Care Team Providers Care Black Mill Operator Name Role Phone Alida Muir MD Unavailable Purvi Lennon MD Unavailable Darshana Huertas Unavailable [phone] Goran Dukes DO Primary Care Provider David Pereira MD Unavailable [phone] Jovany Dumont MD Unavailable [phone] Allergies Active Allergy Reactions Criticality Noted [...] 09/29/2020 Active levofloxacin (LEVAQUIN) 500 MG tabletIndications:Ac winnebago cystitis without hematuria Take 1 tablet (500 [...] for patients under 2 years old ??at [facility] for lipid analytes. 2-8 years: [...] LAB - BLOOD ORD ERABLES [facility] [address] [place] [address] * (ABNORMAL) Comprehensive metabolic panel (09/08/2021 8:28 [...] and gender (Shannon et al., NEJM, DOI: [id number]) Blood BLOOD SPECIMEN / Unknown Client Draw / Unknown 09/08/2021 8:28 AM CDT 09/08/2021 3:38 PM CDT David Jimenez PA-C LAB - BLOOD ORD ERABLES [facility] [address] [place] [address] * (ABNORMAL) Hemoglobin A1c (09/28/2020 10:35 AM CDT) Hemoglobin A1C 9.6(H) 0 - 5.6 % 09/28/2020 11:14 AM CDT [facility] Comment: Normal <5.7% Prediabetes 5.7-6.4% ??Diabetes 6.5% or higher - adopted from ADA consensus guidelines. Blood 09/28/2020 10:3 5 AM CDT 09/28/2020 10:36 AM CDT Sal Mora DO LAB - BLOOD ORDERAB LES [facility] [address] [address], [facility] [phone] from Last 3 Months or Most Recently Relevant to Health Maintenance Advance Directives For more information, please contact: [phone] * Full Code (Latest Code Status on File) Date Activated Date Inactivated Comments 09/28/2020 10:12 AM 09/29/2020 4:35 PM All basic a nd advanced life-sustaining interventions are performed as appropriate Question Answer Comments Code status determined by: Discussion with aishwarya nt/ legal decision maker Care Teams Black Mill Operator Relationship Specialty [place] [address] [place] [address] PCP - General Family Medicine 09/28/20 Alida Muir MD [facility] [address] [id number] Otolaryngology 08/25/18 Purvi Lennon MD [address] [facility] [address] [place] [address] Otolaryngology 08/25/18 Darshana Huertas AuD [address] [facility] [address] [place] [address] Culinary Worker Audiology 08/25/18 David Pereira MD [address] [place] [address] Urology 09/30/20 Jovany Dumont MD [address] [place] [address] Neurology 03/23/22
--- OUTSIDE RECORDS SUMMARY | 2023-11-15 15:36 | XMS_ITS | Encounter Summary ---
Author Organization [facility] Address [facility] [place] [address] Care Team Providers Care Vocational Aide Name Role Phone King Garcia MD Primary Care Provider Unavailable No Ref-Primary, Physician Primary Care Provider [facility] Primary Care Provide r Go Lr MD Unavailable Go Lr MD Unavailable Be Willard MD Primary Care Provider [phone] Alida Muir MD Unavailable Purvi Lennon MD Unavailable [phone] Darshana Huertas Unavailable [phone] Goran Dukes DO Primary Care Provider [phone] David Pereira MD Unavailable [phone] Jovany Dumont MD Unavailable [phone] Reason for Visit * Reason Comments Medication Refill Encounter Details Date Type Department Care Team (Late st Contact Info) Description 12/25/2016 Refill [facility] [place] [address] [address] Seda Rizzo PA-C [address] [place] [id number] Medication Refill Social History Tobacco Use Types [...] documented as of this encounter Care Teams Vocational Aide Relationship Specialty Start Date End Date King Garcia MD PCP - General Family Practice 09/25/16 10/30/17 No Ref-Primary, Physician PCP - General 10/31/17 12/19/17 [facility] [address] [place] [address] PCP - General 12/20/17 08/24/18 Go Lr MD [address] [place] [address] PCP - Assigned PCP 11/08/17 08/16/18 Be Willard MD [place] [id number] [place] [address] PCP - General Family Practice 08/25/18 09/27/20 [place] [address] [place] [phone] PCP - General Family Medicine 09/28/20 Go Lr MD [address] [place] [address] Assigned PCP 11/08/17 09/30/19 Alida Muir MD [facility] [address] [place] [address] Otolaryngology 08/25/18 Purvi Lennon MD 420 [facility] 396 [place] [address] Otolaryngology 08/25/18 Darshana Huertas AuD 420 [facility] 396 [place], [place] [address] Television Script Writer Audiology 08/25/18 David Pereira MD [address] [place] [address] Urology 09/30/20 Jovany Dumont MD [address] [place] [address] Neurology 03/23/22 documented as of this encounter
--- OUTSIDE RECORDS SUMMARY | 2023-11-15 15:36 | XMS_ITS | Referral Summary ---
Author Organization [facility] Address [address] [place] [address] Care Team Providers Care Ip Architect Name Role Phone Dinesh Muir MD Unavailable Purvi Lennon MD Unavailable Darshana Huertas Unavailable [phone] Goran Dukes DO Primary Care Provider [phone] David Pereira MD Unavailable [phone] Jovany Dumont MD Unavailable [phone] Allergies Active Allergy Reactions Criticality Noted [...] 09/29/2020 Active levofloxacin (LEVAQUIN) 500 MG tabletIndications:Ac otoe-missouria cystitis without hematuria Take 1 tablet (500 [...] for patients under 2 years old ??at [facility] for lipid analytes. 2-8 [...] LAB - BLOOD ORD ERABLES [facility] [address] [place] [address] * (ABNORMAL) Comprehensive metabolic panel (09/08/2021 8:28 [...] and gender (Shannon et al., NEJM, DOI: [id number]) Blood BLOOD SPECIMEN / Unknown Client Draw / Unknown 09/08/2021 8:28 AM CDT 09/08/2021 3:38 PM CDT David Jimenez PA-C LAB - BLOOD ORD ERABLES [facility] [address] [phone] * (ABNORMAL) Hemoglobin A1c (09/28/2020 10:35 AM CDT) Hemoglobin A1C 9.6(H) 0 - 5.6 % 09/28/2020 11:14 AM CDT [facility] Comment: Normal <5.7% Prediabetes 5.7-6.4% ??Diabetes 6.5% or higher - adopted from ADA consensus guidelines. Blood 09/28/2020 10:3 5 AM CDT 09/28/2020 10:36 AM CDT Sal Caesarbubba Mora DO LAB - BLOOD ORDERAB LES [facility] [address] [address], [facility] [phone] from Last 3 Months or Most Recently Relevant to Health Maintenance Advance Directives For more information, please contact: [phone] * Full Code (Latest Code Status on File) Date Activated Date Inactivated Comments 09/28/2020 10:12 AM 09/29/2020 4:35 PM All basic a nd advanced life-sustaining interventions are performed as appropriate Question Answer Comments Code status determined by: Discussion with aishwarya nt/ legal decision maker Care Teams Ip Architect Relationship Specialty [place] [address] [place] [address] PCP - General Family Medicine 09/28/20 Dinesh Muir MD [facility] [address] [address] Otolaryngology 08/25/18 Purvi Lennon MD [facility] 396 [place] [address] Otolaryngology 08/25/18 Darshana Huertas AuD [address] [facility] [address] [place], [place] [address] Sales And Training Specialist Audiology 08/25/18 David Pereira MD [address] [place] [address] Urology 09/30/20 Jovany Dumont MD [address] [place] [address] Neurology 03/23/22
--- OUTSIDE RECORDS SUMMARY | 2023-11-15 15:36 | XMS_ITS | Encounter Summary ---
Author Organization [facility] Address [facility] [place] [address] Care Team Providers Care Bus Company Manager Name Role Phone Confirmed, No Pcp Primary Care Provider [facility] Provider, [facility] Primary Care Provider Unavailabl King Allan MD Primary Care Provider Unavailable No Ref-Primary, Physician Primary Care Provider [facility] Primary Care Provide r Go Lr MD Unavailable Go Lr MD Unavailable Be Willard MD Primary Care Provider [phone] Dinesh Muir MD Unavailable Purvi Lennon MD Unavailable Darshana Huertas Unavailable [phone] Goran Dukes DO Primary Care Provider David Pereira MD Unavailable [phone] Jovany Dumont MD Unavailable [phone] Reason for Visit * Reason Onset Date Comments Referral 10/17/2015 Encounter Details Date Type Department Care Team (Late st Contact Info) Description 10/17/2015 [facility] [address] [place] [address] Pain Management Program, [facility] Referral Social History Tobacco Use Types [...] pt to schedule Interventional LM. Fabiana [employer] Internet Sales Consultant [facility] documented in this encounter Plan of Treatment Not on file documented as of this encounter Visit Diagnoses Not on filedocumented in this encounter Care Teams Bus Company Manager Relationship Specialty Start Date End Date Confirmed, No Pcp PCP - General 03/01/16 05/04/16 Provider, Kenan Corona PCP - General Urgent Care 05/05/16 09/24/16 King Garcia MD PCP - General Family Practice 09/25/16 10/30/17 No Ref-Primary, Physician PCP - General 10/31/17 12/19/[address] [facility] [address] [place] [address] PCP - General 12/20/17 08/24/18 Go Lr MD [address] [place] [address] PCP - Assigned PCP 11/08/17 08/16/18 Be Willard MD [facility] [address] [place] [address] PCP - General Family Practice 08/25/18 09/27/20 [place] [address] [place] [address] PCP - General Family Medicine 09/28/20 oG Lr MD [address] [place], [place] [address] Assigned PCP 11/08/17 09/30/19 Dinesh Muir MD [facility] [address] [place] [address] Otolaryngology 08/25/18 Purvi Lennon MD 420 [facility] 396 [place] [address] Otolaryngology 08/25/18 Darshana Huertas AuD [address] [address] Sterile Process Coordinator Audiology 08/25/18 David Pereira MD [address] [place] [address] Urology 09/30/20 Jovany Dumont MD [address] [place] [address] Neurology 03/23/22 documented as of this encounter
--- OUTSIDE RECORDS SUMMARY | 2023-11-15 15:36 | XMS_ITS | Clinical Summary ---
Author Organization [facility] Address [address] [place] [address] Care Team Providers Care Superior Court Judge Name Role Phone Needs Pcp, Assignment Primary Care Provider [phone] Source Comments You are receiving this document as you are listed as the primary care provider,follow-up provider, or the patient has been referred to you for consultation.This is in compliance with the Medicare and[facility] Hospital[facility] EHR Incentive Program,which states Providers who transition their patient to another setting of careor provider of care or refers their patient to another provider of care shouldprovide summary care record for each transition of care or referral. [employer] Allergies Active Allergy Reactions Criticality Noted Date [...] age to complete this topic Care Teams Superior Court Judge Relationship Specialty Start Date End Date Needs Pcp, [place] [address] PCP - General 07/02/16
== END 2023-11-15 15:34 | disposition home or self-care (01) ==
LOC: WOUND 15:34
PROVIDERS: Visit Provider Surgery
DX: I89.0 Lymphedema, not elsewhere classified (principal); E11.42 Type 2 diabetes mellitus with diabetic polyneuropathy; L97.811 Non-pressure chronic ulcer of other part of right lower leg limited to breakdown of skin; L97.821 Non-pressure chronic ulcer of other part of left lower leg limited to breakdown of skin; Z79.4 Long term (current) use of insulin
CPT/HCPCS: 29581

== ENCOUNTER 2023-11-17 07:57 | Outpatient (CLI) | payer MEDICARE, SELFPAY ==
--- OUTSIDE RECORDS SUMMARY | 2023-11-17 07:59 | XMS_ITS | Clinical Summary ---
Author Organization [facility] Quotations Book [facility] Address [address] [address] Phone Care Team Providers Care Sales Agent Name Role Phone Choice, No Pcp-Patient Primary [...] Comments Blood Pressure 136/71 05/22/2023 3:28 PM PURCHASING MANAGER/SALES Pulse 115 05/22/2023 3:28 PM PURCHASING MANAGER/SALES Temperature 37.5 ??C (99.5 ??F) 05/22/2023 4:56 PM CS T Respiratory Rate 22 05/22/2023 3:28 PM PURCHASING MANAGER/SALES Oxygen Saturation 93% 05/22/2023 3:28 PM PURCHASING MANAGER/SALES Inhaled Oxygen Concentration - - Weight 128.3 [...] to complete this topic Care Teams Sales Agent Relationship Specialty Start Date End Date Choice, No Pcp-Patient PCP - General 05/22/23
--- OUTSIDE RECORDS SUMMARY | 2023-11-17 07:59 | XMS_ITS | Clinical Summary ---
Author Organization [employer] Address [place], [place] [address] Care Team Providers Care Bundle Person Name Role Phone Pcp, No Unavailable Unavailable Goran Dukes DO Primary Care Provide r Tayla Kiran RN Unavailable [phone] Allergies Active Allergy Reactions Criticality Noted [...] 4 Active lidocaine 5 % topical patchIndications:Ac [place] pain of left shoulder Apply to intact [...] per day. 1 Each 4 Active Insulin [place], Disposable, (BD Amanda 2nd Gen Pen Needle) [...] be used to read blood sugars, follow referral management liaison directions. 6 Each 3 4 Active FreeStyle Lacie 3 Marshall for continuous blood glucose monitor (CGM)Indications:Ty pe 2 diabetes mellitus with hyperglycemia, without long-term current use of insulin (HC) To be used to read blood sugars follow referral management liaison directions. 1 Each 4 Active lancets (Microlet [...] Type Department Care Team Description 11/09/2023 Telephone [facility] [address] [place] [address] [phone] Goran Dukes, 10/25/2023 1:20 PM CDT Office Visit [facility] [address] [place] [phone] Goran Dukes, Urinary Problem 10/25/2023 Travel 10/25/2023 Nurse Triage [facility] [address] [place] [address] [phone] Goran Dukes, Urinary Problem 10/25/2023 Telephone [facility] [address] [place] [phone] Goran Dukes, DO UTI (Need med ) 10/13/2023 9:00 AM CDT Phone Office Visit [facility] [address] [place] [address] Tayla Kiran RN Diabetes 10/11/2023 Orders Only [facility] Scanner 1 scan: (1-Ord) [facility], 10/11/2023 10/06/2023 Telephone [facility] [address] [place] [address] [phone] Goran Dukes, Results 10/06/2023 Orders Only [address] [phone] Goran Dukes, <No scans attached> 10/05/2023 1:50 PM CDT Office Visit [facility] [address] [place] [phone] Goran Dukes, Diabetes (Not fasting- The patient is requesting to speak about medication); Fatigue (The patient reports having leg fatigue like he is about to fall. The patient wants to discuss a walker or wheel chair options. ) 10/05/[address] [place], [place] [phone] Jocelynn Jay NP Refill Request (Clobetasol 0.05%) 10/05/2023 Telephone [facility] [address] [place] [phone] Goran Dukes DO Refill Request (KETOROLAC 10 MG TABLETS ) 10/05/2023 Travel 10/01/2023 Refill [facility] [address] [place] [phone] Goran Dukes DO Refill Request (Lantus Solostar U-100 Insulin) 09/27/2023 Telephone [facility] [address] [place] [phone] Goran Dukes DO Medication Management (Walker) 09/01/2023 3:20 PM CDT - 09/01/2023 11:59 PM CDT Hospital Encounter [facility] [address] [address] 09/01/2023 Travel 08/18/2023 11:59 AM [employer] STE[employer] 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 HELPER - 08/18/2023 11:59 PM [employer] STEEL WORKER HELPER Hospital Encounter [facility] [address] [address] Serge Leslie MD Bilateral leg edema 08/18/2023 Travel from Last 3 Months Immunizations Name Administration Dates Next Due COVID-19 vaccine (Cardiac Insight 30mcg/0.3mL) Gen FMDV 01/16/2021 Influenza, IIV4 03/16/2023,05/01/2022 [...] T Respiratory Rate 20 06/17/2023 7:45 AM [employer]UCT[employer] STEEL WORKER HELPER Oxygen Saturation 97% 10/25/2023 1:34 PM CDT [...] PM CDT UTI (urinary tract infection), uncomplicated SD DIAB MANAGE TRN PER INDIV Routine 10/13/2023 [...] LOWER EXTREMITY BILATERAL Routine 08/18/2023 11:50 AM [employer] STE[employer] WORKER HELPER Bilateral leg edema ANTI HCV Routine 01/22/2022 12:50 PM CDT Need for hepatitis C screening test from Last 3 Months or Most Recently Relevant to Health Maintenance Results * (ABNORMAL) URINALYSIS MICROSCOPIC (10/25/2023 1:37 PM CDT) RBC 6-10(A) 0-2, None Seen /HPF 10/25/2023 1:47 PM CDT [facility] WBC >100(A) 0-2, 3-5, None Seen /HPF 10/25/2023 1:47 PM CDT [facility] BACTERIA Moderate(A ) None Seen, Rare, Few Bacteria/H PF 10/25/2023 1:47 PM CDT [facility] EPITHELIAL CELLS None Seen None Seen, Few Epi/HPF 10/25/2023 1:47 PM CDT [facility] WHITE CELL CLUMPS Present(A) (none) 10/25/2023 1:47 PM CDT [facility] Urine URINE SPECIMEN / Unknown Non-Blood / Unknown 10/25/2023 1:37 PM CDT 10/25/2023 1:37 PM CDT [facility] Performing Organization Address [facility] Co de Phone Number [facility] [address] [place] [address], [place] * (ABNORMAL) URINE CULTURE (10/25/2023 1:37 PM CDT) CULTURE RESULT(A) 10/27/2023 8:53 AM CDT [facility]- NTRAL LABORATORY CULTURE >100,000 CFU/mL Streptococcus agalactiae (Strep Group B) 10/27/2023 8:53 AM CDT [facility] CULTURE <10,000 CFU/mL Multiple organisms probable contaminants 10/27/2023 8:53 AM CDT [facility] NTRAL LABORATORY Urine URINE SPECIMEN / Unknown Non-Blood / Unknown 10/25/2023 1:37 PM CDT 10/25/2023 1:37 PM CDT [facility] [address] [place] [address], [place] * (ABNORMAL) UA W/ SEDIMENT EXAM REFLEXED PER CRITERIA (10/25/2023 1:37 PM CDT) COLOR Yellow Yellow Color 10/25/2023 1:47 PM CDT [facility] CLARITY Cloudy(A) Clear Clarity 10/25/2023 1:47 PM CDT [facility] SPECIFIC GRAVITY,URINE 1.025 1.010, 1.015, 1.020, 1.025 10/25/2023 1:47 PM CDT [facility] PH,URINE 5.5 6.0, 7.0, 8.0, 5.5, 6.5, 7.5, 8.5 10/25/2023 1:47 PM CDT [facility] UROBILINOGEN, QUALITATIVE Normal Normal EU/dl 10/25/2023 1:47 PM CDT [facility] PROTEIN, URINE 100(A) Negative mg/dL 10/25/2023 1:47 PM CDT [facility] GLUCOSE, URINE >=1000(A) Negative mg/dL 10/25/2023 1:47 PM CDT [facility] KETONES,URINE Negative Negative mg/dL 10/25/2023 1:47 PM CDT [facility] BILIRUBIN,URI NE Negative Negative 10/25/2023 1:47 PM CDT [facility] OCCULT BLOOD,URINE Moderate(A) Negative 10/25/2023 1:47 PM CDT [facility] NITRITE Negative Negative 10/25/2023 1:47 PM CDT [facility] LEUKOCYTE ESTERASE Moderate(A) Negative 10/25/2023 1:47 PM CDT [facility] Urine URINE SPECIMEN / Unknown Non-Blood / Unknown 10/25/2023 1:37 PM CDT 10/25/2023 1:37 PM CDT Goran Dukes DO URINE [facility] [address] [place] [address], * SD DIAB MANAGE TRN PER INDIV (10/13/2023) DIABETIC ED oGran Dukes DO PB - ANCILLAR Y SERVICES * SCAN-EYE EXAM (10/11/2023 12:00 AM CDT) Scanner OTHER * (ABNORMAL) LIPID PANEL W REFLEX MEASURED LDL (10/05/2023 2:39 PM CDT) CHOLESTEROL,TOTAL 187 100 - 199 mg/dL 10/06/2023 1:31 AM CDT [facility] TRAL LABORAT[facility] Comment: Cholesterol, Total Reference Ranges Desirable <200 mg/dL Borderline 200-239 mg/dL High >=240 mg/dL TRIGLYCERIDES 147 <150 mg/dL 10/06/2023 1:31 AM CDT [facility] HDL CHOLESTEROL 27(L) >40 mg/dL 1:31 AM CDT [facility] NON-HDL CHOLESTEROL 160(H) <145 mg/dl 10/06/2023 1:31 AM CDT [facility] CHOL/HDL RATIO 6.93(H) <4.50 10/06/2023 1:31 AM CDT [facility] LDL CHOLESTEROL 131(H) <=130 mg/dL 10/06/2023 1:31 AM CDT [facility] VLDL CHOLESTEROL 29 <=30 mg/dL 10/06/2023 1:31 AM T [facility] TRAL LAB[facility] PROVIDER ORDERED STATUS RANDOM 10/06/2023 1:31 AM T [facility] TRA LABORATORY Blood BLOOD SPECIMEN / Unknown Venipuncture / Unknown 10/05/2023 2:39 PM CDT 10/05/2023 2:39 PM CDT Goran Dukes DO [facility]STRY [facility] [address] [place] [address], * (ABNORMAL) CBC W PLT NO DIFF (10/05/2023 2:39 PM CDT) WHITE BLOOD COUNT 8.8 4.5 - 11.0 thou/cu mm 10/05/2023 2:43 PM CDT [facility] RED BLOOD COUNT 4.49 4.30 - 5.90 mil/cu mm 10/05/2023 2:43 PM CDT [facility] HEMOGLOBIN 12.6(L) 13.5 - 17.5 g/dL 10/05/2023 2:43 PM CDT [facility] HEMATOCRIT 38.3 37.0 - 53.0 % 10/05/2023 2:43 PM CDT [facility] MCV 85 80 - 100 fL 10/05/2023 2:43 PM CDT [facility] MCH 28.1 26.0 - 34.0 pg 10/05/2023 2:43 PM CDT [facility] MCHC 32.9 32.0 - 36.0 g/dL 10/05/2023 2:43 PM CDT [facility] RDW 13.2 11.5 - 15.5 % 10/05/2023 2:43 PM CDT [facility] PLATELET COUNT 344 140 - 440 thou/cu mm 10/05/2023 2:43 PM CDT [facility] MPV 9.6 6.5 - 11.0 fL 10/05/2023 2:43 PM CDT [facility] NRBC 0.0 % 10/05/2023 2:43 PM CDT [facility] ABS NRBC 0.0 thou /cu mm 10/05/2023 2:43 PM CDT [facility] Blood BLOOD SPECIMEN / Unknown Venipuncture / Unknown 10/05/2023 2:39 PM CDT 10/05/2023 2:39 PM CDT Goran Dukes DO HEMATOLOGY [facility] [address] [place] [address], * ANTI HIV 1/2 [12319.0] (10/05/2023 2:39 PM CDT) Pathologist [facility] HIV-1/HIV-2 SCREEN Non-Reacti ve Non-Reacti ve 10/06/2023 1:17 AM CDT [facility] Comment:HIV-1 p24 and HIV-1/ HIV-2 Ab Not Detected. Blood BLOOD SPECIMEN / Unknown Venipuncture / Unknown 10/05/2023 2:39 PM CDT 10/05/2023 2:39 PM CDT Goran Dukes DO SEND OUTS Performing Organization Address [facility] Co de Phone Number [facility] [employer] [facility] [address] [place] [address], [place] * (ABNORMAL) HEMOGLOBIN A1C MONITORING (POCT) (10/05/2023 2:39 PM CDT) HEMOGLOBIN A1C MONITORING (POCT) 10.0(H) <=6.4 % 10/05/2023 2:54 PM CDT [facility] Blood BLOOD SPECIMEN / Unknown Venipuncture / Unknown 10/05/2023 2:39 PM CDT 10/05/2023 2:39 PM CDT Narrative [facility] - 10/05/2023 2:54 PM CDT ? [...] Goran Dukes DO CHEMISTRY Performing Organization Address [facility] Co de Phone Number [facility] [address] [place] [address], [place] * (ABNORMAL) COMP METABOLIC PANEL (10/05/2023 2:39 PM CDT) SODIUM 136 136 - 145 mmol/L 10/06/2023 1:31 AM CDT [facility] POTASSIUM 5.4(H) 3.5 - 5.1 mmol/L 10/06/2023 1:31 AM [facility] CHLORIDE 99 98 - 107 mmol/L 10/06/2023 1:31 AM [facility] CO2,TOTAL 26 22 - 29 mmol/L 10/06/2023 1:31 AM [facility] ANION GAP 11 5 - 18 10/06/2023 1:31 AM [facility] GLUCOSE 298(H) 70 - 99 mg/dL 10/06/2023 1:31 AM [facility] CALCIUM 9.5 8.6 - 10.0 mg/dL 10/06/2023 1:31 AM [facility] BUN 15 6 - 20 mg/dL 10/06/2023 1:31 AM [facility] CREATININE 0.83 0.70 - 1.20 mg/dL 10/06/2023 1:31 AM [facility] BUN/CREAT RATIO 18 10 - 20 1:31 AM [facility] eGFR >90 >90 mL/min/1.7 3m2 10/06/2023 1:31 AM [facility] Comment:As of 2021, eG FR is calculated by the CKD-EPI creatinine equation without race adjustment. ??eGFR can be influenced by muscle mass, exercise, and diet. ??The reported eGFR is an estimation only and is only applicable if the renal function is stable. ALBUMIN 4.0 4.0 - 4.9 g/dL 10/06/2023 1:31 AM [facility] TR[facility] PROTEIN,TOTAL 7.3 6.0 - 8.0 g/dL 10/06/2023 1:31 AM [facility] BILIRUBIN,TOTAL 0.2 0.0 - 1.2 mg/dL 10/06/2023 1:31 AM [facility] ALK PHOSPHATASE 83 40 - 129 IU/L 10/06/2023 1:31 AM CDT [facility] ALT (SGPT) 12 10 - 50 IU/L 10/06/2023 1:31 AM CDT [facility] AST (SGOT) 13 10 - 50 IU/L 10/06/2023 1:31 AM CDT [facility] Blood BLOOD SPECIMEN / Unknown Venipuncture / Unknown 10/05/2023 2:39 PM CDT 10/05/2023 2:39 PM CDT Goran Dukes DO CHEMISTRY [facility] [address] 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 Blood BLOOD SPECIMEN / Unknown Venipuncture / Unknown 01/22/2022 12:50 PM CDT 01/22/2022 12:51 PM CDT Goran Dukes DO SEND OUTS [facility]AL LABOR[facility]ORY [address] [place] [address], [place] from Last 3 Months or Most [...] Comments Code Status Discussion: Discussed Care Teams Bundle Person Relationship Specialty [place] [address] [place] [address] PCP - General Family Practice 10/16/20 Pcp, No . 08/04/14 Tayla Kiran, RN [address] [place] [address] Diabetes Care Management Registered Nurse 10/13/2308/13
--- OUTSIDE RECORDS SUMMARY | 2023-11-17 08:00 | XMS_ITS | Referral Summary ---
Author Organization [place] Address [address] [place] [address] Care Team Providers Care Side Puller Name Role Phone Dinesh Muir MD Unavailable Purvi Lennon MD Unavailable [phone] Darshana Huertas Unavailable [phone] Goran Dukes DO Primary Care Provider David Pereira MD Unavailable Jovany Dumont MD Unavailable Allergies Active Allergy [...] 09/29/2020 Active levofloxacin (LEVAQUIN) 500 MG tabletIndications:Ac false pass cystitis without hematuria Take 1 tablet (500 [...] for patients under 2 years old ??at [facility] for lipid analytes. 2-8 years: [...] LAB - BLOOD ORD ERABLES [facility] [address] [place] [address] * (ABNORMAL) Comprehensive metabolic panel (09/08/2021 8:28 [...] and gender (Shannon et al., NEJM, DOI: 10.1056/[id number]) Blood BLOOD SPECIMEN / Unknown Client Draw / Unknown 09/08/2021 8:28 AM CDT 09/08/2021 3:38 PM CDT David Jimenez PA-C LAB - BLOOD ORD ERABLES [facility] [address] [phone] * (ABNORMAL) Hemoglobin A1c (09/28/2020 10:35 AM CDT) Hemoglobin A1C 9.6(H) 0 - 5.6 % 09/28/2020 11:14 AM CDT [facility] Comment: Normal <5.7% Prediabetes 5.7-6.4% ??Diabetes 6.5% or higher - adopted from ADA consensus guidelines. Blood 09/28/2020 10:3 5 AM CDT 09/28/2020 10:36 AM CDT Sal Caesarbubba Mora DO LAB - BLOOD ORDERAB LES [facility] [address] [address], [facility] [phone] from Last 3 Months or Most Recently Relevant to Health Maintenance Advance Directives For more information, please contact: [phone] * Full Code (Latest Code Status on File) Date Activated Date Inactivated Comments 09/28/2020 10:12 AM 09/29/2020 4:35 PM All basic a nd advanced life-sustaining interventions are performed as appropriate Question Answer Comments Code status determined by: Discussion with aishwarya nt/ legal decision maker Care Teams Side Puller Relationship Specialty [place] [address] [place] [address] PCP - General Family Medicine 09/28/20 Dinesh Muir MD [facility] [address] [address] Otolaryngology 08/25/18 Purvi Lennon MD [address] [facility] [address] [facility] [address] [place] [address] Otolaryngology 08/25/18 Darshana Huertas AuD [address] [place] [address] [facility] [address] [place], [place] [address] Neurological Surgeon Audiology 08/25/18 David Pereira MD [address] [place] [address] Urology 09/30/20 Jovany Dumont MD [address] [place] [address] Neurology 03/23/22
--- OUTSIDE RECORDS SUMMARY | 2023-11-17 08:00 | XMS_ITS | Encounter Summary ---
Author Organization [place] Address Formerly [facility] [place] [address] Care Team Providers Care Cycle Touring Guide Name Role Phone King Garcia MD Primary Care Provider Unavailable No Ref-Primary, Physician Primary Care Provider [facility] Primary Care Provide r Go Lr MD Unavailable Go Lr MD Unavailable Be Willard MD Primary Care Provider [phone] Alida Muir MD Unavailable [phone] Purvi Lennon MD Unavailable Darshana Huertas Unavailable [phone] Goran Dukes DO Primary Care Provider David Pereira MD Unavailable [phone] Jovany Dumont MD Unavailable [phone] Reason for Visit * Reason Comments Medication Refill Encounter Details Date Type Department Care Team (Late st Contact Info) Description 12/25/2016 Refill [facility] [place] [address] [phone] Seda Rizzo PA-C [address] [place] [address] [phone] Medication Refill Social History Tobacco Use Types [...] documented as of this encounter Care Teams Cycle Touring Guide Relationship Specialty Start Date End Date King Garcia MD PCP - General Family Practice 09/25/16 10/30/17 No Ref-Primary, Physician PCP - General 10/31/17 12/19/17 [facility] [address] [place] [address] PCP - General 12/20/17 08/24/18 Go Lr MD [address] [place] [address] PCP - Assigned PCP 11/08/17 08/16/18 Be Willard MD [place] [id number] [place] [address] PCP - General Family Practice 08/25/18 09/27/20 [place] [address] [place] [phone] PCP - General Family Medicine 09/28/20 Go Lr MD [address] [place] [address] Assigned PCP 11/08/17 09/30/19 Alida Muir MD [facility] [address] [place] [address] Otolaryngology 08/25/18 Purvi Lennon MD [address] [facility] [address] [place] [address] Otolaryngology 08/25/18 Darshana Huertas AuD [address] [facility] [address] [place], [place] [address] Clothes Shaker Audiology 08/25/18 David Pereira MD [address] [place] [address] Urology 09/30/20 Jovany Dumont MD [address] [place] [address] Neurology 03/23/22 documented as of this encounter
--- OUTSIDE RECORDS SUMMARY | 2023-11-17 08:00 | XMS_ITS | Data Portability ---
Author Organization [facility], [facility] Address [address] [place] [address] Care Team Providers Care Operations Manager Name Role Phone JI BOLANOS Primary Care Provider [phone] Assessment No assessment recorded. Plan of Treatment Reminders Order Date Submit Date Provider Last Modified By Organization Details Last Modified Time Details Appointments None recorded. Lab urinalysis , dipstick 2020 [facility], [address], [address], [place], [address], 10:54:26 culture, urine 2020 [facility], [address], [address], [place], [address], 09:57:17 Referral urologist referral - buried penis, BXO 2020 randal Bolden MD, [address] [facility] [place], [address], [place], [address], 14:49:08 Procedures None recorded. Surgeries None recorded. Imaging None recorded. Medication Orders Flomax 0.4 mg capsule 2020 [id number], [address], [place], [address], 10:37:46 Patient TargetsNo targets recorded. Patient Instructions Encounter Date Encounter Id Patient Instructions Last Modified By Organization Details Last Modified Time 10/04/2020 [id number] Incomplete bladd er emptying/weak stream/UTI: He doesn't [...] request records from his ER visit in [place], [place] and would like to see the CT scan report. 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 The opening is small and I cannot expose the head of the penis. This too may be contributing to his infection. I recommend that he see urology at the [facility] for consideration of treatment of the [...] ick color -advantus YELLOW yellow Not Available [facility] [address] [facility] [address], [place], [address], 10/04/2020 10:54:26 10/05/19 21 10/04/2020 urina lysis , dipst ick appearance -advantus CLOUDY clear abnormal Not Available [facility] [address] [facility] [address], [place], [address], 10/04/2020 10:54:26 10/05/19 21 10/04/2020 urina lysis , dipst ick glucose -advantus NEGATI VE mg/dL negati ve Not Available [facility] [address] [facility] [address], [place], [address], 10/04/2020 10:54:26 10/05/19 21 10/04/2020 urina lysis , dipst ick bilirubin -advantus NEGATI VE negati ve Not Available [facility] [address] [facility] [address], [place], [address], 10/04/2020 10:54:26 10/05/19 21 10/04/2020 urina lysis , dipst ick ketones -advantus NEGATI VE mg/dL negati ve Not Available [facility] [address] [place] [address] [address], [place], [address], 10/04/2020 10:54:26 10/05/19 21 10/04/2020 urina lysis , dipst ick sp. gravity -advantus 1.025 1.010- 1.025 Not Available [facility] [address] [place] [address], [place], [address], 10/04/2020 10:54:26 10/05/19 21 10/04/2020 urina lysis , dipst ick pH -advantus 6.0 5.0-8. 0 Not Available [facility] [address] [place] [address], [place], [address], 10/04/2020 10:54:26 10/05/19 21 10/04/2020 urina lysis , dipst ick protein -advantus TRACE mg/dL negati ve abnormal Not Available [facility] [address] [place] [address], [place], [address], 10/04/2020 10:54:26 10/05/19 21 10/04/2020 urina lysis , dipst ick urobilinogen -advantus 1.0 normal Not Available [facility] [address] [place] [address], [place], [address], 10/04/2020 10:54:26 10/05/19 21 10/04/2020 urina lysis , dipst ick nitrites -advantus NEGATI VE negati ve Not Available [facility] [address] [place] [address], [place], [address], 10/04/2020 10:54:26 10/05/19 21 10/04/2020 urina lysis , dipst ick blood -advantus SMALL negati ve abnormal Not Available [facility] [address] [place] [address], [place], [address], 10/04/2020 10:54:26 10/05/19 21 10/04/2020 urina lysis , dipst ick leukocytes -advantus LARGE negati ve abnormal Not Available [facility] [address] [place] [address], [place], [address], 10/04/2020 10:54:26 10/05/19 21 10/04/2020 urina lysis , dipst ick performed by Caren Fink Not Available [facility] [address] [place] [address], [place], [address], 10/04/2020 10:54:26 10/05/19 21 10/04/2020 urina lysis , dipst ick total urine volume (mL) 40 /mL Not Available [facility] [address] [place] [address], [place], [address], 10/04/2020 10:54:26 10/05/19 21 10/04/2020 urina lysis , micro scopi c U-WBC 50 - 100 [hpf] 0 - 2 abnormal Not Available [facility] [address] [place] [address], [place], [address], 10/04/2020 10:54:28 10/05/19 21 10/04/2020 urina lysis , micro scopi c U-RBC 0 - 2 [hpf] 0 - 2 Not Available [facility] [address] [place] [address], [place], [address], 10/04/2020 10:54:28 10/05/19 21 10/04/2020 urina lysis , micro scopi c bacteria Small [hpf] negati ve abnormal Not Available [facility] [address] [facility] [address], [place], [address], 10/04/2020 10:54:28 10/05/19 21 10/04/2020 urina lysis , micro scopi c squamous epi Small /lpf negati ve,sma ll Not Available [facility] [address] [facility] [address], [place], [address], 10/04/2020 10:54:28 10/05/19 21 10/04/2020 cultu re, urine final report Microb iology result s Not Available [facility] [address] [facility] [address], [place], [address], 10/05/2020 09:57:17 10/03/19 21 09/28/2020 imagi ng/di [...] bladder Active 10/05/19 21 Chris Castro MD [address] [place] [address],[address], [address], [facility] 10/04/2020 10:32:13 Slowing of urinary stream Active 10/05/19 21 Chris Castro MD [address] [place] [address],[address], [address], [facility] 10/04/2020 10:32:13 Acute urinary tract infection Active 10/05/19 21 Chris Castro MD [address] [place] [address],[address], [address], [facility] 10/04/2020 10:32:15 Acquired buried penis Active 10/05/19 Chris Castro MD [address] [facility],[address], [place], [address], [facility] 10/04/2020 10:33:04 Problem Notes None recorded. Procedures Surgical History Date Name Laterality Status Provider Name and Address Organization Details Recorded Time Bladder Scan completed Geovanna cárdenas [facility] 10/04/2020 10:09:08 Imaging Results Imaging [...] Name and Address Organization Details Recorded Time 244046 Medicinal product containin g penicilli n and acting as antibacte rial agent (product) medicatio n other Not available Not available 09/30/2020 58621 05 SNOMED aniph aliti c Not Available [...] Details Last Updated DateTime 10/04/2020 39.9 kg/m2 968113.4819 88621 g 170.18 cm Not Available Health Note [...] Encounter Closed Date Diagnosis/Indication Diagnosis SNOMED-CT Code [id number] Chris Castro MD [address] [address] 10/04/2020 09:55:35 10/04/2020 11:01:27 Acute urinary tract infection [id number] Incomplete emptying of bladder [id number] Slowing of urinary stream [id number] Acquired buried penis 23 [id number] Health Concerns Section Related Observation LastModified by Organization Detai ls LastModified Time None Recorded Concern Status LastModified by Organization Details LastModified Time None Recorded Advance Directives Directive None Recorded Payers Encounter Date Sequence Insurance Name Policy Number Policy Barbosa Covered Member ID Barbosa Member ID Guarantor Name 10/04/2020 1 [employer] - DOS PRIOR TO 2021 (MEDICAID REPLACEMENT - HMO) [facility] Morgan Pearson [id number] Morgan Pearson Notes Date Note Type Note Provider Name and Address Organization Details Recorded Time 10/04/2020 text/html HPI Notes: 10/04/20: Obesity, COPD, DM, chronic low back pain. Was at [facility] 09/28/20 to 09/29/20 for urosepsis and [...] states that had a CT scan in [facility] in [place], [place] which was done on 09/28/20. He was transferred to [facility]. Denies straining or waiting to relax [...] feel: Terrible [Score: 3] Chris Castro MD [address] [place] [address],[address], [place], [address], [place] [facility] 10/04/2020 10:37:57
--- OUTSIDE RECORDS SUMMARY | 2023-11-17 08:00 | XMS_ITS | Clinical Summary ---
Author Organization [facility] Address [address] [place] [address] Care Team Providers Care Aerospace Medicine Physician Name Role Phone Needs Pcp, Assignment Primary Care Provider [phone] Source Comments You are receiving this document as you are listed as the primary care provider,follow-up provider, or the patient has been referred to you for consultation.This is in compliance with the Medicare and[facility] EHR Incentive Program,which states Providers who transition their patient to another setting of careor provider of care or refers their patient to another provider of care shouldprovide summary care record for each transition of care or referral. [employer] Allergies Active Allergy Reactions Criticality Noted Date [...] age to complete this topic Care Teams Aerospace Medicine Physician Relationship Specialty Start Date End Date Needs Pcp, [place] [address] PCP - General 07/02/16
--- OUTSIDE RECORDS SUMMARY | 2023-11-17 08:00 | XMS_ITS | Clinical Summary ---
Author Organization [facility] Address [address] [place] [address] Care Team Providers Care Rn Licensed Practical Name Role Phone Alida Muir MD Unavailable Purvi Lennon MD Unavailable [phone] Darshana Huertas Unavailable [phone] Goran Dukes DO Primary Care Provider David Pereira MD Unavailable Jovany Dumont MD Unavailable [phone] Allergies Active Allergy Reactions Criticality Noted [...] 09/29/2020 Active levofloxacin (LEVAQUIN) 500 MG tabletIndications:Ac pilot point cystitis without hematuria Take 1 tablet [...] patients under 2 years old ??at [facility] for lipid analytes. 2-8 years: Greater [...] LAB - BLOOD ORD ERABLES [facility] [address] [place] [address] * (ABNORMAL) Comprehensive metabolic panel (09/08/2021 8:28 [...] and gender (Shannon et al., NEJM, DOI: 10.1056/[id number]) Blood BLOOD SPECIMEN / Unknown Client Draw / Unknown 09/08/2021 8:28 AM CDT 09/08/2021 3:38 PM CDT David Jimenez PA-C LAB - BLOOD ORD ERABLES [facility] [address] [place] [address] * (ABNORMAL) Hemoglobin A1c (09/28/2020 10:35 AM CDT) Hemoglobin A1C 9.6(H) 0 - 5.6 % 09/28/2020 11:14 AM CDT [facility] Comment: Normal <5.7% Prediabetes 5.7-6.4% ??Diabetes 6.5% or higher - adopted from ADA consensus guidelines. Blood 09/28/2020 10:3 5 AM CDT 09/28/2020 10:36 AM CDT Sal Mora DO LAB - BLOOD ORDERAB LES [facility] [address] [address], [facility] [phone] from Last 3 Months or Most Recently Relevant to Health Maintenance Advance Directives For more information, please contact: [phone] * Full Code (Latest Code Status on File) Date Activated Date Inactivated Comments 09/28/2020 10:12 AM 09/29/2020 4:35 PM All basic a nd advanced life-sustaining interventions are performed as appropriate Question Answer Comments Code status determined by: Discussion with aishwarya nt/ legal decision maker Care Teams Rn Licensed Practical Relationship Specialty [place] [address] [place] [address] PCP - General Family Medicine 09/28/20 Alida Muir MD [facility] [address] [id number] Otolaryngology 08/25/18 Purvi Lennon MD [address] [facility] [address] [place] [address] Otolaryngology 08/25/18 Darshana Huertas AuD [address] [facility] [address] [place] [address] Motion Picture Set Up Worker Audiology 08/25/18 David Pereira MD [address] [place] [address] Urology 09/30/20 Jovany Dumont MD [address] [place] [address] Neurology 03/23/22
--- OUTSIDE RECORDS SUMMARY | 2023-11-17 08:00 | XMS_ITS | Encounter Summary ---
Author Organization [facility] Address On license of [facility] [place] [address] Care Team Providers Care Security Nurse Name Role Phone Confirmed, No Pcp Primary Care Provider Unavaila banner Provider, Uc Primary Care Provider Unavailabl King Allan MD Primary Care Provider Unavailable No Ref-Primary, Physician Primary Care Provider [facility] Primary Care Provide r Go Lr MD Unavailable Go Lr MD Unavailable Be Willard MD Primary Care Provider [phone] Dinesh Muir MD Unavailable Purvi Lennon MD Unavailable Darshana Huertas Unavailable [phone] Goran Dukes DO Primary Care Provider David Pereira MD Unavailable [phone] Jovany Dumont MD Unavailable [phone] Reason for Visit * Reason Onset Date Comments Referral 10/17/2015 Encounter Details Date Type Department Care Team (Late st Contact Info) Description 10/17/2015 Telephone [facility] [address] [place] [address] Pain Management Program, [facility] Referral Social History Tobacco Use Types Packs/Day [...] pt to schedule Interventional LM. Fabiana Johnson Sizing Machine Tender [facility] documented in this encounter Plan of Treatment Not on file documented as of this encounter Visit Diagnoses Not on filedocumented in this encounter Care Teams Security Nurse Relationship Specialty Start Date End Date Confirmed, No Pcp PCP - General 03/01/16 05/04/16 Provider, Kenan Corona PCP - General Urgent Care 05/05/16 09/24/16 King Garcia MD PCP - General Family Practice 09/25/16 10/30/17 No Ref-Primary, Physician PCP - General 10/31/17 12/19/17 [facility] [address] [place] [address] PCP - General 12/20/17 08/24/18 Go Lr MD [address] [place] [place] [address] PCP - Assigned PCP 11/08/17 08/16/18 Be Willard MD [facility] [address] [place] [address] PCP - General Family Practice 08/25/18 09/27/20 [place] [address] [place] [address] PCP - General Family Medicine 09/28/20 Go Lr MD [address] [place], [place] [address] Assigned PCP 11/08/17 09/30/19 Dinesh Muir MD [facility] [address] [place] [address] Otolaryngology 08/25/18 Purvi Lennon MD [address] [facility] [address] [place] [address] Otolaryngology 08/25/18 Darshana Huertas AuD [address] [address] Groover And Striper Operator Audiology 08/25/18 David Pereira MD [address] [place] [address] Urology 09/30/20 Jovany Dumont MD [address] [place] [address] Neurology 03/23/22 documented as of this encounter
== END 2023-11-17 07:58 | disposition home or self-care (01) ==
LOC: WOUND 07:57
PROVIDERS: Visit Provider Surgery
DX: I89.0 Lymphedema, not elsewhere classified (principal); L97.828 Non-pressure chronic ulcer of other part of left lower leg with other specified severity; E11.42 Type 2 diabetes mellitus with diabetic polyneuropathy; Z79.4 Long term (current) use of insulin
CPT/HCPCS: G0463

== ENCOUNTER 2023-12-08 07:50 | Outpatient (CLI) | payer MEDICARE, SELFPAY ==
--- OUTSIDE RECORDS SUMMARY | 2023-12-08 08:00 | XMS_ITS | Clinical Summary ---
Author Organization [facility] Address [place], [place] [address] Care Team Providers Care Bundle Cutter Name Role Phone Pcp, No Unavailable Unavailable Goran Dukes DO Primary Care Provide r Tayla Kiran RN Unavailable [phone] Allergies Active Allergy Reactions Criticality Noted [...] once daily. 90 Tablet 3 3 Active fluticasone (50 mcg per actuation) [...] once daily. 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 60 g 1 4 Active ammonium lactate 12% (LACHYDRIN) 12 % creamIndications:In tertrigo Apply topically to affected area(s) two times daily. 140 g 6 4 Active Lantus Solostar U-100 Insulin 100 [...] per day. 1 Each 4 Active Insulin [place], Disposable, (BD Amanda 2nd Gen Pen Needle) [...] be used to read blood sugars, follow supervisor pumping station directions. 6 Each 3 4 Active FreeStyle Lacie 3 [place] for continuous blood glucose monitor (CGM)Indications:Ty pe 2 diabetes mellitus with hyperglycemia, without long-term current use of insulin (HC) To be used to read blood sugars follow supervisor pumping station directions. 1 Each 4 Active lancets (Microlet [...] of need: lifetime 1 Each 4 Active loratadine (Claritin) 10 mg DISINTEGRATING tabletIndications:E nvironmental allergies Place 1 Tablet (10 mg) on the tongue once daily if needed for Allergy Symptoms. 30 Tablet 1 4 Active loratadine-pseudoep hedrine (Claritin-D 12 Hour) 5-120 mg 12hr tabletIndications:E nvironmental allergies Take 1 Tablet by mouth every 12 hours. 60 Tablet 5 4 Active Bismuth Tribrom-Petrolatum, Wh (Xeroform Petrolatum Dressing) 5 X 9 bndgIndications:Lilia lulitis of right lower extremity Apply topically to affected area(s). 50 Each 1 4 Active loratadine (Claritin) 10 mg DISINTEGRATING tabletIndications:E nvironmental allergies Place 1 Tablet (10 mg) on the tongue once daily if needed for Allergy Symptoms. 30 Tablet 1 3 11/22/19 24 Discontinu ed(Reorder (E-cancel not sent)) loratadine-pseudoep hedrine (Claritin-D 12 Hour) 5-120 mg 12hr tabletIndications:E nvironmental allergies Take 1 Tablet by mouth every 12 hours. 60 Tablet 5 4 11/25/19 24 Discontinu ed(Reorder (E-cancel not sent)) insulin aspart, U-100, (NOVOLOG FLEXPEN) 100 unit/mL (3 mL) penIndications:Poor ly controlled type 2 diabetes mellitus (HC) Subcutaneous injection: 30 Units three times daily with meals 15 Each 3 4 11/20/19 24 Discontinu ed(*Availa bility/For mulary change/Cos t of medication ) loratadine-pseudoep hedrine (Claritin-D 12 Hour) 5-120 mg 12hr tabletIndications:E nvironmental allergies Take 1 Tablet by mouth every 12 hours. 60 Tablet 5 4 11/26/19 Discontinu ed(*Availa bility/For mulary change/Cos t of medication ) Active Problems Problem Noted Date Diagnosed Date [...] Encounters Date Type Department Care Team Description 12/06/2023 Refill [facility] [address] [place] [address] Goran Dukes DO Refill Request (Xeroform Sterile Petrolatum Gauze Patch, 5 x 9.) 12/01/2023 Telephone [address] [address] [place] [address] Goran Dukes DO covid vaccine (Needs letter) 11/26/2023 Refill [address] [address] [place] [address] Goran Dukes, Refill Request 11/25/2023 Refill [facility] [address] [place] [address] Goran Dukes, Refill Request (Claritin/) 11/25/2023 Orders Only [address] [address] [place] [address] Goran Dukes, <No scans attached> 11/25/2023 [address] [place] [address], [place] [address] Goran Dukes, Prior Authorization (ketorolac (TORADOL) 10 mg tablet APPROVED 10/26/23-11/24/24) 11/25/2023 [address] [place] [address], [place] [address] Goran Dukes, Medication Management 11/22/2023 [address] [place] [address], [place] [address] Goran Dukes, Refill Request (CLARITIN REDITABS 10 MG TAB) 11/18/2023 Refill [address] [address] [place] [address] Goran Dukes, Refill Request (NOVOLOG FLEXPEN 100 UNIT /ML INJ SUBSTITUTION ) 11/09/2023 Telephone [address] [address] [place] [address] Goran Dukes DO 10/25/2023 1:20 PM CDT Office Visit [address] [address] [place] [address] Goran Dukes, Urinary Problem 10/25/2023 Travel 10/25/2023 Nurse Triage [address] [place] [address] Goran Dukes, Urinary Problem 10/25/2023 [address] [place] [phone] Goran Dukes DO UTI (Need med ) 10/13/2023 9:00 AM CDT Phone Office Visit [facility] [address] [place] [address] Tayla Kiran hydropulper 10/11/2023 Orders Only [facility] Scanner 1 scan: (1-Ord) [facility], 10/11/2023 10/06/[address] [phone] Goran Dukes, Results 10/06/2023 Orders Only [address] [phone] Goran Dukes, <No scans attached> 10/05/2023 1:50 PM CDT Office Visit [address] [phone] Goran Dukes, Diabetes (Not fasting- The patient is requesting to speak about medication); Fatigue (The patient reports having leg fatigue like he is about to fall. The patient wants to discuss a walker or wheel chair options. ) 10/05/2023 Telephone [place] [address] [place] [address] Jocelynn Jay NP Refill Request (Clobetasol 0.05%) 10/05/[address] [phone] Goran Dukes, Refill Request (KETOROLAC 10 MG TABLETS ) 10/05/2023 Travel 10/01/[address] [place] [phone] Goran Dukes, DO Refill Request (Lantus Solostar U-100 Insulin) 09/27/2023 Telephone [address] [address] [place] [phone] Goran Dukes, DO Medication Management (Walker) from Last 3 Months Immunizations Name Administration Dates Next Due COVID-19 vaccine ([facility] 30mcg/0.3mL) P F, MDV 01/16/2021 Influenza, IIV4 [...] T Respiratory Rate 20 06/17/2023 7:45 AM WILDLIFE MANAGEMENT PROFESSOR Oxygen Saturation 97% 10/25/2023 1:34 PM CDT Inhaled Oxygen Concentration - - Weight 131.5 kg (290 lb) 10/05/2023 1:49 PM CDT Height 162.6 cm (5' 4) 10/05/2023 1:49 PM CDT Body Mass Index 49.78 10/05/2023 1:49 PM CDT Plan of Treatment Upcoming Encounters Date Type Department Care Team (Late st Contact Info) Description 12/15/2023 4:50 PM CDT Office Visit [address] [address] [place] [address] [place] [address] [place] [address] Health Maintenance Due Date Last Done Comments [...] 9 PM CDT Diabetic peripheral neuropathy (HC) ANTI HCV Routine 01/22/2022 12:50 PM CDT Need for hepatitis C screening test from Last 3 Months or Most Recently Relevant to Health Maintenance Results * (ABNORMAL) URINALYSIS MICROSCOPIC (10/25/2023 1:37 PM CDT) RBC 6-10(A) 0-2, None Seen /HPF 10/25/2023 1:47 PM CDT [facility] WBC >100(A) 0-2, 3-5, None Seen /HPF 10/25/2023 1:47 PM CDT [facility] BACTERIA Moderate(A ) None Seen, Rare, Few Bacteria/H PF 10/25/2023 1:47 PM CDT [facility] EPITHELIAL CELLS None Seen None Seen, Few Epi/HPF 10/25/2023 1:47 PM CDT [facility] WHITE CELL CLUMPS Present(A) (none) 10/25/2023 1:47 PM CDT [facility] Urine URINE SPECIMEN / Unknown Non-Blood / Unknown 10/25/2023 1:37 PM CDT 10/25/2023 1:37 PM CDT [facility] URINE [facility] [address] [place] [address], [place] * (ABNORMAL) URINE CULTURE (10/25/2023 1:37 PM CDT) CULTURE RESULT(A) 10/27/2023 8:53 AM CDT [facility] CULTURE >100,000 CFU/mL Streptococcus agalactiae (Strep Group B) 10/27/2023 8:53 AM CDT [facility] CULTURE <10,000 CFU/mL Multiple organisms probable contaminants 10/27/2023 8:53 AM CDT [facility] Urine URINE SPECIMEN / Unknown Non-Blood / Unknown 10/25/2023 1:37 PM CDT 10/25/2023 1:37 PM CDT [facility] MICROBIOLOGY [facility] [address] [place] [address], [place] * (ABNORMAL) UA W/ SEDIMENT EXAM REFLEXED PER CRITERIA (10/25/2023 1:37 PM CDT) COLOR Yellow Yellow Color 10/25/2023 1:47 PM CDT [facility] CLARITY Cloudy(A) Clear Clarity 10/25/2023 1:47 PM CDT [facility] SPECIFIC GRAVITY,URINE 1.025 1.010, 1.015, 1.020, 1.025 10/25/2023 1:47 PM CDT [facility] PH,URINE 5.5 6.0, 7.0, 8.0, 5.5, 6.5, 7.5, 8.5 10/25/2023 1:47 PM CDT [facility] UROBILINOGEN, QUALITATIVE Normal Normal EU/dl 10/25/2023 1:47 PM CDT [facility] PROTEIN, URINE 100(A) Negative mg/dL 10/25/2023 1:47 PM CDT [facility] GLUCOSE, URINE >=1000(A) Negative mg/dL 10/25/2023 1:47 PM CDT [facility] KETONES,URINE Negative Negative mg/dL 10/25/2023 1:47 PM CDT [facility] BILIRUBIN,URI NE Negative Negative 10/25/2023 1:47 PM CDT [facility] OCCULT BLOOD,URINE Moderate(A) Negative 10/25/2023 1:47 PM CDT [facility] NITRITE Negative Negative 10/25/2023 1:47 PM CDT [facility] LEUKOCYTE ESTERASE Moderate(A) Negative 10/25/2023 1:47 PM CDT [facility] Urine URINE SPECIMEN / Unknown Non-Blood / Unknown 10/25/2023 1:37 PM CDT 10/25/2023 1:37 PM CDT Goran Dukes DO URINE [facility] [address] [place] [address], * NE DIAB MANAGE TRN PER INDIV (10/13/2023) DIABETIC ED Goran Dukes DO PB - ANCILLAR Y SERVICES * SCAN-EYE EXAM (10/11/2023 12:00 AM CDT) Scanner OTHER * (ABNORMAL) LIPID PANEL W REFLEX MEASURED LDL (10/05/2023 2:39 PM CDT) CHOLESTEROL,TOTAL 187 100 - 199 mg/dL 10/06/2023 1:31 AM CDT [facility] Comment: Cholesterol, Total Reference Ranges Desirable <200 mg/dL Borderline 200-239 mg/dL High >=240 mg/dL TRIGLYCERIDES 147 <150 mg/dL 10/06/2023 1:31 AM CDT [facility] HDL CHOLESTEROL 27(L) >40 mg/dL 1:31 AM CDT [facility] NON-HDL CHOLESTEROL 160(H) <145 mg/dl 10/06/2023 1:31 AM CDT [facility] CHOL/HDL RATIO 6.93(H) <4.50 10/06/2023 1:31 AM CDT [facility] LDL CHOLESTEROL 131(H) <=130 mg/dL 10/06/2023 1:31 AM CDT [facility] VLDL CHOLESTEROL 29 <=30 mg/dL 10/06/2023 1:31 AM CDT [facility] PROVIDER ORDERED STATUS RANDOM 10/06/2023 1:31 AM CDT [facility] Blood BLOOD SPECIMEN / Unknown Venipuncture / Unknown 10/05/2023 2:39 PM CDT 10/05/2023 2:39 PM CDT Goran Dukes DO CHEMISTRY [facility] [address] [place] [address], * (ABNORMAL) CBC W PLT NO DIFF (10/05/2023 2:39 PM CDT) WHITE BLOOD COUNT 8.8 4.5 - 11.0 thou/cu mm 10/05/2023 2:43 PM CDT [facility] RED BLOOD COUNT 4.49 4.30 - 5.90 mil/cu mm 10/05/2023 2:43 PM CDT [facility] HEMOGLOBIN 12.6(L) 13.5 - 17.5 g/dL 10/05/2023 2:43 PM CDT [facility] HEMATOCRIT 38.3 37.0 - 53.0 % 10/05/2023 2:43 PM CDT [facility] MCV 85 80 - 100 fL 10/05/2023 2:43 PM CDT [facility] MCH 28.1 26.0 - 34.0 pg 10/05/2023 2:43 PM CDT [facility] MCHC 32.9 32.0 - 36.0 g/dL 10/05/2023 2:43 PM CDT [facility] RDW 13.2 11.5 - 15.5 % 10/05/2023 2:43 PM CDT [facility] PLATELET COUNT 344 140 - 440 thou/cu mm 10/05/2023 2:43 PM CDT [facility] MPV 9.6 6.5 - 11.0 fL 10/05/2023 2:43 PM CDT [facility] NRBC 0.0 % 10/05/2023 2:43 PM CDT [facility] ABS NRBC 0.0 thou /cu mm 10/05/2023 2:43 PM CDT [facility] Blood BLOOD SPECIMEN / Unknown Venipuncture / Unknown 10/05/2023 2:39 PM CDT 10/05/2023 2:39 PM CDT Goran Dukes DO HEMATOLOGY [facility] [address] [place] [address], * ANTI HIV 1/2 [69793.0] (10/05/2023 2:39 PM CDT) [facility] HIV-1/HIV-2 SCREEN Non-Reacti ve Non-Reacti ve 10/06/2023 1:17 AM CDT [facility] Comment:HIV-1 p24 and HIV-1/ HIV-2 Ab Not Detected. Blood BLOOD SPECIMEN / Unknown Venipuncture / Unknown 10/05/2023 2:39 PM CDT 10/05/2023 2:39 PM CDT Goran Dukes DO SEND OUTS Performing Organization Address [facility]/ZIP Co de Phone Number [facility] [address] [place] [address], [place] * (ABNORMAL) HEMOGLOBIN A1C MONITORING (POCT) (10/05/2023 2:39 PM CDT) Pathologist [facility] HEMOGLOBIN A1C MONITORING (POCT) 10.0(H) <=6.4 % 10/05/2023 2:54 PM CDT [facility] Blood BLOOD SPECIMEN / Unknown Venipuncture / Unknown 10/05/2023 2:39 PM CDT 10/05/2023 2:39 PM CDT Narrative [facility] - 10/05/2023 2:54 PM CDT ? [...] Goran Dukes DO CHEMISTRY Performing Organization Address [facility] Co de Phone Number [facility] [address] [place] [address], [place] * (ABNORMAL) COMP METABOLIC PANEL (10/05/2023 2:39 PM CDT) SODIUM 136 136 - 145 mmol/L 10/06/2023 1:31 AM [facility] POTASSIUM 5.4(H) 3.5 - 5.1 mmol/L 10/06/2023 1:31 AM [facility] CHLORIDE 99 98 - 107 mmol/L 10/06/2023 1:31 AM [facility] CO2,TOTAL 26 22 - 29 mmol/L 10/06/2023 1:31 AM [facility] ANION GAP 11 5 - 18 10/06/2023 1:31 AM [facility] GLUCOSE 298(H) 70 - 99 mg/dL 10/06/2023 1:31 AM [facility] CALCIUM 9.5 8.6 - 10.0 mg/dL 10/06/2023 1:31 AM [facility] BUN 15 6 - 20 mg/dL 10/06/2023 1:31 AM [facility] CREATININE 0.83 0.70 - 1.20 mg/dL 10/06/2023 1:31 AM [facility] BUN/CREAT RATIO 18 10 - 20 1:31 AM [facility] eGFR >90 >90 mL/min/1.7 3m2 10/06/2023 1:31 AM [facility] Comment:As of 2021, eG FR is calculated by the CKD-EPI creatinine equation without race adjustment. ??eGFR can be influenced by muscle mass, exercise, and diet. ??The reported eGFR is an estimation only and is only applicable if the renal function is stable. ALBUMIN 4.0 4.0 - 4.9 g/dL 10/06/2023 1:31 AM [facility] PROTEIN,TOTAL 7.3 6.0 - 8.0 g/dL 10/06/2023 1:31 AM [facility] BILIRUBIN,TOTAL 0.2 0.0 - 1.2 mg/dL 10/06/2023 1:31 AM CDT [facility] ALK PHOSPHATASE 83 40 - 129 IU/L 10/06/2023 1:31 AM CDT [facility] ALT (SGPT) 12 10 - 50 IU/L 10/06/2023 1:31 AM CDT [facility] AST (SGOT) 13 10 - 50 IU/L 10/06/2023 1:31 AM CDT [facility] Blood BLOOD SPECIMEN / Unknown Venipuncture / Unknown 10/05/2023 2:39 PM CDT 10/05/2023 2:39 PM CDT Goran PerryCamarillo DO [facility]MI[facility]Y [facility] [address] [place] [address], [place] * ANTI HCV (01/22/2022 12:50 PM CDT) HEPATITIS C ANTIBODY Non-React cherelle Non-React cherelle 01/22/2022 9:10 PM CDT [facility] Comment:Antibodies to HCV no t detected; does not exclude the possibility of exposure to HCV. Blood BLOOD SPECIMEN / Unknown Venipuncture / Unknown 01/22/2022 12:50 PM CDT 01/22/2022 12:51 PM CDT Goran Perry [email or web address] LABORAT[facility] [address] [place] [address], [place] from Last 3 Months or Most [...] Code Status Discussion: Discussed Care Teams Bundle Cutter Relationship Specialty [place] [address] [place] [address] PCP - General Family Practice 10/16/20 Pcp, No . 08/04/14 Tayla Kiran, RN [address] [place] [address] Diabetes Care Management Registered Nurse 10/13/2308/13
--- OUTSIDE RECORDS SUMMARY | 2023-12-08 08:00 | XMS_ITS | Clinical Summary ---
Author Organization [facility] Address [address] [address] Phone Care Team Providers Care Software Test Analyst Name Role Phone Choice, No Pcp-Patient [...] Comments Blood Pressure 136/71 05/22/2023 3:28 PM MACHINE GUIDE BASE WINDER Pulse 115 05/22/2023 3:28 PM MACHINE GUIDE BASE WINDER Temperature 37.5 ??C (99.5 ??F) 05/22/2023 4:56 PM CS T Respiratory Rate 22 05/22/2023 3:28 PM MACHINE GUIDE BASE WINDER Oxygen Saturation 93% 05/22/2023 3:28 PM MACHINE GUIDE BASE WINDER Inhaled Oxygen Concentration - - Weight 128.3 [...] age to complete this topic Care Teams Software Test Analyst Relationship Specialty Start Date End Date Choice, No Pcp-Patient PCP - General 05/22/23
--- OUTSIDE RECORDS SUMMARY | 2023-12-08 08:01 | XMS_ITS | Encounter Summary ---
Author Organization [facility] Address [address] [place] [address] Care Team Providers Care Automotive Porter Name Role Phone Confirmed, No Pcp Primary Care Provider Unavaila ble Provider, Lv Uc Primary Care Provider Unavailabl King Allan MD Primary Care Provider Unavailable No Ref-Primary, Physician Primary Care Provider [facility] Primary Care Provide r Go Lr MD Unavailable Go Lr MD Unavailable Be Willard MD Primary Care Provider [phone] Dinesh Muir MD Unavailable Purvi Lennon MD Unavailable [phone] Darshana Huertas Unavailable [phone] Goran Dukes DO Primary Care Provider David Pereira MD Unavailable [phone] Jovany Dumont MD Unavailable [phone] Reason for Visit * Reason Onset Date Comments Referral 10/17/2015 Encounter Details Date Type Department Care Team (Late st Contact Info) Description 10/17/2015 Telephone [facility] [place] [address] [facility] [address] [place] [address] Pain Management Program, [facility] Referral Social History Tobacco Use Types [...] encounter Miscellaneous Notes * Telephone Encounter - Fabiana Damico - 10/17/2015 9:29 AM CDT Called pt to schedule Interventional LM. Fabiana Johnson Motor Coach Driver [facility] documented in this encounter Plan of Treatment Upcoming Encounters Date Type Department Care Team (Late st Contact Info) Description 12/27/2023 8:00 AM CDT Office Visit [place] [address] [facility] [address] [place] [phone] Florecita Hall NP [address] [facility] [address] [place] [address] documented as of this encounter Visit Diagnoses Not on filedocumented in this encounter Care Teams Automotive Porter Relationship Specialty Start Date End Date Confirmed, No Pcp PCP - General 03/01/16 05/04/16 Provider, Kenan Corona PCP - General Urgent Care 05/05/16 09/24/16 King Garcia MD PCP - General Family Practice 09/25/16 10/30/17 No Ref-Primary, Physician PCP - General 10/31/17 12/19/17 [facility] [address] [place] [phone] PCP - General 12/20/17 08/24/18 Go Lr MD [address] [place] [address] PCP - Assigned PCP 11/08/17 08/16/18 Be Willard MD [facility] [address] [place] [address] PCP - General Family Practice 08/25/18 09/27/20 [place] [address] [place] [phone] PCP - General Family Medicine 09/28/20 Go Lr MD [address] [place] [address] Assigned PCP 11/08/17 09/30/19 Dinesh Muir MD [facility] [address] [facility] [place] [address] Otolaryngology 08/25/18 Purvi Lennon MD [address] [facility] [address] [place] [address] Otolaryngology 08/25/18 Darshana Huertas AuD [address] [facility] [address] [place] [address] Interior Design Faculty Member Audiology 08/25/18 David Pereira MD [address] [place] [address] Urology 09/30/20 Jovany Dumont MD [address] [place] [address] Neurology 03/23/22 documented as of this encounter
--- OUTSIDE RECORDS SUMMARY | 2023-12-08 08:01 | XMS_ITS | Referral Summary ---
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 Take 1 tablet (500 [...] 09/28/2020 10:19 AM CDT Plan of Treatment Upcoming Encounters Date Type Department Care Team (Late st Contact Info) Description 12/27/2023 8:00 AM CDT Office Visit [address] [place] [phone] Florecita Hall NP [address] [facility] [address], [place] [address] Procedures Procedure Name Priority Date/Time Associated Diagnosis [...] 22(L) >=40 mg/dL 09/08/2021 4:19 PM CDT [facility] Comment: HDL Cholesterol Reference Range: 0-2 years: No reference ranges established for patients under 2 years old ??at [facility] for lipid analytes. 2-8 years: Greater than 45 mg/dL 18 years and older: Female: Greater than or equal to 50 mg/dL Male: ?? Greater than or equal to 40 mg/dL LDL Cholesterol Calculated 118 <=129 mg/dL 09/08/2021 4:19 PM CDT [facility] Patient Fasting > 8hrs? Unknown 09/08/2021 4:19 PM CDT [facility] Blood BLOOD SPECIMEN / Unknown Client Draw / Unknown 09/08/2021 8:28 AM CDT 09/08/2021 3:38 PM CDT David Jimenez PA-C LAB - BLOOD ORD ERABLES [facility] [id number] [place] [address] * (ABNORMAL) Comprehensive metabolic panel (09/08/2021 8:28 [...] - 22 mg/dL 09/08/2021 4:19 PM CDT [facility] Creatinine 0.71 0.70 - 1.30 mg/dL [...] >60 mL/min/1.7 3m2 09/08/2021 4:19 PM CDT [facility] Comment:Effective May 152020 eGFRcr in adults is calculated using the 2020 CKD-EPI creatinine equation which includes age and gender (Shannon et al., NEJM, DOI: 10.1056/MNIHyx9407910) Blood BLOOD SPECIMEN / Unknown Client Draw / Unknown 09/08/2021 8:28 AM CDT 09/08/2021 3:38 PM CDT David Jimenez PA-C LAB - BLOOD ORD ERABLES [facility] [address] [address], [facility] [phone] * (ABNORMAL) Hemoglobin A1c (09/28/2020 10:35 AM CDT) Hemoglobin A1C 9.6(H) 0 - 5.6 % 09/28/2020 11:[address] [facility] Comment: Normal <5.7% Prediabetes 5.7-6.4% ??Diabetes 6.5% or higher - adopted from ADA consensus guidelines. Blood 09/28/2020 10:3 5 AM CDT 09/28/2020 10:36 AM CDT Sal Mora DO LAB - BLOOD ORDERAB LES [facility] [address] [place] [address], [facility] [phone] from Last 3 Months or Most Recently Relevant to Health Maintenance Advance Directives For more information, please contact: [phone] * Full Code (Latest Code Status on File) Date Activated Date Inactivated Comments 09/28/2020 10:12 AM 09/29/2020 4:35 PM All basic a nd advanced life-sustaining interventions are performed as appropriate Question Answer Comments Code status determined by: Discussion with aishwarya jones/ legal decision maker Care Teams Black Puller Relationship Specialty Start Date End Date Goran Dukes CatDO [address] [place] [address] PCP - General Family Medicine 09/28/20 Dinesh Muir MD [facility] [address] [place] [address] Otolaryngology 08/25/18 Purvi Lennon MD [address] [facility] 396 [place] [address] Otolaryngology 08/25/18 Darshana Huertas AuD [address] [facility] [address] [place] [address] Uncrater Audiology 08/25/18 David Pereira MD [address] [place] [address] Urology 09/30/20 Jovany Dumont MD [address] [place] [address] Neurology 03/23/22
--- OUTSIDE RECORDS SUMMARY | 2023-12-08 08:01 | XMS_ITS | Clinical Summary ---
Author Organization [facility] Address [address] [place] [address] Care Team Providers Care Transition Program Manager Name Role Phone Needs Pcp, Assignment Primary Care Provider [phone] Source Comments You are receiving this document as you are listed as the primary care provider,follow-up provider, or the patient has been referred to you for consultation.This is in compliance with the Medicare and[facility] Centercaid EHR Incentive Program,which states Providers who transition their patient to another setting of careor provider of care or refers their patient to another provider of care shouldprovide summary care record for each transition of care or referral. [facility] Allergies Active Allergy Reactions Criticality Noted Date [...] age to complete this topic Care Teams Transition Program Manager Relationship Specialty Start Date End Date Needs Pcp, [place] [address] PCP - General 07/02/16
--- OUTSIDE RECORDS SUMMARY | 2023-12-08 08:01 | XMS_ITS | Encounter Summary ---
Author Organization [facility] Address [address] [place] [address] Care Team Providers Care Able Seaman Name Role Phone King Garcia MD Primary Care Provider Unavailable No Ref-Primary, Physician Primary Care Provider [facility] Primary Care Provide r Go Lr MD Unavailable Go Lr MD Unavailable Be Willard MD Primary Care Provider [phone] Dinesh Muir MD Unavailable Purvi Lennon MD Unavailable [phone] Darshana Huertas Unavailable [phone] Goran Dukes DO Primary Care Provider David Pereira MD Unavailable [phone] Jovany Dumont MD Unavailable [phone] Reason for Visit * Reason Comments Medication Refill Encounter Details Date Type Department Care Team (Late st Contact Info) Description 12/25/2016 Refill [facility] [address] [address] Seda Rizzo, PAEfrenC [address] [address] Medication Refill Social History Tobacco Use Types [...] as of this encounter Plan of Treatment Upcoming Encounters Date Type Department Care Team (Late st Contact Info) Description 12/27/2023 8:00 AM CDT Office Visit [facility] [address] [facility] [address] [place] [address] Florecita Hall, KEHINDE [address] [facility] [address] [place] [address] documented as of this encounter Visit Diagnoses Diagnosis Seasonal allergic rhinitis due to other allergic trigger documented in this encounter Additional Health Concerns Assessment Noted Time PHQ-9 Depression Total Score: 0 09/28/19 17 7:15 AM CDT documented as of this encounter Care Teams Able Seaman Relationship Specialty Start Date End Date iKng Garcia MD PCP - General Family Practice 09/25/16 10/30/17 No Ref-Primary, Physician PCP - General 10/31/17 12/19/17 [facility] [address] [place] [address] PCP - General 12/20/17 08/24/18 Go Lr MD [address] [place] [address] PCP - Assigned PCP 11/08/17 08/16/18 Be Willard MD [facility] [address] [place] [address] PCP - General Family Practice 08/25/18 09/27/20 [place] [address] [place] [address] PCP - General Family Medicine 09/28/20 Go Lr MD [address] [place], [place] [address] Assigned PCP 11/08/17 09/30/19 Dinesh Muir MD [facility] [address] [place] [address] Otolaryngology 08/25/18 Purvi Lennon MD 420 [facility] 396 [place] [address] Otolaryngology 08/25/18 Darshana Huertas AuD [address] [address] Medical Practice Manager Audiology 08/25/18 Davdi Pereira MD [address] [address] Urology 09/30/20 Jovany Dumont MD [address] [place] [address] Neurology 03/23/22 documented as of this encounter
--- OUTSIDE RECORDS SUMMARY | 2023-12-08 08:01 | XMS_ITS | Clinical Summary ---
Author Organization [facility] Address [address] [place] [address] Care Team Providers Care Account Clerk Name Role Phone Dinesh Muir MD Unavailable Purvi Lennon MD Unavailable [phone] Darshana Huertas Unavailable [phone] Goran Dukes DO Primary Care Provider David Pereira MD Unavailable [phone] Jovany Dumont MD Unavailable [phone] Allergies Active Allergy Reactions Criticality Noted [...] Description 12/27/2023 8:00 AM CDT Office Visit [facility] [address] [facility] [address] [place] [address] Florecita Hlal, KEHINDE [address] [facility] [address] [place] [address] Health Maintenance Due Date Last Done Comments [...] 09/28/2020, Additional history exists LIPID 09/08/2022 09/08/2021 PHQ-2 (once per calendar year) 2023 09/25/2016, 05/29/2016 DTAP/TDAP/TD IMMUNIZATION (2 - Td or Tdap) 05/14/2026 05/14/2016 COVID-19 Vaccine Completed 03/16/2023, 02/2022, 02/06/2021, Additional history exists INFLUENZA VACCINE Completed 03/16/2023, 05/01/2022 HPV IMMUNIZATION Aged Out No longer e [...] for patients under 2 years old ??at [facility] for lipid analytes. 2-8 years: [...] LAB - BLOOD ORD ERABLES [facility] [address] [phone] * (ABNORMAL) Comprehensive metabolic panel (09/08/2021 8:28 [...] and gender (Shannon et al., NEJ, DOI: 10.1056/[id number]) Blood BLOOD SPECIMEN / Unknown Client Draw / Unknown 09/08/2021 8:28 AM CDT 09/08/2021 3:38 PM CDT David Jimenez PA-C LAB - BLOOD ORD ERABLES [facility] [id number] [place] [address] * (ABNORMAL) Hemoglobin A1c (09/28/2020 10:35 AM CDT) Hemoglobin A1C 9.6(H) 0 - 5.6 % 09/28/2020 11:14 AM CDT [facility] Comment: Normal <5.7% Prediabetes 5.7-6.4% ??Diabetes 6.5% or higher - adopted from ADA consensus guidelines. Blood 09/28/2020 10:3 5 AM CDT 09/28/2020 10:36 AM CDT Sal Mora DO LAB - BLOOD ORDERAB LES [facility] [address] [address], [facility] [phone] from Last 3 Months or Most Recently Relevant to Health Maintenance Advance Directives For more information, please contact: [phone] * Full Code (Latest Code Status on File) Date Activated Date Inactivated Comments 09/28/2020 10:12 AM 09/29/2020 4:35 PM All basic a nd advanced life-sustaining interventions are performed as appropriate Question Answer Comments Code status determined by: Discussion with tigree nt/ legal decision maker Care Teams Account Clerk Relationship Specialty [place] [address] [place] [address] PCP - General Family Medicine 09/28/20 Dinesh Miur MD [facility] [address] [place] [address] Otolaryngology 08/25/18 Purvi Lennon MD 420 [facility] 396 [place] [address] Otolaryngology 08/25/18 Darshana Huertas AuD [address] [address] Pulp Press Tender Audiology 08/25/18 David Pereira MD [address] [place] [address] Urology 09/30/20 Jovany Dumont MD [address] [place] [address] Neurology 03/23/22
== END 2023-12-08 07:51 | disposition home or self-care (01) ==
LOC: WOUND 07:59
PROVIDERS: Visit Provider Surgery
DX: I87.332 Chronic venous hypertension (idiopathic) with ulcer and inflammation of left lower extremity (principal); I87.2 Venous insufficiency (chronic) (peripheral); I89.0 Lymphedema, not elsewhere classified; E08.40 Diabetes mellitus due to underlying condition with diabetic neuropathy, unspecified; L97.828 Non-pressure chronic ulcer of other part of left lower leg with other specified severity; Z79.4 Long term (current) use of insulin
CPT/HCPCS: 87070; 87186; G0463

== ENCOUNTER 2023-12-15 09:16 | Outpatient (CLI) | payer MEDICARE, SELFPAY ==
--- OUTSIDE RECORDS SUMMARY | 2023-12-15 09:19 | XMS_ITS ---
Author Organization Unknown Encounters Encounter Type Performer Location Encounter Date Encoun ter Notes virtual - - [id number]:24:32.980-0 0:00 no notes virtual - - 6138-49-94Q17:49:25.273-0 0:00 no notes virtual - - 2137-18-09S48:33:39.670-0 0:00 no notes virtual - - 2794-48-42A31:21:52.370-0 0:00 no notes virtual - - 6875-13-58Q71:38:04.273-0 0:00 no notes virtual - - 2724-76-19X37:45:30.420-0 0:00 no notes virtual - - 7361-53-72F01:24:32.980-0 0:00 no notes virtual - - 8341-11-27B46:57:05.670-0 0:00 no notes virtual - - 1964-24-30A47:21:52.370-0 0:00 no notes virtual - - 2001-82-03T25:29:52.713-0 0:00 no notes virtual - - 2671-26-27V96:21:52.370-0 0:00 no notes virtual - - 2821-53-57A17:49:25.273-0 0:00 no notes virtual - - 2690-60-10U16:45:30.420-0 0:00 no notes virtual - - 8910-44-48U78:24:32.980-0 0:00 no notes virtual - - 3674-30-21V51:38:04.273-0 0:00 no notes virtual - - 2715-45-57Z06:29:52.713-0 0:00 no notes virtual - - 5744-29-89C56:20:45.160-0 0:00 no notes virtual - - 2590-40-82Y47:33:39.670-0 0:00 no notes virtual - - 4522-80-89O26:21:52.370-0 0:00 no notes virtual - - 6027-02-88O96:19:10.643-0 0:00 no notes virtual - - 3573-85-08V43:19:10.643-0 0:00 no notes virtual - - 6394-52-04U07:19:10.643-0 0:00 no notes virtual - - 8371-57-76P93:19:10.643-0 0:00 no notes Patient Care team information Name Category Status Period Participants - - Proposed period not known - - - period not known -
--- OUTSIDE RECORDS SUMMARY | 2023-12-15 09:19 | XMS_ITS | Encounter Summary ---
Author Organization [facility] Address [address] [place] [address] Care Team Providers Care Frontend Engineer Name Role Phone King Garcia MD Primary Care Provider Unavailable No Ref-Primary, Physician Primary Care Provider [facility] Primary Care Provide r Go Lr MD Unavailable Go Lr MD Unavailable Be Willard MD Primary Care Provider [phone] Dinesh Muir MD Unavailable Purvi Lnenon MD Unavailable [phone] Darshana Huertas Unavailable [phone] Goran Dukes DO Primary Care Provider David Pereira MD Unavailable [phone] Jovany Dumont MD Unavailable [phone] Reason for Visit * Reason Comments Medication Refill Encounter Details Date Type Department Care Team (Late st Contact Info) Description 12/25/2016 Refill [facility] [address] [address] Seda Rizzo, PAEfrenC [address] [id number] Medication Refill Social History Tobacco Use Types [...] Description 12/27/2023 8:00 AM CDT Office Visit [facility] [address] [facility] [address] [place] [address] Florecita Hall, KEHINDE [address] [facility] [address] [place] [address] documented as of this encounter Visit Diagnoses Diagnosis Seasonal allergic rhinitis due to other allergic trigger documented in this encounter Additional Health Concerns Assessment Noted Time PHQ-9 Depression Total Score: 0 09/28/19 17 7:15 AM CDT documented as of this encounter Care Teams Frontend Engineer Relationship Specialty Start Date End Date King Garcia MD PCP - General Family Practice 09/25/16 10/30/17 No Ref-Primary, Physician PCP - General 10/31/17 12/19/17 [facility] [address] [place] [address] PCP - General 12/20/17 08/24/18 Go Lr MD [address] [place] [address] PCP - Assigned PCP 11/08/17 08/16/18 Be Willard MD [facility] [address] [place] [address] PCP - General Family Practice 08/25/18 09/27/20 [place] [address] [place] [address] PCP - General Family Medicine 09/28/20 Go Lr MD 4[address] [place], [place] [address] Assigned PCP 11/08/17 09/30/19 Dinesh Muir MD [facility] [address] [place] [address] Otolaryngology 08/25/18 Purvi Lennon MD 420 [facility] 396 [place] [address] Otolaryngology 08/25/18 Darshana Huertas AuD [address] [address] White Sugar Syrup Operator Audiology 08/25/18 David Pereira MD [address] [place] [address] Urology 09/30/20 Jovany Dumont MD [address] [place] [address] Neurology 03/23/22 documented as of this encounter
--- OUTSIDE RECORDS SUMMARY | 2023-12-15 09:19 | XMS_ITS | Encounter Summary ---
Author Organization [facility] Address [address] [place] [address] Care Team Providers Care Associate Store Leader Name Role Phone Confirmed, No Pcp Primary Care Provider Unavaila ble Provider, Lv Uc Primary Care Provider Unavailabl King Allan MD Primary Care Provider Unavailable No Ref-Primary, Physician Primary Care Provider [facility] Primary Care Provide r Go Lr MD Unavailable Go Lr MD Unavailable Be Willard MD Primary Care Provider [phone] Dinesh Muir MD Unavailable Purvi Lennon MD Unavailable [phone] Darshana Huertas Unavailable [phone] Goran Dukes DO Primary Care Provider David Pereira MD Unavailable [phone] Jovany Dumont MD Unavailable [phone] Reason for Visit * Reason Onset Date Comments Referral 10/17/2015 Encounter Details Date Type Department Care Team (Late st Contact Info) Description 10/17/2015 Telephone [facility] [place] [address] [facility] [address] [place] [address] Pain Management Program, [facility] Referral Social History Tobacco Use Types [...] pt to schedule Interventional LM. Fabiana Johnson Pipe Joints Supervisor [facility] documented in this encounter Plan of Treatment Upcoming Encounters Date Type Department Care Team (Late st Contact Info) Description 12/27/2023 8:00 AM CDT Office Visit [place] [address] [facility] [address] [place] [address] Florecita Hall NP [address] [facility] [address] [place] [address] documented as of this encounter Visit Diagnoses Not on filedocumented in this encounter Care Teams Associate Store Leader Relationship Specialty Start Date End Date Confirmed, No Pcp PCP - General 03/01/16 05/04/16 Provider, Kenan Corona PCP - General Urgent Care 05/05/16 09/24/16 King Garcia MD PCP - General Family Practice 09/25/16 10/30/17 No Ref-Primary, Physician PCP - General 10/31/17 12/19/17 [facility] [address] [place] [id number] PCP - General 12/20/17 08/24/18 Go Lr MD [address] [place] [address] PCP - Assigned PCP 11/08/17 08/16/18 Be Willard MD [facility] [address] [place] [address] PCP - General Family Practice 08/25/18 09/27/20 [place] [address] [place] [address] PCP - General Family Medicine 09/28/20 Go Lr MD [address] [place] [address] Assigned PCP 11/08/17 09/30/19 Dinesh Muir MD [facility] [address] [facility] [place] [place] [address] Otolaryngology 08/25/18 Purvi Lennon MD 420 [facility] 396 [place] [address] Otolaryngology 08/25/18 Darshana Huertas AuD 420 [facility] 396 [place] [address] Getter Welder Audiology 08/25/18 David Pereira MD [address] [place] [address] Urology 09/30/20 Jovany Dumont MD [address] [place] [address] Neurology 03/23/22 documented as of this encounter
--- OUTSIDE RECORDS SUMMARY | 2023-12-15 09:19 | XMS_ITS | Clinical Summary ---
Author Organization [facility] Address [place], [place] [address] Care Team Providers Care Servicenow Administrator Developer Name Role Phone Pcp, No Unavailable Unavailable Goran Dukes DO Primary Care Provide r Tayla Kiran RN Unavailable [phone] Allergies Active Allergy Reactions Criticality Noted [...] 24hr period. 90 Patch 1 4 Active olopatadine (PATADAY) 0.2 % ophthalmic solutionIndications :Environmental allergies Place 1 Drop into both eyes once daily. 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 1 Each 4 Active Insulin [place], Disposable, (BD Amanda 2nd Gen Pen Needle) [...] be used to read blood sugars, follow exhibit preparator directions. 6 Each 3 4 Active FreeStyle Lacie 3 [place] for continuous blood glucose monitor (CGM)Indications:Ty pe 2 diabetes mellitus with hyperglycemia, without long-term current use of insulin (HC) To be used to read blood sugars follow exhibit preparator directions. 1 Each 4 Active lancets (Microlet [...] affected area(s). 50 Each 1 4 Active insulin glargine, U-100, (Lantus Solostar U-100 Insulin) 100 unit/mL (3 mL) penIndications:Poor ly controlled type 2 diabetes mellitus (HC) Inject 50 units subcutaneous before bedtime. 45 mL 1 4 Active loratadine (Claritin) 10 mg DISINTEGRATING tabletIndications:E nvironmental allergies Place 1 Tablet (10 mg) on the tongue once daily if needed for Allergy Symptoms. 30 Tablet 1 3 11/22/19 24 Discontinu ed(Reorder (E-cancel not sent)) insulin glargine, U-100, (Lantus Solostar U-100 Insulin) 100 unit/mL (3 mL) penIndications:Poor ly controlled type 2 diabetes mellitus (HC) Inject 50 units subcutaneous before bedtime. 45 mL 1 4 12/09/19 24 Discontinu ed(Reorder (E-cancel not sent)) loratadine-pseudoep [...] 12 hours. 60 Tablet 5 4 11/26/19 24 Discontinu ed(*Availa bility/For mulary change/Cos t [...] Encounters Date Type Department Care Team Description 12/09/2023 Refill [facility] [address] [place] [address] Goran Dukes, Refill Request (LANTUS SOLOSTAR PEN INJ) 12/06/2023 Refill [facility] [address] [facility] [place] [address] Goran Dukes, Refill Request (Xeroform Sterile Petrolatum Gauze Patch, 5 x 9.) 12/01/2023 Telephone [facility] [address] [facility] [place] [address] Goran Dukes, covid vaccine (Needs letter) 11/26/2023 Refill [facility] [address] [place] [address], [place] [address] Goran Dukes, Refill Request 11/25/2023 Refill [facility] [address] [place] [address], [place] [address] Goran Dukes, DO Refill Request (Claritin/) 11/25/2023 Orders Only [facility] [address] [place] [address], [place] [phone] Goran Dukes, <No scans attached> 11/25/2023 Telephone [facility] [address] [place] [address], [place] [phone] Goran Dukes, Prior Authorization (ketorolac (TORADOL) 10 mg tablet APPROVED 10/26/23-11/24/24) 11/25/2023 Telephone [facility] [address] [place] [address], [place] [address] Goran Dukes DO Medication Management 11/22/2023 Refill [facility] [address] [facility] [place] [phone] Goran Dukes, Refill Request (CLARITIN REDITABS 10 MG TAB) 11/18/2023 Refill [facility] [address] [place] [address], [place] [address] Goran Dukes, Refill Request (NOVOLOG FLEXPEN 100 UNIT /ML INJ SUBSTITUTION ) 11/09/2023 Telephone [facility] [address] [place] [phone] Goran Dukes DO 10/25/2023 1:20 PM CDT Office Visit [facility] [address] [place] [phone] Goran Dukes, Urinary Problem 10/25/2023 Travel 10/25/2023 Nurse Triage [facility] [address] [place] [phone] Goran Dukes DO Urinary Problem 10/25/2023 Telephone [facility] [address] [place] [phone] Goran Dukes DO UTI (Need med ) 10/13/2023 9:00 AM CDT Phone Office Visit [facility] [address] [place] [address] Tayla Kiran RN Diabetes 10/11/2023 Orders Only [facility] Scanner 1 scan: (1-Ord) [facility], 10/11/2023 10/06/[address] [phone] Goran Dukes DO Results 10/06/2023 Orders Only [address] [phone] Goran Dukes, <No scans attached> 10/05/2023 1:50 PM CDT Office Visit [address] [phone] Goran Dukes, Diabetes (Not fasting- The patient is requesting to speak about medication); Fatigue (The patient reports having leg fatigue like he is about to fall. The patient wants to discuss a walker or wheel chair options. ) 10/05/[address] [facility] [address] [facility] [place] [address] Jocelynn Jay NP Refill Request (Clobetasol 0.05%) 10/05/2023 Telephone [facility] [address] [place] [address] [phone] Goran Dukes, Refill Request (KETOROLAC 10 MG TABLETS ) 10/05/2023 Travel 10/01/2023 Refill [facility] [address] [place] [phone] Goran Dukes, Refill Request (Lantus Solostar U-100 Insulin) 09/27/2023 Telephone [facility] [address] [place] [phone] Goran Dukes, Medication Management (Walker) from Last 3 Months Immunizations Name Administration Dates Next Due COVID-19 vaccine (Briggo 30mcg/0.3mL) P F, MDV 01/16/2021 Influenza, IIV4 [...] Rate 20 06/17/2023 7:45 AM DIRECTOR OF ENTERPRISE APPLICATIONS Oxygen Saturation 97% 10/25/2023 1:34 PM CDT [...] /HPF 10/25/2023 1:47 PM CDT [facility] WBC >100(A) 0-2, 3-5, None Seen /HPF 10/25/2023 1:47 PM CDT [facility] BACTERIA Moderate(A ) None Seen, Rare, Few Bacteria/H PF 10/25/2023 1:47 PM CDT [facility] EPITHELIAL CELLS None Seen None Seen, Few Epi/HPF 10/25/2023 1:47 PM CDT [facility] WHITE CELL CLUMPS Present(A) (none) 10/25/2023 1:47 PM CDT [facility] Urine URINE SPECIMEN / Unknown Non-Blood / Unknown 10/25/2023 1:37 PM CDT 10/25/2023 1:37 PM CDT [facility] URINE Performing Organization Address City/[facility]/ZIP Co de Phone Number [facility] [address] [place] [address], [place] * (ABNORMAL) URINE CULTURE (10/25/2023 1:37 PM CDT) CULTURE RESULT(A) 10/27/2023 8:53 AM CDT [facility] CULTURE >100,000 CFU/mL Streptococcus agalactiae (Strep Group B) 10/27/2023 8:53 AM CDT [facility] CULTURE <10,000 CFU/mL Multiple organisms probable contaminants 10/27/2023 8:53 AM CDT [facility] Urine URINE SPECIMEN / Unknown Non-Blood / Unknown 10/25/2023 1:37 PM CDT 10/25/2023 1:37 PM CDT [facility] MICROBIOLOGY [facility] [address] [place] [address], [place] * (ABNORMAL) UA W/ SEDIMENT EXAM REFLEXED PER CRITERIA (10/25/2023 1:37 PM CDT) COLOR Yellow Yellow Color 10/25/2023 1:47 PM CDT [facility] CLARITY Cloudy(A) Clear Clarity 10/25/2023 1:47 PM CDT [facility] SPECIFIC GRAVITY,URINE 1.025 1.010, 1.015, 1.020, 1.025 10/25/2023 1:47 PM CDT [facility] PH,URINE 5.5 6.0, 7.0, 8.0, 5.5, 6.5, 7.5, 8.5 10/25/2023 1:47 PM CDT [facility] UROBILINOGEN, QUALITATIVE Normal Normal EU/dl 10/25/2023 1:47 PM CDT [facility] PROTEIN, URINE 100(A) Negative mg/dL 10/25/2023 1:47 PM CDT [facility] GLUCOSE, URINE >=1000(A) Negative mg/dL 10/25/2023 1:47 PM CDT [facility] KETONES,URINE Negative Negative mg/dL 10/25/2023 1:47 PM CDT [facility] BILIRUBIN,URI NE Negative Negative 10/25/2023 1:47 PM CDT [facility] OCCULT BLOOD,URINE Moderate(A) Negative 10/25/2023 1:47 PM CDT [facility] NITRITE Negative Negative 10/25/2023 1:47 PM CDT [facility] LEUKOCYTE ESTERASE Moderate(A) Negative 10/25/2023 1:47 PM CDT [facility] Urine URINE SPECIMEN / Unknown Non-Blood / Unknown 10/25/2023 1:37 PM CDT 10/25/2023 1:37 PM CDT Goran Dukes DO URINE [facility] [address] [place] [address], [place] * [place] DIAB MANAGE TRN PER INDIV (10/13/2023) DIABETIC ED Goran Dukes DO PB - ANCILLAR Y SERVICES * SCAN-EYE EXAM (10/11/2023 12:00 AM CDT) Scanner OTHER * (ABNORMAL) LIPID PANEL W REFLEX MEASURED LDL (10/05/2023 2:39 PM CDT) Pathologist [facility] CHOLESTEROL,TOTAL 187 100 - 199 mg/dL 10/06/2023 1:31 AM CDT [facility] Comment: Cholesterol, Total Reference Ranges Desirable <200 mg/dL Borderline 200-239 mg/dL High >=240 mg/dL TRIGLYCERIDES 147 <150 mg/dL 10/06/2023 1:31 AM CDT [facility] HDL CHOLESTEROL 27(L) >40 mg/dL 1:31 AM CDT [facility] NON-HDL CHOLESTEROL 160(H) <145 mg/dl 10/06/2023 1:31 AM CDT [facility] CHOL/HDL RATIO 6.93(H) <4.50 10/06/2023 1:31 AM CDT [facility] LDL CHOLESTEROL 131(H) <=130 mg/dL 10/06/2023 1:31 AM CDT [facility] VLDL CHOLESTEROL 29 <=30 mg/dL 10/06/2023 1:31 AM CDT [facility] PROVIDER ORDERED STATUS RANDOM 10/06/2023 1:31 AM CDT [facility] Blood BLOOD SPECIMEN / Unknown Venipuncture / Unknown 10/05/2023 2:39 PM CDT 10/05/2023 2:39 PM CDT Goran Dukes DO CHEMISTRY [facility] [address] [place] [address], * (ABNORMAL) CBC W PLT NO DIFF (10/05/2023 2:39 PM CDT) WHITE BLOOD COUNT 8.8 4.5 - 11.0 thou/cu mm 10/05/2023 2:43 PM CDT [facility] RED BLOOD COUNT 4.49 4.30 - 5.90 mil/cu mm 10/05/2023 2:43 PM CDT [facility] HEMOGLOBIN 12.6(L) 13.5 - 17.5 g/dL 10/05/2023 2:43 PM CDT [facility] HEMATOCRIT 38.3 37.0 - 53.0 % 10/05/2023 2:43 PM CDT [facility] MCV 85 80 - 100 fL 10/05/2023 2:43 PM CDT [facility] MCH 28.1 26.0 - 34.0 pg 10/05/2023 2:43 PM CDT [facility] MCHC 32.9 32.0 - 36.0 g/dL 10/05/2023 2:43 PM CDT [facility] RDW 13.2 11.5 - 15.5 % 10/05/2023 2:43 PM CDT [facility] PLATELET COUNT 344 140 - 440 thou/cu mm 10/05/2023 2:43 PM CDT [facility] MPV 9.6 6.5 - 11.0 fL 10/05/2023 2:43 PM CDT [facility] NRBC 0.0 % 10/05/2023 2:43 PM CDT [facility] ABS NRBC 0.0 thou /cu mm 10/05/2023 2:43 PM CDT [facility] Blood BLOOD SPECIMEN / Unknown Venipuncture / Unknown 10/05/2023 2:39 PM CDT 10/05/2023 2:39 PM CDT Goran Dukes DO HEMATOLOGY [facility] [address] [place] [address], * ANTI HIV 1/2 [95348.0] (10/05/2023 2:39 PM CDT) HIV-1/HIV-2 SCREEN Non-Reacti ve Non-Reacti ve 10/06/2023 1:17 AM CDT [facility] Comment:HIV-1 p24 and HIV-1/ HIV-2 Ab Not Detected. Blood BLOOD SPECIMEN / Unknown Venipuncture / Unknown 10/05/2023 2:39 PM CDT 10/05/2023 2:39 PM CDT [facility] [employer] [facility] [employer] Performing Organization Address City/[facility]/ZIP Co de Phone Number [facility] [address] [place] [address], * (ABNORMAL) HEMOGLOBIN A1C MONITORING (POCT) (10/05/2023 2:39 PM CDT) Pathologist [facility] HEMOGLOBIN A1C MONITORING (POCT) 10.0(H) <=6.4 % 10/05/2023 2:54 PM CDT [facility] Blood BLOOD SPECIMEN / Unknown Venipuncture / Unknown 10/05/2023 2:39 PM CDT 10/05/2023 2:39 PM CDT Narrative [facility] - 10/05/2023 2:54 PM CDT ? [...] be seen with: Untreated Anemias, Splenectomy ? [facility] Performing Organization Address City/[facility]/ZIP Co de Phone Number [facility] [address] [place] [address], [place] * (ABNORMAL) COMP METABOLIC PANEL (10/05/2023 2:39 PM CDT) SODIUM 136 136 - 145 mmol/L 10/06/2023 1:31 AM T [facility] POTASSIUM 5.4(H) 3.5 - 5.1 mmol/L 10/06/2023 1:31 AM T [facility] CHLORIDE 99 98 - 107 mmol/L 10/06/2023 1:31 AM T [facility] CO2,TOTAL 26 22 - 29 mmol/L 10/06/2023 1:31 AM T [facility] ANION GAP 11 5 - 18 10/06/2023 1:31 AM T [facility] GLUCOSE 298(H) 70 - 99 mg/dL 10/06/2023 1:31 AM T [facility] CALCIUM 9.5 8.6 - 10.0 mg/dL 10/06/2023 1:31 AM [facility] BUN 15 6 - 20 mg/dL 10/06/2023 1:31 AM [facility] CREATININE 0.83 0.70 - 1.20 mg/dL 10/06/2023 1:31 AM [facility] BUN/CREAT RATIO 18 10 - 20 1:31 AM [facility] eGFR >90 >90 mL/min/1.7 3m2 10/06/2023 1:31 AM [facility] Comment:As of 2021, eG FR is calculated by the CKD-EPI creatinine equation without race adjustment. ??eGFR can be influenced by muscle mass, exercise, and diet. ??The reported eGFR is an estimation only and is only applicable if the renal function is stable. ALBUMIN 4.0 4.0 - 4.9 g/dL 10/06/2023 1:31 AM T [facility] PROTEIN,TOTAL 7.3 6.0 - 8.0 g/dL 10/06/2023 1:31 AM CDT [facility] BILIRUBIN,TOTAL 0.2 0.0 - 1.2 mg/dL 10/06/2023 1:31 AM CDT [facility] ALK PHOSPHATASE 83 40 - 129 IU/L 10/06/2023 1:31 AM CDT [facility] ALT (SGPT) 12 10 - 50 IU/L 10/06/2023 1:31 AM CDT [facility] AST (SGOT) 13 10 - 50 IU/L 10/06/2023 1:31 AM CDT [facility] Blood BLOOD SPECIMEN / Unknown Venipuncture / Unknown 10/05/2023 2:39 PM CDT 10/05/2023 2:39 PM CDT [facility] CHEMISTRY Performing Organization Address [facility]/ZIP Co de Phone Number [facility]ENTERAppc[facility] Inc[facility] [address] [place] [address], * ANTI HCV (01/22/2022 12:50 PM CDT) HEPATITIS C ANTIBODY Non-React cherelle Non-React cherelle 01/22/2022 9:10 PM CDT [facility] Comment:Antibodies to HCV no t detected; does not exclude the possibility of exposure to HCV. Blood BLOOD SPECIMEN / Unknown Venipuncture / Unknown 01/22/2022 12:50 PM CDT 01/22/2022 12:51 PM CDT Yamli DO SEND [email or web address] [address] [place] [address], from Last 3 Months or Most Recently Relevant to Health Maintenance Advance Directives * Full Code (Latest Code Status on File) Date Activated Date Inactivated Comments 06/15/2023 11:00 PM 06/17/2023 2:40 PM Question Answer Comments Code Status Discussion: Reviewed Preferences * Full Code Date Activated Date Inactivated Comments 01/11/2020 5:28 PM 01/12/2020 7:09 PM Question Answer Comments Code Status Discussion: Discussed Care Teams Servicenow Administrator Developer Relationship Specialty [place] [address] [place] [address] PCP - General Family Practice 10/16/20 Pcp, No . 08/04/14 Tayla Kiran, RN [address] [place] [address] Diabetes Care Management Registered Nurse 10/13/2308/13
--- OUTSIDE RECORDS SUMMARY | 2023-12-15 09:19 | XMS_ITS | Clinical Summary ---
Author Organization [facility] Address [address] [place] [address] Care Team Providers Care Chemical Treatment Operator Name Role Phone Needs Pcp, Assignment Primary Care Provider [phone] Source Comments You are receiving this document as you are listed as the primary care provider,follow-up provider, or the patient has been referred to you for consultation.This is in compliance with the Medicare and[facility] Hospital[facility] EHR Incentive Program,which states Providers who transition their patient to another setting of careor provider of care or refers their patient to another provider of care shouldprovide summary care record for each transition of care or referral. [place] Allergies Active Allergy Reactions Criticality Noted Date [...] age to complete this topic Care Teams Chemical Treatment Operator Relationship Specialty Start Date End Date Needs Pcp, [place] [address] PCP - General 07/02/16
--- OUTSIDE RECORDS SUMMARY | 2023-12-15 09:19 | XMS_ITS | Clinical Summary ---
Author Organization [facility] Address [address] [place] [address] Care Team Providers Care Mechatronics Technologist Name Role Phone Dinesh Muir MD Unavailable [phone] Purvi Lennon MD Unavailable [phone] Darshana Huertas Unavailable [phone] Goran Dukes DO Primary Care Provider David Pereira MD Unavailable [phone] Jovany Dumont MD Unavailable [phone] Allergies Active Allergy Reactions Criticality Noted [...] Description 12/27/2023 8:00 AM CDT Office Visit [facility] [address] [facility] [address] [place] [phone] Florecita Hall, KEHINDE [address] [facility] [address] [place] [address] Health Maintenance Due Date Last Done Comments ADVANCE CARE PLANNING 1968 ANNUAL REVIEW OF HM ORDERS 1968 CT COLONOGRAPHY 1968 DIABETIC FOOT EXAM 1968 EYE EXAM 1968 FIT 1968 FLEX SIG 1968 MICROALBUMIN 1968 sDNA (Cologuard) 1968 COLONOSCOPY 1978 COLORECTAL CANCER SCREENING 1978 HIV SCREENING 1983 HEPATITIS C SCREENING 1986 HEPATITIS B IMMUNIZATION (1 of 3 - 19+ 3-dose series) 1987 LUNG CANCER SCREENING 2018 ZOSTER IMMUNIZATION (1 of 2) 2018 A1C 03/30/2021 09/28/2020 BMP 09/08/2022 09/08/2021, 0401/2021, 09/28/2020, Additional history exists LIPID 09/08/2022 09/08/2021 PHQ-2 (once per calendar year) 2023 09/25/2016, 05/29/2016 INFLUENZA VACCINE (#1) 2024 03/16/2023, 2021 DTAP/TDAP/TD IMMUNIZATION (2 - Td or Tdap) 05/14/2026 05/14/2016 COVID-19 Vaccine Completed 03/16/2023, 02/2022, 02/06/2021, Additional history exists HPV IMMUNIZATION Aged Out No longer e ligible based on patient's age to complete this topic IPV IMMUNIZATION Aged Out No longer e ligible based on patient's age to complete this topic MENINGITIS IMMUNIZATION Aged Out No l onger eligible based on patient's age to complete this topic Pneumococcal Vaccine: Pediatrics (0 to 5 Years) and At-Risk Patients (6 to 64 Years) Aged Out No longer eligible based on [...] for patients under 2 years old ??[facility] for lipid analytes. 2-8 years: [...] LAB - BLOOD ORD ERABLES [facility] [address] [phone] * (ABNORMAL) Comprehensive metabolic panel (09/08/2021 8:28 [...] and gender (Shannon et al., NEJM, DOI: 10.1056/[id number]) Blood BLOOD SPECIMEN / Unknown Client Draw / Unknown 09/08/2021 8:28 AM CDT 09/08/2021 3:38 PM CDT David Jimenez PA-C LAB - BLOOD ORD ERABLES [facility] [address] [phone] * (ABNORMAL) Hemoglobin A1c (09/28/2020 10:35 AM CDT) Hemoglobin A1C 9.6(H) 0 - 5.6 % 09/28/2020 11:14 AM CDT [facility] Comment: Normal <5.7% Prediabetes 5.7-6.4% ??Diabetes 6.5% or higher - adopted from ADA consensus guidelines. Blood 09/28/2020 10:3 5 AM CDT 09/28/2020 10:36 AM CDT Sal Mora DO LAB - BLOOD ORDERAB [facility] [address] [address], [facility] [phone] from Last 3 Months or Most Recently Relevant to Health Maintenance Advance Directives For more information, please contact: [phone] * Full Code (Latest Code Status on File) Date Activated Date Inactivated Comments 09/28/2020 10:12 AM 09/29/2020 4:35 PM All basic a nd advanced life-sustaining interventions are performed as appropriate Question Answer Comments Code status determined by: Discussion with aishwarya nt/ legal decision maker Care Teams Mechatronics Technologist Relationship Specialty [place] [address] [place] [address] PCP - General Family Medicine 09/28/20 Dinesh Muir MD [facility] [address] [address] Otolaryngology 08/25/18 Purvi Lennon MD [address] [facility] [address] [place] [address] Otolaryngology 08/25/18 Darshana Huertas AuD [address] [facility] [address] [place] [address] Application Coordinator Audiology 08/25/18 David Pereira MD [address] [place] [address] Urology 09/30/20 Jovany Dumont MD [address] [place] [address] Neurology 03/23/22
--- OUTSIDE RECORDS SUMMARY | 2023-12-15 09:19 | XMS_ITS | Referral Summary ---
Author Organization [facility] Address [address] [place] [address] Care Team Providers Care Cadmium Plater Name Role Phone Dinesh Muir MD Unavailable Purvi Lennon MD Unavailable [phone] Darshana Huertas Unavailable [phone] Goran Dukes DO Primary Care Provider [phone] David Pereira MD Unavailable [phone] Jovany Dumont MD Unavailable [phone] Allergies Active Allergy Reactions Criticality Noted [...] Description 12/27/2023 8:00 AM CDT Office Visit [address] [place] [phone] Florecita Hall NP [address] [facility] [address] [address] Procedures Procedure Name Priority Date/Time Associated Diagnosis [...] for patients under 2 years old ??at [facility] for lipid analytes. 2-8 years: [...] LAB - BLOOD ORD ERABLES [facility] [id number] [place] [address] * (ABNORMAL) Comprehensive metabolic panel (09/08/2021 8:28 [...] and gender (Shannon et al., NEJM, DOI: [id number]) Blood BLOOD SPECIMEN / Unknown Client Draw / Unknown 09/08/2021 8:28 AM CDT 09/08/2021 3:38 PM CDT David Jimenez PA-C LAB - BLOOD ORD ERABLES [facility] [address] [address], [facility] [phone] * (ABNORMAL) Hemoglobin A1c (09/28/2020 10:35 AM CDT) Hemoglobin A1C 9.6(H) 0 - 5.6 % 09/28/2020 11:14 AM CDT [facility] Comment: Normal <5.7% Prediabetes 5.7-6.4% ??Diabetes 6.5% or higher - adopted from ADA consensus guidelines. Blood 09/28/2020 10:3 5 AM CDT 09/28/2020 10:36 AM CDT Sal Mora DO LAB - BLOOD ORDERAB LES [facility] [address] [place] [address], [facility] [phone] from Last 3 Months or Most Recently Relevant to Health Maintenance Advance Directives For more information, please contact: [phone] * Full Code (Latest Code Status on File) Date Activated Date Inactivated Comments 09/28/2020 10:12 AM 09/29/2020 4:35 PM All basic a nd advanced life-sustaining interventions are performed as appropriate Question Answer Comments Code status determined by: Discussion with aishwarya jones/ legal decision maker Care Teams Cadmium Plater Relationship Specialty Start Date End Date Goran Dukes CatDO [address] [place] [address] PCP - General Family Medicine 09/28/20 Dinesh Muir MD [facility] [address] [place] [address] Otolaryngology 08/25/18 Purvi Lennon MD 420 [facility] 396 [place] [address] Otolaryngology 08/25/18 Darshana Huertas AuD 420 [facility] 396 [place] [address] Code Enforcement Supervisor Audiology 08/25/18 David Pereira MD [address] [place] [address] Urology 09/30/20 Jovany Dumont MD [address] [place] [address] Neurology 03/23/22
--- OUTSIDE RECORDS SUMMARY | 2023-12-15 09:19 | XMS_ITS | Clinical Summary ---
Author Organization [facility] Address [address] [address] Phone Care Team Providers Care Trim Operator Name Role Phone Choice, No Pcp-Patient Primary [...] Comments Blood Pressure 136/71 05/22/2023 3:28 PM BROOM MACHINE OPERATOR Pulse 115 05/22/2023 3:28 PM BROOM MACHINE OPERATOR Temperature 37.5 ??C (99.5 ??F) 05/22/2023 4:56 PM CS T Respiratory Rate 22 05/22/2023 3:28 PM BROOM MACHINE OPERATOR Oxygen Saturation 93% 05/22/2023 3:28 PM BROOM MACHINE OPERATOR Inhaled Oxygen Concentration - - [...] 2) 2018 Influenza Vaccine Seasonal (Standing Order) (#1) 2024 HPV Vaccine (Standing Order) Aged Out No longer eligible based on patient's age to complete this topic Pneumococcal/PCV20 Vaccine: Pediatrics (2-5 yrs) and At-Risk Patients (6-64 yrs) (Standing Order) Aged Out No longer eligible b ased on patient's age to complete this topic Care Teams Trim Operator Relationship Specialty Start Date End Date Choice, No Pcp-Patient PCP - General 05/22/23
== END 2023-12-15 09:17 | disposition home or self-care (01) ==
LOC: WOUND 09:16
PROVIDERS: Visit Provider Surgery
DX: I87.2 Venous insufficiency (chronic) (peripheral) (principal); I89.0 Lymphedema, not elsewhere classified; L97.828 Non-pressure chronic ulcer of other part of left lower leg with other specified severity; L03.116 Cellulitis of left lower limb; B95.61 Methicillin susceptible Staphylococcus aureus infection as the cause of diseases classified elsewhere; B95.4 Other streptococcus as the cause of diseases classified elsewhere; Z16.29 Resistance to other single specified antibiotic
CPT/HCPCS: G0463

== ENCOUNTER 2023-12-22 08:55 | Outpatient (CLI) | payer MEDICARE, SELFPAY ==
--- OUTSIDE RECORDS SUMMARY | 2023-12-22 08:57 | XMS_ITS | Clinical Summary ---
Author Organization [facility] Address [address] [place] [address] Care Team Providers Care Folder And Notcher Name Role Phone Dinesh Muir MD Unavailable [phone] Purvi Lennon MD Unavailable [phone] Darshana Huertas Unavailable [phone] Goran Dukes DO Primary Care Provider David Pereira MD Unavailable [phone] Jovany Dumont MD Unavailable [phone] Allergies Active Allergy Reactions Criticality Noted [...] Description 12/27/2023 8:00 AM CDT Office Visit [facility] [address] [facility] [address] [place] [phone] Florecita Hall, KEHINDE [address] [facility] [address] [place] [address] Health Maintenance Due Date Last Done Comments ADVANCE CARE PLANNING 1968 ANNUAL REVIEW OF HM ORDERS 1968 CT COLONOGRAPHY 1968 FIT 1968 FLEX SIG 1968 sDNA (Cologuard) 1968 COLONOSCOPY 1978 COLORECTAL CANCER SCREENING 1978 HIV SCREENING 1983 HEPATITIS C SCREENING 1986 HEPATITIS B IMMUNIZATION (1 of 3 - 19+ 3-dose series) 1987 LUNG CANCER SCREENING 2018 ZOSTER IMMUNIZATION (1 of 2) 2018 PHQ-2 (once per calendar year) 2023 09/25/2016, 05/29/2016 INFLUENZA VACCINE (#1) 2024 03/16/2023, 2021 GLUCOSE 09/08/2024 09/08/2021, 09/12, 09/29/2020, Additional history exists DTAP/TDAP/TD IMMUNIZATION (2 - Td or Tdap) 05/14/2026 05/14/2016 LIPID 09/08/2026 09/08/2021 COVID-19 Vaccine Completed 03/16/2023, 02/2022, 02/06/2021, Additional [...] Procedure Name Priority Date/Time Associated Diagnosis Comments COMPREHENSIVE METABOLIC PANEL Routine 09/08/2021 8:28 AM CDT Type 2 diabetes mellitus with hyperglycemia (H) [ICD-10-CM] Encounter for screening for lipoid disorders [ICD-10-CM] LIPID REFLEX TO DIRECT LDL PANEL Routine 09/08/2021 8:28 AM CDT Type 2 diabetes mellitus with hyperglycemia (H) [ICD-10-CM] Encounter for screening for lipoid disorders [ICD-10-CM] from Last 3 Months or Most Recently [...] for patients under 2 years old ??at [facility] for lipid analytes. 2-8 [...] [facility] [address] [phone] * (ABNORMAL) Comprehensive metabolic panel (09/08/2021 8:28 [...] and gender (Shannon et al., NEJM, DOI: [id number]) Blood BLOOD SPECIMEN / Unknown Client Draw / Unknown 09/08/2021 8:28 AM CDT 09/08/2021 3:38 PM CDT David Jimenez PA-C LAB - BLOOD ORD ERABLES [facility] [address] [place] [address], [facility] [phone] from Last 3 Months or Most Recently Relevant to Health Maintenance Advance Directives For more information, please contact: [phone] * Full Code (Latest Code Status on File) Date Activated Date Inactivated Comments 09/28/2020 10:12 AM 09/29/2020 4:35 PM All basic a nd advanced life-sustaining interventions are performed as appropriate Question Answer Comments Code status determined by: Discussion with patie nt/ legal decision maker Care Teams Folder And Notcher Relationship Specialty [place] [address] [place] [address] PCP - General Family Medicine 09/28/20 Dinesh Muir MD [facility] [address] [place] [address] Otolaryngology 08/25/18 Purvi Lennon MD [address] [facility] 396 [place], [place] [address] Otolaryngology 08/25/18 Darshana Huertas AuD [address] [facility] 396 [place], [place] [address] Cooking Casing And Drying Supervisor Audiology 08/25/18 David Pereira MD [address] [place] [address] Urology 09/30/20 Jovany Dumont MD [address] [place] [address] Neurology 03/23/22
--- OUTSIDE RECORDS SUMMARY | 2023-12-22 08:57 | XMS_ITS | Encounter Summary ---
Author Organization [facility] Address [address] [place] [address] Care Team Providers Care Stud Master/Mistress Name Role Phone Confirmed, No Pcp Primary Care Provider Unavaila ble Provider, Lv Uc Primary Care Provider Unavailabl King Allan MD Primary Care Provider Unavailable No Ref-Primary, Physician Primary Care Provider [facility] Primary Care Provide r Go Lr MD Unavailable Go Lr MD Unavailable Be Willard MD Primary Care Provider [phone] Dinesh Muir MD Unavailable [phone] Purvi Lennon MD Unavailable [phone] Darshana Huertas Unavailable [phone] Goran Dukes DO Primary Care Provider David Pereira MD Unavailable [phone] Jovany Dumont MD Unavailable [phone] Reason for Visit * Reason Onset Date Comments Referral 10/17/2015 Encounter Details Date Type Department Care Team (Late st Contact Info) Description 10/17/2015 Telephone [facility] [place] [id number] [facility] [address] [place] [address] Pain Management Program, [facility] Referral Social History Tobacco Use Types [...] pt to schedule Interventional LM. Fabiana Johnson Directional Bore Operator [facility] documented in this encounter Plan of Treatment Upcoming Encounters Date Type Department Care Team (Late st Contact Info) Description 12/27/2023 8:00 AM CDT Office Visit [place] [id number] [facility] [address] [place] [phone] Florecita Hall NP [address] [facility] [address] [place] [address] documented as of this encounter Visit Diagnoses Not on filedocumented in this encounter Care Teams Stud Master/Mistress Relationship Specialty Start Date End Date Confirmed, No Pcp PCP - General 03/01/16 05/04/16 Provider, Kenan Corona PCP - General Urgent Care 05/05/16 09/24/16 King Garcia MD PCP - General Family Practice 09/25/16 10/30/17 No Ref-Primary, Physician PCP - General 10/31/17 12/19/17 [facility] [address] [place] [id number] PCP - General 12/20/17 08/24/18 Go Lr MD [address] [place] [address] PCP - Assigned PCP 11/08/17 08/16/18 Be Willard MD [facility] [address] [place] [address] PCP - General Family Practice 08/25/18 09/27/20 [place] [address] [place] [address] PCP - General Family Medicine 09/28/20 Go Lr MD [address] [place] [address] Assigned PCP 11/08/17 09/30/19 Dinesh Muir MD [facility] [address] [facility] [place] [place] [address] Otolaryngology 08/25/18 Purvi Lennon MD 420 [facility] 396 [place] [address] Otolaryngology 08/25/18 Darshana Huertas AuD 420 [facility] 396 [place] [address] Animal Husbandry Worker Audiology 08/25/18 David Pereira MD [address] [place] [address] Urology 09/30/20 Jovany Dumont MD [address] [place] [address] Neurology 03/23/22 documented as of this encounter
--- OUTSIDE RECORDS SUMMARY | 2023-12-22 08:57 | XMS_ITS | Clinical Summary ---
Author Organization [facility] Address [address] [address] Phone Care Team Providers Care Centerless Grinder Tender Name Role Phone Choice, No Pcp-Patient Primary [...] Comments Blood Pressure 136/71 05/22/2023 3:28 PM CORRECTIONS COUNSELOR Pulse 115 05/22/2023 3:28 PM CORRECTIONS COUNSELOR Temperature 37.5 ??C (99.5 ??F) 05/22/2023 4:56 PM CS T Respiratory Rate 22 05/22/2023 3:28 PM CORRECTIONS COUNSELOR Oxygen Saturation 93% 05/22/2023 3:28 PM CORRECTIONS COUNSELOR Inhaled Oxygen Concentration - - Weight 128.3 [...] age to complete this topic Care Teams Centerless Grinder Tender Relationship Specialty Start Date End Date Choice, No Pcp-Patient PCP - General 05/22/23
--- OUTSIDE RECORDS SUMMARY | 2023-12-22 08:57 | XMS_ITS | Clinical Summary ---
Author Organization [facility] Address [place], [place] [address] Care Team Providers Care Criminal Lawyer Name Role Phone Pcp, No Unavailable Unavailable Goran Dukes DO Primary Care Provide r Tayla Kiran RN Unavailable [phone] Allergies Active Allergy Reactions Criticality Noted [...] per day. 1 Each 4 Active Insulin [place], Disposable, (BD Amanda 2nd Gen Pen Needle) [...] be used to read blood sugars, follow cable splicer directions. 6 Each 3 4 Active FreeStyle Lacie 3 [place] for continuous blood glucose monitor (CGM)Indications:Ty pe 2 diabetes mellitus with hyperglycemia, without long-term current use of insulin (HC) To be used to read blood sugars follow cable splicer directions. 1 Each 4 Active lancets (Microlet [...] before bedtime. 45 mL 1 4 Active insulin glargine, U-100, (Lantus [...] 11/25/19 24 Discontinu ed(Reorder (E-cancel not sent)) loratadine-pseudoep [...] Encounters Date Type Department Care Team Description 12/20/2023 Refill [facility] [address] [place] [phone] Goran Dukes, Refill Request (Freestyle Lacie 3 [place]) 12/09/2023 Refill [facility] [address] [place] [phone] Goran Dukes, Refill Request (LANTUS SOLOSTAR PEN INJ) 12/06/2023 Refill [facility] [address] [place] [phone] Goran Dukes, Refill Request (Xeroform Sterile Petrolatum Gauze Patch, 5 x 9.) 12/01/2023 Telephone [facility] [address] [place] [phone] Goran Dukes DO covid vaccine (Needs letter) 11/26/2023 Refill [facility] [address] [place] [phone] Goran Dukes, Refill Request 11/25/2023 Refill [facility] [address] [place] [phone] Goran Dukes, Refill Request (Claritin/) 11/25/2023 Orders Only [facility] [address] [place] [address] Goran Dukes, <No scans attached> 11/25/2023 Telephone [facility] [address] [place] [address], [place] [address] Goran Dukes, Prior Authorization (ketorolac (TORADOL) 10 mg tablet APPROVED 10/26/23-11/24/24) 11/25/2023 Telephone [facility] [address] [place] [address] Goran Dukes, Medication Management 11/22/2023 Refill [facility] [address] [place] [address] Goran Dukes, Refill Request (CLARITIN REDITABS 10 MG TAB) 11/18/2023 Refill [facility] [address] [place] [address] Goran Dukes DO Refill Request (NOVOLOG FLEXPEN 100 UNIT /ML INJ SUBSTITUTION ) 11/09/2023 Telephone [facility] [address] [place] [address] Goran Dukes DO 10/25/2023 1:20 PM CDT Office Visit [facility] [address] [place] [phone] Goran Dukes, Urinary Problem 10/25/2023 Travel 10/25/2023 Nurse Triage [facility] [address] [place] [phone] Goran Dukes, Urinary Problem 10/25/2023 Telephone [facility] [address] [place] [phone] Goran Dukes, UTI (Need med ) 10/13/2023 9:00 AM CDT Phone Office Visit [facility] [address] [place] [address] Tayla Kiran RN Diabetes 10/11/2023 Orders Only [facility] Scanner 1 scan: (1-Ord) [facility], 10/11/2023 10/06/2023 Telephone [facility] [address] [place] [phone] Goran Dukes, Results 10/06/2023 Orders Only [address] [phone] Goran Dukes, <No scans attached> 10/05/2023 1:50 PM CDT Office Visit [address] [phone] Goran Dukes, Diabetes (Not fasting- The patient is requesting to speak about medication); Fatigue (The patient reports having leg fatigue like he is about to fall. The patient wants to discuss a walker or wheel chair options. ) 10/05/2023 Telephone [place] [address] [address] [address] Jocelynn Jay NP Refill Request (Clobetasol 0.05%) 10/05/2023 Telephone [facility] [address] [place] [phone] Goran Dukes, Refill Request (KETOROLAC 10 MG TABLETS ) 10/05/2023 Travel 10/01/2023 Refill [facility] [address] [place] [address] Goran Dukes, Refill Request (Lantus Solostar U-100 Insulin) 09/27/2023 Telephone [facility] [address] [place] [address] Goran Dukes, Medication Management (Walker) from Last 3 Months Immunizations Name Administration Dates Next Due COVID-19 vaccine (Doochoo 30mcg/0.3mL) P F, MDV 01/16/2021 Influenza, IIV4 [...] T Respiratory Rate 20 06/17/2023 7:45 AM [facility]UM[facility] [employer]ER Oxygen Saturation 97% 10/25/2023 1:34 PM CDT [...] PM CDT UTI (urinary tract infection), uncomplicated IN DIAB MANAGE TRN PER INDIV Routine 10/13/2023 [...] /HPF 10/25/2023 1:47 PM CDT [facility] WBC >100(A) 0-2, 3-5, None Seen /HPF 10/25/2023 1:47 PM CDT [facility] BACTERIA Moderate(A ) None Seen, Rare, Few Bacteria/H PF 10/25/2023 1:47 PM CDT [facility] EPITHELIAL CELLS None Seen None Seen, Few Epi/HPF 10/25/2023 1:47 PM CDT [facility] WHITE CELL CLUMPS Present(A) (none) 10/25/2023 1:47 PM CDT [facility] Urine URINE SPECIMEN / Unknown Non-Blood / Unknown 10/25/2023 1:37 PM CDT 10/25/2023 1:37 PM CDT [facility] URINE Performing Organization Address [facility] Co de Phone Number [facility] [address] [place] [address], [place] * (ABNORMAL) URINE CULTURE (10/25/2023 1:37 PM CDT) CULTURE RESULT(A) 10/27/2023 8:53 AM CDT [facility] CULTURE >100,000 CFU/mL Streptococcus agalactiae (Strep Group B) 10/27/2023 8:53 AM CDT [facility] CULTURE <10,000 CFU/mL Multiple organisms probable contaminants 10/27/2023 8:53 AM CDT [facility] Urine URINE SPECIMEN / Unknown Non-Blood / Unknown 10/25/2023 1:37 PM CDT 10/25/2023 1:37 PM CDT [facility] MICROBIOLOGY Performing Organization Address City/[facility]/ZIP Co de Phone Number [facility] [address] [place] [address], [place] * (ABNORMAL) UA W/ SEDIMENT EXAM REFLEXED PER CRITERIA (10/25/2023 1:37 PM CDT) COLOR Yellow Yellow Color 10/25/2023 1:47 PM CDT [facility] CLARITY Cloudy(A) Clear Clarity 10/25/2023 1:47 PM CDT [facility] SPECIFIC GRAVITY,URINE 1.025 1.010, 1.015, 1.020, 1.025 10/25/2023 1:47 PM CDT [facility] PH,URINE 5.5 6.0, 7.0, 8.0, 5.5, 6.5, 7.5, 8.5 10/25/2023 1:47 PM CDT [facility] UROBILINOGEN, QUALITATIVE Normal Normal EU/dl 10/25/2023 1:47 PM CDT [facility] PROTEIN, URINE 100(A) Negative mg/dL 10/25/2023 1:47 PM CDT [facility] GLUCOSE, URINE >=1000(A) Negative mg/dL 10/25/2023 1:47 PM CDT [facility] KETONES,URINE Negative Negative mg/dL 10/25/2023 1:47 PM CDT [facility] BILIRUBIN,URI NE Negative Negative 10/25/2023 1:47 PM CDT [facility] OCCULT BLOOD,URINE Moderate(A) Negative 10/25/2023 1:47 PM CDT [facility] NITRITE Negative Negative 10/25/2023 1:47 PM CDT [facility] LEUKOCYTE ESTERASE Moderate(A) Negative 10/25/2023 1:47 PM CDT [facility] Urine URINE SPECIMEN / Unknown Non-Blood / Unknown 10/25/2023 1:37 PM CDT 10/25/2023 1:37 PM CDT Goran Dukes DO URINE Performing Organization Address City/State/[facility] Co de Phone Number [facility] [address] [place] [address], * IN DIAB MANAGE TRN PER INDIV (10/13/2023) DIABETIC ED Goran Dukes DO PB - ANCILLAR Y SERVICES * SCAN-EYE EXAM (10/11/2023 12:00 AM CDT) Scanner OTHER * (ABNORMAL) LIPID PANEL W REFLEX MEASURED LDL (10/05/2023 2:39 PM CDT) CHOLESTEROL,TOTAL 187 100 - 199 mg/dL 10/06/2023 1:31 AM CDT [facility] Comment: Cholesterol, Total Reference Ranges Desirable <200 mg/dL Borderline 200-239 mg/dL High >=240 mg/dL TRIGLYCERIDES 147 <150 mg/dL 10/06/2023 1:31 AM CDT [facility] HDL CHOLESTEROL 27(L) >40 mg/dL 1:31 AM CDT [facility] NON-HDL CHOLESTEROL 160(H) <145 mg/dl 10/06/2023 1:31 AM T [facility] CHOL/HDL RATIO 6.93(H) <4.50 10/06/2023 1:31 AM CDT [facility] LDL CHOLESTEROL 131(H) <=130 mg/dL 10/06/2023 1:31 AM CDT [facility] VLDL CHOLESTEROL 29 <=30 mg/dL 10/06/2023 1:31 AM T [facility] PROVIDER ORDERED STATUS RANDOM 10/06/2023 1:31 AM T [facility] Blood BLOOD SPECIMEN / Unknown Venipuncture / Unknown 10/05/2023 2:39 PM CDT 10/05/2023 2:39 PM CDT Goran Dukes DO CHEMISTRY [facility] [address] [place] [address], * (ABNORMAL) CBC W PLT NO DIFF (10/05/2023 2:39 PM CDT) WHITE BLOOD COUNT 8.8 4.5 - 11.0 thou/cu mm 10/05/2023 2:43 PM CDT [facility] RED BLOOD COUNT 4.49 4.30 - 5.90 mil/cu mm 10/05/2023 2:43 PM CDT [facility] HEMOGLOBIN 12.6(L) 13.5 - 17.5 g/dL 10/05/2023 2:43 PM CDT [facility] HEMATOCRIT 38.3 37.0 - 53.0 % 10/05/2023 2:43 PM CDT [facility] MCV 85 80 - 100 fL 10/05/2023 2:43 PM CDT [facility] MCH 28.1 26.0 - 34.0 pg 10/05/2023 2:43 PM CDT [facility] MCHC 32.9 32.0 - 36.0 g/dL 10/05/2023 2:43 PM CDT [facility] RDW 13.2 11.5 - 15.5 % 10/05/2023 2:43 PM CDT [facility] PLATELET COUNT 344 140 - 440 thou/cu mm 10/05/2023 2:43 PM CDT [facility] MPV 9.6 6.5 - 11.0 fL 10/05/2023 2:43 PM CDT [facility] NRBC 0.0 % 10/05/2023 2:43 PM CDT [facility] ABS NRBC 0.0 thou /cu mm 10/05/2023 2:43 PM CDT [facility] Blood BLOOD SPECIMEN / Unknown Venipuncture / Unknown 10/05/2023 2:39 PM CDT 10/05/2023 2:39 PM CDT Goran Perry [facility] HEMATOLOGY Performing Organization Address City/State/[facility] Co de Phone Number [facility] [address] [place] [address], * ANTI HIV 1/2 [31180.0] (10/05/2023 2:39 PM CDT) HIV-1/HIV-2 SCREEN Non-Reacti ve Non-Reacti ve 10/06/2023 1:17 AM CDT [facility] Comment:HIV-1 p24 and HIV-1/ HIV-2 Ab Not Detected. Blood BLOOD SPECIMEN / Unknown Venipuncture / Unknown 10/05/2023 2:39 PM CDT 10/05/2023 2:39 PM CDT Goran Dukes DO SEND OUTS [facility] [address] [place] [address], [place] * (ABNORMAL) HEMOGLOBIN A1C MONITORING (POCT) (10/05/2023 2:39 PM CDT) HEMOGLOBIN A1C MONITORING (POCT) 10.0(H) <=6.4 % 10/05/2023 2:54 PM CDT [facility] Blood BLOOD SPECIMEN / Unknown Venipuncture / Unknown 10/05/2023 2:39 PM CDT 10/05/2023 2:39 PM CDT Narrative [facility] - 10/05/2023 2:54 PM CDT [...] Goran Dukes DO CHEMISTRY Performing Organization Address City/[facility]/ZIP Co de Phone Number [facility] [address] [place] [address], * (ABNORMAL) COMP METABOLIC PANEL (10/05/2023 2:39 PM CDT) SODIUM 136 136 - 145 mmol/L 10/06/2023 1:31 AM CDT [facility] POTASSIUM 5.4(H) 3.5 - 5.1 mmol/L 10/06/2023 1:31 AM [facility] CHLORIDE 99 98 - 107 mmol/L 10/06/2023 1:31 AM [facility] CO2,TOTAL 26 22 - 29 mmol/L 10/06/2023 1:31 AM [facility] ANION GAP 11 5 - 18 10/06/2023 1:31 AM [facility] GLUCOSE 298(H) 70 - 99 mg/dL 10/06/2023 1:31 AM [facility] CALCIUM 9.5 8.6 - 10.0 mg/dL 10/06/2023 1:31 AM [facility] BUN 15 6 - 20 mg/dL 10/06/2023 1:31 AM [facility] CREATININE 0.83 0.70 - 1.20 mg/dL 10/06/2023 1:31 AM [facility] BUN/CREAT RATIO 18 10 - 20 1:31 AM [facility] eGFR >90 >90 mL/min/1.7 3m2 10/06/2023 1:31 AM [facility] Comment:As of 2021, eG FR is calculated by the CKD-EPI creatinine equation without race adjustment. ??eGFR can be influenced by muscle mass, exercise, and diet. ??The reported eGFR is an estimation only and is only applicable if the renal function is stable. ALBUMIN 4.0 4.0 - 4.9 g/dL 10/06/2023 1:31 AM [facility] PROTEIN,TOTAL 7.3 6.0 - 8.0 g/dL 10/06/2023 1:31 AM [facility] BILIRUBIN,TOTAL 0.2 0.0 - 1.2 mg/dL 10/06/2023 1:31 AM [facility] ALK PHOSPHATASE 83 40 - 129 IU/L 10/06/2023 1:31 AM [facility] ALT (SGPT) 12 10 - 50 IU/L 10/06/2023 1:31 AM CDT [facility] AST (SGOT) 13 10 - 50 IU/L 10/06/2023 1:31 AM CDT [facility] Blood BLOOD SPECIMEN / Unknown Venipuncture / Unknown 10/05/2023 2:39 PM CDT 10/05/2023 2:39 PM CDT [facility] [address] * ANTI HCV (01/22/2022 12:50 PM CDT) HEPATITIS C ANTIBODY Non-React cherelle Non-React cherelle 01/22/2022 9:10 PM CDT [facility] Comment:Antibodies to HCV no t detected; does not exclude the possibility of exposure to HCV. Blood BLOOD SPECIMEN / Unknown Venipuncture / Unknown 01/22/2022 12:50 PM CDT 01/22/2022 12:51 PM CDT Sciona DO SEND OUTS Performing Organization Address City/[facility]/ZIP Co de Phone Number [facility] [address] [place] [address], from Last 3 Months or Most Recently Relevant to Health Maintenance Advance Directives * Full Code (Latest Code Status on File) Date Activated Date Inactivated Comments 06/15/2023 11:00 PM 06/17/2023 2:40 PM Question Answer Comments Code Status Discussion: Reviewed Preferences * Full Code Date Activated Date Inactivated Comments 01/11/2020 5:28 PM 01/12/2020 7:09 PM Question Answer Comments Code Status Discussion: Discussed Care Teams Criminal Lawyer Relationship Specialty [place] [address] [place] [address] PCP - General Family Practice 10/16/20 Pcp, No . 08/04/14 Tayla Kiran, RN [address] [place] [address] Diabetes Care Management Registered Nurse 10/13/2308/13
--- OUTSIDE RECORDS SUMMARY | 2023-12-22 08:57 | XMS_ITS | Encounter Summary ---
Author Organization [facility] Address [address] [place] [address] Care Team Providers Care Sales Lead Name Role Phone King Garcia MD Primary Care Provider Unavailable No Ref-Primary, Physician Primary Care Provider [facility] Primary Care Provide r Go Lr MD Unavailable Go Lr MD Unavailable Be Willard MD Primary Care Provider [phone] Dinesh Muir MD Unavailable Purvi Lennon MD Unavailable [phone] Darshana Huertas Unavailable [phone] Goran Dukes DO Primary Care Provider David Pereira MD Unavailable [phone] Jovany Dumont MD Unavailable [phone] Reason for Visit * Reason Comments Medication Refill Encounter Details Date Type Department Care Team (Late st Contact Info) Description 12/25/2016 Refill [facility] [address] [address] Seda Rizzo, PAEfrenC [address] [id number] Medication Refill Social History Tobacco Use Types [...] Description 12/27/2023 8:00 AM CDT Office Visit [facility] [address] [facility] [address] [place] [address] Florecita Hall, KEHINED [address] [facility] [address] [place] [address] documented as of this encounter Visit Diagnoses Diagnosis Seasonal allergic rhinitis due to other allergic trigger documented in this encounter Additional Health Concerns Assessment Noted Time PHQ-9 Depression Total Score: 0 09/28/19 17 7:15 AM CDT documented as of this encounter Care Teams Sales Lead Relationship Specialty Start Date End Date King Garcia MD PCP - General Family Practice 09/25/16 10/30/17 No Ref-Primary, Physician PCP - General 10/31/17 12/19/17 [facility] [address] [place] [address] PCP - General 12/20/17 08/24/18 Go Lr MD [address] [place] [address] PCP - Assigned PCP 11/08/17 08/16/18 Be Willard MD [facility] [address] [place] [address] PCP - General Family Practice 08/25/18 09/27/20 [place] [address] [place] [phone] PCP - General Family Medicine 09/28/20 Go Lr MD [address] [place], [place] [address] Assigned PCP 11/08/17 09/30/19 Dinesh Muir MD [facility] [address] [place] [address] Otolaryngology 08/25/18 Purvi Lennon MD [address] [facility] [address] [place] [address] Otolaryngology 08/25/18 Darshana Huertas AuD [address] [address] [employer] [facility] Audiology 08/25/18 David Pereira MD [address] [place] [address] Urology 09/30/20 Jovany Dumont MD [address] [place] [address] Neurology 03/23/22 documented as of this encounter
--- OUTSIDE RECORDS SUMMARY | 2023-12-22 08:57 | XMS_ITS | Referral Summary ---
Author Organization [place] Address [address] [place] [address] Care Team Providers Care Multigrapher Name Role Phone Dinesh Muir MD Unavailable [phone] Purvi Lennon MD Unavailable [phone] Darshana Huertas Unavailable [phone] Goran Dukes DO Primary Care Provider David Pereira MD Unavailable [phone] Jovany Dumont MD Unavailable [phone] Allergies Active Allergy Reactions Criticality Noted [...] Description 12/27/2023 8:00 AM CDT Office Visit [address] [place] [phone] Florecita Hall NP [address] [facility] [address], [place] [address] Procedures Procedure Name Priority Date/Time Associated Diagnosis [...] patients under 2 years old ??at [facility] for lipid analytes. 2-8 [...] [facility] [address] [place] [address] * (ABNORMAL) Comprehensive metabolic panel (09/08/2021 8:28 [...] and gender (Shannon et al., NEJM, DOI: 10.1056/[id number]) Blood BLOOD SPECIMEN / Unknown Client Draw / Unknown 09/08/2021 8:28 AM CDT 09/08/2021 3:38 PM CDT David Jimenez PA-C LAB - BLOOD ORD [facility] [address] [phone] from Last 3 Months or Most Recently Relevant to Health Maintenance Advance Directives For more information, please contact: [phone] * Full Code (Latest Code Status on File) Date Activated Date Inactivated Comments 09/28/2020 10:12 AM 09/29/2020 4:35 PM All basic a nd advanced life-sustaining interventions are performed as appropriate Question Answer Comments Code status determined by: Discussion with patie nt/ legal decision maker Care Teams Multigrapher Relationship Specialty [place] [address] [place] [address] PCP - General Family Medicine 09/28/20 Dinesh Muir MD [facility] [address] [place] [address] Otolaryngology 08/25/18 Purvi Lennon MD [address] [place] [address] [address] [place] [address] Otolaryngology 08/25/18 Darshana Huertas AuD [address] [facility] [address] [place] [address] [employer] [facility] Audiology 08/25/18 David Pereira MD [address] [place] [address] Urology 09/30/20 Jovany Dumont MD [address] [place] [address] Neurology 03/23/22
--- OUTSIDE RECORDS SUMMARY | 2023-12-22 08:57 | XMS_ITS | Clinical Summary ---
Author Organization [facility] Address [address] [place] [address] Care Team Providers Care Delivery Consultant Name Role Phone Needs Pcp, Assignment Primary Care Provider [phone] Source Comments You are receiving this document as you are listed as the primary care provider,follow-up provider, or the patient has been referred to you for consultation.This is in compliance with the Medicare and[facility] Hospital[facility] EHR Incentive Program,which states Providers who transition their patient to another setting of careor provider of care or refers their patient to another provider of care shouldprovide summary care record for each transition of care or referral. [employer] Allergies Active Allergy Reactions Criticality Noted Date [...] - 2022-2 4 season) 2023 01/16/2021 Influenza (#1) 2024 DTaP/Tdap/Td (2 - Tdap) 05/14/2026 05/14/2016 [...] age to complete this topic Care Teams Delivery Consultant Relationship Specialty Start Date End Date Needs Pcp, [place] [address] PCP - General 07/02/16
--- OUTSIDE RECORDS SUMMARY | 2023-12-22 08:58 | XMS_ITS | Data Portability ---
Author Organization [facility], [facility] Address [address] [place] [address] Care Team Providers Care Cutter Wet Machine Name Role Phone JI BOLANOS Primary Care Provider Assessment No assessment recorded. Plan of Treatment Reminders Order Date Submit Date Provider Last Modified By Organization Details Last Modified Time Details Appointments None recorded. Lab urinalysis , dipstick 2020 [facility], [address], [place], [address], 10:54:26 culture, urine 2020 [facility], [address], [address], [place], [address], 09:57:17 Referral urologist referral - buried penis, BXO 2020 randal Bolden MD, [address] [facility], [address], [place], [address], 14:49:08 Procedures None recorded. Surgeries None recorded. Imaging None recorded. Medication Orders Flomax 0.4 mg capsule 2020 [id number], [address], [place], [address], 10:37:46 Patient TargetsNo targets recorded. Patient Instructions Encounter Date Encounter Id Patient Instructions Last Modified By Organization Details Last Modified Time 10/04/2020 [id number] Incomplete bladd er emptying/weak stream/UTI: He doesn't [...] request records from his ER visit in [place], [place] and would like to see the [...] ick color -advantus YELLOW yellow Not Available [facility] [address] [facility] [address], [place], [address], 10/04/2020 10:54:26 10/05/19 21 10/04/2020 urina lysis , dipst ick appearance -advantus CLOUDY clear abnormal Not Available [facility] [address] [facility] [address], [place], [address], 10/04/2020 10:54:26 10/05/19 21 10/04/2020 urina lysis , dipst ick glucose -advantus NEGATI VE mg/dL negati ve Not Available [facility] [address] [facility] [address], [place], [address], 10/04/2020 10:54:26 10/05/19 21 10/04/2020 urina lysis , dipst ick bilirubin -advantus NEGATI VE negati ve Not Available [facility] [address] [facility] [address], [place], [address], 10/04/2020 10:54:26 10/05/19 21 10/04/2020 urina lysis , dipst ick ketones -advantus NEGATI VE mg/dL negati ve Not Available [facility] [address] [place] [address] 200, [place], [address], 10/04/2020 10:54:26 10/05/19 21 10/04/2020 urina lysis , dipst ick sp. gravity -advantus 1.025 1.010- 1.025 Not Available [facility] [address] [place] [address] 200, [place], [address], 10/04/2020 10:54:26 10/05/19 21 10/04/2020 urina lysis , dipst ick pH -advantus 6.0 5.0-8. 0 Not Available [facility] [address] [place] [address] 200, [place], [address], 10/04/2020 10:54:26 10/05/19 21 10/04/2020 urina lysis , dipst ick protein -advantus TRACE mg/dL negati ve abnormal Not Available [facility] [address] [place] [address] 200, [place], [address], 10/04/2020 10:54:26 10/05/19 21 10/04/2020 urina lysis , dipst ick urobilinogen -advantus 1.0 normal Not Available [facility] [address] [place] [address] 200, [place], [address], 10/04/2020 10:54:26 10/05/19 21 10/04/2020 urina lysis , dipst ick nitrites -advantus NEGATI VE negati ve Not Available [facility] [address] [place] [address] 200, [place], [address], 10/04/2020 10:54:26 10/05/19 21 10/04/2020 urina lysis , dipst ick blood -advantus SMALL negati ve abnormal Not Available [facility] [address] [place] [address] 200, [place], [address], 10/04/2020 10:54:26 10/05/19 21 10/04/2020 urina lysis , dipst ick leukocytes -advantus LARGE negati ve abnormal Not Available [facility] [address] [place] [address] 200, [place], [address], 10/04/2020 10:54:26 10/05/19 21 10/04/2020 urina lysis , dipst ick performed by Caren Fink Not Available [facility] [address] [place] [address] 200, [place], [address], 10/04/2020 10:54:26 10/05/19 21 10/04/2020 urina lysis , dipst ick total urine volume (mL) 40 /mL Not Available [facility] [address] [place] [address] 200, [place], [address], 10/04/2020 10:54:26 10/05/19 21 10/04/2020 urina lysis , micro scopi c U-WBC 50 - 100 [hpf] 0 - 2 abnormal Not Available [facility] [address] [place] [address] 200, [place], [address], 10/04/2020 10:54:28 10/05/19 21 10/04/2020 urina lysis , micro scopi c U-RBC 0 - 2 [hpf] 0 - 2 Not Available [facility] [address] [place] [address] 200, [place], [address], 10/04/2020 10:54:28 10/05/19 21 10/04/2020 urina lysis , micro scopi c bacteria Small [hpf] negati ve abnormal Not Available [facility] [address] [facility] [address], [place], [address], 10/04/2020 10:54:28 10/05/19 21 10/04/2020 urina lysis , micro scopi c squamous epi Small /lpf negati ve,sma ll Not Available [facility] [address] [facility] [address], [place], [address], 10/04/2020 10:54:28 10/05/19 21 10/04/2020 cultu re, urine final report Microb iology result s Not Available [facility] [address] [facility] [address], [place], [address], 10/05/2020 09:57:17 10/03/19 21 09/28/2020 imagi ng/di [...] Organization Details Recorded Time Incomplete emptying of urinary bladder Active 10/05/19 21 Chris Castro MD [address] [place] [address],[address], [address], [facility] 10/04/2020 10:32:13 Slowing of urinary stream Active 10/05/19 21 Chris Castro MD [address] [place] [address],[address], [address], [facility] 10/04/2020 10:32:13 Acute urinary tract infection Active 10/05/19 21 Chris Castro MD [address] [place] [address],[address], [address], [facility] 10/04/2020 10:32:15 Acquired buried penis Active 10/05/19 Chris Castro MD [address] [facility], [place], [address], [facility] 10/04/2020 10:33:04 Problem Notes None recorded. Procedures Surgical History Date Name Laterality Status Provider Name and Address Organization Details Recorded Time Bladder Scan completed Geovanna cárdenas [facility] 10/04/2020 10:09:08 Imaging Results Imaging [...] Name and Address Organization Details Recorded Time 825500 Medicinal product containin g penicilli n and acting as antibacte rial agent (product) medicatio n other Not available Not available 09/30/2020 20087 05 SNOMED aniph aliti c Not Available [...] Details Last Updated DateTime 10/04/2020 39.9 kg/m2 234822.9929 26953 g 170.18 cm Not Available Health Note [...] 25 API-685 Information not available 09/30/2020 Sex: Unknown Functional Status None recorded. Mental Status None [...] Encounter Closed Date Diagnosis/Indication Diagnosis SNOMED-CT Code [id number] Chris Castro MD [address] [address] 10/04/2020 09:55:35 10/04/2020 11:01:27 Acute urinary tract infection 856047468 Incomplete emptying of urinary bladder 814095229 Slowing of urinary stream 17437247 Acquired buried penis 23 [id number] Health Concerns Section Related Observation LastModified by Organization Detai ls LastModified Time None Recorded Concern Status LastModified by Organization Details LastModified Time None Recorded Advance Directives Directive None Recorded Payers Encounter Date Sequence Insurance Name Policy Number Policy Barbosa Covered Member ID Barbosa Member ID Guarantor Name 10/04/2020 1 [employer] - DOS PRIOR TO 2021 (MEDICAID REPLACEMENT - HMO) [facility] Morgan Pearson [id number] Morgan Pearson Notes Date Note Type Note Provider Name and Address Organization Details Recorded Time 10/04/2020 text/html HPI Notes: 10/04/20: Obesity, COPD, DM, chronic low back pain. Was at [facility] 09/28/20 to 09/29/20 for urosepsis and right [...] states that had a CT scan in [facility] in [place], [place] which was done on 09/28/20. He was transferred to [facility]. Denies straining or waiting to relax to [...] MD [address] [facility],[address], [place], [address], [place] [facility] 10/04/2020 10:37:57
== END 2023-12-22 08:56 | disposition home or self-care (01) ==
LOC: WOUND 08:55
PROVIDERS: Visit Provider Surgery
DX: I87.332 Chronic venous hypertension (idiopathic) with ulcer and inflammation of left lower extremity (principal); I87.2 Venous insufficiency (chronic) (peripheral); I89.0 Lymphedema, not elsewhere classified; E08.40 Diabetes mellitus due to underlying condition with diabetic neuropathy, unspecified; L97.822 Non-pressure chronic ulcer of other part of left lower leg with fat layer exposed; Z79.4 Long term (current) use of insulin
CPT/HCPCS: G0463

== ENCOUNTER 2023-12-29 08:01 | Outpatient (CLI) | payer MEDICARE, SELFPAY ==
--- OUTSIDE RECORDS SUMMARY | 2023-12-29 08:04 | XMS_ITS | Clinical Summary ---
Author Organization [facility] Address [address] [place] [address] Care Team Providers Care Secretarial Stenographer Name Role Phone Alida Muir MD Unavailable [phone] Purvi Lennon MD Unavailable [phone] Darshana Huertas Unavailable [phone] Goran Dukes DO Primary Care Provider David Pereira MD Unavailable [phone] Jovany Dumont MD Unavailable [phone] Allergies Active Allergy Reactions Criticality Noted [...] Acute cystitis without hematuria 09/29/2020 Cellulitis 09/28/2020 Cellulitis of right lower extremity 01/12/2020 Diabetes mellitus 10/31/2017 COPD exacerbation 10/13/2016 Snoring 10/13/2016 Tobacco abuse 10/13/2016 CARDIOVASCULAR SCREENING; LDL GOAL LESS THAN 130 10/02/2016 Encounter for screening for cardiovascular disor ders 10/02/2016 Morbid obesity 06/24/2016 Overview: ddd lumbar [...] LAB - BLOOD ORD ERABLES [facility] [address] [phone] * (ABNORMAL) Comprehensive metabolic panel (09/08/2021 8:28 [...] and gender (Shannon et al., NEJM, DOI: [id number]/[id number]) Blood BLOOD SPECIMEN / Unknown Client Draw / Unknown 09/08/2021 8:28 AM CDT 09/08/2021 3:38 PM CDT David Jimenez PA-C LAB - BLOOD ORD ERABLES Performing Organization Address [facility]/State/ZIP Co de Phone Number [facility] [address] [address], [facility] [phone] from Last 3 Months or Most Recently Relevant to Health Maintenance Advance Directives For more information, please contact: [phone] * Full Code (Latest Code Status on File) Date Activated Date Inactivated Comments 09/28/2020 10:12 AM 09/29/2020 4:35 PM All basic a nd advanced life-sustaining interventions are performed as appropriate Question Answer Comments Code status determined by: Discussion with patie nt/ legal decision maker Care Teams Secretarial Stenographer Relationship Specialty [place] [address] [place] [address] PCP - General Family Medicine 09/28/20 Alida Muir MD [facility] [address] [place] [address] Otolaryngology 08/25/18 Purvi Lennon MD [address] [address] Otolaryngology 08/25/18 Darshana Huertas AuD [address] 8598[address] Mower Operator Audiology 08/25/18 David Pereira MD [address] [place] [address] Urology 09/30/20 Jovany Dumont MD [address] [address] Neurology 03/23/22
--- OUTSIDE RECORDS SUMMARY | 2023-12-29 08:04 | XMS_ITS | Encounter Summary ---
Author Organization [facility] Address [address] [place] [address] Care Team Providers Care Ingredient Specialist Name Role Phone Confirmed, No Pcp Primary Care Provider Unavaila ble Provider, Lv Uc Primary Care Provider Unavailabl King Allan MD Primary Care Provider Unavailable No Ref-Primary, Physician Primary Care Provider [facility] Primary Care Provide r Go Lr MD Unavailable Go Lr MD Unavailable Be Willard MD Primary Care Provider [phone] Dinesh Muir MD Unavailable Purvi Lennon MD Unavailable [phone] Darshana Huertas Unavailable [phone] Goran Dukes DO Primary Care Provider David Pereira MD Unavailable [phone] Jovany Dumont MD Unavailable [phone] Reason for Visit * Reason Onset Date Comments Referral 10/17/2015 Encounter Details Date Type Department Care Team (Late st Contact Info) Description 10/17/2015 Telephone [facility] [place] [id number] [facility] [address] [place] [address] Pain Management Program, [facility] Referral Social History Tobacco Use Types [...] encounter Miscellaneous Notes * Telephone Encounter - QueFabiana doe - 10/17/2015 9:29 AM CDT Called pt to schedule Interventional LM. Kristin Johnsonny [employer] Supervisor [facility] documented in this encounter Plan of Treatment Not on file documented as of this encounter Visit Diagnoses Not on filedocumented in this encounter Care Teams Ingredient Specialist Relationship Specialty Start Date End Date Confirmed, No Pcp PCP - General 03/01/16 05/04/16 Provider, Kenan Corona PCP - General Urgent Care 05/05/16 09/24/16 King Garcia MD PCP - General Family Practice 09/25/16 10/30/17 No Ref-Primary, Physician PCP - General 10/31/17 12/19/17 [facility] [address] [place] [address] PCP - General 12/20/17 08/24/18 Go Lr MD [address] [place] [address] PCP - Assigned PCP 11/08/17 08/16/18 Be Willard MD [facility] [address] [place] [address] PCP - General Family Practice 08/25/18 09/27/20 [place] [address] [place] [address] PCP - General Family Medicine 09/28/20 Go Lr MD [address] [place] [address] Assigned PCP 11/08/17 09/30/19 Dinesh Muir MD [facility] [address] [place] [address] Otolaryngology 08/25/18 Purvi Lennon MD 420 [facility] [address] [place] [address] Otolaryngology 08/25/18 Darshana Huertas AuD [address] [facility] [address] [place] [address] Ese Teacher Audiology 08/25/18 David Pereira MD [address] [place] [address] Urology 09/30/20 Jovany Dumont MD [address] [place] [address] Neurology 03/23/22 documented as of this encounter
--- OUTSIDE RECORDS SUMMARY | 2023-12-29 08:04 | XMS_ITS ---
Author Organization Unknown Encounters Encounter Type Performer Location Encounter Date Encoun ter Notes virtual - - [id number]:24:32.980-0 0:00 no notes virtual - - 1410-57-53E79:49:25.273-0 0:00 no notes virtual - - 6333-90-82T28:33:39.670-0 0:00 no notes virtual - - 3069-69-45G44:21:52.370-0 0:00 no notes virtual - - 8701-09-85D87:38:04.273-0 0:00 no notes virtual - - 3622-02-40W80:45:30.420-0 0:00 no notes virtual - - 4277-60-12E87:24:32.980-0 0:00 no notes virtual - - 8325-34-32E59:57:05.670-0 0:00 no notes virtual - - 6173-04-56W51:21:52.370-0 0:00 no notes virtual - - 9627-84-95B36:29:52.713-0 0:00 no notes virtual - - 4203-12-76P73:21:52.370-0 0:00 no notes virtual - - 4068-40-56Q43:49:25.273-0 0:00 no notes virtual - - 7664-95-88O29:45:30.420-0 0:00 no notes virtual - - 3288-66-58Z99:24:32.980-0 0:00 no notes virtual - - 8126-19-36W29:38:04.273-0 0:00 no notes virtual - - 2483-04-26U91:29:52.713-0 0:00 no notes virtual - - 3964-55-55J13:20:45.160-0 0:00 no notes virtual - - 7342-41-88O54:33:39.670-0 0:00 no notes virtual - - 4050-52-67K98:21:52.370-0 0:00 no notes virtual - - 1418-55-69S15:19:10.643-0 0:00 no notes virtual - - 3874-15-49D02:19:10.643-0 0:00 no notes virtual - - 1586-36-51B88:19:10.643-0 0:00 no notes virtual - - 5487-88-31Y15:19:10.643-0 0:00 no notes Patient Care team information Name Category Status Period Participants - - Proposed period not known - - - period not known -
--- OUTSIDE RECORDS SUMMARY | 2023-12-29 08:04 | XMS_ITS | Clinical Summary ---
Author Organization [facility] Address [address] [place] [address] Care Team Providers Care Mold Construction Supervisor Name Role Phone Needs Pcp, Assignment Primary Care Provider [phone] Source Comments You are receiving this document as you are listed as the primary care provider,follow-up provider, or the patient has been referred to you for consultation.This is in compliance with the Medicare and[facility] EHR Incentive Program,which states Providers who transition their patient to another setting of careor provider of care or refers their patient to another provider of care shouldprovide summary care record for each transition of care or referral. [employer] Allergies Active Allergy Reactions Criticality Noted Date [...] age to complete this topic Care Teams Mold Construction Supervisor Relationship Specialty Start Date End Date Needs Pcp, [place] [address] PCP - General 07/02/16
--- OUTSIDE RECORDS SUMMARY | 2023-12-29 08:04 | XMS_ITS | Clinical Summary ---
Author Organization [facility] [employer] [facility] Address [address] [address] Phone Care Team Providers Care Plant Attendant Name Role Phone Choice, No Pcp-Patient Primary [...] Comments Blood Pressure 136/71 05/22/2023 3:28 PM ASSISTANT TO THE PRESIDENT Pulse 115 05/22/2023 3:28 PM ASSISTANT TO THE PRESIDENT Temperature 37.5 ??C (99.5 ??F) 05/22/2023 4:56 PM CS T Respiratory Rate 22 05/22/2023 3:28 PM ASSISTANT TO THE PRESIDENT Oxygen Saturation 93% 05/22/2023 3:28 PM ASSISTANT TO THE PRESIDENT Inhaled Oxygen Concentration - - Weight 128.3 [...] age to complete this topic Care Teams Plant Attendant Relationship Specialty Start Date End Date Choice, No Pcp-Patient PCP - General 05/22/23
--- OUTSIDE RECORDS SUMMARY | 2023-12-29 08:04 | XMS_ITS | Encounter Summary ---
Author Organization [facility] Address [address] [place] [address] Care Team Providers Care Edi Programmer Name Role Phone King Garcia MD Primary Care Provider Unavailable No Ref-Primary, Physician Primary Care Provider [facility] Primary Care Provide r Go Lr MD Unavailable Go Lr MD Unavailable Be Willard MD Primary Care Provider [phone] Dinesh Muir MD Unavailable Purvi Lennon MD Unavailable [phone] Darshana Huertas Unavailable [phone] Goran Dukes DO Primary Care Provider [phone] David Pereira MD Unavailable [phone] Jovany Dumont MD Unavailable [phone] Reason for Visit * Reason Comments Medication Refill Encounter Details Date Type Department Care Team (Late st Contact Info) Description 12/25/2016 Refill [facility] [address] [address] Seda Rizzo, PAEfrenC [address] [address] Medication Refill Social History Tobacco Use Types [...] documented as of this encounter Care Teams Edi Programmer Relationship Specialty Start Date End Date King Garcia MD PCP - General Family Practice 09/25/16 10/30/17 No Ref-Primary, Physician PCP - General 10/31/17 12/19/17 [facility] [address] [place] [id number] PCP - General 12/20/17 08/24/18 Go Lr MD [address] [place] [address] PCP - Assigned PCP 11/08/17 08/16/[address] [facility] [address] [place] [address] PCP - General Family Practice 08/25/18 09/27/20 [place]ukes [place] [address] [place] [address] PCP - General Family Medicine 09/28/20 Go Lr MD [address] [place] [address] Assigned PCP 11/08/17 09/30/19 Dinesh Muir MD [facility] [address] [place] [address] Otolaryngology 08/25/18 Purvi Lennon MD 420 [facility] [address] [place] [address] Otolaryngology 08/25/18 Darshana Huertas AuD 420 [facility] [address] [place], [place] [address] Plate Gauger Audiology 08/25/18 David Pereira MD [address] [place] [address] Urology 09/30/20 Jovany Dmuont MD [address] [place] [address] Neurology 03/23/22 documented as of this encounter
--- OUTSIDE RECORDS SUMMARY | 2023-12-29 08:04 | XMS_ITS | Referral Summary ---
Author Organization [facility] Address [address] [place] [address] Care Team Providers Care Nutrition Representative Name Role Phone Dinesh Muir MD Unavailable Purvi Lennon MD Unavailable [phone] Darshana Huertas Unavailable [phone] Goran Dukes DO Primary Care Provider David Pereira MD Unavailable [phone] Jovany Dumont MD Unavailable [phone] Allergies Active Allergy Reactions Criticality Noted [...] 22(L) >=40 mg/dL 09/08/2021 4:19 PM CDT [facility] Comment: HDL Cholesterol Reference Range: 0-2 years: No reference ranges established for patients under 2 years old ??at [facility] for lipid analytes. 2-8 years: Greater [...] Jimenez PA-C LAB - BLOOD ORD ERABLES [facility] [address] [place] [address] * (ABNORMAL) Comprehensive metabolic panel (09/08/2021 8:28 [...] and gender (Shannon et al., NEJM, DOI: [id number]/[id number]) Blood BLOOD SPECIMEN / Unknown Client Draw / Unknown 09/08/2021 8:28 AM CDT 09/08/2021 3:38 PM CDT David Jimenez PA-C LAB - BLOOD ORD ERABLES [facility] [id number] [place] [address] from Last 3 Months or Most Recently Relevant to Health Maintenance Advance Directives For more information, please contact: [phone] * Full Code (Latest Code Status on File) Date Activated Date Inactivated Comments 09/28/2020 10:12 AM 09/29/2020 4:35 PM All basic a nd advanced life-sustaining interventions are performed as appropriate Question Answer Comments Code status determined by: Discussion with patie nt/ legal decision maker Care Teams Nutrition Representative Relationship Specialty [place] [address] [place] [address] PCP - General Family Medicine 09/28/20 Dinesh Muir MD [facility] [address] [place] [address] Otolaryngology 08/25/18 Purvi Lennon MD [address] [facility] [address] [place] [address] Otolaryngology 08/25/18 Darshana Huertas AuD [address] [facility] [address] [place] [address] Pure Culture Operator Audiology 08/25/18 David Pereira MD [address] [place] [address] Urology 09/30/20 Jovany Dumont MD [address] [place] [address] Neurology 03/23/22
--- OUTSIDE RECORDS SUMMARY | 2023-12-29 08:04 | XMS_ITS | Clinical Summary ---
Author Organization [facility] Address [place], [place] [address] Care Team Providers Care Liquefaction And Regasification Helper Name Role Phone Pcp, No Unavailable Unavailable Goran Dukes DO Primary Care Provide r Tayla Kiran RN Unavailable [phone] Allergies Active Allergy Reactions Criticality Noted [...] daily. 90 Tablet 3 04/13/20 23 Active fluticasone (50 mcg per [...] period. 90 Patch 1 06/29/19 24 Active olopatadine (PATADAY) 0.2 % ophthalmic solutionIndication s:Environmental allergies Place 1 Drop into both eyes once daily. 7.5 mL 3 06/29/19 24 Active durable medical equipment (DME)Indications:D [...] daily. 140 g 6 10/05/19 24 Active Lantus Solostar U-100 Insulin [...] day. 1 Each 10/13/19 24 Active Insulin Diggs, Disposable, (BD Amanda 2nd Gen Pen Needle) [...] be used to read blood sugars, follow pocket grinder operator directions. 6 Each 3 10/13/19 24 Active lancets (Microlet Lancet)Indications :Type [...] KWIKPEN 90 mL 1 10/13/19 24 Active Walker - 4 wheelsIndications: Gait instability For home use. Length of need: lifetime 1 Each 10/25/19 24 Active loratadine (Claritin) 10 mg DISINTEGRATING tabletIndications: Environmental allergies Place 1 Tablet (10 mg) on the tongue once daily if needed for Allergy Symptoms. 30 Tablet 1 11/24/19 24 Active loratadine-pseudoe phedrine (Claritin-D 12 Hour) 5-120 mg 12hr tabletIndications: Environmental allergies Take 1 Tablet by mouth every 12 hours. 60 Tablet 5 11/26/19 24 Active Bismuth Tribrom-Petrolatum ,Wh (Xeroform Petrolatum Dressing) 5 X 9 bndgIndications:Ce llulitis of right lower extremity Apply topically to affected area(s). 50 Each 12/06/19 24 Active insulin glargine, U-100, (Lantus Solostar U-100 Insulin) 100 unit/mL (3 mL) penIndications:Poo rly controlled type 2 diabetes mellitus (HC) Inject 50 units subcutaneous before bedtime. 45 mL 1 12/09/19 24 Active rolled ham lacer (FreeStyle Lacie 3 Barnett) for continuous blood glucose monitor (CGM)Indications:T ype 2 diabetes mellitus with hyperglycemia, without long-term current use of insulin (HC) USE TO READ BLOOD SUGAR FOLLOWING WEB PAGE DEVELOPER DIRECTIONS 1 Each 12/22/19 24 Active insulin glargine, U-100, (Lantus Solostar U-100 Insulin) 100 unit/mL (3 mL) penIndications:Poo rly controlled type 2 diabetes mellitus (HC) Inject 50 units subcutaneous before bedtime. 45 mL 1 06/29/19 24 024 Discontinued(Re order (E-cancel not sent)) FreeStyle Lacie 3 Barnett for continuous blood glucose monitor (CGM)Indications:T ype 2 diabetes mellitus with hyperglycemia, without long-term current use of insulin (HC) To be used to read blood sugars follow pocket grinder operator directions. 1 Each 10/13/19 24 024 Discontinued Active Problems Problem Noted Date Diagnosed Date [...] Type Department Care Team Description 12/20/2023 Refill [facility] [address] [place] [phone] Goran Dukes, Refill Request (Freestyle Lacie 3 Barnett) 12/09/2023 Refill [facility] [address] [facility] [place] [phone] Goran Dukes DO Refill Request (LANTUS SOLOSTAR PEN INJ) 12/06/2023 Refill [facility] [address] [place] [phone] Goran Dukes DO Refill Request (Xeroform Sterile Petrolatum Gauze Patch, 5 x 9.) 12/01/2023 Telephone [facility] [address] [place] [phone] Goran Dukes DO covid vaccine (Needs letter) 11/26/2023 Refill [facility] [address] [facility] [place] [address] Goran Dukes DO Refill Request 11/25/2023 Refill [facility] [address] [facility] [place] [address] oGran Dukes, Refill Request (Claritin/) 11/25/2023 Orders Only [facility] [address] [facility] [place] [address] Goran Dukes, DO <No scans attached> 11/25/2023 Telephone [facility] [phone] [place] [address], [place] [phone] Goran Dukes, Prior Authorization (ketorolac (TORADOL) 10 mg tablet APPROVED 10/26/23-11/24/24) 11/25/2023 Telephone [facility] [address] [place] [address], [place] [address] Goran Dukes, Medication Management 11/22/2023 Refill [facility] [id number] [place] [phone] Goran Dukes, Refill Request (CLARITIN REDITABS 10 MG TAB) 11/18/2023 Refill [facility] [id number] [place] [address], [place] [phone] Goran Dukes, Refill Request (NOVOLOG FLEXPEN 100 UNIT /ML INJ SUBSTITUTION ) 11/09/2023 Telephone [facility] [phone] [place] [address], [place] [phone] Goran Dukes DO 10/25/2023 1:20 PM CDT Office Visit [facility] [address] [place] [address], [place] [phone] Goran Dukes, Urinary Problem 10/25/2023 Travel 10/25/2023 Nurse Triage [facility] [address] [place] [address], [place] [phone] Goran Dukes, DO Urinary Problem 10/25/2023 Telephone [facility] [address] [place] [phone] Goran Dukes DO UTI (Need med ) 10/13/2023 9:00 AM CDT Phone Office Visit [facility] [address] [place] [address] Tayla Kiran RN Diabetes 10/11/2023 Orders Only [facility] Scanner 1 scan: (1-Ord) [facility], 10/11/2023 10/06/2023 Telephone [facility] [address] [place] [phone] Goran Dukes DO Results 10/06/2023 Orders Only [address] [phone] Goran Dukes DO <No scans attached> 10/05/2023 1:50 PM CDT Office Visit [address] [phone] Goran Dukes DO Diabetes (Not fasting- The patient is requesting to speak about medication); Fatigue (The patient reports having leg fatigue like he is about to fall. The patient wants to discuss a walker or wheel chair options. ) 10/05/2023 Telephone [place] [address] [place] [address] Jocelynn Jay NP Refill Request (Clobetasol 0.05%) 10/05/2023 Telephone [facility] [address] [place] [phone] Goran Dukes DO Refill Request (KETOROLAC 10 MG TABLETS ) 10/05/2023 Travel 10/01/2023 Refill [facility] [address] [place] [phone] Goran Dukes DO Refill Request (Lantus Solostar U-100 Insulin) from Last 3 Months Immunizations Name Administration Dates Next Due COVID-19 vaccine (goAct-BioNTSignifyd 30mcg/0.3mL) P F, MDV 01/16/2021 Influenza, IIV4 [...] T Respiratory Rate 20 06/17/2023 7:45 AM PRE SALES NETWORK ENGINEER Oxygen Saturation 97% 10/25/2023 1:34 PM CDT [...] None Seen /HPF 10/25/2023 1:47 PM CDT [facility] WBC >100(A) 0-2, 3-5, None Seen /HPF 10/25/2023 1:47 PM CDT [facility] BACTERIA Moderate(A ) None Seen, Rare, Few Bacteria/H PF 10/25/2023 1:47 PM CDT [facility] EPITHELIAL CELLS None Seen None Seen, Few Epi/HPF 10/25/2023 1:47 PM CDT [facility] WHITE CELL CLUMPS Present(A) (none) 10/25/2023 1:47 PM CDT [facility] Urine URINE SPECIMEN / Unknown Non-Blood / Unknown 10/25/2023 1:37 PM CDT 10/25/2023 1:37 PM CDT Goran Dukes DO URINE [facility] [address] [place] [address], [place] * (ABNORMAL) URINE CULTURE (10/25/2023 1:37 PM CDT) CULTURE RESULT(A) 10/27/2023 8:53 AM CDT [facility] CULTURE >100,000 CFU/mL Streptococcus agalactiae (Strep Group B) 10/27/2023 8:53 AM CDT [facility] CULTURE <10,000 CFU/mL Multiple organisms probable contaminants 10/27/2023 8:53 AM CDT [facility] Urine URINE SPECIMEN / Unknown Non-Blood / Unknown 10/25/2023 1:37 PM CDT 10/25/2023 1:37 PM CDT Goran Dukes DO MICROBIOLOGY [facility] [address] [place] [address], [place] * (ABNORMAL) UA W/ SEDIMENT EXAM REFLEXED PER CRITERIA (10/25/2023 1:37 PM CDT) COLOR Yellow Yellow Color 10/25/2023 1:47 PM CDT [facility] CLARITY Cloudy(A) Clear Clarity 10/25/2023 1:47 PM CDT [facility] SPECIFIC GRAVITY,URINE 1.025 1.010, 1.015, 1.020, 1.025 10/25/2023 1:47 PM CDT [facility] PH,URINE 5.5 6.0, 7.0, 8.0, 5.5, 6.5, 7.5, 8.5 10/25/2023 1:47 PM CDT [facility] UROBILINOGEN, QUALITATIVE Normal Normal EU/dl 10/25/2023 1:47 PM CDT [facility] PROTEIN, URINE 100(A) Negative mg/dL 10/25/2023 1:47 PM CDT [facility] GLUCOSE, URINE >=1000(A) Negative mg/dL 10/25/2023 1:47 PM CDT [facility] KETONES,URINE Negative Negative mg/dL 10/25/2023 1:47 PM CDT [facility] BILIRUBIN,URI NE Negative Negative 10/25/2023 1:47 PM CDT [facility] OCCULT BLOOD,URINE Moderate(A) Negative 10/25/2023 1:47 PM CDT [facility] NITRITE Negative Negative 10/25/2023 1:47 PM CDT [facility] LEUKOCYTE ESTERASE Moderate(A) Negative 10/25/2023 1:47 PM CDT [facility] Urine URINE SPECIMEN / Unknown Non-Blood / Unknown 10/25/2023 1:37 PM CDT 10/25/2023 1:37 PM CDT Goran Dukes DO URINE Performing Organization Address [facility]/State/[facility] Co de Phone Number [facility] [address] [place] [address], * IN DIAB MANAGE TRN PER INDIV (10/13/2023) DIABETIC ED Goran Dukes DO PB - ANCILLAR Y SERVICES * SCAN-EYE EXAM (10/11/2023 12:00 AM CDT) Scanner OTHER * (ABNORMAL) LIPID PANEL W REFLEX MEASURED LDL (10/05/2023 2:39 PM CDT) CHOLESTEROL,TOTAL 187 100 - 199 mg/dL 10/06/2023 1:31 AM CDT [facility] [employer] [facility]AT[facility] Comment: Cholesterol, Total Reference Ranges Desirable <200 mg/dL Borderline 200-239 mg/dL High >=240 mg/dL TRIGLYCERIDES 147 <150 mg/dL 10/06/2023 1:31 AM CDT [facility] [employer] [facility] LAB[facility]AT[facility] HDL CHOLESTEROL 27(L) >40 mg/dL 1:31 AM CDT [facility] [employer] NON-HDL CHOLESTEROL 160(H) <145 mg/dl 10/06/2023 1:31 AM CDT [facility] CHOL/HDL RATIO 6.93(H) <4.50 10/06/2023 1:31 AM CDT [facility] LDL CHOLESTEROL 131(H) <=130 mg/dL 10/06/2023 1:31 AM CDT [facility] VLDL CHOLESTEROL 29 <=30 mg/dL 10/06/2023 1:31 AM CDT [facility] PROVIDER ORDERED STATUS RANDOM 10/06/2023 1:31 AM CDT [facility] Blood BLOOD SPECIMEN / Unknown Venipuncture / Unknown 10/05/2023 2:39 PM CDT 10/05/2023 2:39 PM CDT Goran Dukes DO CHEMISTRY Performing Organization Address City/State/[facility] Co de Phone Number [facility] [address] [address], * (ABNORMAL) CBC W PLT NO DIFF (10/05/2023 2:39 PM CDT) WHITE BLOOD COUNT 8.8 4.5 - 11.0 thou/cu mm 10/05/2023 2:43 PM CDT [facility] RED BLOOD COUNT 4.49 4.30 - 5.90 mil/cu mm 10/05/2023 2:43 PM CDT [facility] HEMOGLOBIN 12.6(L) 13.5 - 17.5 g/dL 10/05/2023 2:43 PM CDT [facility] HEMATOCRIT 38.3 37.0 - 53.0 % 10/05/2023 2:43 PM CDT [facility] MCV 85 80 - 100 fL 10/05/2023 2:43 PM CDT [facility] MCH 28.1 26.0 - 34.0 pg 10/05/2023 2:43 PM CDT [facility] MCHC 32.9 32.0 - 36.0 g/dL 10/05/2023 2:43 PM CDT [facility] RDW 13.2 11.5 - 15.5 % 10/05/2023 2:43 PM CDT [facility] PLATELET COUNT 344 140 - 440 thou/cu mm 10/05/2023 2:43 PM CDT [facility] MPV 9.6 6.5 - 11.0 fL 10/05/2023 2:43 PM CDT [facility] NRBC 0.0 % 10/05/2023 2:43 PM CDT [facility] ABS NRBC 0.0 thou /cu mm 10/05/2023 2:43 PM CDT [facility] Blood BLOOD SPECIMEN / Unknown Venipuncture / Unknown 10/05/2023 2:39 PM CDT 10/05/2023 2:39 PM CDT Goran Dukes DO HEMATOLOGY Performing Organization Address City/[facility]/ZIP Co de Phone Number [facility] [address] [place] [address], [place] * ANTI HIV 1/2 [04877.0] (10/05/2023 2:39 PM CDT) [facility] HIV-1/HIV-2 SCREEN Non-Reacti ve Non-Reacti ve 10/06/2023 1:17 AM CDT [facility] Comment:HIV-1 p24 and HIV-1/ HIV-2 Ab Not Detected. Blood BLOOD SPECIMEN / Unknown Venipuncture / Unknown 10/05/2023 2:39 PM CDT 10/05/2023 2:39 PM CDT Goran Dukes DO SEND OUTS [facility] [address] [place] [address], [place] * (ABNORMAL) HEMOGLOBIN A1C MONITORING (POCT) (10/05/2023 2:39 PM CDT) [facility] HEMOGLOBIN A1C MONITORING (POCT) 10.0(H) <=6.4 % 10/05/2023 2:54 PM CDT [facility] Blood BLOOD SPECIMEN / Unknown Venipuncture / Unknown 10/05/2023 2:39 PM CDT 10/05/2023 2:39 PM CDT Narrative [facility] - 10/05/2023 2:54 PM CDT ? [...] Anemias, Splenectomy ? Goran Dukes DO CHEMISTRY [facility] [address] [place] [address], * (ABNORMAL) COMP METABOLIC PANEL (10/05/2023 2:39 PM CDT) SODIUM 136 136 - 145 mmol/L 10/06/2023 1:31 AM CDT [facility] POTASSIUM 5.4(H) 3.5 - 5.1 mmol/L 10/06/2023 1:31 AM CDT [facility] CHLORIDE 99 98 - 107 mmol/L 10/06/2023 1:31 AM CDT [facility] CO2,TOTAL 26 22 - 29 mmol/L 10/06/2023 1:31 AM CDT [facility] ANION GAP 11 5 - 18 10/06/2023 1:31 AM CDT [facility] GLUCOSE 298(H) 70 - 99 mg/dL 10/06/2023 1:31 AM CDT [facility] CALCIUM 9.5 8.6 - 10.0 mg/dL 10/06/2023 1:31 AM T [facility] BUN 15 6 - 20 mg/dL 10/06/2023 1:31 AM T [facility] CREATININE 0.83 0.70 - 1.20 mg/dL 10/06/2023 1:31 AM T [facility] BUN/CREAT RATIO 18 10 - 20 1:31 AM T [facility] eGFR >90 >90 mL/min/1.7 3m2 10/06/2023 1:31 AM [facility] Comment:As of 2021, eG FR is calculated by the CKD-EPI creatinine equation without race adjustment. ??eGFR can be influenced by muscle mass, exercise, and diet. ??The reported eGFR is an estimation only and is only applicable if the renal function is stable. ALBUMIN 4.0 4.0 - 4.9 g/dL 10/06/2023 1:31 AM T [facility] PROTEIN,TOTAL 7.3 6.0 - 8.0 g/dL 10/06/2023 1:31 AM [facility] BILIRUBIN,TOTAL 0.2 0.0 - 1.2 mg/dL 10/06/2023 1:31 AM T [facility] ALK PHOSPHATASE 83 40 - 129 IU/L 10/06/2023 1:31 AM T [facility] ALT (SGPT) 12 10 - 50 IU/L 10/06/2023 1:31 AM T [facility] AST (SGOT) 13 10 - 50 IU/L 10/06/2023 1:31 AM [facility] Blood BLOOD SPECIMEN / Unknown Venipuncture / Unknown 10/05/2023 2:39 PM CDT 10/05/2023 2:39 PM CDT Goran Dukes DO [facility]Y [facility] [address] [place] [address], [place] * ANTI HCV (01/22/2022 12:50 PM CDT) HEPATITIS C ANTIBODY Non-React cherelle Non-React cherelle 01/22/2022 9:10 PM CDT [facility] Comment:Antibodies to HCV no t detected; does not exclude the possibility of exposure to HCV. Blood BLOOD SPECIMEN / Unknown Venipuncture / Unknown 01/22/2022 12:50 PM CDT 01/22/2022 12:51 PM CDT Goran Dukes DO SEND OUTS [employer] [address] [place] [address], [place] from Last 3 Months or Most [...] Comments Code Status Discussion: Discussed Care Teams Liquefaction And Regasification Helper Relationship Specialty [place] [address] [place] [address] PCP - General Family Practice 10/16/20 Pcp, No . 08/04/14 Tayla Kiran, RN [address] [place] [address] Diabetes Care Management Registered Nurse 10/13/2308/13
--- OUTSIDE RECORDS SUMMARY | 2023-12-29 08:05 | XMS_ITS | Data Portability ---
Author Organization [facility] Address [address] [place] [address] Care Team Providers Care Sports Umpire Name Role Phone JI BOLANOS Primary Care Provider Assessment No assessment recorded. Plan of Treatment Reminders Order Date Submit Date Provider Last Modified By Organization Details Last Modified Time Details Appointments None recorded. Lab urinalysis , dipstick 2020 [facility], [address], [address], [place], [address], 10:54:26 culture, urine 2020 [facility], [address], [address], [place], [address], 09:57:17 Referral urologist referral - buried penis, BXO 2020 randal Bolden MD, [address] [facility], [address], [place], [address], 14:49:08 Procedures None recorded. Surgeries None recorded. Imaging None recorded. Medication Orders Flomax 0.4 mg capsule 2020 [id number], [address], [place], [address], 10:37:46 Patient TargetsNo targets recorded. Patient Instructions Encounter Date Encounter Id Patient Instructions Last Modified By Organization Details Last Modified Time 10/04/2020 [id number] Incomplete bladd er emptying/weak stream/UTI: He doesn't [...] request records from his ER visit in [place], [place] and would like to see the CT scan report. 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 The opening is small and I cannot expose the head of the penis. This too may be contributing to his infection. I recommend that he see urology at the [facility] for consideration of treatment of the [...] ick color -advantus YELLOW yellow Not Available [facility] [address], [place], [address], 10/04/2020 10:54:26 10/05/19 21 10/04/2020 urina lysis , dipst ick appearance -advantus CLOUDY clear abnormal Not Available [facility] [address] [facility] [address], [place], [address], 10/04/2020 10:54:26 10/05/19 21 10/04/2020 urina lysis , dipst ick glucose -advantus NEGATI VE mg/dL negati ve Not Available [facility] [address] [facility] [address] [facility] [address], [place], [address], 10/04/2020 10:54:26 10/05/19 21 10/04/2020 urina lysis , dipst ick bilirubin -advantus NEGATI VE negati ve Not Available [facility] [address] [facility] [address], [place], [address], 10/04/2020 10:54:26 10/05/19 21 10/04/2020 urina lysis , dipst ick ketones -advantus NEGATI VE mg/dL negati ve Not Available [facility] [address] [place] [address], [place], [address], 10/04/2020 10:54:26 10/05/19 21 10/04/2020 urina lysis , dipst ick sp. gravity -advantus 1.025 1.010- 1.025 Not Available [facility] [address] [place] [address], [place], [address], 10/04/2020 10:54:26 10/05/19 21 10/04/2020 urina lysis , dipst ick pH -advantus 6.0 5.0-8. 0 Not Available [facility] [address] [place] [address], [place], [address], 10/04/2020 10:54:26 10/05/19 21 10/04/2020 urina lysis , dipst ick protein -advantus TRACE mg/dL negati ve abnormal Not Available [facility] [address] [place] [address], [place], [address], 10/04/2020 10:54:26 10/05/19 21 10/04/2020 urina lysis , dipst ick urobilinogen -advantus 1.0 normal Not Available [facility] [address] [place] [address], [place], [address], 10/04/2020 10:54:26 10/05/19 21 10/04/2020 urina lysis , dipst ick nitrites -advantus NEGATI VE negati ve Not Available [facility] [address] [place] [address], [place], [address], 10/04/2020 10:54:26 10/05/19 21 10/04/2020 urina lysis , dipst ick blood -advantus SMALL negati ve abnormal Not Available [facility] [address] [place] [address], [place], [address], 10/04/2020 10:54:26 10/05/19 21 10/04/2020 urina lysis , dipst ick leukocytes -advantus LARGE negati ve abnormal Not Available [facility] [address] [place] [address] [address], [place], [address], 10/04/2020 10:54:26 10/05/19 21 10/04/2020 urina lysis , dipst ick performed by Caren Fink Not Available [facility] [address] [place] [address] [address], [place], [address], 10/04/2020 10:54:26 10/05/19 21 10/04/2020 urina lysis , dipst ick total urine volume (mL) 40 /mL Not Available [facility] [address] [place] [address], [place], [address], 10/04/2020 10:54:26 10/05/19 21 10/04/2020 urina lysis , micro scopi c U-WBC 50 - 100 [hpf] 0 - 2 abnormal Not Available [facility] [address] [place] [address], [place], [address], 10/04/2020 10:54:28 10/05/19 21 10/04/2020 urina lysis , micro scopi c U-RBC 0 - 2 [hpf] 0 - 2 Not Available [facility] [address] [place] [address], [place], [address], 10/04/2020 10:54:28 10/05/19 21 10/04/2020 urina lysis , micro scopi c bacteria Small [hpf] negati ve abnormal Not Available [facility] [address] [facility] [address], [place], [address], 10/04/2020 10:54:28 10/05/19 21 10/04/2020 urina lysis , micro scopi c squamous epi Small /lpf negati ve,sma ll Not Available [facility] [address] [facility] [address], [place], [address], 10/04/2020 10:54:28 10/05/19 21 10/04/2020 cultu re, urine final report Microb iology result s Not Available [facility] [address], [place], [address], 10/05/2020 09:57:17 10/03/19 21 09/28/2020 imagi ng/di [...] bladder Active 10/05/19 21 Chris Castro MD [address] [place] [address],[address], [address], [facility] 10/04/2020 10:32:13 Slowing of urinary stream Active 10/05/19 21 Chris Castro MD [address] [place] [address],[address], [address], [facility] 10/04/2020 10:32:13 Acute urinary tract infection Active 10/05/19 21 Chris Castro MD [address] [place] [address],[address], [address], [facility] 10/04/2020 10:32:15 Acquired buried penis Active 10/05/19 Chris Castro MD [address], [place], [address], [facility] 10/04/2020 10:33:04 Problem Notes None recorded. Procedures Surgical History Date Name Laterality Status Provider Name and Address Organization Details Recorded Time Bladder Scan completed Geovanna cárdenas [facility] 10/04/2020 10:09:08 Imaging Results [...] Name and Address Organization Details Recorded Time 885788 Medicinal product containin g penicilli n and acting as antibacte rial agent (product) medicatio n other Not available Not available 09/30/2020 38849 05 SNOMED aniph aliti c Not Available [...] Details Last Updated DateTime 10/04/2020 39.9 kg/m2 310646.1626 04389 g 170.18 cm Not Available Health Note [...] Encounter Closed Date Diagnosis/Indication Diagnosis SNOMED-CT Code [id number] Chris Castro MD [address] [address] 10/04/2020 09:55:35 10/04/2020 11:01:27 Acute urinary tract infection [id number] Incomplete emptying of urinary bladder [id number] Slowing of urinary stream 28002584 Acquired buried penis 23 [id number] Health Concerns Section Related Observation LastModified by Organization Detai ls LastModified Time None Recorded Concern Status LastModified by Organization Details LastModified Time None Recorded Advance Directives Directive None Recorded Payers Encounter Date Sequence Insurance Name Policy Number Policy Barbosa Covered Member ID Barbosa Member ID Guarantor Name 10/04/2020 1 [employer] - DOS PRIOR TO 2021 (MEDICAID REPLACEMENT - HMO) [facility] Morgan Pearson [id number] Morgan Pearson Notes Date Note Type Note Provider Name and Address Organization Details Recorded Time 10/04/2020 text/html HPI Notes: 10/04/20: Obesity, COPD, DM, chronic low back pain. Was at [facility] 09/28/20 to 09/29/20 for urosepsis and right [...] states that had a CT scan in [facility] in [place], [place] which was done on 09/28/20. He was transferred to [facility]. Denies straining or waiting to relax to [...] Terrible [Score: 3] Chris Castro MD [address], [place], [address], [place] [facility] 10/04/2020 10:37:57
== END 2023-12-29 08:02 | disposition home or self-care (01) ==
LOC: WOUND 08:01
PROVIDERS: Visit Provider Surgery
DX: I87.332 Chronic venous hypertension (idiopathic) with ulcer and inflammation of left lower extremity (principal); I87.2 Venous insufficiency (chronic) (peripheral); E08.40 Diabetes mellitus due to underlying condition with diabetic neuropathy, unspecified; L97.828 Non-pressure chronic ulcer of other part of left lower leg with other specified severity; Z79.4 Long term (current) use of insulin
CPT/HCPCS: G0463

== ENCOUNTER 2024-01-05 07:58 | Outpatient (CLI) | payer MEDICARE, SELFPAY | END 2024-01-05 07:59 | disposition home or self-care (01) | LOC: WOUND 07:58 | PROVIDERS: Visit Provider Surgery | DX: I89.0 Lymphedema, not elsewhere classified (principal); I87.2 Venous insufficiency (chronic) (peripheral); E08.40 Diabetes mellitus due to underlying condition with diabetic neuropathy, unspecified; Z79.4 Long term (current) use of insulin | CPT/HCPCS: G0463 ==

== ENCOUNTER 2024-01-19 07:52 | Outpatient (CLI) | payer MEDICARE, SELFPAY ==
--- OUTSIDE RECORDS SUMMARY | 2024-01-19 07:54 | XMS_ITS | Clinical Summary ---
Author Organization [facility] [employer] [facility] Address [address] [address] Phone Care Team Providers Care Slab Lifting Engineer Name Role Phone Choice, No Pcp-Patient Primary [...] Comments Blood Pressure 136/71 05/22/2023 3:28 PM CARD LACER Pulse 115 05/22/2023 3:28 PM CARD LACER Temperature 37.5 ??C (99.5 ??F) 05/22/2023 4:56 PM CS T Respiratory Rate 22 05/22/2023 3:28 PM CARD LACER Oxygen Saturation 93% 05/22/2023 3:28 PM CARD LACER Inhaled Oxygen Concentration - - Weight 128.3 [...] age to complete this topic Care Teams Slab Lifting Engineer Relationship Specialty Start Date End Date Choice, No Pcp-Patient PCP - General 05/22/23
--- OUTSIDE RECORDS SUMMARY | 2024-01-19 07:54 | XMS_ITS | Encounter Summary ---
Author Organization [facility] Address [address] [place] [address] Care Team Providers Care Power Washer Name Role Phone Confirmed, No Pcp Primary Care Provider Unavaila ble Provider, Lv Uc Primary Care Provider Unavailabl King Allan MD Primary Care Provider Unavailable No Ref-Primary, Physician Primary Care Provider [facility][Note 3] Primary Care Provide r Go Lr MD Unavailable Go Lr MD Unavailable Be Willard MD Primary Care Provider [phone] Dinesh Muir MD Unavailable Purvi Lennon MD Unavailable [phone] Darshnaa Huertas Unavailable [phone] Goran Dukes DO Primary Care Provider [phone] David Pereira MD Unavailable [phone] Jovany Dumont MD Unavailable [phone] Reason for Visit * Reason Onset Date Comments Referral 10/17/2015 Encounter Details Date Type Department Care Team (Late st Contact Info) Description 10/17/2015 Telephone [employer] [facility] [place] [id number] [facility] [address] [place] [address] Pain Management Program, [facility] Referral Social History Tobacco Use Types [...] to schedule Interventional LM. Kristin Johnsonny Margaux [employer] [facility] documented in this encounter Plan of Treatment Not on file documented as of this encounter Visit Diagnoses Not on filedocumented in this encounter Care Teams Power Washer Relationship Specialty Start Date End Date Confirmed, No Pcp PCP - General 03/01/16 05/04/16 Provider, Kenan Corona PCP - General Urgent Care 05/05/16 09/24/16 King Garcia MD PCP - General Family Practice 09/25/16 10/30/17 No Ref-Primary, Physician PCP - General 10/31/17 12/19/17 [facility][Note 3] [address] [place] [address] PCP - General 12/20/17 08/24/18 Go Lr MD [address] [place] [address] PCP - Assigned PCP 11/08/17 08/16/18 Be Willard MD [facility] [address] [place] [address] PCP - General Family Practice 08/25/18 09/27/20 [place] [address] [place] [address] PCP - General Family Medicine 09/28/20 Go Lr MD [address] [place] [address] Assigned PCP 11/08/17 09/30/19 Dinesh Muir MD [facility] [address] [place] [address] Otolaryngology 08/25/18 Purvi Lennon MD [address] [facility] [address] [place] [address] Otolaryngology 08/25/18 Darshana Huertas AuD [address] [facility] [address] [place] [address] Compensation Consultant Audiology 08/25/18 David Pereira MD [address] [place] [address] Urology 09/30/20 Jovany Dumont MD [address] [place] [address] Neurology 03/23/22 documented as of this encounter
--- OUTSIDE RECORDS SUMMARY | 2024-01-19 07:54 | XMS_ITS | Referral Summary ---
Author Organization [facility] Address [address] [place] [address] Care Team Providers Care Pan Washer Name Role Phone Dinesh Muir MD Unavailable [phone] Purvi Lennon MD Unavailable [phone] Darshana Huertas Unavailable [phone] Goran Dukes DO Primary Care Provider David Pereira MD Unavailable [phone] Jovany Dumont MD Unavailable [phone] Allergies Active Allergy Reactions Criticality Noted [...] 09/29/2020 Active levofloxacin (LEVAQUIN) 500 MG tabletIndications:Ac [place] cystitis without hematuria Take 1 tablet (500 [...] 22(L) >=40 mg/dL 09/08/2021 4:19 PM CDT [facility] Comment: HDL Cholesterol Reference Range: 0-2 years: No reference ranges established for patients under 2 years old ??at [facility] for lipid analytes. 2-8 [...] Jimenez PA-C LAB - BLOOD ORD ERABLES [facility] [address] [place] [address] * (ABNORMAL) Comprehensive metabolic panel (09/08/2021 8:28 [...] and gender (Shannon et al., NEJM, DOI: 10.1056/[id number]) Blood BLOOD SPECIMEN / Unknown Client Draw / Unknown 09/08/2021 8:28 AM CDT 09/08/2021 3:38 PM CDT David Jimenez PA-C LAB - BLOOD ORD ERABLES [facility] [id number] [place] [address] from Last 3 Months or Most Recently Relevant to Health Maintenance Advance Directives For more information, please contact: [phone] * Full Code (Latest Code Status on File) Date Activated Date Inactivated Comments 09/28/2020 10:12 AM 09/29/2020 4:35 PM All basic a nd advanced life-sustaining interventions are performed as appropriate Question Answer Comments Code status determined by: Discussion with patie nt/ legal decision maker Care Teams Pan Washer Relationship Specialty [place] [address] [place] [address] PCP - General Family Medicine 09/28/20 Dinesh Muir MD [facility] [address] [place] [address] Otolaryngology 08/25/18 Purvi Lennon MD [address] [facility] [address] [place] [address] Otolaryngology 08/25/18 Darshana Huertas AuD [address] [facility] [address] [place] [address] Drop Wire Aligner Audiology 08/25/18 David Pereira MD [address] [place] [address] Urology 09/30/20 Jovany Dumont MD [address] [place] [address] Neurology 03/23/22
--- OUTSIDE RECORDS SUMMARY | 2024-01-19 07:54 | XMS_ITS | Clinical Summary ---
Author Organization [facility] Address [address] [place] [address] Care Team Providers Care Professor Of Art Name Role Phone Alida Muir MD Unavailable Purvi Lennon MD Unavailable [phone] Darshana Huertas Unavailable [phone] Goran Dukes DO Primary Care Provider [phone] David Pereira MD Unavailable [phone] Jovany Dumont MD Unavailable [phone] Allergies Active Allergy Reactions Criticality Noted [...] 09/29/2020 Active levofloxacin (LEVAQUIN) 500 MG tabletIndications:Ac tangirnaq cystitis without hematuria Take 1 tablet (500 [...] for patients under 2 years old ??at [facility] for lipid analytes. 2-8 years: [...] LAB - BLOOD ORD ERABLES [facility] [address] [phone] * (ABNORMAL) Comprehensive metabolic panel (09/08/2021 8:28 [...] and gender (Shannon et al., NEJM, DOI: 10.1056/[id number]) Blood BLOOD SPECIMEN / Unknown Client Draw / Unknown 09/08/2021 8:28 AM CDT 09/08/2021 3:38 PM CDT David Jimenez PA-C LAB - BLOOD ORD ERABLES Performing Organization Address [facility]/State/ZIP Co de Phone Number [facility] [address] [address], [facility] [phone] from Last 3 Months or Most Recently Relevant to Health Maintenance Advance Directives For more information, please contact: [phone] * Full Code (Latest Code Status on File) Date Activated Date Inactivated Comments 09/28/2020 10:12 AM 09/29/2020 4:35 PM All basic a nd advanced life-sustaining interventions are performed as appropriate Question Answer Comments Code status determined by: Discussion with patie nt/ legal decision maker Care Teams Professor Of Art Relationship Specialty [place] [address] [place] [address] PCP - General Family Medicine 09/28/20 Alida Muir MD [facility] [address] [place] [address] Otolaryngology 08/25/18 Purvi Lennon MD [address] [address] Otolaryngology 08/25/18 Darshana Huertas AuD [address] [address] Leadership Development Instructor Audiology 08/25/18 David Pereira MD [address] [place] [address] Urology 09/30/20 Jovany Dumont MD [address] [address] Neurology 03/23/22
--- OUTSIDE RECORDS SUMMARY | 2024-01-19 07:54 | XMS_ITS | Data Portability ---
Author Organization [facility], [facility] Address [address] [place] [address] Care Team Providers Care Cab Worker Name Role Phone JI BOLANOS Primary Care Provider [phone] Assessment No assessment recorded. Plan of Treatment Reminders Order Date Submit Date Provider Last Modified By Organization Details Last Modified Time Details Appointments None recorded. Lab urinalysis , dipstick 2020 [facility], [address], [address], [place], [address], 10:54:26 culture, urine 2020 [facility], [address], [address], [place], [address], 09:57:17 Referral urologist referral - buried penis, BXO 2020 randal Bolden MD, [address] [facility], [address], [place], [address], 14:49:08 Procedures None recorded. Surgeries None recorded. Imaging None recorded. Medication Orders Flomax 0.4 mg capsule 2020 [place] [id number], [address], [place], [address], 10:37:46 Patient TargetsNo targets recorded. Patient Instructions Encounter Date Encounter Id Patient Instructions Last Modified By Organization Details Last Modified Time 10/04/2020 [id number] Incomplete bladd er emptying/weak stream/UTI: He doesn't [...] request records from his ER visit in [place], [place] and would like to see the CT scan report. 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 The opening is small and I cannot expose the head of the penis. This too may be contributing to his infection. I recommend that he see urology at the [facility] for consideration of treatment of [...] ick color -advantus YELLOW yellow Not Available [facility] [address] [facility] [address], [place], [address], 10/04/2020 10:54:26 10/05/19 21 10/04/2020 urina lysis , dipst ick appearance -advantus CLOUDY clear abnormal Not Available [facility] [address] [facility] [address], [place], [address], 10/04/2020 10:54:26 10/05/19 21 10/04/2020 urina lysis , dipst ick glucose -advantus NEGATI VE mg/dL negati ve Not Available [facility] [address] [facility] [address], [place], [address], 10/04/2020 10:54:26 10/05/19 21 10/04/2020 urina lysis , dipst ick bilirubin -advantus NEGATI VE negati ve Not Available [facility] [address] [facility] [address], [place], [address], 10/04/2020 10:54:26 10/05/19 21 10/04/2020 urina lysis , dipst ick ketones -advantus NEGATI VE mg/dL negati ve Not Available [facility] [address] [place] [address] [address], [place], [address], 10/04/2020 10:54:26 10/05/19 21 10/04/2020 urina lysis , dipst ick sp. gravity -advantus 1.025 1.010- 1.025 Not Available [facility] [address] [place] [address] [address], [place], [address], 10/04/2020 10:54:26 10/05/19 21 10/04/2020 urina lysis , dipst ick pH -advantus 6.0 5.0-8. 0 Not Available [facility] [address] [place] [address] [address], [place], [address], 10/04/2020 10:54:26 10/05/19 21 10/04/2020 urina lysis , dipst ick protein -advantus TRACE mg/dL negati ve abnormal Not Available [facility] [address] [place] [address] [address], [place], [address], 10/04/2020 10:54:26 10/05/19 21 10/04/2020 urina lysis , dipst ick urobilinogen -advantus 1.0 normal Not Available [facility] [address] [place] [address] [address], [place], [address], 10/04/2020 10:54:26 10/05/19 21 10/04/2020 urina lysis , dipst ick nitrites -advantus NEGATI VE negati ve Not Available [facility] [address] [place] [address] [address], [place], [address], 10/04/2020 10:54:26 10/05/19 21 10/04/2020 urina lysis , dipst ick blood -advantus SMALL negati ve abnormal Not Available [facility] [address] [place] [address] [address], [place], [address], 10/04/2020 10:54:26 10/05/19 21 10/04/2020 urina lysis , dipst ick leukocytes -advantus LARGE negati ve abnormal Not Available [facility] [address] [place] [address] [address], [place], [address], 10/04/2020 10:54:26 10/05/19 21 10/04/2020 urina lysis , dipst ick performed by Caren Fink Not Available [facility] [address] [place] [address] [address], [place], [address], 10/04/2020 10:54:26 10/05/19 21 10/04/2020 urina lysis , dipst ick total urine volume (mL) 40 /mL Not Available [facility] [address] [place] [address] [address], [place], [address], 10/04/2020 10:54:26 10/05/19 21 10/04/2020 urina lysis , micro scopi c U-WBC 50 - 100 [hpf] 0 - 2 abnormal Not Available [facility] [address] [place] [address] [address], [place], [address], 10/04/2020 10:54:28 10/05/19 21 10/04/2020 urina lysis , micro scopi c U-RBC 0 - 2 [hpf] 0 - 2 Not Available [facility] [address] [place] [address] [address], [place], [address], 10/04/2020 10:54:28 10/05/19 21 10/04/2020 urina lysis , micro scopi c bacteria Small [hpf] negati ve abnormal Not Available [facility] [address] [facility] [address], [place], [address], 10/04/2020 10:54:28 10/05/19 21 10/04/2020 urina lysis , micro scopi c squamous epi Small /lpf negati ve,sma ll Not Available [facility] [address] [facility] [address], [place], [address], 10/04/2020 10:54:28 10/05/19 21 10/04/2020 cultu re, urine final report Microb iology result s Not Available [facility] [address] [facility] [address], [place], [address], 10/05/2020 09:57:17 10/03/19 21 09/28/2020 imagi ng/di [...] bladder Active 10/05/19 21 Chris Castro MD [address] [place] [address],[address], [address], [facility] 10/04/2020 10:32:13 Slowing of urinary stream Active 10/05/19 21 Chris Castro MD [address] [place] [address],[address], [address], [facility] 10/04/2020 10:32:13 Acute urinary tract infection Active 10/05/19 21 Chris Castro MD [address] [place] [address],[address], [address], [facility] 10/04/2020 10:32:15 Acquired buried penis Active 10/05/19 Chris Castro MD [address] [facility],[address], [place], [address], [facility] 10/04/2020 10:33:04 Problem Notes None recorded. Procedures Surgical History Date Name Laterality Status Provider Name and Address Organization Details Recorded Time Bladder Scan completed Geovanna cárdenas [facility] 10/04/2020 10:09:08 Imaging Results Imaging [...] Name and Address Organization Details Recorded Time 142166 Medicinal product containin g penicilli n and acting as antibacte rial agent (product) medicatio n other Not available Not available 09/30/2020 34240 05 SNOMED aniph aliti c Not Available [...] Details Last Updated DateTime 10/04/2020 39.9 kg/m2 290188.9524 63501 g 170.18 cm Not Available Health Note [...] Encounter Closed Date Diagnosis/Indication Diagnosis SNOMED-CT Code [id number] Chris Castro MD [address] [address] 10/04/2020 09:55:35 10/04/2020 11:01:27 Acute urinary tract infection [id number] Incomplete emptying of urinary bladder [id number] Slowing of urinary stream [id number] Acquired buried penis 23 [id number] Health Concerns Section Related Observation LastModified by Organization Detai ls LastModified Time None Recorded Concern Status LastModified by Organization Details LastModified Time None Recorded Advance Directives Directive None Recorded Payers Encounter Date Sequence Insurance Name Policy Number Policy Barbosa Covered Member ID Barbosa Member ID Guarantor Name 10/04/2020 1 [employer] - DOS PRIOR TO 2021 (MEDICAID REPLACEMENT - HMO) [facility] Morgan Pearson [id number] Morgan Pearson Notes Date Note Type Note [...] had a CT scan in [facility] in [place], [place] which was done on 09/28/20. He [...] Terrible [Score: 3] Chris Castro MD [address] [facility],[address], [place], [address], [place] [facility] 10/04/2020 10:37:57
--- OUTSIDE RECORDS SUMMARY | 2024-01-19 07:54 | XMS_ITS | Clinical Summary ---
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 60 g 1 08/02/19 24 Active ammonium lactate 12% (LACHYDRIN) 12 % creamIndications:I ntertrigo Apply topically to affected area(s) two times daily. 140 g 6 10/05/19 24 Active ketorolac (TORADOL) 10 mg [...] day. 1 Each 10/13/19 24 Active Insulin [place], Disposable, (BD Amanda 2nd Gen Pen Needle) 32 gauge x 32Indications:T ype 2 diabetes mellitus with hyperglycemia, without [...] be used to read blood sugars, follow motion picture set worker directions. 6 Each 3 10/13/19 24 Active lancets (Microlet Lancet)Indications :Type 2 diabetes mellitus with hyperglycemia, without long-term current use of insulin (HC) Dispense item covered by pt ins. E11.9 NIDDM type II - Test 3 times/day, Reason: High A1C 150 Each 10/13/19 24 Active insulin lispro, U-100, (HumaLOG [...] by mouth every 12 hours. 60 Tablet 11/26/19 24 Active Bismuth Tribrom-Petrolatum ,Wh (Xeroform Petrolatum Dressing) 5 X 9 bndgIndications:Ce llulitis of right lower extremity Apply topically to affected area(s). 50 Each 1 12/06/19 24 Active peeled potato inspector (FreeStyle Lacie 3 [place]) for continuous blood glucose monitor (CGM)Indications:T ype 2 diabetes mellitus with hyperglycemia, without long-term current use of insulin (HC) USE TO READ BLOOD SUGAR FOLLOWING TAKER OUT DIRECTIONS 1 Each 12/22/19 24 Active insulin glargine, U-100, (Lantus Solostar U-100 Insulin) 100 unit/mL (3 mL) penIndications:Poo rly controlled type 2 diabetes mellitus (HC) Inject 50 units subcutaneous before bedtime. 45 mL 01/05/20 24 Active Lantus Solostar U-100 Insulin 100 unit/mL (3 mL) penIndications:Poo rly controlled type 2 diabetes mellitus (HC) Inject 65 units subcutaneous before bedtime. Product desired: LANTUS SOLOSTAR 60 mL 01/05/20 24 Active alcohol swabs (B-D Single Use Swabs Regular)Indication s:Poorly controlled type 2 diabetes mellitus (HC) For home use. 200 Each 3 01/18/20 24 024 Active Lantus Solostar U-100 Insulin 100 unit/mL (3 mL) penIndications:Poo rly controlled type 2 diabetes mellitus (HC) Inject 50 units subcutaneous before bedtime. Product desired: LANTUS SOLOSTAR 45 mL 3 10/05/19 24 024 Discontinued(*M edication adjustment) FreeStyle Lacie 3 [place] for continuous blood glucose monitor (CGM)Indications:T ype 2 diabetes mellitus with hyperglycemia, without long-term current use of insulin (HC) To be used to read blood sugars follow motion picture set worker directions. 1 Each 10/13/19 24 024 Discontinued insulin glargine, U-100, (Lantus Solostar U-100 Insulin) 100 unit/mL (3 mL) penIndications:Poo rly controlled type 2 diabetes mellitus (HC) Inject 50 units subcutaneous before bedtime. 45 mL 1 12/09/19 24 024 Discontinued(Re order (E-cancel not sent)) [...] Encounters Date Type Department Care Team Description 01/18/2024 Telephone [facility] [address] [place] [address] Goran Dukes, Refill Request (ALCOHOL SWABS #200) 01/05/2024 Orders Only [facility] [address] [place] [address] Goran Dukes, <No scans attached> 01/05/2024 Telephone [facility] [address] [place] [address] Goran Dukes, Medication Management (insulin glargine, U-100, (Lantus Solostar U-100 Insulin) 100 unit/mL (3 mL) pen) 01/05/2024 Telephone [facility] [address] [facility] [place] [address] Goran Dukes, Medication Management (insulin glargine, U-100, (Lantus Solostar U-100 Insulin) 100 unit/mL (3 mL) pen) 12/20/2023 Refill [facility] [address] [facility] [place] [address] Goran Dukes, Refill Request (Freestyle Lacie 3 [place]) 12/09/2023 Refill [facility] [address] [facility] [place] [address] Goran Dukes, Refill Request (LANTUS SOLOSTAR PEN INJ) 12/06/2023 Refill [facility] [address] [facility] [place] [address] Goran Dukes, Refill Request (Xeroform Sterile Petrolatum Gauze Patch, 5 x 9.) 12/01/2023 Telephone [facility] [address] [facility] [place] [phone] Goran Dukes, covid vaccine (Needs letter) 11/26/2023 Refill [facility] [address] [facility] [place] [phone] Goran Dukes, Refill Request 11/25/2023 Refill [facility] [address] [facility] [place] [address] Goran Dukes, DO Refill Request (Claritin/) 11/25/2023 Orders Only [facility] [address] [facility] [place] [address] Goran Dukes, DO <No scans attached> 11/25/2023 Telephone [facility] [address] Goran Dukes, Prior Authorization (ketorolac (TORADOL) 10 mg tablet APPROVED 10/26/23-11/24/24) 11/25/[address] [address] Goran Dukes DO Medication Management 11/22/[address] [address] Goran Dukes, Refill Request (CLARITIN REDITABS 10 MG TAB) 11/18/[address] [address] Goran Dukes DO Refill Request (NOVOLOG FLEXPEN 100 UNIT /ML INJ SUBSTITUTION ) 11/09/[address] [address] Goran Dukes DO 10/25/2023 1:20 PM CDT Office Visit [address] [address] Goran Dukes, Urinary Problem 10/25/2023 Travel 10/25/2023 Nurse Triage [address] [address] Goran Dukes, Urinary Problem 10/25/[address] [address] Goran Dukes, UTI (Need med ) from Last 3 Months Immunizations Name Administration Dates Next Due COVID-19 vaccine ([employer] 30mcg/0.3mL) P F, MDV 01/16/2021 Influenza, IIV4 [...] T Respiratory Rate 20 06/17/2023 7:45 AM 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 Oxygen Saturation 97% 10/25/2023 1:34 PM CDT [...] PM CDT UTI (urinary tract infection), uncomplicated ANTI HIV 1/2 Routine 10/05/2023 2:39 PM CDT Screening for HIV (human immunodeficiency virus) LIPID PANEL W REFLEX MEASURED LDL Routine 10/05/2023 2:39 PM CDT Diabetic peripheral neuropathy (HC) ANTI HCV Routine 01/22/2022 12:50 PM CDT Need for hepatitis C screening test from Last 3 Months or Most Recently Relevant to Health Maintenance Results * (ABNORMAL) URINALYSIS MICROSCOPIC (10/25/2023 1:37 PM CDT) RBC 6-10(A) 0-2, None Seen /HPF 10/25/2023 1:47 PM CDT [facility] WBC >100(A) 0-2, 3-5, None Seen /HPF 10/25/2023 1:47 PM CDT [facility] BACTERIA Moderate(A ) None Seen, Rare, Few Bacteria/H PF 10/25/2023 1:47 PM CDT [facility] EPITHELIAL CELLS None Seen None Seen, Few Epi/HPF 10/25/2023 1:47 PM CDT [facility] WHITE CELL CLUMPS Present(A) (none) 10/25/2023 1:47 PM CDT [facility] Urine URINE SPECIMEN / Unknown Non-Blood / Unknown 10/25/2023 1:37 PM CDT 10/25/2023 1:37 PM CDT [employer] URINE Performing Organization Address [facility]/ZIP Co de Phone Number [facility] [address] [place] [address], [place] * (ABNORMAL) URINE CULTURE (10/25/2023 1:37 PM CDT) CULTURE RESULT(A) 10/27/2023 8:53 AM CDT [facility] CULTURE >100,000 CFU/mL Streptococcus agalactiae (Strep Group B) 10/27/2023 8:53 AM CDT [facility]- [facility] LAB[facility] CULTURE <10,000 CFU/mL Multiple organisms probable contaminants 10/27/2023 8:53 AM CDT [facility] Urine URINE SPECIMEN / Unknown Non-Blood / Unknown 10/25/2023 1:37 PM CDT 10/25/2023 1:37 PM CDT [employer] MICROBIOLOGY [facility] [address] [place] [address], [place] * (ABNORMAL) UA W/ SEDIMENT EXAM REFLEXED PER CRITERIA (10/25/2023 1:37 PM CDT) COLOR Yellow Yellow Color 10/25/2023 1:47 PM CDT [facility] CLARITY Cloudy(A) Clear Clarity 10/25/2023 1:47 PM CDT [facility] SPECIFIC GRAVITY,URINE 1.025 1.010, 1.015, 1.020, 1.025 10/25/2023 1:47 PM CDT [facility] PH,URINE 5.5 6.0, 7.0, 8.0, 5.5, 6.5, 7.5, 8.5 10/25/2023 1:47 PM CDT [facility] UROBILINOGEN, QUALITATIVE Normal Normal EU/dl 10/25/2023 1:47 PM CDT [facility] PROTEIN, URINE 100(A) Negative mg/dL 10/25/2023 1:47 PM CDT [facility] GLUCOSE, URINE >=1000(A) Negative mg/dL 10/25/2023 1:47 PM CDT [facility] KETONES,URINE Negative Negative mg/dL 10/25/2023 1:47 PM CDT [facility] BILIRUBIN,URI NE Negative Negative 10/25/2023 1:47 PM CDT [facility] OCCULT BLOOD,URINE Moderate(A) Negative 10/25/2023 1:47 PM CDT [facility] NITRITE Negative Negative 10/25/2023 1:47 PM CDT [facility] LEUKOCYTE ESTERASE Moderate(A) Negative 10/25/2023 1:47 PM CDT [facility] Urine URINE SPECIMEN / Unknown Non-Blood / Unknown 10/25/2023 1:37 PM CDT 10/25/2023 1:37 PM CDT Goran Dukes DO URINE Performing Organization Address City/State/[facility] Co de Phone Number [facility] [address] [place] [address], [place] * (ABNORMAL) LIPID PANEL W REFLEX MEASURED LDL (10/05/2023 2:39 PM CDT) CHOLESTEROL,TOTAL 187 100 - 199 mg/dL 10/06/2023 1:31 AM CDT [facility] Comment: Cholesterol, Total Reference Ranges Desirable <200 mg/dL Borderline 200-239 mg/dL High >=240 mg/dL TRIGLYCERIDES 147 <150 mg/dL 10/06/2023 1:31 AM CDT [facility] HDL CHOLESTEROL 27(L) >40 mg/dL 1:31 AM CDT [facility] NON-HDL CHOLESTEROL 160(H) <145 mg/dl 10/06/2023 1:31 AM CDT [facility] CHOL/HDL RATIO 6.93(H) <4.50 10/06/2023 1:31 AM CDT [facility] LDL CHOLESTEROL 131(H) <=130 mg/dL 10/06/2023 1:31 AM CDT [facility] VLDL CHOLESTEROL 29 <=30 mg/dL 10/06/2023 1:31 AM CDT [facility] PROVIDER ORDERED STATUS RANDOM 10/06/2023 1:31 AM CDT [facility] Blood BLOOD SPECIMEN / Unknown Venipuncture / Unknown 10/05/2023 2:39 PM CDT 10/05/2023 2:39 PM CDT Goran Dukes DO CHEMISTRY [facility] [address] [place] [address], [place] * ANTI HIV 1/2 [81299.0] (10/05/2023 2:39 PM CDT) HIV-1/HIV-2 SCREEN Non-Reacti ve Non-Reacti ve 10/06/2023 1:17 AM CDT [facility] Comment:HIV-1 p24 and HIV-1/ HIV-2 Ab Not Detected. Blood BLOOD SPECIMEN / Unknown Venipuncture / Unknown 10/05/2023 2:39 PM CDT 10/05/2023 2:39 PM CDT [employer] [employer] [employer] [facility] [address] [place] [address], * ANTI HCV (01/22/2022 12:50 PM CDT) HEPATITIS C ANTIBODY Non-React cherelle Non-React cherelle 01/22/2022 9:10 PM CDT [facility] Comment:Antibodies to HCV no t detected; does not exclude the possibility of exposure to HCV. Blood BLOOD SPECIMEN / Unknown Venipuncture / Unknown 01/22/2022 12:50 PM CDT 01/22/2022 12:51 PM CDT [employer] DO [facility] 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 08/04/14 Tayla Kiran, RN [address] [place] [address] Diabetes Care Management Registered Nurse 10/13/2308/13
--- OUTSIDE RECORDS SUMMARY | 2024-01-19 07:54 | XMS_ITS | Encounter Summary ---
Author Organization [facility] Address [address] [place] [address] Care Team Providers Care Medical Parasitologist Name Role Phone King Garcia MD Primary Care Provider Unavailable No Ref-Primary, Physician Primary Care Provider [facility] Primary Care Provide r Go Lr MD Unavailable Go Lr MD Unavailable Be Willard MD Primary Care Provider [phone] Dinesh Muir MD Unavailable Purvi Lennon MD Unavailable [phone] Darshana Huertas Unavailable [phone] Goran Dukes DO Primary Care Provider David Pereira MD Unavailable [phone] Jovany Dumont MD Unavailable [phone] Reason for Visit * Reason Comments Medication Refill Encounter Details Date Type Department Care Team (Late st Contact Info) Description 12/25/2016 Refill [facility] [address] [address] Seda Rizzo, PAEfrenC [address] [id number] Medication Refill Social History Tobacco Use Types [...] documented as of this encounter Care Teams Medical Parasitologist Relationship Specialty Start Date End Date King Garcia MD PCP - General Family Practice 09/25/16 10/30/17 No Ref-Primary, Physician PCP - General 10/31/17 12/19/[address] [facility] [address] [place] [phone] PCP - General 12/20/17 08/24/18 Go Lr MD [address] [place] [address] PCP - Assigned PCP 11/08/17 08/16/18 Be Willard MD [facility] [address] [place] [address] PCP - General Family Practice 08/25/18 09/27/20 [place] [address] [place] [phone] PCP - General Family Medicine 09/28/20 Go Lr MD [address] [place] [address] Assigned PCP 11/08/17 09/30/19 Dinesh Muir MD [facility] [address] [place] [address] Otolaryngology 08/25/18 Purvi Lennon MD [address] [facility] [address] [place] [address] Otolaryngology 08/25/18 Darshana Huertas AuD [address] [facility] [address] [place], [place] [address] Assistant Professor In Family Studies Audiology 08/25/18 David Pereira MD [address] [place] [address] Urology 09/30/20 Jovany Dumont MD [address] [place] [address] Neurology 03/23/22 documented as of this encounter
== END 2024-01-19 07:53 | disposition home or self-care (01) ==
LOC: WOUND 07:52
PROVIDERS: Visit Provider Surgery
DX: I89.0 Lymphedema, not elsewhere classified (principal); I87.2 Venous insufficiency (chronic) (peripheral); E08.40 Diabetes mellitus due to underlying condition with diabetic neuropathy, unspecified; Z79.4 Long term (current) use of insulin
CPT/HCPCS: G0463

== ENCOUNTER 2024-02-29 14:15 | Outpatient (RCR) | payer MEDICARE, SELFPAY ==
--- NOTE | 2023-12-03 17:44 | OT.OPLE2 ---
OT Outpatient Lymphedema Eval* OT Outpatient Lymphedema Eval* Start: 12/03/23 17:09 Freq: Status: Active Protocol: Document 12/03/23 17:09 CELSO (Rec: 12/03/23 17:38 LCN [id number]) E-signed By Ryanne Cristina, OTR/L, CLT OT Outpatient Evaluation Details Type Type Eval Complexity Low Insurance Information Insurance Information Insurance Information Comments [facility] Current Condition/Medical Diagnosis Referring Provider Hailey Cotton / Kyler Curiel [facility] is PCP Medical Diagnoses B LE lymphedema with history of recurrent cellulitis and slow healing wounds Treatment Diagnosis B LE Lymphedema I89.0 Date Of Onset 10/27/23 Medical Contraindications DM,Arthritis Medical History Medical History Obesity,Cellulitis/Infection, Slow Healing Wound,DM, Allergies (Latex or Other),CVI ,Asthma/Respiratory Disorder, Arthritis Medical History Comments OA in cervical spine, R shoulder, both knees. Lots of dust mold, dander allergies. Surgical History Surgical History (limited health history available) Medications Medications DM diagnosed 5-6 yrs ago. Short, long acting insulin injections and Jardiance ( has stomach issues with it). Oral meds for Bipolar, well controlled, same dose for a long time. Family History Family History of Lymphedema No Current Work Status Current Work Status Disabled Current Work Status Comments Disabled per hearing loss with [employer] [place] Subjective Subjective Morgan Pearson had an exacerbation of L ateral calf wound today with his foot slipped on a slippery step in the rain this morning, bumping L nevarez /calf open superficially in 3 X 8 cm area. Pt attempted getting back into wound care today ( none available) and then reached out to lymphedema scheduling to get in and address his compression needs ( initially ordered /24 but had lots of family issues for the past month. Feeling ready to address these issues now.) pt's leg edema started with his DM diagnosis 5-6 yrs ago. Since then has had 3 hospitalizations for cellulitis, started with leg weeping. Pt tried treating the weeping of his legs at home with MARTHA wrapping, that dug in, cut him and got infected. In late May 2023 sought ER/wound care at [facility] ( prefers [facility] for his care) and transferred to [facility] this spring. D/C with full wound closure 11/17/23 with orders for OP OT 10/27/23 . [facility] ( velcro [facility]/Sigvaris Basic with transition socks) x 3 sets for each leg, but did not know how to put them on. Living Situation Current Living Situation Home With Spouse Or SO Current Living Situation Comments is very supportive, able to help with wound care dressings. Patient Difficulties Difficulties With Any Of The Following Walking,Reaching Feet & Toes Patient Difficulties Comments 10-5 min standing tolerance. Impairments Impairments Loss of Mobility,Difficulties With ADLs,Limb Heaviness,Poor Clothing Fit Problem List Problem List Limited Knowledge of Lymphedema Treatment/Condition /Precautions,Limited Knowledge of Skin Care & Infection Precautions,Significant Risk For Infection For Lymphedema Related Complications,Does Not Have a HEP,Does Not Know How To Bandage For Limb Reduction, Presents With Increased Fall Risk Secondary To Lymphedema, Presents With Impaired Mobility/ROM Exercise History Does Patient Exercise Regularly No Exercise Comments Limited per knee pain. Enjoys fishing Pain Pain Yes Pain Comments B knee pain 6/10 pn with 10 min walking. Previous Treatment Previous Treatment For Swelling/ Compression Garment,Multi- Lymphedema Layer Compression Bandages, Elevation Compression History Does Patient Currently Wear Compression No During Daytime Does Patient Currently Wear Compression No At Night Current Swelling (Location/Pitting/Texture) Pitting Scale: 0 = No pitting 1+ Tissue returns to normal almost immediately 2+ Tissue returns after 15-30 seconds 3+ Tissue returns after 1-1/2 minutes 4+ Tissue returns after 2-3 minutes N/A Tissue no longer pits due to induration Tissue texture: Soft or indurated Clinical Presentation Area Pt with inverted wine bottle firm hard indurated elgs, dry scaley thick skin that is dusky, cool to touch. Non pitting edema. Sqauring of toes, distended cuticles (+) Stemmer's sign. Triggering Event & Start Date of 5-6 yrs ago with dx of DM. Swelling/Lymphedema Skin Changes Fibromas,Hyperkeratosis, Lymphorrhea,Pressure Ulcerations,Stasis Dermatitis, Toe/Foot Deformities,Fibrosis, Limited Skin Mobility Skin Changes Comments fixed creases at MT and sub malleolar areas. Skin is thick with yellow keratotic scaling, poor skin mobility and fragile in appearance. Positive Stemmer's Sign Yes Capillary Refill Brisk Stemmer and Capillary Refill Comments Legs feel much better when elevated. Has not been wearing compression since his wound care d/c 11/17/23 Swelling Comments L anterior lateral mid calf 3 cm x 8 cm wound area that is cracked partially denuded with lymph drainage seeping, dripping down legs. Non odorous, irregular margins, non red. No temperature change . No pain. Type of Swelling Secondary Staging Staging Stage 3 Assessment Assessment Pt with Impaired integrity of skin & lymphedema lead to increased risk infection & skin breakdown.?Pt c/o decreased mobility of BLE d/t bulk of swelling in legs and impaired fit of appropriate footwear. Legs are heavy, hard to feel where feet are, limited standing tolerance, hard to get shoes, socks on safely.?Wound is draining into his R shoe. Patient Goals Patient Goals close my leg up again and hopefully walk for 30 minutes so I can fish. Short Term Goals (# of Weeks) 6 Click To Default Short Term Goals Standard Goals Short Term Goals Goal 1 : Patient and or caregiver will understand lymphedema precautions to decrease risk of infection and further lymphedema related complications Goal 2: Patient will develop a tolerance for wearing multi- layer, short stretch bandages between treatment sessions to facilitate limb decongestion Goal 3: Patient will experience decreased pitting edema in order to improve tissue health and decrease risk for infection/cellulitis Goal 4: Patient will perform HEP with minimal assistance in order to improve lymphatic flow and venous return Goal5 : Patient will perform self MLD protocol with minimal assistance to help reduce swelling and improve ROM and mobility Short Term Goals Comments Pt will likely use velcro wraps while at home and SSB / GCB during/after OT visits. Keyseating Machine Set Up Operator Goals (# of Weeks) 12 Click To Default Half-Way Goals Standard Goals Keyseating Machine Set Up Operator Goals Goal 1 : Patient and/or caregiver will be independent with short-stretch compression bandaging for continued volume reduction and prevention of recurrence Goal 2: Patient will experience increased ROM and mobility in order to improve safety and independence with transfers and mobility Goal 3: Patient will be independent with donning and doffing of compression garments which will enable regular daily garment wear Goal 4: Patient will achieve a specific B LE volume reduction of 1000 ML from total measurements to enable functional improvements such as fitting into standard sized clothing and shoes, return to a prior level of functional mobility, improved balance, and reduced risk of falling. Goal 5: Patient and/or caregiver will be independent with HEP and lymphedema management to reduce risk for edema relapse and to reduce risk for infection Half-Way Goals Comments Pt would benefit from use of pneumatic lymph pump system daily to manage his stage 3 lymphedema with recurrent cellulitis /slow healing ulcer history, poor tissue mobility poor skin integrity and skin textural changes. Treatment Plan Treatment Plan Evaluation,Edema Control, Manual Therapy,Therapeutic Exercise,Self-Care/Home Management,Education Expected Frequency 1-2x Week Expected Duration 8-10 Weeks Certification Certification Statement I Certify That: Therapy Services Provided, Therapy Plan Established, Therapy Plan Reviewed Certification Information Clinic ID # [id number] Initial Certification Date 12/03/23 Recertification Due Date 03/02/24 Provider Signature Required Yes Provider Signature Shows Agreement With POC & Medical Necessity Physician NPI Number Write NPI# Here Physician Comment/Change Comment or Changes Physician Signature & Date Requested Please Sign/Date Here
[2024-01-06 15:15] VITALS: BMI 48.4
[2024-01-10 16:38] VITALS: BMI 48.4
[2024-01-21 16:29] VITALS: BMI 48.4
[2024-05-01 12:00] VITALS: BMI 48.4
== END 2024-06-28 23:59 | disposition home or self-care (01) ==
PROVIDERS: Visit Provider Surgery
DX: I89.0 Lymphedema, not elsewhere classified (principal); Z51.89 Encounter for other specified aftercare
CPT/HCPCS: 97110; 97140; 97165; 97535; X5282

== ENCOUNTER 2024-08-22 09:58 | Outpatient (CLI) | payer OTHER, SELFPAY | END 2024-08-22 09:59 | disposition home or self-care (01) | LOC: WOUND 10:00 | PROVIDERS: Visit Provider Nurse Practitioner Family | DX: I89.0 Lymphedema, not elsewhere classified (principal); E11.628 Type 2 diabetes mellitus with other skin complications; L97.828 Non-pressure chronic ulcer of other part of left lower leg with other specified severity; Z79.4 Long term (current) use of insulin; E66.01 Morbid (severe) obesity due to excess calories; Z68.43 Body mass index [BMI] 50.0-59.9, adult | CPT/HCPCS: 97602; G0463 ==

== ENCOUNTER 2024-08-29 10:01 | Outpatient (CLI) | payer MEDICARE, SELFPAY | END 2024-08-29 10:02 | disposition home or self-care (01) | LOC: WOUND 10:01 | PROVIDERS: Visit Provider Nurse Practitioner Family | DX: I89.0 Lymphedema, not elsewhere classified (principal); I87.2 Venous insufficiency (chronic) (peripheral); L97.828 Non-pressure chronic ulcer of other part of left lower leg with other specified severity; E11.628 Type 2 diabetes mellitus with other skin complications; Z79.85 Long-term (current) use of injectable non-insulin antidiabetic drugs | CPT/HCPCS: G0463 ==

== ENCOUNTER 2024-09-05 10:00 | Outpatient (CLI) | payer MEDICAID, SELFPAY | END 2024-09-05 10:01 | disposition home or self-care (01) | LOC: WOUND 10:03 | PROVIDERS: Visit Provider Nurse Practitioner Family | DX: I89.0 Lymphedema, not elsewhere classified (principal); E11.628 Type 2 diabetes mellitus with other skin complications; L97.821 Non-pressure chronic ulcer of other part of left lower leg limited to breakdown of skin; Z79.4 Long term (current) use of insulin | CPT/HCPCS: 97602; G0463 ==

== ENCOUNTER 2024-09-14 13:58 | Outpatient (CLI) | payer MEDICAID, SELFPAY | END 2024-09-14 13:59 | disposition home or self-care (01) | LOC: WOUND 13:59 | PROVIDERS: Visit Provider Nurse Practitioner Family | DX: I89.0 Lymphedema, not elsewhere classified (principal); E11.9 Type 2 diabetes mellitus without complications; I87.2 Venous insufficiency (chronic) (peripheral); Z79.4 Long term (current) use of insulin | CPT/HCPCS: G0463 ==

== ENCOUNTER 2024-09-19 10:00 | Outpatient (CLI) | payer MEDICAID, SELFPAY | END 2024-09-19 10:01 | disposition home or self-care (01) | LOC: WOUND 10:01 | PROVIDERS: Visit Provider Nurse Practitioner Family | DX: E11.9 Type 2 diabetes mellitus without complications (principal); I89.0 Lymphedema, not elsewhere classified; I87.2 Venous insufficiency (chronic) (peripheral); Z79.4 Long term (current) use of insulin | CPT/HCPCS: G0463 ==